=== PATIENT | female | born 1970 | race Caucasian/White ===

== ENCOUNTER → 2016-12-29 | Outpatient (CLI) | payer OTHER ==
[~2016-12-29] MED LIST: ALBU8.5H2 IH; AMOX-358 PO; BENZAPRIL PO; BNZ20T PO; CETI5TAB6 PO; CYCL10TA9 PO; FLUT9.9S NS; HYDR-700 PO; HYDR473S16 PO; MULT-608 PO; OMEP20TA2 PO; ONDA4TAB8 PO; ONDN4T PO
--- NOTE | 2017-01-01 13:57 | Diagnostic Imaging Report ---
Bilateral screening mammogram. The current study was also evaluated with a Computer Aided Detection (CAD) system. INDICATION: Screening. No current complaints stated on the questionnaire. COMPARISON: 10/06/2013. FINDINGS: The breasts are composed of heterogeneously dense parenchyma which may decrease mammographic sensitivity. There is no mass, architectural distortion, or suspicious cluster of calcification. Allowing for technique and positional differences, no suspicious change is seen. IMPRESSION: Dense breasts with no definite change. ACR BI-RADS Category 2: Benign findings. Result letter will be mailed to the patient. Note: At least 10% of breast cancer is not imaged by mammography. Dictated by: Dictated on workstation # [id number]
== END ==
LOC: RAD 09:46
PROVIDERS: ATTEND Nurse Practitioner Family
DX: Z12.31 Encounter for screening mammogram for malignant neoplasm of breast (principal)
CPT/HCPCS: 77067

== ENCOUNTER → 2017-04-10 | Outpatient (CLI) | payer OTHER ==
[~2017-04-10] VITALS: Ht 170.2 cm; Wt 65.8 kg
[2017-04-10] VITALS (38 sets, daily range): BP systolic 72–138; BP diastolic 50–109
[~2017-04-10] MED LIST changes: +NS IV 1000 ML 1,000 ML IV SCH; +NS IV 1000 ML 1,000 ML ONE
== END ==
LOC: RAD 07:04
PROVIDERS: ATTEND Nurse Practitioner Family
DX: R55 Syncope and collapse (principal); R06.02 Shortness of breath; R53.83 Other fatigue; Z95.810 Presence of automatic (implantable) cardiac defibrillator
CPT/HCPCS: 93660

== ENCOUNTER → 2017-04-17 | Outpatient (CLI) | payer OTHER ==
[~2017-04-17] MED LIST changes: -NS IV 1000 ML 1,000 ML IV SCH; -NS IV 1000 ML 1,000 ML ONE
== END ==
LOC: RAD 11:42
PROVIDERS: ATTEND Nurse Practitioner Family
DX: R55 Syncope and collapse (principal); Z82.49 Family history of ischemic heart disease and other diseases of the circulatory system
CPT/HCPCS: 93306

== ENCOUNTER → 2017-05-22 | Outpatient (CLI) | payer OTHER | LOC: CARD 09:11 | PROVIDERS: ATTEND Internal Medicine Cardiovascular Disease | DX: I10 Essential (primary) hypertension (principal); R55 Syncope and collapse; M79.89 Other specified soft tissue disorders ==

== ENCOUNTER 2018-11-08 02:34 | Emergency (ER) | payer OTHER ==
[~2018-11-08] VITALS: Ht 172.7 cm; Wt 81.6 kg
[2018-11-08] MEDS ORDERED: ONDANSETRON 4 MG/2 ML (SDV) Z0FRAN IVP ONE (02:45)
--- NOTE | 2018-11-08 03:20 | NUR ---
BACKBOARD REMOVED BY DR. RODARTE WITH LOG ROLL ASSIST PER 2 RN'S AND RT HOLDING C SPINE. ABRASION AND SWELLING NOTED TO MID BACK. PAIN TO BACK OF NECK UPON PALPATION, TENDERNESS DOWN BACK PER PALPATION.
[2018-11-08] MEDS ORDERED: fentaNYL INJECTION 100 MCG/2 ML AMP ONE ×2 (03:24→05:53)
[2018-11-08] MEDS ORDERED: fentaNYL INJECTION 100 MCG/2 ML AMP IVP ONE ×2 (03:30→05:45)
--- NOTE | 2018-11-08 04:34 | ED Fall/Injury ---
General Chief Complaint: Trauma-Non Activation Stated Complaint: FELL BACK IN CHAIR Nursing Triage Note: TO ED VIA [facility]. PT STATES SHE WAS HANGING PICTURE IN BATHROOM AND STANDING ON COUNTER, WENT TO MOVE TO STAND ON CHAIR AND SLIPPED AND FELL AND HIT BACK ON TOILET. DENIES HITTING HEAD, DENIES LOC. C COLLAR AND BACKBOARD IN PLACE UPON ARRIVAL. Source: patient, EMS History of Present Illness Date Seen by Provider: November 08, 2018 Time Seen by Provider: 02:33 Initial Comments PT ARRIVES VIA [facility] FROM HOME, FULLY IMMOBILIZED PT STATES SHE WAS HANGING A PICTURE IN THE BATHROOM TONIGHT AROUND 0130, AND HAD STOOD ON A CHAIR AND THEN STOOD ON THE COUNTER, THEN SHE WAS TRYING TO STAND ON THE CHAIR AGAIN, IT SLIPPED AND SHE FELL BACKWARDS, HITTING HER BACK ON THE TOILET DID NOT HIT HEAD AND NO LOSS OF CONSCIOUSNESS NO PARESTHESIAS OR MOTOR DEFICITS NO EXTREMITY INJURIES NO VISION CHANGES DID HAVE SOME NAUSEA ON SITTING UP NO HISTORY OF BACK PROBLEMS [facility] Allergies and Home Medications Allergies Coded Allergies: latex (Verified Allergy, Unknown, 04/28/15) Home Medications Albuterol 8.5 Gm Hfa.aer.ad, 2 PUFF IH Q4H PRN, (Reported) 2 PUFFS Amoxicillin/Potassium Clav 1 Each Tablet, 1 EACH PO BID, (Reported) Cyclobenzaprine HCl 10 Mg Tablet, 10 MG PO Q8H PRN for SPASMS Prescribed by: ANIYAH HILARIO on 04/28/151408 Cyclobenzaprine HCl 10 Mg Tablet, 10 MG PO Q8H Prescribed by: SUMMER RODARTE on 11/08/18550 Fluticasone Propionate 9.9 Ml [place].susp, 9.9 ML NS BID, (Reported) Hydroxyzine Hcl 25 Mg Tablet, 1 EACH PO HS, (Reported) Ondansetron 4 Mg Tab.rapdis, 4 MG PO Q6H PRN for NAUSEA Prescribed by: ANIYAH HILARIO on 04/28/151408 Tramadol HCl 50 Mg Tablet, 50 MG PO Q4H PRN for PAIN-MODERATE Prescribed by: SUMMER RODARTE on 11/08/18550 Patient Home Medication List Home Medication List Reviewed: Yes Review of Systems Review of Systems Constitutional: no symptoms reported Eyes: No Symptoms Reported Ears, Nose, Mouth, Throat: no symptoms reported Respiratory: no symptoms reported Cardiovascular: no symptoms reported Gastrointestinal: see HPI; No constipation, No diarrhea; nausea; No vomiting Genitourinary: no symptoms reported Musculoskeletal: see HPI, back pain Skin: no symptoms reported Psychiatric/Neurological: No Symptoms Reported Past Waeayri-Tnjdka-Yndeos Hx Patient Social History Alcohol Use: Denies Use Recreational Drug Use: No Smoking Status: Current Everyday Smoker (1/2 PPD) Type Used: Cigarettes (1/2 PPD) Recent Foreign Travel: No Contact w/Someone Who Travel: No Recent Infectious Disease Expo: No Recent Hopitalizations: No Immunizations Up To Date Tetanus Booster (TDap): Less than 5yrs Seasonal Allergies Seasonal Allergies: No Past Medical History Surgeries: Yes (LAP BAND, PARTIAL HYSTERECTOMY/OVARIES INTACT) Abdominal, Gallbladder, Hysterectomy Respiratory: Yes (ALLERGENIC ASTHMA) Asthma Cardiac: No Neurological: Yes Headaches /Migraines Reproductive Disorders: Yes (PARTIAL HYSTERECTOMY 1995.) Female Reproductive Disorders: Denies [employer]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 0oz. 81.637260uw; 22.7 BMI Method:Stated General Appearance: WD/WN, no apparent distress HEENT: PERRL/EOMI, normal ENT inspection Neck: tender lateral, tender midline Cardiovascular: normal peripheral pulses, regular rate, rhythm, no edema, no JVD, no murmur Respiratory: chest non-tender, normal breath sounds, no respiratory distress, no accessory muscle use Peripheral Pulses: 2+ Dorsalis Pedis (R), 2+ Left Dors-Pedis (L) Gastrointestinal: normal bowel sounds, non tender, soft Back: other (HAS ABRASION AND SWELLING TO MID AND LOWER THORACIC AREA,SLIGHTLY TO RIGHT OF SPINE. MODERATE TENDERNESS TO THORACIC SPINE, AND MILDER TENDERNESS TO CERVICAL AND LUMBAR AREAS) Extremities: normal range of motion, non-tender, normal inspection, no pedal edema, no calf tenderness Neurologic/Psychiatric: oiler bander II-XII nml as tested, no motor/sensory deficits, alert, normal mood/affect, oriented x 3 Skin: normal color, warm/dry, other (ABRASION NOTED ABOVE) Progress/Results/Core Measures Results/Orders My Orders Orders - SUMMER RODARTE DO Ct Head/Cervical Spine Wo (11/08/18 02:45) Ct Thoracic/Lumbar Spine Wo (11/08/18 02:45) Chest 1 View, Ap/Pa Only (11/08/18 02:45) Pelvis (11/08/18 02:45) Ed Iv/Invasive Line Start (11/08/18 02:45) Ondansetron Injection (Zofran Injectio (11/08/18 02:45) Fentanyl Injection (Sublimaze Injection (11/08/18 03:30) Fentanyl Injection (Sublimaze Injection (11/08/18 03:24) Fentanyl Injection (Sublimaze Injection (11/08/18 05:45) Rx-Cyclobenzaprine Tablet (Rx-Flexeril T (11/08/18 05:45) Rx-Tramadol Hcl (Rx-Ultram) (11/08/18 05:45) Medications Given in ED Current Medications Medications Dose Ordered Sig/[place] Route Start Time Stop Time Status Last Admin Dose Admin Fentanyl Citrate 50 mcg ONCE ONCE IVP 11/08/18 03:30 11/08/18 03:31 DC 11/08/18 03:30 50 MCG Vital Signs/I&O 11/08/18 11/08/18 02:34 02:34 Temp 98.0 98.0 Pulse 78 78 Resp 16 16 B/P (MAP) 124/87 (99) 124/87 (99) Pulse Ox 98 98 O2 Delivery Room Air Blood Pressure Mean: 99 Progress Progress Note : Progress Note FEELS MUCH BETTER AT DISMISSAL ON REVIEW OF CT RESULTS AND DILATED ESOPHAGUS, PT ADMITS TO HAVING TO SLEEP IN NEARLY UPRIGHT POSITION AND WAKING UP COUGHING AND CHOKING AT TIMES, AND HAVING SYMPTOMS OF ACID REFLUX Diagnostic Imaging Comments CXR--NO ACUTE PROCESS PELVIS XRAYS--NO ACUTE PROCESS PENDING RADIOLOGIST REVIEW CT HEAD/CERVICAL SPINE--NO ACUTE PROCESS, PER [facility] VIA FAX @ 7[address] CT THORACIC AND LUMBAR SPINE--NO ACUTE PROCESS, MARKED FLUID DISTENTION OF ENTIRE ESOPHAGUS WITH WALL THICKENING JUST PROXIMAL TO LAP BAND--PER [facility] VIA FAX @ 0475 AND DISCUSSED WITH RADIOLOGIST AT 7414 Reviewed: Reviewed by Me, Discussed w/Radiologist Departure Impression Primary Impression: Contusion of mid back Additional Impressions: S/P FALL FROM CHAIR CERVICAL, THORACIC AND LUMBAR STRAIN ESOPHAGEAL DILATION WITH LAP BAND IN PLACE Disposition: 01 HOME, SELF-CARE Condition: Stable Departure-Patient Inst. Referrals: BENNY STINSON DO (PCP) Primary Care Physician JANUARY LOPES (Family) Primary Care Physician Patient Instructions: Acid Reflux (Gastroesophageal Reflux Disease), Adult (DC) , Cervical Muscle Strain (DC), Contusion (DC), Esophageal Stricture (DC), Lumbar Muscle Strain (DC), Preventing Falls, Upper Back Pain (DC) Add. Discharge Instructions: ICE TO SORE AREAS AT 20 MINUTE INTERVALS FOR FIRST 24 HOURS, THEN ALTERNATE ICE AND HEAT TO SORE AREAS AT 20 MINUTE INTERVALS FOLLOW UP WITH YOUR DR IN 4-5 DAYS IF NO BETTER FOLLOW UP WITH DR. WILSON REGARDING LAP BAND AND ESOPHAGUS PROBLEMS All discharge instructions reviewed with patient and/or family. Voiced understanding. Scripts Tramadol HCl (Ultram) 50 Mg Tablet 50 MG PO Q4H PRN for PAIN-MODERATE for 3 Days, TAB Prov: SUMMER RODARTE DO 11/08/18 Cyclobenzaprine HCl (Cyclobenzaprine HCl) 10 Mg Tablet 10 MG PO Q8H, #15 TAB Prov: SUMMER RODARTE DO 11/08/18 Images Full Body/Extremities Full Progress SEE ADDITIONAL PAPER DIAGRAMS FOR IMAGES SUMMER RODARTE DO November 08, 2018 04:34
[2018-11-08] MEDS ORDERED: RX-TRAMADOL 50 MG (ULTRAM) TAB PPK#4 PO STA (05:45)
[2018-11-08] MEDS ORDERED: RX-CYCLOBENZAPRINE 10 MG (FLEXERIL) TAB PPK#3 PO STA (05:45)
[2018-11-08] MEDS ORDERED: TRAM-42 PO (05:51)
[2018-11-08] MEDS ORDERED: CYCL10TA9 PO (05:51)
[2018-11-08] MEDS ORDERED: RX-TRAMADOL 50 MG (ULTRAM) TAB PPK#4 PO ONE (05:53)
[2018-11-08] MEDS ORDERED: RX-CYCLOBENZAPRINE 10 MG (FLEXERIL) TAB PPK#3 PO ONE (05:54)
[2018-11-08 06:08] VITALS: BP 121/89
--- NOTE | 2018-11-08 06:25 | Diagnostic Imaging Report ---
PROCEDURE: CT thoracic and lumbar spine without contrast. TECHNIQUE: Multiple contiguous axial images were obtained through the thoracic and lumbar spine without the use of intravenous contrast. Sagittal and coronal reformations were then performed. INDICATION: Fall with back pain. FINDINGS: Thoracolumbar vertebral body heights are maintained and their alignment is anatomic. No acute endplate irregularity. No paravertebral hematoma. The visualized posterior rib segments appeared intact. The thoracolumbar neural arches and transverse processes intact. There is no fracture identified. SI joints and visualized sacral segments intact. Note is made of a gastric lap band procedure performed. The device appears inflated. There is proximal esophageal dilatation throughout its length to the level of the lower neck this accounts for abnormal mediastinal fullness radiographically. Consider esophagram to exclude pathological degrees of obstruction at the level of the band from swelling or overinflation. No evidence for esophageal leak or perforation. The partially visualized lungs revealed no evidence for contusion, pneumatocele, hemothorax or pneumothorax. IMPRESSION: No thoracolumbar spinal fracture. Abnormal distention of the esophagus above the level of the inflated lap band as discussed above. Dictated by: Dictated on workstation # [id number]
--- NOTE | 2018-11-08 06:44 | Diagnostic Imaging Report ---
INDICATION: Fall FINDINGS: There is abnormal mediastinal contour presumed owing to esophageal dilatation, better demonstrated at separately performed thoracic CT. No chest wall fracture with no lung contusion, pneumothorax or hemothorax. A gastric lap band device projects over the visualized left upper quadrant. IMPRESSION: No posttraumatic sequelae. Right paratracheal superior mediastinal fullness secondary to esophageal distention as demonstrated at separately performed thoracic CT. Dictated by: Dictated on workstation # [id number]
--- NOTE | 2018-11-08 06:45 | Diagnostic Imaging Report ---
INDICATION: Injury FINDINGS: No fracture or dislocation identified. IMPRESSION: No acute bony abnormality. Dictated by: Dictated on workstation # [id number]
--- NOTE | 2018-11-08 07:37 | Diagnostic Imaging Report ---
PROCEDURE: CT head and CT cervical spine without contrast. TECHNIQUE: Multiple contiguous axial images were obtained through the brain and cervical spine without the use of intravenous contrast. Sagittal and coronal reformations through the cervical spine were then performed. Auto Exposure Controls were utilized during the CT exam to meet ALARA standards for radiation dose reduction. INDICATION: Fall hitting head and CT compared 04/28/2015. No previous dedicated cervical imaging. HEAD: There is no hemorrhage, hydrocephalus, edema, mass, mass effect or evidence for elevated intracranial pressures and there has been no interval change. The basilar cisterns are patent. There is no sulcal effacement. There is no calvarial fracture deformity. No pneumocephalus. No paranasal sinus air-fluid level. No acute appearing abnormality. CT CERVICAL SPINE: Cervical body heights are maintained. There are degenerative changes to the discs endplates and facets at the C5-C6 level on a chronic basis where osteophyte disc material results in a [id number] degree of spinal canal stenosis and mild biforaminal narrowing. There was, however, no cervical fracture or traumatic malalignment. Note is made of dilatation of the lower cervical and visualized upper thoracic esophagus discussed on separate imaging. IMPRESSION: CT HEAD: Stable CT head with no acute finding. CT CERVICAL SPINE: Degenerative changes and resultant stenosis C5-C6 on a chronic basis. No cervical fracture or traumatic malalignment. Esophageal dilatation. Dictated by: Dictated on workstation # [id number]
== END 2018-11-08 06:13 | disposition home or self-care (01) ==
LOC: EDUNIT# 02:34 → ER 02:36
DX: S39.012A Strain of muscle, fascia and tendon of lower back, initial encounter (principal); S23.3XXA Sprain of ligaments of thoracic spine, initial encounter; S16.1XXA Strain of muscle, fascia and tendon at neck level, initial encounter; J45.909 Unspecified asthma, uncomplicated; G43.909 Migraine, unspecified, not intractable, without status migrainosus; E66.9 Obesity, unspecified; F17.210 Nicotine dependence, cigarettes, uncomplicated; Z98.84 Bariatric surgery status; Z68.27 Body mass index [BMI] 27.0-27.9, adult; Z90.711 Acquired absence of uterus with remaining cervical stump; Z91.040 Latex allergy status; Z79.51 Long term (current) use of inhaled steroids; W07.XXXA Fall from chair, initial encounter; Y92.002 Bathroom of unspecified non-institutional (private) residence as the place of occurrence of the external cause
CPT/HCPCS: 70450; 71045; 72125; 72128; 72131; 72170

== ENCOUNTER 2018-11-14 09:16 | Outpatient (CLI) | payer OTHER ==
[~2018-11-14] VITALS: Ht 172.7 cm; Wt 83.0 kg
[~2018-11-14 09:16] MED LIST changes: +TRAM-42 PO
[2018-11-15] MEDS ORDERED: PANT40TA2 PO (14:30)
== END 2018-11-14 11:49 | disposition home or self-care (01) ==
LOC: PREOP 09:16
PROVIDERS: ATTEND Surgery
DX: Z01.818 Encounter for other preprocedural examination (principal)

== ENCOUNTER 2018-11-15 11:21 | Day surgery (SDC) | payer OTHER ==
[~2018-11-15] VITALS: Ht 172.7 cm; Wt 83.0 kg
--- OUTSIDE RECORDS SUMMARY | 2018-11-15 11:24 | XMS REPORT ---
Author Author Migration, Doctor Organization [facility] Address Unknown Phone Unavailable Care Team Providers Care Boat Laborer Name Role Phone Migration, Doctor Unavailable Unavailable PROBLEMS Type Condition ICD9-CM Code [id number] Code Onset Dates Condition Status SNOMED Code Problem Obesity (BMI 30.0-34.9) E66.9 Active 366341505749998 Problem Dysthymia F34.1 Active 84621026 Problem Allergic rhinitis, unspecified allergic rhinitis type J30.9 Active 54405880 Problem Hot flashes, menopausal N95.1 Active 571370478 Problem History of syncope Z87.898 Active 034740400774819 Problem Menopause Z78.0 Active 293930263 ALLERGIES No Information ENCOUNTERS Encounter Location Date Diagnosis [address] [id number] Apr, Nummular eczema L30.0 and Dysthymia F34.1 [address] [id number] Dec, Allergic rhinitis, unspecified allergic rhinitis type J30.9 [address] [id number] November, Dysthymia F34.1 and Hot flashes, menopausal N95.1 [address] [id number] Oct, Dysthymia F34.[address] [id number] [id number] Sep, Dysthymia F34.1 [facility] [address] [id number] [id number] Mar, Syncope, unspecified syncope type R55 ; Tobacco use Z72.0 and Family history of early CAD Z82.[address] [id number] [id number] Feb, Elevated fasting blood sugar R73.01 and History of syncope Z87.898 [facility] [address] [place], [place] [address] [id number][place] [id number] Jan, Elevated fasting blood sugar R73.01 [facility] [address] [facility] [place] [id number] [place] [address] Jan, [id number] [id number] Jan, History of syncope Z87.898 ; Obesity (BMI 30.0-34.9) E66.9 and Menopause Z78.0 [address] [address] Jan, History of syncope Z87.898 ; Menopause Z78.0 ; Obesity (BMI 30.0-34.9) E66.9 ; Family history of CHF (congestive heart failure) Z82.49 and Family history of heart disease Z82.[address] [place] [id number] Jan, [address] [id number] Dec, Well woman exam Z01.419 and Hot flashes, menopausal N95.1 [facility] [id number][place] [address] Sep, Allergic rhinitis, unspecified allergic rhinitis type J30.[address] [id number] [place] [id number] Sep, [address] [place] [id number] Jun, Non-seasonal allergic rhinitis due to other allergic trigger J30.89 [address] [id number] Sep, Allergic rhinitis, unspecified allergic rhinitis type J30.9 ; Screening cholesterol level Z13.220 ; Screening, heart disease, ischemic Z13.6 and Screening for thyroid disorder Z13.29 [address] [id number] 08 Mar, 2016 Seasonal allergies J30.2 [facility] [place] [facility] [address] [id number] [place] [address] May, [facility] [place] [facility] [address] [id number] [place] [address] Mar, [facility] [place] [facility] [address] [id number] [place] [address] Mar, [facility] [place] [facility] [address] [id number] [place] [address] Feb, [facility] [place] [facility] [address] [id number] [place] [address] Feb, [facility] [place] [facility] [address] [id number] [place] [address] Dec, [facility] [place] [facility] [address] [facility] [place] [id number] [place] [address] Oct, [facility] [place] [facility] [address] [id number], [place] [address] Oct, [facility] [place] [facility] [address] [facility] [place] [id number] [place] [address] Sep, [facility] [place] [facility] [address] [facility] [place] [id number], [place] [address] Sep, [facility] [place] [facility] [address] [facility] [place] [id number] [place] [address] Aug, [facility] [place] [facility] [address] [facility] [place] [id number], [place] [address] Aug, [facility] [place] [facility] [address] [id number] [place] [address] Jun, [facility] [place] [facility] [address] [id number] [place] [address] Jun, [facility] [place] [facility] [address] [facility] [place] [id number] [place] [address] May, [facility] [place] [facility] [address] [id number] [place] [address] May, [facility] [place] [facility] [address] [id number] [place] [address]46 Apr, [facility] [place] [facility] [address] [id number] [place] [address] Apr, [facility] [place] [facility] [address] [id number] [place] [address] Dec, [facility] [place] [facility] [address] [id number] [place] [address] Dec, [facility] [place] [facility] [address] [id number] [place] [address] Dec, [facility] [place] [facility] [address] [id number] [place] [address] Dec, [facility] [address] [id number] [address] November, [facility] [place] [facility] [address] [id number] [place] [address] November, [facility] [place] [facility] [address] [id number] [place] November, [facility] [place] [facility] [address] [id number] [place] [address] November, [facility] [place] [facility] [address] [id number] [place] [address] November, [facility] [place] [facility] [address] [id number] [place] [address] November, [facility] [place] [facility] [address] [id number] [place] [address] November, [facility] [place] [facility] [address] [id number] [place] [address] Oct, [facility] [place] [facility] [address] [id number] [place] [address] Oct, [facility] [address] [facility] [id number] [place] [id number] Sep, [facility] [place] [facility] [address] [id number] [place] [address] Sep, [facility] [address] [id number] [place] [address] Sep, [facility] [place] [facility] [address] [facility] [place] [id number] [place] [address] Sep, [facility] [place] [facility] [address] [facility] [place] [id number] [place] [address] Sep, [facility] [place] [facility] [address] [facility] [place] [id number] [place] [address] Sep, [facility] [place] [facility] [address] [facility] [place] [id number] [place] [address] Jul, [facility] [place] [facility] [address] [facility] [place] [id number][place] [address] Jul, [facility] [address] [facility] [id number] [place] [address] Jul, [facility] [place] [facility] [address] [facility] [place] [id number], [place] [address] Jul, [facility] [place] [facility] [address] [facility] [place] [id number], [place] [address] Apr, [facility] [place] [facility] [address] [facility] [place] [id number][place] [address] Apr, [facility] [address] [id number] [place] [address] Jan, [facility] [place] [facility] [address] [id number] [place] [address] Jan, [facility] [address] [id number] [place] [id number] Sep, [facility] [address] [id number] [place] [address] Sep, [facility] [address] [id number] [place] [address] Sep, [facility] [address] [id number] [place] [address] Sep, [facility] [address] [facility] [id number] [place] [address] Sep, [facility] [place] [facility] [address] [id number], [place] [address] Sep, [facility] [place] [facility] [address] [facility] [place] [id number][place] [address] Sep, [facility] [address] [facility] [id number] [place] [address] Sep, [facility] [place] [facility] [address] [facility] [place] [id number], [place] [address]7775- 39[address] Sep, [facility] [place] [facility] [address] [facility] [place] [id number], [place] [address]9610- [address]246 Jun, [facility] [address] [facility] [id number] [place] [address] Jun, [facility] [place] [facility] [address] [facility] [place] [id number][place] [address]- [address]248 Jun, [facility] [place] [facility] [address] [facility] [place] [id number], [place] [address]- 4727 Jun, [facility] [address] [facility] [id number] [place] [id number] Jun, [facility] [place] [facility] [address] [facility] [place] [id number][place] 682035[place] 5821 Jun, [facility] [address] [facility] [id number] [place] [address] May, [facility] [place] [facility] [address] [facility] [place] [id number][place] [address]- 4195 May, [facility] [place] [facility] [address] [facility] [place] [id number], [place]19006- [address]12 May, [facility] [place] [facility] [address] [facility] [id number], [place] [address]84[place] 2515 May, [facility] [address] [facility] [id number] [place]LEY[place] [address] May, [facility] [place] [facility] [address] [facility] [place] [place] [id number], [place] [address]- 5451 May, [facility] [place] [facility] [address] [facility] [place] [id number], [place] [address]- 3634 Apr, [facility] [place] [facility] [address] [facility] [place] [id number][place] [address]- 7141 Apr, [facility] [place] [facility] [address] [id number][place] [address]- [address]85 Jan, [facility] [place] [facility] [address] [facility] [place] [id number], [place] [address]- 3986 Dec, [facility] [place] [facility] [address] [facility] [place] [id number][place] [address]- 7310 Dec, [facility] [place] [facility] [address] [facility] [place] [id number][place] [address]- 1665 Dec, [facility] [place] [facility] [address] [facility] [place] [id number][place] [address]- 6742 Dec, [facility] [place] [facility] [address] [facility] [id number][place] [address]- 2024 Dec, [facility] [place] [facility] [address] [facility] [place] [id number], [place] [address]- [address]250 Dec, [facility] [place] [facility] [address] [facility] [place] [id number][place] [address]- 3883 Dec, [facility] [place] [facility] [address] [facility] [id number], [place] [address]- 1380 November, [facility] [place] [facility] [address] [facility] [id number], [place] [address]- 4035 Oct, [facility] [place] [facility] [address] [facility] [place] [id number][place] [address]- 0272 Oct, [facility] [place] [facility] [address] [facility] [place] [id number][place] [address]- 0746 Sep, [facility] [place] [facility] [address] [facility] [id number], [place] [address] 2546 Sep, [facility] [address] [id number][place] [address]- 4890 Sep, [facility] [place] [facility] [address] [facility] [place] [id number][place] [address]- 2546 Sep, [facility] [address] [id number] [place] [id number] Aug, [facility] [address] [id number] [place] [address] Jul, [facility] [address] [id number] [place] [address] Jul, [facility] [place] [facility] [address] [facility] [place] [id number], [place] [address]- 5686 May, [facility] [place] [facility] [address] [id number], [place] [address]- 4022 Mar, [facility] [place] [facility] [address] [facility] [id number], [place] [address]- 3487 Sep, [facility] [place] [facility] [address] [facility] [id number], [place] [address]- 5149 May, [facility] [place] [facility] [address] [facility] [id number], [place] [address]- 9816 May, [facility] [place] [facility] [address] [id number], [place] [address]- 7515 May, [facility] [place] [facility] [address] [facility] [id number], [place] [address]- 6454 May, [facility] [place] [facility] [address] [facility] [id number], [place] [address]- 5150 Jun, [facility] [place] [facility] [address] [facility] [place] [id number][place] [address]- 7342 Jun, [facility] [place] [facility] [address] [facility] [id number], [place] [address] 2548 May, [facility] [place] [facility] [address] [facility] [place] [id number] [place] [address] Apr, IMMUNIZATIONS No Known Immunizations SOCIAL HISTORY Never Assessed REASON FOR VISIT [place] [place] VITAL SIGNS MEDICATIONS No Known Medications RESULTS No Results PROCEDURES No Known procedures INSTRUCTIONS MEDICATIONS ADMINISTERED No Known Medications MEDICAL (GENERAL) HISTORY Type Description Date Medical History seasonal allergies Surgical History lap band 2011 Surgical History partial hysterectomy 1995?
--- OUTSIDE RECORDS SUMMARY | 2018-11-15 11:25 | XMS REPORT ---
Author Author Migration, Doctor Organization [facility] Address Unknown Phone Unavailable Care Team Providers Care Weight Guesser Name Role Phone Migration, Doctor Unavailable Unavailable PROBLEMS Type Condition ICD9-CM Code LTO01-PX Code Onset Dates Condition Status SNOMED Code Problem Obesity (BMI 30.0-34.9) E66.9 Active 974876342086220 Problem Dysthymia F34.1 Active 60238930 Problem Allergic rhinitis, unspecified allergic rhinitis type J30.9 Active 52272139 Problem Hot flashes, menopausal N95.1 Active 074239453 Problem History of syncope Z87.898 Active 478388608804333 Problem Menopause Z78.0 Active 719995560 ALLERGIES No Information ENCOUNTERS Encounter Location Date Diagnosis [id number] [id number] Apr, Nummular eczema L30.0 and Dysthymia F34.1 [id number] [id number] Dec, Allergic rhinitis, unspecified allergic rhinitis type J30.9 [address] [id number] November, Dysthymia F34.1 and Hot flashes, menopausal N95.1 [address] [id number] Oct, Dysthymia F34.[address] [id number][place] [address] Sep, Dysthymia F34.1 [facility] [address] [id number] [id number] Mar, Syncope, unspecified syncope type R55 ; Tobacco use Z72.0 and Family history of early CAD Z82.[address] [id number][place] [id number] Feb, Elevated fasting blood sugar R73.01 and History of syncope Z87.898 [facility] [address] [place], [place] [address] [id number] [id number] Jan, Elevated fasting blood sugar R73.01 [facility] [address] [facility] [id number] [place] [address] Jan, [id number] [address] Jan, History of syncope Z87.898 ; Obesity (BMI 30.0-34.9) E66.9 and Menopause Z78.0 [address] [id number] Jan, History of syncope Z87.898 ; Menopause Z78.0 ; Obesity (BMI 30.0-34.9) E66.9 ; Family history of CHF (congestive heart failure) Z82.49 and Family history of heart disease Z82.[address] [place] [id number] Jan, [address] [address] Dec, Well woman exam Z01.419 and Hot flashes, menopausal N95.1 [facility] [address] [id number] [id number] Sep, Allergic rhinitis, unspecified allergic rhinitis type J30.[address] [id number][place] [id number] Sep, [address] [place] [id number] Jun, Non-seasonal allergic rhinitis due to other allergic trigger J30.89 [address] [id number] Sep, Allergic rhinitis, unspecified allergic rhinitis type J30.9 ; Screening cholesterol level Z13.220 ; Screening, heart disease, ischemic Z13.6 and Screening for thyroid disorder Z13.29 [address] [id number] 08 Mar, 2016 Seasonal allergies J30.2 [facility] [place] [facility] [address] [id number] [place] [address] May, [facility] [place] [facility] [address] [id number] [place] [address] Mar, [facility] [place] [facility] [address] [id number] [place] [address] Mar, [facility] [place] [facility] [address] [id number] [place] [address] Feb, [facility] [place] [facility] [address] [id number] [place] [address] Feb, [facility] [place] [facility] [address] [id number] [place] [address] Dec, [facility] [place] [facility] [address] [facility] [id number] [place] [address] Oct, [facility] [place] [facility] [address] [id number], [place] [address] Oct, [facility] [place] [facility] [address] [facility] [id number] [place] [address] Sep, [facility] [place] [facility] [address] [facility] [id number][place] [address] Sep, [facility] [place] [facility] [address] [facility] [id number] [place] [address] Aug, [facility] [place] [facility] [address] [facility] [id number][place] [address] Aug, [facility] [place] [facility] [address] [id number] [place] [address] Jun, [facility] [place] [facility] [address] [id number] [place] [address] Jun, [facility] [place] [facility] [address] [facility] [id number] [place] [address] May, [facility] [place] [facility] [address] [id number] [place] [address] May, [facility] [place] [facility] [address] [id number] [place] [address] Apr, [facility] [place] [facility] [address] [id number] [place] [address] Apr, [facility] [place] [facility] [address] [id number] [place] [address] Dec, [facility] [place] [facility] [address] [id number] [place] [address] Dec, [facility] [place] [facility] [address] [id number] [place] [address] Dec, [facility] [place] [facility] [address] [id number] [place] [address] Dec, [facility] [address] [id number] [id number] November, [facility] [place] [facility] [address] [id number] [place] [address] November, [facility] [place] [facility] [address] [id number] [place] [address] November, [facility] [place] [facility] [address] [id number] [place] [address] November, [facility] [place] [facility] [address] [id number] [place] [address] November, [facility] [place] [facility] [address] [id number] [place] [address] November, [facility] [place] [facility] [address] [id number] [place] [address] November, [facility] [place] [facility] [address] [id number] [place] [address] Oct, [facility] [place] [facility] [address] [id number] [place] [address] Oct, [facility] [address] [facility] [id number] [place] [id number] Sep, [facility] [place] [facility] [address] [id number] [place] [address] Sep, [facility] [address] [id number] [place] [id number] Sep, [facility] [place] [facility] [address] [facility] [id number] [place] [address] Sep, [facility] [place] [facility] [address] [facility] [id number] [place] [address] Sep, [facility] [place] [facility] [address] [facility] [id number] [place] [address] Sep, [facility] [place] [facility] [address] [facility] [id number] [place] [address] 269[address] Jul, [facility] [place] [facility] [address] [facility] [id number], [place] [address] Jul, [facility] [address] [facility] [id number][place] [address] Jul, [facility] [place] [facility] [address] [facility] [id number], [place] [address] Jul, [facility] [place] [facility] [address] [facility] [id number][place] [address] Apr, [facility] [place] [facility] [address] [facility] [id number][place] [address] Apr, [facility] [address] [id number], [place] [address] Jan, [facility] [place] [facility] [address] [id number] [place] [address] Jan, [facility] [address] [id number] [place] [address] Sep, [facility] [address] [id number] [place] [address] Sep, [facility] [address] [id number] [place] [address] Sep, [facility] [address] [id number], [place] [address] Sep, [facility] [address] [facility] [id number] [place] [address] Sep, [facility] [place] [facility] [address] [id number], [place] [address] Sep, [facility] [place] [facility] [address] [facility] [id number][place] [address] Sep, [facility] [address] [facility] [id number], [place] [address] Sep, [facility] [place] [facility] [address] [facility] [id number][place] [address] Sep, [facility] [place] [facility] [address] [facility] [id number][place] [address] Jun, [facility] [address] [facility] [id number], [place] [address] Jun, [facility] [place] [facility] [address] [facility] [id number], [place] [address] Jun, [facility] [place] [facility] [address] [facility] [id number], [place] [address] Jun, [facility] [address] [facility] [id number], [place] [address] Jun, [facility] [place] [facility] [address] [facility] [id number][place] 9683 Jun, [facility] [address] [facility] [id number][place] [address] May, [facility] [place] [facility] [address] [facility] [id number], [place] [address] May, [facility] [place] [facility] [address] [facility] [id number], [place] 402039- 8630 May, [facility] [place] [facility] [address] [facility] [id number], [place] [address] May, [facility] [address] [facility] [id number], [place] [id number] May, [facility] [place] [facility] [address] [facility] [id number][place] [address]- 7739 May, [facility] [place] [facility] [address] [facility] [id number][place] [address]- 2985 Apr, [facility] [place] [facility] [address] [facility] [id number][place] [address]459 Apr, [facility] [place] [facility] [address] [id number], [place] [address]- 0643 Jan, [facility] [place] [facility] [address] [facility] [id number], [place] [address]- 7874 Dec, [facility] [place] [facility] [address] [facility] [id number][place] [address]- [address]129 Dec, [facility] [place] [facility] [address] [facility] [id number][place] [address]- 7618 Dec, [facility] [place] [facility] [address] [facility] [id number][place] [address]- 5876 Dec, [facility] [place] [facility] [address] [facility] [id number][place] [address]- 0817 Dec, [facility] [place] [facility] [address] [facility] [id number][place] [address]- 9113 Dec, [facility] [place] [facility] [address] [facility] [id number], [place] [address]- 8778 Dec, [facility] [place] [facility] [address] [facility] [id number][place] [address] November, [facility] [place] [facility] [address] [facility] [id number], [place] [address]- 0179 Oct, [facility] [place] [facility] [address] [facility] [id number], [place] [address]- 8776 Oct, [facility] [place] [facility] [address] [facility] [id number][place] [address]- 4140 Sep, [facility] [place] [facility] [address] [facility] [id number], [place] [address] 2546 Sep, [facility] [address] [id number][place] [address]- 3529 Sep, [facility] [place] [facility] [address] [facility] [id number][place] [address]- 2546 Sep, [facility] [address] [id number], [place] [address] Aug, [facility] [address] [id number], [place] [id number] Jul, [facility] [address] [id number], [place] [address] Jul, [facility] [place] [facility] [address] [facility] [id number], [place] [address]- 7996 May, [facility] [place] [facility] [address] [id number], [place] [address]- 0962 Mar, [facility] [place] [facility] [address] [facility] [id number][place] [address]- 9476 Sep, [facility] [place] [facility] [address] [facility] [id number][place] [address]- 8751 May, [facility] [place] [facility] [address] [facility] [id number][place] [address]- 4719 May, [facility] [place] [facility] [address] [id number], [place] [address]- 0934 May, [facility] [place] [facility] [address] [facility] [id number][place] [address]- 5188 May, [facility] [place] [facility] [address] [facility] [id number][place] [address]- 4307 Jun, [facility] [place] [facility] [address] [facility] [id number], [place] [address]- [address]109 Jun, [facility] [place] [facility] [address] [facility] [id number], [place] [address] 2544 May, [facility] [place] [facility] [address] [facility] [id number] [place] [address]- [address]21 Apr, IMMUNIZATIONS No Known Immunizations SOCIAL HISTORY Never Assessed [place] [place] VITAL SIGNS MEDICATIONS Medication Instructions Dosage Frequency Start Date End Date Duration Status Phenergan with Codeine 10 mg-6.25 mg/5 mL SI mL orally every 4 hours for 5 day(s) Jul, Active Vitamin D2 50,000 unit take 1 capsule (50,000 unit) by oral route once weekly for 12 weeks Sep, Active Ambien 10 mg 1 tablet by Oral route 1 time per day PRN Sep, Active Tamiflu 75 mg 1 capsule by Oral route 2 times per day for 5 day(s) Treatment Dosing Jul, Active RESULTS No Results PROCEDURES No Known procedures INSTRUCTIONS MEDICATIONS ADMINISTERED No Known Medications MEDICAL (GENERAL) HISTORY Type Description Date Medical History seasonal allergies Surgical History lap band 2011 Surgical History partial hysterectomy 1995?
--- OUTSIDE RECORDS SUMMARY | 2018-11-15 11:25 | XMS REPORT ---
Author Author Migration, Doctor Organization [facility] Address Unknown Phone Unavailable Care Team Providers Care Vehicle Damage Appraiser Name Role Phone Migration, Doctor Unavailable Unavailable PROBLEMS Type Condition ICD9-CM Code CUE49-HZ Code Onset Dates Condition Status SNOMED Code Problem Obesity (BMI 30.0-34.9) E66.9 Active 707326431128291 Problem Dysthymia F34.1 Active 21243460 Problem Allergic rhinitis, unspecified allergic rhinitis type J30.9 Active 07689826 Problem Hot flashes, menopausal N95.1 Active 279722057 Problem History of syncope Z87.898 Active 031949663660901 Problem Menopause Z78.0 Active 975508901 ALLERGIES No Information ENCOUNTERS Encounter Location Date Diagnosis [id number] [id number] Apr, Nummular eczema L30.0 and Dysthymia F34.1 [address] [id number] Dec, Allergic rhinitis, unspecified allergic rhinitis type J30.9 [address] [id number] November, Dysthymia F34.1 and Hot flashes, menopausal N95.1 [address] [id number] Oct, Dysthymia F34.[address] [id number] [id number] Sep, Dysthymia F34.1 [facility] [address] [id number] [id number] Mar, Syncope, unspecified syncope type R55 ; Tobacco use Z72.0 and Family history of early CAD Z82.[address] [id number] [id number] Feb, Elevated fasting blood sugar R73.01 and History of syncope Z87.898 [facility] [address] [place], [place] [address] [id number] [id number] Jan, Elevated fasting blood sugar R73.01 [facility] [address] [facility] [id number] [place] [address] Jan, [id number] [id number] Jan, History of syncope Z87.898 ; Obesity (BMI 30.0-34.9) E66.9 and Menopause Z78.0 [address] [id number] Jan, History of syncope Z87.898 ; Menopause Z78.0 ; Obesity (BMI 30.0-34.9) E66.9 ; Family history of CHF (congestive heart failure) Z82.49 and Family history of heart disease Z82.[id number] [place] [id number] Jan, [address] [id number] Dec, Well woman exam Z01.419 and Hot flashes, menopausal N95.1 [facility] [address] [id number] [id number] Sep, Allergic rhinitis, unspecified allergic rhinitis type J30.[address] [id number], [place] [id number] Sep, [id number] [place] [id number] Jun, Non-seasonal allergic rhinitis due to other allergic trigger J30.89 [address] [id number] Sep, Allergic rhinitis, unspecified allergic rhinitis type J30.9 ; Screening cholesterol level Z13.220 ; Screening, heart disease, ischemic Z13.6 and Screening for thyroid disorder Z13.29 [address] [id number] 08 Mar, 2016 Seasonal allergies J30.2 [facility] [place] [facility] [address] [id number] [place] [address] May, [facility] [place] [facility] [address] [id number] [place] [address] Mar, [facility] [place] [facility] [address] [id number] [place] [address] Mar, [facility] [place] [facility] [address] [id number] [place] [address] Feb, [facility] [place] [facility] [address] [id number] [place] [address] Feb, [facility] [place] [facility] [address] [id number] [place] [address] Dec, [facility] [place] [facility] [address] [facility] [id number] [place] [address] Oct, [facility] [place] [facility] [address] [id number], [place] [address] Oct, [facility] [place] [facility] [address] [facility] [id number] [place] [address] Sep, [facility] [place] [facility] [address] [facility] [id number], [place] [address]85 Sep, [facility] [place] [facility] [address] [facility] [id number] [place] [address] Aug, [facility] [place] [facility] [address] [facility] [id number], [place] [address] Aug, [facility] [place] [facility] [address] [id number] [place] [address] Jun, [facility] [place] [facility] [address] [id number] [place] [address] Jun, [facility] [place] [facility] [address] [facility] [id number] [place] [address] May, [facility] [place] [facility] [address] [id number] [place] [address]- 2546 May, [facility] [place] [facility] [address] [id number] [place] [address] Apr, [facility] [place] [facility] [address] [id number] [place] [address] Apr, [facility] [place] [facility] [address] [id number] [place] [address] Dec, [facility] [place] [facility] [address] [id number] [place] [address] Dec, [facility] [place] [facility] [address] [id number] [place] [address] Dec, [facility] [place] [facility] [address] [id number] [place] [address] Dec, [facility] [address] [id number] [id number] November, [facility] [place] [facility] [address] [id number] [place] [address] November, [facility] [place] [facility] [address] [id number] [place] [address]- [address] November, [facility] [place] [facility] [address] [id number] [place] [address]- [address]66 November, [facility] [place] [facility] [address] [id number] [place] [address]- 5866 November, [facility] [place] [facility] [address] [id number] [place] [address]- [address]46 November, [facility] [place] [facility] [address] [id number] [place] [address]- [address]46 November, [facility] [place] [facility] [address] [id number] [place] [address]- [address] Oct, [facility] [place] [facility] [address] [id number] [place] [address]- [address] Oct, [facility] [address] [facility] [id number] [place] [id number] Sep, [facility] [place] [facility] [address] [id number] [place] [address] Sep, [facility] [address] [id number] [place] [address] Sep, [facility] [place] [facility] [address] [facility] [id number] [place] [address]- [address] Sep, [facility] [place] [facility] [address] [facility] [id number] [place] [address]- [address] Sep, [facility] [place] [facility] [address] [facility] [id number] [place] [address]- [address]37 Sep, [facility] [place] [facility] [address] [facility] [id number] [place] [address]- [address] Jul, [facility] [place] [facility] [address] [facility] [id number], [place] [address] Jul, [facility] [address] [facility] [id number][place] [address] Jul, [facility] [place] [facility] [address] [facility] [id number], [place] [address]- [address] Jul, [facility] [place] [facility] [address] [facility] [id number], [place] [address]- [address] Apr, [facility] [place] [facility] [address] [facility] [id number], [place] [address] Apr, [facility] [address] [id number][place] [address] Jan, [facility] [place] [facility] [address] [id number] [place] [address]- [address] Jan, [facility] [address] [id number] [place] [address] Sep, [facility] [address] [id number] [place] [address] Sep, [facility] [address] [id number] [place] [address] Sep, [facility] [address] [id number], [place] [address] Sep, [facility] [address] [facility] [id number] [place] [address] Sep, [facility] [place] [facility] [address] [id number], [place] [address] Sep, [facility] [place] [facility] [address] [facility] [id number], [place] [address]- [address] Sep, [facility] [address] [facility] [id number], [place] [address] Sep, [facility] [place] [facility] [address] [facility] [id number], [place] [address]- [address] Sep, [facility] [place] [facility] [address] [facility] [id number], [place] [address]- [address] Jun, [facility] [address] [facility] [id number], [place] [address]84[address] Jun, [facility] [place] [facility] [address] [facility] [id number], [place] [address]- [address] Jun, [facility] [place] [facility] [address] [facility] [id number], [place] [address]- 6[address] Jun, [facility] [address] [facility] [id number], [place] [address] Jun, [facility] [place] [facility] [address] [facility] [id number], [place] [address]- [address] Jun, [facility] [address] [facility] [id number], [place] [address] May, [facility] [place] [facility] [address] [facility] [id number], [place] [address]- 9952 May, [facility] [place] [facility] [address] [facility] [id number], [place]806[place]- 7538 May, [facility] [place] [facility] [address] [facility] [id number], [place] 047456- 8170 May, [facility] [address] [facility] [id number], [place] [address]701[address] May, [facility] [place] [facility] [address] [facility] [id number], [place] [address]- 5328 May, [facility] [place] [facility] [address] [facility] [id number], [place] [address]- 5035 Apr, [facility] [place] [facility] [address] [facility] [id number], [place] [address]- 6685 Apr, [facility] [place] [facility] [address] [id number], [place] [address]- [address]01 Jan, [facility] [place] [facility] [address] [facility] [id number], [place] [address]- 1163 Dec, [facility] [place] [facility] [address] [facility] [id number], [place] [address]- 5887 Dec, [facility] [place] [facility] [address] [facility] [id number], [place] [address]- 2228 Dec, [facility] [place] [facility] [address] [facility] [id number], [place] [address]- 4924 Dec, [facility] [place] [facility] [address] [facility] [id number], [place] [address]- 2512 Dec, [facility] [place] [facility] [address] [facility] [id number], [place] [address]- 8092 Dec, [facility] [place] [facility] [address] [facility] [id number], [place] [address]- 9190 Dec, [facility] [place] [facility] [address] [facility] [id number], [place] [address]- 6979 November, [facility] [place] [facility] [address] [facility] [id number], [place] [address]- 6108 Oct, [facility] [place] [facility] [address] [facility] [id number], [place] [address]- 4726 Oct, [facility] [place] [facility] [address] [facility] [id number], [place] [address]- 9397 Sep, [facility] [place] [facility] [address] [facility] [id number], [place] [address] 2546 Sep, [facility] [address] [id number], [place] [address]- 5[address] Sep, [facility] [place] [facility] [address] [facility] [id number], [place] [address]- 2546 Sep, [facility] [address] [id number], [place] [id number] Aug, [facility] [address] [id number], [place] [address] Jul, [facility] [address] [id number], [place] [id number] Jul, [facility] [place] [facility] [address] [facility] [id number], [place] [address]- 1876 May, [facility] [place] [facility] [address] [id number], [place] [address]- 6570 Mar, [facility] [place] [facility] [address] [facility] [id number], [place] [address]- 4745 Sep, [facility] [place] [facility] [address] [facility] [id number], [place] [address]- 8960 May, [facility] [place] [facility] [address] [facility] [id number], [place] [address]- 6468 May, [facility] [place] [facility] [address] [id number], [place] [address]- 1207 May, [facility] [place] [facility] [address] [facility] [id number], [place] [address]- 4190 May, [facility] [place] [facility] [address] [facility] [id number], [place] [address]- 1010 Jun, [facility] [place] [facility] [address] [facility] [id number], [place] [address]- 5905 Jun, [facility] [place] [facility] [address] [facility] [id number], [place] [address] 2548 May, [facility] [place] [facility] [address] [facility] [id number] [place] [address]- 9623 Apr, IMMUNIZATIONS No Known Immunizations SOCIAL HISTORY Never Assessed REASON FOR VISIT EMR[place] [place] OF CARE VITAL SIGNS MEDICATIONS No Known Medications RESULTS No Results PROCEDURES No Known procedures INSTRUCTIONS MEDICATIONS ADMINISTERED No Known Medications MEDICAL (GENERAL) HISTORY Type Description Date Medical History seasonal allergies Surgical History lap band 2011 Surgical History partial hysterectomy 1995?
--- OUTSIDE RECORDS SUMMARY | 2018-11-15 11:25 | XMS REPORT ---
Author Author Migration, Doctor Organization [facility] Address Unknown Phone Unavailable Care Team Providers Care Stock Sorter Name Role Phone Migration, Doctor Unavailable Unavailable PROBLEMS Type Condition ICD9-CM Code QEC68-TS Code Onset Dates Condition Status SNOMED Code Problem Obesity (BMI 30.0-34.9) E66.9 Active 212792906108527 Problem Dysthymia F34.1 Active 24079451 Problem Allergic rhinitis, unspecified allergic rhinitis type J30.9 Active 41379271 Problem Hot flashes, menopausal N95.1 Active 711548993 Problem History of syncope Z87.898 Active 768288592685633 Problem Menopause Z78.0 Active 609456642 ALLERGIES No Information ENCOUNTERS Encounter Location Date Diagnosis [id number] [id number] Apr, Nummular eczema L30.0 and Dysthymia F34.1 [id number] [id number] Dec, Allergic rhinitis, unspecified allergic rhinitis type J30.9 [address] [id number] November, Dysthymia F34.1 and Hot flashes, menopausal N95.1 [address] [id number] Oct, Dysthymia F34.[address] [id number] [id number] Sep, Dysthymia F34.1 [facility] [address] [id number] [id number] Mar, Syncope, unspecified syncope type R55 ; Tobacco use Z72.0 and Family history of early CAD Z82.[address] [id number] [id number] Feb, Elevated fasting blood sugar R73.01 and History of syncope Z87.898 [facility] [address] [place], [place] [address] [id number] [id number] Jan, Elevated fasting blood sugar R73.01 [facility] [address] [facility] [id number] [place] [address] Jan, [id number] [address] Jan, History of syncope Z87.898 ; Obesity (BMI 30.0-34.9) E66.9 and Menopause Z78.0 [address] [address] Jan, History of syncope Z87.898 ; Menopause Z78.0 ; Obesity (BMI 30.0-34.9) E66.9 ; Family history of CHF (congestive heart failure) Z82.49 and Family history of heart disease Z82.[address] [place] [id number] Jan, [address] [id number] Dec, Well woman exam Z01.419 and Hot flashes, menopausal N95.1 [facility] [address] [id number][place] [id number] Sep, Allergic rhinitis, unspecified allergic rhinitis type J30.[address] [id number][place] [address] Sep, [address] [place] [id number] Jun, Non-seasonal allergic rhinitis due to other allergic trigger J30.89 [address] [id number] Sep, Allergic rhinitis, unspecified allergic rhinitis type J30.9 ; Screening cholesterol level Z13.220 ; Screening, heart disease, ischemic Z13.6 and Screening for thyroid disorder Z13.29 [address] [id number] 08 Mar, 2016 Seasonal allergies J30.2 [facility] [place] [facility] [address] [id number] [place] [address] May, [facility] [place] [facility] [address] [id number] [place] [address] Mar, [facility] [place] [facility] [address] [id number] [place] [address] Mar, [facility] [place] [facility] [address] [id number] [place] [address] Feb, [facility] [place] [facility] [address] [id number] [place] [address] Feb, [facility] [place] [facility] [address] [id number] [place] [address] Dec, [facility] [place] [facility] [address] [facility] [id number] [place] [address] Oct, [facility] [place] [facility] [address] [id number], [place] [address] Oct, [facility] [place] [facility] [address] [facility] [id number] [place] [address] Sep, [facility] [place] [facility] [address] [facility] [id number], [place] [address] Sep, [facility] [place] [facility] [address] [facility] [id number] [place] [address] Aug, [facility] [place] [facility] [address] [facility] [id number], [place] [address] Aug, [facility] [place] [facility] [address] [id number] [place] [address] Jun, [facility] [place] [facility] [address] [id number] [place] [address] Jun, [facility] [place] [facility] [address] [facility] [id number] [place] [address] May, [facility] [place] [facility] [address] [id number] [place] [address] May, [facility] [place] [facility] [address] [id number] [place] [address] Apr, [facility] [place] [facility] [address] [id number] [place] [address] Apr, [facility] [place] [facility] [address] [id number] [place] [address] Dec, [facility] [place] [facility] [address] [id number] [place] [address] Dec, [facility] [place] [facility] [address] [id number] [place] [address] Dec, [facility] [place] [facility] [address] [id number] [place] [address] Dec, [facility] [address] [id number] [address] November, [facility] [place] [facility] [address] [id number] [place] [address] November, [facility] [place] [facility] [address] [id number] [place] [address] November, [facility] [place] [facility] [address] [id number] [place] [address] November, [facility] [place] [facility] [address] [id number] [place] [address] November, [facility] [place] [facility] [address] [id number] [place] [address]- [address]46 November, [facility] [place] [facility] [address] [id number] [place] [address]- [address] November, [facility] [place] [facility] [address] [id number] [place] [address]- [address] Oct, [facility] [place] [facility] [address] [id number] [place] [address] Oct, [facility] [address] [facility] [id number] [place] [id number] Sep, [facility] [place] [facility] [address] [id number] [place] [address] Sep, [facility] [address] [id number] [place] [id number] Sep, [facility] [place] [facility] [address] [facility] [id number] [place] [address] Sep, [facility] [place] [facility] [address] [facility] [id number] [place] [address]- [address] Sep, [facility] [place] [facility] [address] [facility] [id number] [place] [address] Sep, [facility] [place] [facility] [address] [facility] [id number] [place] [address] Jul, [facility] [place] [facility] [address] [facility] [id number][place] [address] Jul, [facility] [address] [facility] [id number] [address] Jul, [facility] [place] [facility] [address] [facility] [id number][place] [address] Jul, [facility] [place] [facility] [address] [facility] [id number], [place] [address] Apr, [facility] [place] [facility] [address] [facility] [id number], [place] [address] Apr, [facility] [address] [id number][place] [address] Jan, [facility] [place] [facility] [address] [id number] [place] [address] Jan, [facility] [address] [id number] [place] [id number] Sep, [facility] [address] [id number] [place] [id number] Sep, [facility] [address] [id number] [place] [id number] Sep, [facility] [address] [id number][place] [address] Sep, [facility] [address] [facility] [id number] [place] [id number] Sep, [facility] [place] [facility] [address] [id number], [place] [address] Sep, [facility] [place] [facility] [address] [facility] [id number][place] [address] Sep, [facility] [address] [facility] [id number][place] [id number] Sep, [facility] [place] [facility] [address] [facility] [id number], [place] [address] Sep, [facility] [place] [facility] [address] [facility] [id number], [place] [address]65- [address] Jun, [facility] [address] [facility] [id number][place] [address]28[address] Jun, [facility] [place] [facility] [address] [facility] [id number][place] [address]- 6[address] Jun, [facility] [place] [facility] [address] [facility] [id number], [place] [address]- 5678 Jun, [facility] [address] [facility] [id number], [place] [id number] Jun, [facility] [place] [facility] [address] [facility] [id number][place] [address] Jun, [facility] [address] [facility] [id number][place] [address] May, [facility] [place] [facility] [address] [facility] [id number][place] [address]- 1869 May, [facility] [place] [facility] [address] [facility] [id number], [place] [address]- [address] May, [facility] [place] [facility] [address] [facility] [id number], [place] [address]- [address] May, [facility] [address] [facility] [id number], [place] [id number] May, [facility] [place] [facility] [address] [facility] [id number], [place] [address] May, [facility] [place] [facility] [address] [facility] [id number][place] [address]- 1577 Apr, [facility] [place] [facility] [address] [facility] [id number], [place] [address]- [address]4 Apr, [facility] [place] [facility] [address] [id number], [place] [address]- 5848 Jan, [facility] [place] [facility] [address] [facility] [id number][place] [address]- 5239 Dec, [facility] [place] [facility] [address] [facility] [id number][place] [address]- 7335 Dec, [facility] [place] [facility] [address] [facility] [id number][place] [address]- [address]139 Dec, [facility] [place] [facility] [address] [facility] [id number], [place] [address]- 6339 Dec, [facility] [place] [facility] [address] [facility] [id number], [place] [address]- 7476 Dec, [facility] [place] [facility] [address] [facility] [id number][place] [address]- 9431 Dec, [facility] [place] [facility] [address] [facility] [id number][place] [address]- 6535 Dec, [facility] [place] [facility] [address] [facility] [id number][place] [address]- 2112 November, [facility] [place] [facility] [address] [facility] [id number] [address]- 5733 Oct, [facility] [place] [facility] [address] [facility] [id number], [place] [address]- 6038 Oct, [facility] [place] [facility] [address] [facility] [id number], [place] [address]- 1010 Sep, [facility] [place] [facility] [address] [facility] [id number], [place] [address] 2546 Sep, [facility] [address] [id number][place] [address]- 0133 Sep, [facility] [place] [facility] [address] [facility] [id number], [place] [address]- 2546 Sep, [facility] [address] [id number] [id number] Aug, [facility] [address] [id number][place] [id number] Jul, [facility] [address] [id number] [id number] Jul, [facility] [place] [facility] [address] [facility] [id number][place] [address]- 8026 May, [facility] [place] [facility] [address] [id number], [place] [address]- 9162 Mar, [facility] [place] [facility] [address] [facility] [id number], [place] [address]- 0296 Sep, [facility] [place] [facility] [address] [facility] [id number], [place] [address]- 8766 May, [facility] [place] [facility] [address] [facility] [id number][place] [address]- 7618 May, [facility] [place] [facility] [address] [id number], [place] [address]- 0507 May, [facility] [place] [facility] [address] [facility] [id number], [place] [address]- 1235 May, [facility] [place] [facility] [address] [facility] [id number][place] [address]- 6469 Jun, [facility] [place] [facility] [address] [facility] [id number][place] [address]- 7898 Jun, [facility] [place] [facility] [address] [facility] [id number], [place] [address] 2548 May, [facility] [place] [facility] [address] [facility] [id number] [place] [address]- [address]293 Apr, IMMUNIZATIONS No Known Immunizations SOCIAL HISTORY Never Assessed REASON FOR VISIT EMR-[facility] PLAN OF CARE VITAL SIGNS MEDICATIONS No Known Medications RESULTS No Results PROCEDURES No Known procedures INSTRUCTIONS MEDICATIONS ADMINISTERED No Known Medications MEDICAL (GENERAL) HISTORY Type Description Date Medical History seasonal allergies Surgical History lap band 2011 Surgical History partial hysterectomy 1995?
--- OUTSIDE RECORDS SUMMARY | 2018-11-15 11:25 | XMS REPORT ---
Author Author Migration, Doctor Organization [facility] Address Unknown Phone Unavailable Care Team Providers Care Commercial Tire Service Technician Name Role Phone Migration, Doctor Unavailable Unavailable PROBLEMS Type Condition ICD9-CM Code OOX47-FX Code Onset Dates Condition Status SNOMED Code Problem Obesity (BMI 30.0-34.9) E66.9 Active 150459832134399 Problem Dysthymia F34.1 Active 06804263 Problem Allergic rhinitis, unspecified allergic rhinitis type J30.9 Active 45374934 Problem Hot flashes, menopausal N95.1 Active 263862314 Problem History of syncope Z87.898 Active 514035373886619 Problem Menopause Z78.0 Active 330051998 ALLERGIES No Information ENCOUNTERS Encounter Location Date Diagnosis [address] [id number] Apr, Nummular eczema L30.0 and Dysthymia F34.1 [address] [id number] Dec, Allergic rhinitis, unspecified allergic rhinitis type J30.9 [address] [id number] November, Dysthymia F34.1 and Hot flashes, menopausal N95.1 [address] [id number] Oct, Dysthymia F34.[address] [id number] [id number] Sep, Dysthymia F34.1 [facility] [address] [id number] [id number] Mar, Syncope, unspecified syncope type R55 ; Tobacco use Z72.0 and Family history of early CAD Z82.[address] [id number] [id number] Feb, Elevated fasting blood sugar R73.01 and History of syncope Z87.898 [facility] [address] [place], [place] [address] [id number] [id number] Jan, Elevated fasting blood sugar R73.01 [facility] [address] [facility] [id number] [place] [address] Jan, [id number] [address] Jan, History of syncope Z87.898 ; Obesity (BMI 30.0-34.9) E66.9 and Menopause Z78.0 [address] [id number] Jan, History of syncope Z87.898 ; Menopause Z78.0 ; Obesity (BMI 30.0-34.9) E66.9 ; Family history of CHF (congestive heart failure) Z82.49 and Family history of heart disease Z82.[address] [place] [id number] Jan, [address] [address] Dec, Well woman exam Z01.419 and Hot flashes, menopausal N95.1 [facility] [address] [id number] [id number] Sep, Allergic rhinitis, unspecified allergic rhinitis type J30.[address] [id number][place] [id number] Sep, [address] [place] [id number] Jun, Non-seasonal allergic rhinitis due to other allergic trigger J30.89 [address] [id number] Sep, Allergic rhinitis, unspecified allergic rhinitis type J30.9 ; Screening cholesterol level Z13.220 ; Screening, heart disease, ischemic Z13.6 and Screening for thyroid disorder Z13.29 [address] [id number] 08 Mar, 2016 Seasonal allergies J30.2 [facility] [place] [facility] [address] [id number] [place] [address] May, [facility] [place] [facility] [address] [id number] [place] [address] Mar, [facility] [place] [facility] [address] [id number] [place] [address] Mar, [facility] [place] [facility] [address] [id number] [place] [address] Feb, [facility] [place] [facility] [address] [id number] [place] [address]662 Feb, [facility] [place] [facility] [address] [id number] [place] [address] Dec, [facility] [place] [facility] [address] [facility] [id number] [place] [address] Oct, [facility] [place] [facility] [address] [id number], [place] [address] Oct, [facility] [place] [facility] [address] [facility] [id number] [place] [address] Sep, [facility] [place] [facility] [address] [facility] [id number], [place] [address] Sep, [facility] [place] [facility] [address] [facility] [id number] [place] [address] Aug, [facility] [place] [facility] [address] [facility] [id number], [place] [address] Aug, [facility] [place] [facility] [address] [id number] [place] [address] Jun, [facility] [place] [facility] [address] [id number] [place] [address] Jun, [facility] [place] [facility] [address] [facility] [id number] [place] [address] May, [facility] [place] [facility] [address] [id number] [place] [address]46 May, [facility] [place] [facility] [address] [id number] [place] [address]46 Apr, [facility] [place] [facility] [address] [id number] [place] [address] Apr, [facility] [place] [facility] [address] [id number] [place] [address] Dec, [facility] [place] [facility] [address] [id number] [place] [address] Dec, [facility] [place] [facility] [address] [id number] [place] [address] Dec, [facility] [place] [facility] [address] [id number] [place] [address] Dec, [facility] [address] [id number] [address] November, [facility] [place] [facility] [address] [id number] [place] [address] November, [facility] [place] [facility] [address] [id number] [place] [address] November, [facility] [place] [facility] [address] [id number] [place] [address] November, [facility] [place] [facility] [address] [id number] [place] [address]666 November, [facility] [place] [facility] [address] [id number] [place] [address] November, [facility] [place] [facility] [address] [id number] [place] [address]46 November, [facility] [place] [facility] [address] [id number] [place] [address]46 Oct, [facility] [place] [facility] [address] [id number] [place] [address] Oct, [facility] [address] [facility] [id number] [place] [id number] Sep, [facility] [place] [facility] [address] [id number] [place] [address] Sep, [facility] [address] [id number] [place] [address] Sep, [facility] [place] [facility] [address] [facility] [id number] [place] [address]- [address] Sep, [facility] [place] [facility] [address] [facility] [id number] [place] [address] Sep, [facility] [place] [facility] [address] [facility] [id number] [place] [address]- [address] Sep, [facility] [place] [facility] [address] [facility] [id number] [place] [address] Jul, [facility] [place] [facility] [address] [facility] [id number], [place] [address] Jul, [facility] [address] [facility] [id number][place] [address] Jul, [facility] [place] [facility] [address] [facility] [id number], [place] [address] Jul, [facility] [place] [facility] [address] [facility] [id number], [place] [address] Apr, [facility] [place] [facility] [address] [facility] [id number], [place] [address] Apr, [facility] [address] [id number], [place] [address] Jan, [facility] [place] [facility] [address] [id number] [place] [address] Jan, [facility] [address] [id number] [place] [address] Sep, [facility] [address] [id number] [place] [address] Sep, [facility] [address] [id number] [place] [address] Sep, [facility] [address] [id number][place] [address] Sep, [facility] [address] [facility] [id number] [place] [address] Sep, [facility] [place] [facility] [address] [id number], [place] [address] Sep, [facility] [place] [facility] [address] [facility] [id number], [place] [address] Sep, [facility] [address] [facility] [id number], [place] [address] Sep, [facility] [place] [facility] [address] [facility] [id number], [place] [address] Sep, [facility] [place] [facility] [address] [facility] [id number], [place] [address] Jun, [facility] [address] [facility] [id number], [place] [address] Jun, [facility] [place] [facility] [address] [facility] [id number], [place] [address]- 7533 Jun, [facility] [place] [facility] [address] [facility] [id number], [place] [address] Jun, [facility] [address] [facility] [id number], [place] [address] Jun, [facility] [place] [facility] [address] [facility] [id number], [place] [address] Jun, [facility] [address] [facility] [id number], [place] [id number] May, [facility] [place] [facility] [address] [facility] [id number], [place] [address]107 May, [facility] [place] [facility] [address] [facility] [id number], [place] 607[place]- [address] May, [facility] [place] [facility] [address] [facility] [id number][place]- 8414 May, [facility] [address] [facility] [id number], [place] [address] May, [facility] [place] [facility] [address] [facility] [id number], [place] [address] May, [facility] [place] [facility] [address] [facility] [id number], [place] [address]- 0713 Apr, [facility] [place] [facility] [address] [facility] [id number], [place] [address]- [address]559 Apr, [facility] [place] [facility] [address] [id number], [place] [address]- 1126 Jan, [facility] [place] [facility] [address] [facility] [id number], [place] [address]- 67[address] Dec, [facility] [place] [facility] [address] [facility] [id number], [place] [address]- 4521 Dec, [facility] [place] [facility] [address] [facility] [id number], [place] [address]- 4508 Dec, [facility] [place] [facility] [address] [facility] [id number], [place] [address]- [address]370 Dec, [facility] [place] [facility] [address] [facility] [id number], [place] [address]- 6536 Dec, [facility] [place] [facility] [address] [facility] [id number], [place] [address]- [address]179 Dec, [facility] [place] [facility] [address] [facility] [id number], [place] [address]- 3551 Dec, [facility] [place] [facility] [address] [facility] [id number], [place] [address]- 4843 November, [facility] [place] [facility] [address] [facility] [id number], [place] [address]- [address]90 Oct, [facility] [place] [facility] [address] [facility] [id number], [place] [address]- 0841 Oct, [facility] [place] [facility] [address] [facility] [id number], [place] [address]- [address]453 Sep, [facility] [place] [facility] [address] [facility] [id number], [place] [address] 2546 Sep, [facility] [address] [id number], [place] [address]- [address]40 Sep, [facility] [place] [facility] [address] [facility] [id number], [place] [address]- 2546 Sep, [facility] [address] [id number], [place] [address] Aug, [facility] [address] [id number], [place] [address] Jul, [facility] [address] [id number], [place] [address] Jul, [facility] [place] [facility] [address] [facility] [id number], [place] [address]- 3916 May, [facility] [place] [facility] [address] [id number], [place] [address]- 4495 Mar, [facility] [place] [facility] [address] [facility] [id number], [place] [address]- 3603 Sep, [facility] [place] [facility] [address] [facility] [id number], [place] [address]- 7384 May, [facility] [place] [facility] [address] [facility] [id number], [place] [address]- 1006 May, [facility] [place] [facility] [address] [id number], [place] [address]- 9877 May, [facility] [place] [facility] [address] [facility] [id number], [place] [address]- 0408 May, [facility] [place] [facility] [address] [facility] [id number], [place] [address]- 5959 Jun, [facility] [place] [facility] [address] [facility] [id number], [place] [address]- 7709 Jun, [facility] [place] [facility] [address] [facility] [id number], [place] [address] 2543 May, [facility] [place] [facility] [address] [facility] [id number] [place] [address]- [address]691 Apr, IMMUNIZATIONS No Known Immunizations SOCIAL HISTORY Never Assessed [place]ASON FOR V[place]IT [place] [place] VITAL SIGNS MEDICATIONS No Known Medications RESULTS No Results PROCEDURES No Known procedures INSTRUCTIONS MEDICATIONS ADMINISTERED No Known Medications MEDICAL (GENERAL) HISTORY Type Description Date Medical History seasonal allergies Surgical History lap band 2011 Surgical History partial hysterectomy 1995?
[2018-11-15] MEDS ORDERED: NS IV 500 ML 500 ML ONE (11:26)
--- OUTSIDE RECORDS SUMMARY | 2018-11-15 11:26 | XMS REPORT ---
Author Author JANUARY LPOES [facility] Address [address] [place] [address] Care Team Providers Care Analyst Business Analysis Name Role Phone LOPESJANUARY Ledbetter Unavailable PROBLEMS Type Condition ICD9-CM Code GPL98-SL Code Onset Dates Condition Status SNOMED Code Problem Dysthymia F34.1 Active 03904887 Problem Obesity (BMI 30.0-34.9) E66.9 Active 078324729014102 Problem Hot flashes, menopausal N95.1 Active 262479769 Problem Allergic rhinitis, unspecified allergic rhinitis type J30.9 Active 53016472 Problem Menopause Z78.0 Active 280990123 Problem History of syncope Z87.898 Active [id number] ALLERGIES Substance Reaction Event Type Date Status Latex hives Drug Allergy Dec, Active ENCOUNTERS Encounter Location Date Diagnosis [id number] [place] [address] [id number] Mar, [place] [id number] [place] [address] [id number] Dec, Allergic rhinitis, unspecified allergic rhinitis type J30.[id number] [place] [address] [id number] November, Dysthymia F34.1 and Hot flashes, menopausal N95.[address] [id number] [id number] Oct, Dysthymia F34.[address] [id number][place] [id number] Sep, Dysthymia F34.[address] [facility] [address] [id number] [id number] Mar, Syncope, unspecified syncope type R55 ; Tobacco use Z72.0 and Family history of early CAD Z82.49 [place] [id number] [place] [address] [id number] Feb, Elevated fasting blood sugar R73.01 and History of syncope Z87.898 [facility] [address] [place] [id number] [place] [address] [id number] Jan, Elevated fasting blood sugar R73.01 [facility] [address] [address] Jan, [place] [id number] [place] [address] [id number] Jan, History of syncope Z87.898 ; Obesity (BMI 30.0-34.9) E66.9 and Menopause Z78.0 [place] [id number] [place] [address] [id number] Jan, History of syncope Z87.898 ; Menopause Z78.0 ; Obesity (BMI 30.0-34.9) E66.9 ; Family history of CHF (congestive heart failure) Z82.49 and Family history of heart disease Z82.[address] [facility] [id number] [place] [address] [id number] Jan, [place] [id number] [place] [address] [id number] Dec, Well woman exam Z01.419 and Hot flashes, menopausal N95.1 [facility] [address] [place] [address] [id number][place] [id number] Sep, Allergic rhinitis, unspecified allergic rhinitis type J30.9 [address] [id number] Sep, [address] [place] [address] [id number] Jun, Non-seasonal allergic rhinitis due to other allergic trigger J30.89 [address] [place] [address] [id number] Sep, Allergic rhinitis, unspecified allergic rhinitis type J30.9 ; Screening cholesterol level Z13.220 ; Screening, heart disease, ischemic Z13.6 and Screening for thyroid disorder Z13.29 [id number] [id number] 08 Sep, 2015 Seasonal allergies J30.2 [facility] [address] [place] [address] May, [facility] [address] [place] [address] Mar, [facility] [address] [place] [address] Mar, [facility] [id number] [place] [address] [address] Feb, [facility] [id number] [place] [address] [address] Feb, [facility] [id number] [place] [address] [address] Dec, [facility] [id number] [place] [address] [address] Oct, [facility] [id number] [place] [address] Oct, [facility] [address] [place] [address] [address] Sep, [facility] [address] [address] Sep, [facility] [address], [place] [address] [address] Aug, [facility] [id number] [address] [address] Aug, [facility] [id number] [place] [address] [address] Jun, [facility] [id number] [address] [address] Jun, [facility] [address] [id number] [address] May, [facility] [place] [facility] [address] [id number] [place] [address] May, [facility] [place] [facility] [address] [id number] [place] [address] Apr, [facility] [place] [facility] [address] [id number] [place] [address] Apr, [facility] [place] [facility] [address] [id number] [place] [address]- [address] Dec, [facility] [place] [facility] [address] [id number] [place] [address] Dec, [facility] [place] [facility] [address] [id number] [place] [address] Dec, [facility] [place] [facility] [address] [id number] [place] [address] Dec, [facility] [address] [id number][place] [id number] November, [facility] [place] [facility] [address] [id number] [place] [address] November, [facility] [place] [facility] [address] [id number] [place] [address] November, [facility] [place] [facility] [address] [id number] [place] [address]- 97[address] November, [facility] [place] [facility] [address] [id number] [place] [address]- [address]116 November, [facility] [place] [facility] [address] [id number] [place] [address]- [address] November, [facility] [place] [facility] [address] [id number] [place] [address]- [address] November, [facility] [place] [facility] [address] [id number] [place] [address]206 Oct, [facility] [place] [facility] [address] [id number], [place] [address] Oct, [facility] [address] [id number] [place] [id number] Sep, [facility] [address] [id number], [place] [address] Sep, [facility] [address] [id number] [place] [id number] Sep, [facility] [place] [facility] [address] [id number] [place] [address]- [address] Sep, [facility] [place] [facility] [address] [id number] [place] [address]- 40[address] Sep, [facility] [place] [facility] [address] [facility] [id number], [place] [address] Sep, [facility] [place] [facility] [address] [facility] [id number], [place] [address]- 1148 Jul, [facility] [place] [facility] [address] [facility] [id number], [place] [address] Jul, [facility] [address] [id number], [place] [id number] Jul, [facility] [place] [facility] [address] [facility] [id number], [place] [address] Jul, [facility] [place] [facility] [address] [facility] [id number], [place] [address] 3185 Apr, [facility] [place] [facility] [address] [facility] [id number], [place] [address]- 74[address] Apr, [facility] [address] [id number] [place] [id number] Jan, [facility] [place] [facility] [address] [id number] [place] [address]- [address]46 Jan, [facility] [address] [id number] [place] [id number] Sep, [facility] [address] [id number] [place] [address] Sep, [facility] [address] [id number] [place] [id number] Sep, [facility] [address] [id number] [place] [id number] Sep, [facility] [address] [id number] [place] [id number] Sep, [facility] [place] [facility] [address] [facility] [id number] [place] [address]- 8766 Sep, [facility] [place] [facility] [address] [facility] [id number], [place] [address]- [address]37 Sep, [facility] [address] [id number] [place] [id number] Sep, [facility] [place] [facility] [address] [facility] [id number], [place] [address]- 74[address] Sep, [facility] [place] [facility] [address] [id number], [place] [address] Jun, [facility] [address] [facility] [id number][place] [address]88[address] Jun, [facility] [place] [facility] [address] [facility] [id number], [place] [address] 8907 Jun, [facility] [place] [facility] [address] [facility] [id number], [place] [address]- 0192 Jun, [facility] [address] [facility] [id number] [place] [id number] Jun, [facility] [place] [facility] [address] [facility] [id number], [place] [address]- [address] Jun, [facility] [address] [facility] [id number][place] [address] May, [facility] [place] [facility] [address] [facility] [id number] [place] [address] May, [facility] [place] [facility] [address] [facility] [id number] [address]- 3073 May, [facility] [place] [facility] [address], [place] [address]- 17[address] May, [facility] [address] [id number][place] [id number] May, [facility] [address] [id number] [place] [address]- 8[address] May, [facility] [place] [facility] [address] [id number] [place] [address]- 2840 Apr, [facility] [place] [facility] [address] [id number] [place] [address]- 3926 Apr, [facility] [place] [facility] [address] [id number] [place] [address]- 1693 Jan, [facility] [place] [facility] [address] [id number] [place] [address]- 4427 Dec, [facility] [place] [facility] [address] [id number] [place] [address]- 8810 Dec, [facility] [place] [facility] [address] [id number] [place] [address]- 5408 Dec, [facility] [place] [facility] [address] [id number] [place] [address]- 5905 Dec, [facility] [place] [facility] [address] [id number], [place] [address]- 265[address] Dec, [facility] [place] [facility] [address] [id number], [place] [address]- 6305 Dec, [facility] [place] [facility] [address] [id number], [place] [address]- 1299 Dec, [facility] [place] [facility] [address] [id number] [place] [address]- 4812 November, [facility] [place] [facility] [address] [id number], [place] [address]- 53[address] Oct, [facility] [place] [facility] [address] [id number], [place] [address]- 9090 Oct, [facility] [place] [facility] [address] [id number], [place] [address]- [address] 08 Sep, 2011 [facility] [place] [facility] [address] [id number] [place] [address] 2546 Sep, [facility] [place] [facility] [address] [id number], [place] [address]- 2546 Sep, [facility] [address] [facility] [id number], [place] [address]- 2546 Sep, [facility] [address] [id number] [place] [id number] Aug, [facility] [address] [id number] [place] [id number] Jul, [facility] [address] [id number] [id number] Jul, [facility] [address] [facility] [id number], [place] [address]- 2546 May, [facility] [place] [facility] [address] [facility] [id number], [place] [address]- [address] Mar, [facility] [place] [facility] [address] [facility] [id number], [place] [address]- 0[address] Sep, [facility] [place] [facility] [address] [facility] [id number], [place] [address]- 6096 May, [facility] [place] [facility] [address] [facility] [id number], [place] [address]- 1748 May, [facility] [place] [facility] [address] [facility] [id number], [place] [address]- 2546 May, [facility] [place] [facility] [address] [facility] [id number], [place] [address]- 2545 May, [facility] [place] [facility] [address] [facility] [id number], [place] [address]- 2606 Jun, [facility] [place] [facility] [address] [facility] [id number], [place] [address]- 2546 Jun, [facility] [place] [facility] [address] [facility] [id number], [place] [address]- 7476 May, [facility] [address] [facility] [id number] [place] [address] Apr, IMMUNIZATIONS No Known Immunizations SOCIAL HISTORY Never Assessed REASON FOR VISIT Pt c/o allergies, ears fill full [place] [facility] PLAN OF CARE Activity Details Follow Up prn Reason: VITAL SIGNS Height 68 in 2018-01-01 Weight 178 lbs 2018-01-01 Temperature 98 degrees Fahrenheit 2018-01-01 Heart Rate 110 bpm 2018-01-01 Respiratory Rate 18 2018-01-01 BMI 27.06 kg/m2 2018-01-01 Blood pressure systolic 120 mmHg 2018-01-01 Blood pressure diastolic 80 mmHg 2018-01-01 MEDICATIONS Medication Instructions Dosage Frequency Start Date End Date Duration Status Citalopram Hydrobromide 10 mg Orally Once a day 1 tablet 24h Oct, 30 day(s) Active ZyrTEC 10 mg Orally Once a day 1 tablet 24h Dec, Active HydrOXYzine HCl 25 MG TAKE ONE (1) TABLET BY MOUTH TWICE DAILY NEEDED. Active Flonase Allergy Relief 50 MCG/ACT Nasally Once a day 1 spray in each nostril 24h Dec, Active RESULTS No Results PROCEDURES No Known procedures INSTRUCTIONS MEDICATIONS ADMINISTERED No Known Medications MEDICAL (GENERAL) HISTORY Type Description Date Medical History seasonal allergies Surgical History lap band 2011 Surgical History partial hysterectomy 1995?
--- OUTSIDE RECORDS SUMMARY | 2018-11-15 11:26 | XMS REPORT ---
Author Author JANUARY LOPES [facility] Address [address] [place] [address] Care Team Providers Care Platform Power Technician Name Role Phone LOPES, JANUARY Unavailable PROBLEMS Type Condition ICD9-CM Code [id number] Code Onset Dates Condition Status SNOMED Code Problem Dysthymia F34.1 Active 69369815 Problem Obesity (BMI 30.0-34.9) E66.9 Active 388041608914246 Problem Hot flashes, menopausal N95.1 Active 448431945 Problem Allergic rhinitis, unspecified allergic rhinitis type J30.9 Active 90075399 Problem Menopause Z78.0 Active 617665457 Problem History of syncope Z87.898 Active [id number] ALLERGIES Substance Reaction Event Type Date Status Latex hives Drug Allergy Sep, Active ENCOUNTERS Encounter Location Date Diagnosis [address] [id number] [id number] Dec, Allergic rhinitis, unspecified allergic rhinitis type J30.[id number] [place] [id number] November, Dysthymia F34.1 and Hot flashes, menopausal N95.[address] [id number][place] [id number] Oct, Dysthymia F34.[address] [id number][place] [id number] Sep, Dysthymia F34.1 [facility] [address] [id number] [id number] Mar, Syncope, unspecified syncope type R55 ; Tobacco use Z72.0 and Family history of early CAD Z82.[address] [id number][place] [id number] Feb, Elevated fasting blood sugar R73.01 and History of syncope Z87.[address] [id number][place] [id number] Jan, Elevated fasting blood sugar R73.01 [facility] [address] [address] Jan, [address] [id number] Jan, History of syncope Z87.898 ; Obesity (BMI 30.0-34.9) E66.9 and Menopause Z78.[address] [place] [id number] Jan, History of syncope Z87.898 ; Menopause Z78.0 ; Obesity (BMI 30.0-34.9) E66.9 ; Family history of CHF (congestive heart failure) Z82.49 and Family history of heart disease Z82.[address] [place] [id number] Jan, [place] [id number] [place] [id number] Dec, Well woman exam Z01.419 and Hot flashes, menopausal N95.[address] [id number][place] [id number] Sep, Allergic rhinitis, unspecified allergic rhinitis type J30.[address] [place] [id number] Sep, [place] [id number] [place] [id number] Jun, Non-seasonal allergic rhinitis due to other allergic trigger J30.[address] [place] [address] [id number] Sep, Allergic rhinitis, unspecified allergic rhinitis type J30.9 ; Screening cholesterol level Z13.220 ; Screening, heart disease, ischemic Z13.6 and Screening for thyroid disorder Z13.[address] [place] [address] [id number] Sep, 2015 Seasonal allergies J30.2 [facility] [place] [facility] [address] [id number] [place] [address] May, [facility] [place] [facility] [address] [id number] [place] [address] 30 Mar, 2015 [facility] [place] [facility] [address] [id number] [place] [address] Mar, [facility] [place] [facility] [address] [id number] [place] [address] Feb, [facility] [place] [facility] [address] [id number] [place] [address] Feb, [facility] [place] [facility] [address] [id number] [place] [address] Dec, [facility] [place] [facility] [address] [id number] [place] [address]47 Oct, [facility] [place] [facility] [address] [id number] [place] [address] Oct, [facility] [place] [facility] [address] [id number] [place] [address] Sep, [facility] [place] [facility] [address] [id number] [place] [address] Sep, [facility] [place] [facility] [address] [facility] [id number] [place] [address] Aug, [facility] [place] [facility] [address] [id number] [place] [address] Aug, [facility] [place] [facility] [address] [id number] [place] [address] Jun, [facility] [place] [facility] [address] [id number] [place] [address] 9866 Jun, [facility] [place] [facility] [address] [id number] [place] [address] 8678 May, [facility] [place] [facility] [address] [id number], [place] [address] May, [facility] [place] [facility] [address] [id number] [place] [address] Apr, [facility] [place] [facility] [address] [id number] [place] [address] Apr, [facility] [place] [facility] [address] [id number] [place] [address] Dec, [facility] [place] [facility] [address] [id number] [place] [address] Dec, [facility] [place] [facility] [address] [id number] [place] [address] Dec, [facility] [place] [facility] [address] [id number] [place] [address] Dec, [facility] [address] [facility] [id number][place] [id number] November, [facility] [place] [facility] [address] [id number], [place] [address] November, [facility] [place] [facility] [address] [id number] [place] [address] November, [facility] [place] [facility] [address] [id number], [place] [address] November, [facility] [place] [facility] [address] [id number], [place] [address] November, [facility] [place] [facility] [address] [id number], [place] [address] November, [facility] [place] [facility] [address] [id number] [place] [address] November, [facility] [place] [facility] [address] [id number], [place] [address] Oct, [facility] [place] [facility] [address] [id number], [place] [address] Oct, [facility] [address] [facility] [id number][place] [id number] Sep, [facility] [place] [facility] [address] [id number] [place] [address] Sep, [facility] [address] [id number] [place] [id number] Sep, [facility] [place] [facility] [address] [id number] [place] [address]- [address] Sep, [facility] [place] [facility] [address] [id number] [place] [address] 4860 Sep, [facility] [place] [facility] [address] [id number] [place] [address] Sep, [facility] [place] [facility] [address] [facility] [id number] [place] [address] Jul, [facility] [place] [facility] [address] [facility] [id number] [place] [address] Jul, [facility] [address] [id number][place] [address] Jul, [facility] [place] [facility] [address] [facility] [id number] [place] [address] Jul, [facility] [place] [facility] [address] [facility] [id number], [place] [address] Apr, [facility] [place] [facility] [address] [facility] [id number], [place] [address] Apr, [facility] [address] [id number][place] [id number] Jan, [facility] [place] [facility] [address] [id number], [place] [address] Jan, [facility] [address] [id number], [place] [id number] Sep, [facility] [address] [id number], [place] [address] Sep, [facility] [address] [id number], [place] [address] Sep, [facility] [address] [id number], [place] [address] Sep, [facility] [address] [facility] [id number] [place] [address] Sep, [facility] [place] [facility] [address] [facility] [id number], [place] [address] Sep, [facility] [place] [facility] [address] [facility] [id number], [place] [address]34 Sep, [facility] [address] [facility] [id number], [place] [address] Sep, [facility] [place] [facility] [address] [facility] [id number] [place] [address]- 7573 Sep, [facility] [place] [facility] [address] [facility] [id number], [place] [address] 37[address] Jun, [facility] [address] [facility] [id number], [place] [address] Jun, [facility] [place] [facility] [address] [facility] [id number], [place] 6[address]- [address] Jun, [facility] [place] [facility] [address] [facility] [id number], [place] [address]- 5[address] Jun, [facility] [address] [facility] [id number], [place] [id number] Jun, [facility] [place] [facility] [address] [facility] [id number], [place]328[place]- 6047 Jun, [facility] [address] [facility] [id number], [place] [id number] May, [facility] [place] [facility] [address] [facility] [id number][place]- [address]387 May, [facility] [place] [facility] [address] [facility] [id number][place]- 1599 May, [facility] [place] [facility] [address] [facility] [id number], [place] [address] May, [facility] [address] [facility] [id number], [place] [id number] May, [facility] [place] [facility] [address] [id number] [place] [address]- 0746 May, [facility] [place] [facility] [address] [id number] [place] [address]- 4961 Apr, [facility] [place] [facility] [address] [id number] [place] [address]- 5723 Apr, [facility] [place] [facility] [address] [id number] [place] [address]- 2434 Jan, [facility] [place] [facility] [address] [id number] [place] [address]- 4202 Dec, [facility] [place] [facility] [address] [id number] [place] [address]- 0503 Dec, [facility] [place] [facility] [address] [id number] [place] [address]- 5782 Dec, [facility] [place] [facility] [address] [id number] [place] [address]- 4474 Dec, [facility] [place] [facility] [address] [id number] [place] [address]- 9615 Dec, [facility] [place] [facility] [address] [facility] [id number], [place] [address]- [address]353 Dec, [facility] [place] [facility] [address] [id number], [place] [address]- 0424 Dec, [facility] [place] [facility] [address] [id number], [place] [address]- 8097 November, [facility] [place] [facility] [address] [id number] [place] [address]- 2910 Oct, [facility] [place] [facility] [address] [id number], [place] [address]- 9253 Oct, [facility] [place] [facility] [address] [facility] [id number], [place] [address]- 2472 Sep, [facility] [place] [facility] [address] [id number], [place] [address]- 3916 Sep, [facility] [place] [facility] [address] [facility] [id number], [place] [address]- 9114 Sep, [facility] [place] [facility] [address] [facility] [id number], [place] [address]- 0846 Sep, [facility] [address] [facility] [id number] [place] [id number] Aug, [facility] [address] [id number], [place] [address] Jul, [facility] [address] [facility] [id number], [place] [address] Jul, [facility] [place] [facility] [address] [facility] [id number], [place] [address]- 1116 May, [facility] [place] [facility] [address] [place] [id number], [place] [address]- [address] Mar, [facility] [place] [facility] [address] [facility] [id number], [place] [address]- 0931 Sep, [facility] [place] [facility] [address] [id number], [place] [address]- 8402 May, [facility] [place] [facility] [address] [id number], [place] [address]- 3425 May, [facility] [place] [facility] [address]65[address], [place] [address] May, [facility] [place] [facility] [address] [facility] [id number], [place] [address]- 2344 May, [facility] [place] [facility] [address] [facility] [id number], [place] [address]- 0732 Jun, [facility] [place] [facility] [address] [facility] [id number], [place] [address]- 8372 Jun, [facility] [place] [facility] [address] [facility] [id number], [place] [address]- 8936 May, [facility] [place] [facility] [address] [facility] [id number], [place] [address]- 2546 Apr, IMMUNIZATIONS No Known Immunizations SOCIAL HISTORY Never Assessed REASON FOR VISIT Pt c/o concerns of depression and anxiety [place] [facility] PLAN OF CARE Activity Details Follow Up 4 Weeks Reason:depression VITAL SIGNS Height 68 in 2017-09-25 Weight 186.6 lbs 2017-09-25 Temperature 96.9 degrees Fahrenheit 2017-09-25 Heart Rate 82 bpm 2017-09-25 Respiratory Rate 16 2017-09-25 BMI 28.37 kg/m2 2017-09-25 Blood pressure systolic 120 mmHg 2017-09-25 Blood pressure diastolic 68 mmHg 2017-09-25 MEDICATIONS Medication Instructions Dosage Frequency Start Date End Date Duration Status HydrOXYzine HCl 25MG Orally 2 times a day as needed 1 tablet 0 Active Venlafaxine HCl 37.5 MG Orally Once a day 1 tablet with food 24h Sep, Active RESULTS No Results PROCEDURES No Known procedures INSTRUCTIONS MEDICATIONS ADMINISTERED No Known Medications MEDICAL (GENERAL) HISTORY Type Description Date Medical History seasonal allergies Surgical History lap band 2011 Surgical History partial hysterectomy 1995?
--- OUTSIDE RECORDS SUMMARY | 2018-11-15 11:26 | XMS REPORT ---
Author Author JANUARY LOPES [facility] Address [address] [place] [address] Care Team Providers Care Rn Case Mgr Name Role Phone LOPES, JANUARY Unavailable PROBLEMS Type Condition ICD9-CM Code [id number] Code Onset Dates Condition Status SNOMED Code Problem Dysthymia F34.1 Active 11660226 Problem Obesity (BMI 30.0-34.9) E66.9 Active 644596123351742 Problem Hot flashes, menopausal N95.1 Active 291063781 Problem Allergic rhinitis, unspecified allergic rhinitis type J30.9 Active 60501558 Problem Menopause Z78.0 Active 440801733 Problem History of syncope Z87.898 Active 618688721213142 ALLERGIES Substance Reaction Event Type Date Status Latex hives Drug Allergy Oct, Active ENCOUNTERS Encounter Location Date Diagnosis [address] [id number] [id number] Dec, Allergic rhinitis, unspecified allergic rhinitis type J30.[id number] [place] [id number] November, Dysthymia F34.1 and Hot flashes, menopausal N95.[address] [id number][place] [id number] Oct, Dysthymia F34.[address] [id number][place] [id number] Sep, Dysthymia F34.1 [facility] [address] [id number] [id number] Mar, Syncope, unspecified syncope type R55 ; Tobacco use Z72.0 and Family history of early CAD Z82.[address] [id number][place] [id number] Feb, Elevated fasting blood sugar R73.01 and History of syncope Z87.[address] [id number][place] [id number] Jan, Elevated fasting blood sugar R73.01 [facility] [address] [address] Jan, [address] [id number] Jan, History of syncope Z87.898 ; Obesity (BMI 30.0-34.9) E66.9 and Menopause Z78.0 [address] [place] [id number] Jan, History of syncope Z87.898 ; Menopause Z78.0 ; Obesity (BMI 30.0-34.9) E66.9 ; Family history of CHF (congestive heart failure) Z82.49 and Family history of heart disease Z82.49 [address] [place] [id number] Jan, [place] [id number] [place] [id number] Dec, Well woman exam Z01.419 and Hot flashes, menopausal N95.[address] [id number][place] [id number] Sep, Allergic rhinitis, unspecified allergic rhinitis type J30.[address] [place] [id number] Sep, [place] [id number] [place] [id number] Jun, Non-seasonal allergic rhinitis due to other allergic trigger J30.89 [address] [place] [id number] Sep, Allergic rhinitis, unspecified allergic rhinitis type J30.9 ; Screening cholesterol level Z13.220 ; Screening, heart disease, ischemic Z13.6 and Screening for thyroid disorder Z13.29 [address] [place] [id number] Sep, 2015 Seasonal allergies J30.2 [facility] [place] [facility] [address] [id number] [place] [address] May, [facility] [place] [facility] [address] [id number] [place] [address] 30 Mar, 2015 [facility] [place] [facility] [address] [id number] [place] [address] Mar, [facility] [place] [facility] [address] [id number] [place] [address] Feb, [facility] [place] [facility] [address] [id number] [place] [address] Feb, [facility] [place] [facility] [address] [id number] [place] [address] Dec, [facility] [place] [facility] [address] [id number] [place] [address] Oct, [facility] [place] [facility] [address] [id number] [place] [address] Oct, [facility] [place] [facility] [address] [id number] [place] [address] Sep, [facility] [place] [facility] [address] [id number] [place] [address] Sep, [facility] [place] [facility] [address] [facility] [id number] [place] [address] Aug, [facility] [place] [facility] [address] [id number] [place] [address] Aug, [facility] [place] [facility] [address] [id number] [place] [address] Jun, [facility] [place] [facility] [address] [id number] [place] [address] Jun, [facility] [place] [facility] [address] [id number] [place] [address] 117[address] May, [facility] [place] [facility] [address] [id number][place] [address] May, [facility] [place] [facility] [address] [id number] [place] [address] Apr, [facility] [place] [facility] [address] [id number] [place] [address] Apr, [facility] [place] [facility] [address] [id number] [place] [address] Dec, [facility] [place] [facility] [address] [id number] [place] [address] Dec, [facility] [place] [facility] [address] [id number] [place] [address] Dec, [facility] [place] [facility] [address] [id number] [place] [address] Dec, [facility] [address] [facility] [id number][place] [id number] November, [facility] [place] [facility] [address] [id number][place] [address] November, [facility] [place] [facility] [address] [id number] [place] [address] November, [facility] [place] [facility] [address] [id number][place] [address] November, [facility] [place] [facility] [address] [id number][place] [address] November, [facility] [place] [facility] [address] [id number][place] [address] November, [facility] [place] [facility] [address] [id number] [place] [address] November, [facility] [place] [facility] [address] [id number], [place] [address] Oct, [facility] [place] [facility] [address] [id number][place] [address] Oct, [facility] [address] [facility] [id number][place] [id number] Sep, [facility] [place] [facility] [address] [id number] [place] [address] Sep, [facility] [address] [id number] [place] [id number] Sep, [facility] [place] [facility] [address] [id number] [place] [address] Sep, [facility] [place] [facility] [address] [id number] [place] [address] Sep, [facility] [place] [facility] [address] [id number] [place] [address] Sep, [facility] [place] [facility] [address] [facility] [id number] [place] [address] Jul, [facility] [place] [facility] [address] [facility] [id number] [place] [address] Jul, [facility] [address] [id number][place] [address] Jul, [facility] [place] [facility] [address] [facility] [id number] [place] [address] Jul, [facility] [place] [facility] [address] [facility] [id number][place] [address] Apr, [facility] [place] [facility] [address] [facility] [id number][place] [address] Apr, [facility] [address] [id number][place] [address] Jan, [facility] [place] [facility] [address] [id number], [place] [address] Jan, [facility] [address] [id number][place] [id number] Sep, [facility] [address] [id number][place] [id number] Sep, [facility] [address] [id number], [place] [address] Sep, [facility] [address] [id number][place] [address] Sep, [facility] [address] [facility] [id number] [place] [id number] Sep, [facility] [place] [facility] [address] [facility] [id number][place] [address] Sep, [facility] [place] [facility] [address] [facility] [id number][place] [address] Sep, [facility] [address] [facility] [id number][place] [id number] Sep, [facility] [place] [facility] [address] [facility] [id number] [place] [address]- 6[address] Sep, [facility] [place] [facility] [address] [facility] [id number][place] [address] 86[address] Jun, [facility] [address] [facility] [id number], [place] [id number] Jun, [facility] [place] [facility] [address] [facility] [id number][place]500[place] Jun, [facility] [place] [facility] [address] [facility] [id number], [place] [address]- 60[address] Jun, [facility] [address] [facility] [id number], [place] [id number] Jun, [facility] [place] [facility] [address] [facility] [id number][place] [address]- [address] Jun, [facility] [address] [facility] [id number][place] [id number] May, [facility] [place] [facility] [address] [facility] [id number][place] [address] May, [facility] [place] [facility] [address] [facility] [id number][place]- 6720 May, [facility] [place] [facility] [address] [facility] [id number][place]64[place]- 269[address] May, [facility] [address] [facility] [id number][place] [id number] May, [facility] [place] [facility] [address] [id number] [place] [address]- 6690 May, [facility] [place] [facility] [address] [id number] [place] [address]- 9877 Apr, [facility] [place] [facility] [address] [id number] [place] [address]- 8301 Apr, [facility] [place] [facility] [address] [id number] [place] [address]- 2773 Jan, [facility] [place] [facility] [address] [id number] [place] [address]- 7459 Dec, [facility] [place] [facility] [address] [id number] [place] [address]- 3849 Dec, [facility] [place] [facility] [address] [id number] [place] [address]- 8183 Dec, [facility] [place] [facility] [address] [id number] [place] [address]- 4788 Dec, [facility] [place] [facility] [address] [id number] [place] [address]- 8686 Dec, [facility] [place] [facility] [address] [facility] [id number][place] [address]- 3340 Dec, [facility] [place] [facility] [address] [id number], [place] [address]- 7942 Dec, [facility] [place] [facility] [address] [id number][place] [address]- 3673 November, [facility] [place] [facility] [address] [id number] [place] [address]- 8558 Oct, [facility] [place] [facility] [address] [id number], [place] [address]- 7851 Oct, [facility] [place] [facility] [address] [facility] [id number][place] [address]- 0266 Sep, [facility] [place] [facility] [address] [id number][place] [address]- 8256 Sep, [facility] [place] [facility] [address] [facility] [id number][place] [address]- 5630 Sep, [facility] [place] [facility] [address] [facility] [id number][place] [address]- 9896 Sep, [facility] [address] [facility] [id number] [place] [id number] Aug, [facility] [address] [id number][place] [id number] Jul, [facility] [address] [facility] [id number], [place] [id number] Jul, [facility] [place] [facility] [address] [facility] [id number], [place] [address]- 7356 May, [facility] [place] [facility] [address] [place] [place] [id number] [address] 9[address] Mar, [facility] [place] [facility] [address] [facility] [id number][place] [address]- [address]80 Sep, [facility] [place] [facility] [address] [id number], [place] [address]65 May, [facility] [place] [facility] [address] [id number], [place] [address] 9990 May, [facility] [place] [facility] [address]65[address] [address] May, [facility] [place] [facility] [address] [facility] [id number][place] [address]- 8670 May, [facility] [place] [facility] [address] [facility] [id number][place] [address]- 8079 Jun, [facility] [place] [facility] [address] [facility] [id number][place] [address]- 6858 Jun, [facility] [place] [facility] [address] [facility] [id number][place] [address]- 4665 May, [facility] [place] [facility] [address] [facility] [id number][place] [address]- 2546 Apr, IMMUNIZATIONS No Known Immunizations SOCIAL HISTORY Never Assessed REASON FOR VISIT depression follow up Ashlyn RN PLAN OF CARE Activity Details Follow Up 4 Weeks Reason:depression VITAL SIGNS Height 68 in 2017-10-24 Weight 186.8 lbs 2017-10-24 Temperature 98.5 degrees Fahrenheit 2017-10-24 Heart Rate 99 bpm 2017-10-24 Respiratory Rate 16 2017-10-24 BMI 28.40 kg/m2 2017-10-24 Blood pressure systolic 128 mmHg 2017-10-24 Blood pressure diastolic 74 mmHg 2017-10-24 MEDICATIONS Medication Instructions Dosage Frequency Start Date End Date Duration Status Citalopram Hydrobromide 10 mg Orally Once a day 1 tablet 24h Oct, 30 day(s) Active HydrOXYzine HCl 25MG Orally 2 times a day as needed 1 tablet 0 Active RESULTS No Results PROCEDURES No Known procedures INSTRUCTIONS MEDICATIONS ADMINISTERED No Known Medications MEDICAL (GENERAL) HISTORY Type Description Date Medical History seasonal allergies Surgical History lap band 2011 Surgical History partial hysterectomy 1995?
--- OUTSIDE RECORDS SUMMARY | 2018-11-15 11:26 | XMS REPORT ---
Author Author JANUARY LOPES [facility] Address [address] [place] [address] Care Team Providers Care Pharmacy Resource Tech Name Role Phone LOPES, JANUARY Unavailable PROBLEMS Type Condition ICD9-CM Code BYF18-KP Code Onset Dates Condition Status SNOMED Code Problem Dysthymia F34.1 Active 44834229 Problem Obesity (BMI 30.0-34.9) E66.9 Active 478387255364916 Problem Hot flashes, menopausal N95.1 Active 500623546 Problem Allergic rhinitis, unspecified allergic rhinitis type J30.9 Active 49558479 Problem Menopause Z78.0 Active 312580067 Problem History of syncope Z87.898 Active [id number] ALLERGIES Substance Reaction Event Type Date Status Latex hives Drug Allergy November, Active ENCOUNTERS Encounter Location Date Diagnosis [id number] [place] [address] [id number] Dec, Allergic rhinitis, unspecified allergic rhinitis type J30.[id number] [place] [address] [id number] November, Dysthymia F34.1 and Hot flashes, menopausal N95.[address] [id number] [id number] Oct, Dysthymia F34.[address] [id number] [place] [id number] Sep, Dysthymia F34.1 [facility] [address] [address] [id number] [id number] Mar, Syncope, unspecified syncope type R55 ; Tobacco use Z72.0 and Family history of early CAD Z82.[address] [id number] [place] [id number] Feb, Elevated fasting blood sugar R73.01 and History of syncope Z87.[address] [id number][place] [id number] Jan, Elevated fasting blood sugar R73.01 [facility] [address] [address] Jan, [address] [id number] Jan, History of syncope Z87.898 ; Obesity (BMI 30.0-34.9) E66.9 and Menopause Z78.0 [address] [place] [id number] Jan, History of syncope Z87.898 ; Menopause Z78.0 ; Obesity (BMI 30.0-34.9) E66.9 ; Family history of CHF (congestive heart failure) Z82.49 and Family history of heart disease Z82.49 [address] [place] [address] [id number] Jan, [place] [id number] [place] [id number] Dec, Well woman exam Z01.419 and Hot flashes, menopausal N95.[address] [id number][place] [id number] Sep, Allergic rhinitis, unspecified allergic rhinitis type J30.9 [address] [place] [address] [id number] Sep, [place] [id number] [place] [address] [id number] Jun, Non-seasonal allergic rhinitis due to other allergic trigger J30.89 [address] [place] [address] [id number] Sep, Allergic rhinitis, unspecified allergic rhinitis type J30.9 ; Screening cholesterol level Z13.220 ; Screening, heart disease, ischemic Z13.6 and Screening for thyroid disorder Z13.29 [address] [place] [address] [id number] Sep, 2015 Seasonal allergies J30.2 [facility] [place] [facility] [address] [id number] [place] [address] May, [facility] [place] [facility] [address] [id number] [place] [address] 30 Mar, 2015 [facility] [place] [facility] [address] [id number] [place] [address] 9547 Mar, [facility] [place] [facility] [address] [id number] [place] [address] Feb, [facility] [place] [facility] [address] [id number] [place] [address] Feb, [facility] [place] [facility] [address] [id number] [place] [address] Dec, [facility] [place] [facility] [address] [id number] [place] [address] Oct, [facility] [place] [facility] [address] [id number] [place] [address] Oct, [facility] [place] [facility] [address] [id number] [place] [address] Sep, [facility] [place] [facility] [address] [id number] [place] [address] Sep, [facility] [place] [facility] [address] [facility] [id number] [place] [address] 78[address] Aug, [facility] [place] [facility] [address] [id number] [place] [address] 69[address] Aug, [facility] [place] [facility] [address] [id number] [place] [address] Jun, [facility] [place] [facility] [address] [id number] [place] [address] Jun, [facility] [place] [facility] [address] [id number] [place] [address] May, [facility] [place] [facility] [address] [id number] [address] May, [facility] [place] [facility] [address] [id number] [place] [address] Apr, [facility] [place] [facility] [address] [id number] [place] [address] 2546 Apr, [facility] [place] [facility] [address] [id number] [place] [address] Dec, [facility] [place] [facility] [address] [id number] [place] [address] 49[address] Dec, [facility] [place] [facility] [address] [id number] [place] [address] 7816 Dec, [facility] [place] [facility] [address] [id number] [place] [address] Dec, [facility] [address] [facility] [id number] [place] [id number] November, [facility] [place] [facility] [address] [id number] [place] [address] November, [facility] [place] [facility] [address] [id number] [place] [address]- 96[address] November, [facility] [place] [facility] [address] [id number] [place] [address] November, [facility] [place] [facility] [address] [id number] [place] [address] November, [facility] [place] [facility] [address] [id number] [place] [address] November, [facility] [place] [facility] [address] [id number] [place] [address] November, [facility] [place] [facility] [address] [id number] [place] [address] Oct, [facility] [place] [facility] [address] [id number] [place] [address] Oct, [facility] [address] [facility] [id number] [place] [id number] Sep, [facility] [place] [facility] [address] [id number] [place] [address] Sep, [facility] [address] [id number] [place] [id number] Sep, [facility] [place] [facility] [address] [id number] [place] [address]- [address]378 Sep, [facility] [place] [facility] [address] [id number] [place] [address] Sep, [facility] [place] [facility] [address] [id number] [place] [address] Sep, [facility] [place] [facility] [address] [facility] [id number] [place] [address] Jul, [facility] [place] [facility] [address] [facility] [id number] [place] [address] Jul, [facility] [address] [id number] [place] [id number] Jul, [facility] [place] [facility] [address] [facility] [id number] [place] [address] Jul, [facility] [place] [facility] [address] [facility] [id number] [place] [address] Apr, [facility] [place] [facility] [address] [facility] [id number] [place] [address] Apr, [facility] [address] [id number] [place] [id number] Jan, [facility] [place] [facility] [address] [id number] [place] [address] Jan, [facility] [address] [id number] [place] [address] Sep, [facility] [address] [id number] [place] [address] Sep, [facility] [address] [id number] [place] [address] Sep, [facility] [address] [id number] [place] [id number] Sep, [facility] [address] [facility] [id number] [place] [address] Sep, [facility] [place] [facility] [address] [facility] [id number] [place] [address] Sep, [facility] [place] [facility] [address] [facility] [id number] [place] [address] Sep, [facility] [address] [facility] [id number] [place] [id number] Sep, [facility] [place] [facility] [address] [facility] [id number] [place] [address]- 47[address] Sep, [facility] [place] [facility] [address] [facility] [id number] [place] [address] Jun, [facility] [address] [facility] [id number] [place] [id number] Jun, [facility] [place] [facility] [address] [facility] [id number] [place] Jun, [facility] [place] [facility] [address] [facility] [id number] [place] [address] 6971 Jun, [facility] [address] [facility] [id number] [place] [address] Jun, [facility] [place] [facility] [address] [facility] [id number] [place] [address] Jun, [facility] [address] [facility] [id number] [place] [id number] May, [facility] [place] [facility] [address] [facility] [id number] [place] [address] May, [facility] [place] [facility] [address] [facility] [id number] [place] 1547 May, [facility] [place] [facility] [address] [facility] [id number] [place] [address] May, [facility] [address] [facility] [id number] [place] [id number] May, [facility] [place] [facility] [address] [id number] [place] [address]- 1011 May, [facility] [place] [facility] [address] [id number] [place] [address]- 7061 Apr, [facility] [place] [facility] [address] [id number] [place] [address]- 9551 Apr, [facility] [place] [facility] [address] [id number] [place] [address]- 6131 Jan, [facility] [place] [facility] [address] [id number] [place] [address]- 0833 Dec, [facility] [place] [facility] [address] [id number] [place] [address]- 1043 Dec, [facility] [place] [facility] [address] [id number] [place] [address]- 5593 Dec, [facility] [place] [facility] [address] [id number] [place] [address]- 2775 Dec, [facility] [place] [facility] [address] [id number] [place] [address]- 4468 Dec, [facility] [place] [facility] [address] [facility] [id number] [place] [address]- 3929 Dec, [facility] [place] [facility] [address] [id number] [place] [address]- 7351 Dec, [facility] [place] [facility] [address] [id number] [place] [address]- [address]287 November, [facility] [place] [facility] [address] [id number] [place] [address]- 5053 Oct, [facility] [place] [facility] [address] [id number] [place] [address]- 2944 Oct, [facility] [place] [facility] [address] [facility] [id number] [place] [address]- 59[address] Sep, [facility] [place] [facility] [address] [id number] [place] [address]- 0326 Sep, [facility] [place] [facility] [address] [facility] [id number] [place] [address]- 8681 Sep, [facility] [place] [facility] [address] [facility] [id number] [place] [address]- 5336 Sep, [facility] [address] [facility] [id number] [place] [id number] Aug, [facility] [address] [id number] [place] [id number] Jul, [facility] [address] [facility] [id number] [place] [address] Jul, [facility] [place] [facility] [address] [facility] [id number] [place] [address]- 3686 May, [facility] [place] [facility] [address] [id number] [address]- [address]46 Mar, [facility] [place] [facility] [address] [facility] [id number] [place] [address]- 4214 Sep, [facility] [place] [facility] [address] [id number] [address]- 9325 May, [facility] [place] [facility] [address] [id number] [address]- 9919 May, [facility] [place] [facility] [address]65100[place] [address]- [address] May, [facility] [place] [facility] [address] [facility] [id number] [place] [address]- 0844 May, [facility] [place] [facility] [address] [facility] [id number] [place] [address]- 3265 Jun, [facility] [place] [facility] [address] [facility] [id number] [place] [address]- 5416 Jun, [facility] [place] [facility] [address] [facility] [id number] [place] [address]- 0034 May, [facility] [place] [facility] [address] [facility] [id number] [place] [address]- 2546 Apr, IMMUNIZATIONS No Known Immunizations SOCIAL HISTORY Never Assessed REASON FOR VISIT CHM- Depression f/u [facility] PLAN OF CARE Activity Details Follow Up 3 Months Reason:depression VITAL SIGNS Height 68 in 2017-11-21 Weight 186.8 lbs 2017-11-21 Temperature 97.9 degrees Fahrenheit 2017-11-21 Heart Rate 86 bpm 2017-11-21 Respiratory Rate 16 2017-11-21 BMI 28.40 kg/m2 2017-11-21 Blood pressure systolic 122 mmHg 2017-11-21 Blood pressure diastolic 62 mmHg 2017-11-21 MEDICATIONS Medication Instructions Dosage Frequency Start Date [...]
[2018-11-15] MEDS ORDERED: NS IV 500 ML 500 ML IV PRN (11:27)
--- OUTSIDE RECORDS SUMMARY | 2018-11-15 11:27 | XMS REPORT ---
Author Author JUAN RAMEY Organization [employer] Address Unknown Phone Unavailable Care Team Providers Care It Infrastructure Engineer Name Role Phone JUAN RAMEY CP Unavailable Allergies No Known Allergies Problems Problem Type Condition Code Onset Dates Condition Status Problem Screening for malignant neoplasm of the cervix V76.2 Active Problem Abdominal pain, left lower quadrant 789.04 Active Problem Unspecified pre-operative examination V72.84 Active Problem Acute upper respiratory infections of unspecified site 465.9 Active Problem Insomnia, unspecified 780.52 Active Problem Other abnormal glucose 790.29 Active Problem Unspecified follow-up examination V67.9 Active Problem Influenza with other respiratory manifestations 487.1 Active Problem Other atopic dermatitis and related conditions 691.8 Active Problem Lumbago 724.2 Active Problem Pain in joint, ankle and foot 719.47 Active Problem Other specified counseling V65.49 Active Problem Routine general medical examination at health care facility V70.0 Active Problem Unspecified breast screening V76.10 Active Problem Unspecified thrombocytopenia 287.5 Active Problem Special screening examination, human papillomavirus [HPV] V73.81 Active Medications Medication Code System Code Instructions Start Date End Date Status [facility] [address]-00 10 MG September 11, 2014 1 tablet by Oral route 1 time per day PRN Results No Known Results Summary Purpose [employer] Submission
--- OUTSIDE RECORDS SUMMARY | 2018-11-15 11:27 | XMS REPORT ---
Author Author JUAN RAMEY Organization [employer] Address Unknown Phone Unavailable Care Team Providers Care Stationary Engineer Supervisor Name Role Phone JUAN RAMEY CP Unavailable Allergies No Known Allergies Problems Problem Type Condition ICD-9 Code Onset Dates Condition Status Problem Screening [...] Instructions Start Date End Date Status Dosage Dexilant [facility] [address]-79 60 MG Orally Once a day Mar 17, 2015 1 capsule Results No Known Results Summary Purpose [employer] Submission
--- OUTSIDE RECORDS SUMMARY | 2018-11-15 11:27 | XMS REPORT ---
Author Author MATTHEW RICARDO Organization [facility] Address [address] [place] [address] Care Team Providers [employer] Product Manager Name Role Phone MATTHEW RICARDO Unavailable PROBLEMS Type Condition ICD9-CM Code RBX35-WL Code Onset Dates Condition Status SNOMED Code Problem Dysthymia F34.1 Active 77280696 Problem Obesity (BMI 30.0-34.9) E66.9 Active 505187562116987 Problem Hot flashes, menopausal N95.1 Active 359627513 Problem Allergic rhinitis, unspecified allergic rhinitis type J30.9 Active 19667829 Problem Menopause Z78.0 Active 373065618 Problem History of syncope Z87.898 Active [id number] ALLERGIES No Information ENCOUNTERS Encounter Location Date Diagnosis [facility] [id number] [place] [address] [id number] Oct, [facility] [address] [id number] Sep, Dysthymia F34.[address] [id number] [id number] Mar, Syncope, unspecified syncope type R55 ; Tobacco use Z72.0 and Family history of early CAD Z82.49 [facility] [id number] [place] [address] [id number] Feb, Elevated fasting blood sugar R73.01 and History of syncope Z87.898 [facility] [id number] [place] [address] [id number] Jan, Elevated fasting blood sugar R73.01 [facility] [address] [address] Jan, [facility] [id number] [place] [address] [id number] Jan, History of syncope Z87.898 ; Obesity (BMI 30.0-34.9) E66.9 and Menopause Z78.0 [id number] [place] [address] [id number] Jan, History of syncope Z87.898 ; Menopause Z78.0 ; Obesity (BMI 30.0-34.9) E66.9 ; Family history of CHF (congestive heart failure) Z82.49 and Family history of heart disease Z82.49 [facility] [id number] [place] [address] [id number] Jan, [place] [id number] [place] [address] [id number] Dec, Well woman exam Z01.419 and Hot flashes, menopausal N95.1 [address] [id number] Sep, Allergic rhinitis, unspecified allergic rhinitis type J30.9 [id number] [place] [address] [id number] Sep, [address] [id number] [place] [address] [id number] Jun, Non-seasonal allergic rhinitis due to other allergic trigger J30.89 [address] [id number] [place] [address] [id number] Sep, Allergic rhinitis, unspecified allergic rhinitis type J30.9 ; Screening cholesterol level Z13.220 ; Screening, heart disease, ischemic Z13.6 and Screening for thyroid disorder Z13.29 [facility] [address] [place] [address] [id number] Sep, 2015 Seasonal allergies J30.2 [facility] [address] [id number] May, [facility] [address] [id number]- [address]555 Mar, [facility] [address] [id number]- 6752 Mar, [facility] [place] [facility] [address] [id number] [place] [address] Feb, [facility] [place] [facility] [address] [id number] [place] [address] 4[address] Feb, [facility] [place] [facility] [address] [id number] [place] [address] Dec, [facility] [place] [facility] [address] [id number] [place] [address] Oct, [facility] [place] [facility] [address] [id number] [place] [address] 4[address] Oct, [facility] [place] [facility] [address] [id number] [place] [address] Sep, [facility] [place] [facility] [address] [facility] [id number] [place] [address] 5876 Sep, [facility] [place] [facility] [address] [id number] [place] [address] 0337 Aug, [facility] [place] [facility] [address] [id number] [place] [address] 6486 Aug, [facility] [place] [facility] [address] [facility] [id number], [place] [address] Jun, [facility] [place] [facility] [address] [id number][place] [address] Jun, [facility] [place] [facility] [address] [id number], [place] [address] 8[address] May, [facility] [place] [facility] [address] [id number] [place] [address] 5490 May, [facility] [place] [facility] [address] [id number] [place] [address] 9116 Apr, [facility] [place] [facility] [address] [facility] [id number], [place] [address] 6[address] Apr, [facility] [place] [facility] [address] [id number], [place] [address] 9[address] Dec, [facility] [place] [facility] [address] [id number] [place] [address] 6861 Dec, [facility] [place] [facility] [address] [id number] [place] [address] 8837 Dec, [facility] [place] [facility] [address] [id number] [place] [address] 1366 Dec, [facility] [address] [facility] [id number][place] [id number] November, [facility] [place] [facility] [address] [id number] [place] [address] 6797 November, [facility] [place] [facility] [address] [id number] [place] [address] 1874 November, [facility] [place] [facility] [address] [id number] [place] [address] 6[address] November, [facility] [place] [facility] [address] [id number] [place] [address] 288[address] November, [facility] [place] [facility] [address] [facility] [id number], [place] [address] 3934 November, [facility] [place] [facility] [address] [facility] [id number] [place] [address]- 0746 November, [facility] [place] [facility] [address] [id number], [place] [address] Oct, [facility] [place] [facility] [address] [id number], [place] [address] Oct, [facility] [address] [id number] [place] [id number] Sep, [facility] [place] [facility] [address] [id number] [place] [address] 1586 Sep, [facility] [address] [facility] [id number] [place] [id number] Sep, [facility] [place] [facility] [address] [id number], [place] [address] 7[address] Sep, [facility] [address] [facility] [id number], [place] [address]- 1115 Sep, [facility] [place] [facility] [address] [facility] [id number], [place] [address]- 6200 Sep, [facility] [address] [facility] [id number], [place] [address] 44[address] Jul, [facility] [place] [facility] [address] [facility] [id number], [place] [address] 45[address] Jul, [facility] [address] [facility] [id number][place] [id number] Jul, [facility] [address] [facility] [id number], [place] [address] 1756 Jul, [facility] [address] [facility] [id number], [place] [address]- 3056 Apr, [facility] [address] [facility] [id number], [place] [address]- 4768 Apr, [facility] [address] [id number][place] [id number] Jan, [facility] [address] [facility] [id number], [place] [address] 69[address] Jan, [facility] [address] [id number][place] [id number] Sep, [facility] [address] [id number][place] [address] Sep, [facility] [address] [id number][place] [address] Sep, [facility] [address] [id number] [place] [address] Sep, [facility] [address] [id number][place] [address] Sep, [facility] [place] [facility] [address] [facility] [id number], [place] [address]- 2546 Sep, [facility] [place] [facility] [address] [facility] [id number], [place] [address]- 7463 Sep, [facility] [address] [facility] [id number] [place] [id number] Sep, [facility] [place] [facility] [address] [facility] [id number], [place] [address]- 8592 Sep, [facility] [place] [facility] [address] [facility] [id number], [place] [address]- 3076 Jun, [facility] [address] [facility] [id number][place] [address] Jun, [facility] [place] [facility] [address] [facility] [id number] [place] [address]- 5686 Jun, [facility] [place] [facility] [address] [facility] [id number], [place] [address]- 3929 Jun, [facility] [address] [id number] [id number] Jun, [facility] [place] [facility] [address] [facility] [id number], [place] [address]- 0828 Jun, [facility] [address] [facility] [id number][place] [address] May, [facility] [place] [facility] [address] [facility] [id number], [place]- 8820 May, [facility] [place] [facility] [address] [facility] [id number], [place]- 9224 May, [facility] [place] [facility] [address] [facility] [id number], [place]11[place]- 7904 May, [facility] [address] [facility] [id number][place] [id number] May, [facility] [place] [facility] [address] [facility] [id number], [place] [address]- 7836 May, [facility] [place] [facility] [address] [facility] [id number], [place] 9991 Apr, [facility] [place] [facility] [address] [facility] [id number], [place] [address]- 6826 Apr, [facility] [address] [id number] [place] [address]- 7243 Jan, [facility] [address] [id number] [place] [address]- 2415 Dec, [facility] [address] [facility] [id number] [place] [address]- 1215 Dec, [facility] [address] [id number] [place] [address]- 5813 Dec, [facility] [address] [id number] [place] [address]- 8607 Dec, [facility] [address] [id number] [place] [address]- 2291 Dec, [facility] [address] [facility] [id number] [place] [address]- 3652 Dec, [facility] [address] [id number] [place] [address]- 5966 Dec, [facility] [address] [id number] [place] [address]- 6704 November, [facility] [address] [facility] [id number] [place] [address]- 8350 Oct, [facility] [address] [id number], [place] [address]- 0136 Oct, [facility] [place] [facility] [address] [id number], [place] [address]- 1225 Sep, [facility] [address] [facility] [id number] [place] [address]- 0778 Sep, [facility] [place] [facility] [address] [facility] [id number] [place] [address]- 9896 Sep, [facility] [address] [facility] [id number] [place] [address]- 4496 Sep, [facility] [address] [id number][place] [address] Aug, [facility] [address] [id number][place] [id number] Jul, [facility] [id number], [place] [id number] Jul, [facility] [address], [place] [address]- 4[address] May, [facility] [id number] [place] [address]- 8406 Mar, [facility] [id number] [place] [address]- 2820 Sep, [facility] [id number] [place] [address] 12273- 8794 May, [facility] [id number] [place] [address]- 8302 May, [facility] [id number] [place] [address] 489339- 4362 May, [facility] [id number] [place] [address] 872060- 7970 May, [facility] [address] [place] [address] 629847- 6214 Jun, [facility] [address] 1776 Jun, [facility] [address]65[address], [place] [address]- 4875 May, [facility] [address] Apr, IMMUNIZATIONS No Known Immunizations SOCIAL HISTORY Never Assessed REASON FOR VISIT medication PLAN OF CARE VITAL SIGNS MEDICATIONS Medication Instructions Dosage Frequency Start Date End Date Duration Status Paroxetine HCl 20 mg Orally Once a day 1 tablet in the morning 24h Jan, 0 days Active RESULTS No Results PROCEDURES No Known procedures INSTRUCTIONS MEDICATIONS ADMINISTERED No Known Medications MEDICAL (GENERAL) HISTORY Type Description Date Medical History seasonal allergies Surgical History lap band 2012 Surgical History partial hysterectomy 1995?
--- OUTSIDE RECORDS SUMMARY | 2018-11-15 11:27 | XMS REPORT ---
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[employer] Name Role Phone HART MARIA E LAUGHLIN Unavailable PROBLEMS Type Condition ICD9-CM Code [id number] Code Onset Dates Condition Status SNOMED Code Problem Dysthymia F34.1 Active 68473190 Problem Obesity (BMI 30.0-34.9) E66.9 Active 726330821423655 Problem Hot flashes, menopausal N95.1 Active 327399137 Problem Allergic rhinitis, unspecified allergic rhinitis type J30.9 Active 92751833 Problem Menopause Z78.0 Active 207488360 Problem History of syncope Z87.898 Active [id number] ALLERGIES No Information ENCOUNTERS Encounter Location Date Diagnosis [place] [id number] [place] [id number] Oct, [address] [id number] Sep, Dysthymia F34.1 [facility] [id number] [place] [address] [id number] Mar, Syncope, unspecified syncope type R55 ; Tobacco use Z72.0 and Family history of early CAD Z82.49 [place] [id number] [place] [address] [id number] Feb, Elevated fasting blood sugar R73.01 and History of syncope Z87.898 [facility] [id number] [place] [address] [id number] Jan, Elevated fasting blood sugar R73.01 [facility] [id number] [address] Jan, [address] [id number] Jan, History of syncope Z87.898 ; Obesity (BMI 30.0-34.9) E66.9 and Menopause Z78.0 [place] [id number] [place] [address] [id number] Jan, History of syncope Z87.898 ; Menopause Z78.0 ; Obesity (BMI 30.0-34.9) E66.9 ; Family history of CHF (congestive heart failure) Z82.49 and Family history of heart disease Z82.49 [place] [id number] [place] [id number] Jan, [address] [id number] Dec, Well woman exam Z01.419 and Hot flashes, menopausal N95.1 [address] [id number] Sep, Allergic rhinitis, unspecified allergic rhinitis type J30.9 [address] [place] [address] [id number] Sep, [place] [id number] [place] [address] [id number] Jun, Non-seasonal allergic rhinitis due to other allergic trigger J30.89 [place] [id number] [place] [address] [id number] Sep, Allergic rhinitis, unspecified allergic rhinitis type J30.9 ; Screening cholesterol level Z13.220 ; Screening, heart disease, ischemic Z13.6 and Screening for thyroid disorder Z13.29 [address] [place] [address] [id number] Sep, 2015 Seasonal allergies J30.2 [facility] [id number] [place] [address] May, [facility] [address] [id number]- [address] Mar, [facility] [address] [address] Mar, [facility] [place] [facility] [address] [id number] [place] [address] Feb, [facility] [place] [facility] [address] [id number] [place] [address] 9967 Feb, [facility] [place] [facility] [address] [id number] [place] [address] Dec, [facility] [place] [facility] [address] [id number] [place] [address] 7478 Oct, [facility] [place] [facility] [address] [id number] [place] [address] 244[address] Oct, [facility] [place] [facility] [address] [id number] [place] [address] 6[address] Sep, [facility] [place] [facility] [address] [id number] [place] [address] 8[address] Sep, 2014 [facility] [place] [facility] [address] [id number] [place] [address] Aug, [facility] [place] [facility] [address] [id number] [place] [address] Aug, [facility] [place] [facility] [address] [id number] [place] [address] 9[address] Jun, [facility] [place] [facility] [address] [id number] [place] [address] 9[address] Jun, [facility] [place] [facility] [address] [id number] [place] [address] 15[address] May, [facility] [place] [facility] [address] [id number] [place] [address] 0[address] May, [facility] [place] [facility] [address] [id number] [place] [address] 9813 Apr, [facility] [place] [facility] [address] [id number] [place] [address] 0[address] Apr, [facility] [place] [facility] [address] [id number] [place] [address] 6254 Dec, [facility] [place] [facility] [address] [id number] [place] [address]- 6237 Dec, [facility] [place] [facility] [address] [id number] [place] [address] 5006 Dec, [facility] [place] [facility] [address] [id number] [place] [address] 4[address] Dec, [facility] [address] [facility] [id number] [place] [id number] November, [facility] [place] [facility] [address] [id number] [place] [address] November, [facility] [place] [facility] [address] [id number] [place] [address] 60[address] November, [facility] [place] [facility] [address] [id number] [place] [address] 9476 November, [facility] [place] [facility] [address] [id number] [place] [address] 0449 November, [facility] [place] [facility] [address] [id number] [place] [address] 9306 November, [facility] [place] [facility] [address] [id number] [place] [address] 9566 November, [facility] [place] [facility] [address] [id number] [place] [address]- 2266 Oct, [facility] [place] [facility] [address] [id number] [place] [address]- 30[address] Oct, [facility] [address] [id number] [place] [id number] Sep, [facility] [place] [facility] [address] [id number] [place] [address] 2546 Sep, [facility] [address] [id number] [place] [id number] Sep, [facility] [place] [facility] [address] [id number] [place] [address]- 3258 Sep, [facility] [place] [facility] [address] [id number] [place] [address]- 2017 Sep, [facility] [place] [facility] [address] [id number] [place] [address]- 3729 Sep, [facility] [place] [facility] [address] [facility] [id number] [place] [address] 8[address] Jul, [facility] [place] [facility] [address] [facility] [id number] [place] [address]- 6796 Jul, [facility] [address] [facility] [id number] [place] [id number] Jul, [facility] [place] [facility] [address] [facility] [id number] [place] [address]- 7035 Jul, [facility] [place] [facility] [address] [facility] [id number] [place] [address]- 4592 Apr, [facility] [place] [facility] [address] [facility] [id number] [address] Apr, [facility] [address] [facility] [id number][place] [id number] Jan, [facility] [place] [facility] [address] [facility] [id number] [address] Jan, [facility] [address] [facility] [id number][place] [address] Sep, [facility] [address] [id number][place] [address] Sep, [facility] [address] [id number][place] [address] Sep, [facility] [address] [id number][place] [address] Sep, [facility] [address] [id number][place] [address] Sep, [facility] [place] [facility] [address] [facility] [id number] [address]- [address] Sep, [facility] [place] [facility] [address] [facility] [id number] [place] [address] 33[address] Sep, [facility] [address] [facility] [id number] [place] [id number] Sep, [facility] [place] [facility] [address] [facility] [id number] [address] Sep, [facility] [place] [facility] [address] [facility] [id number] [place] [address]- 9426 Jun, [facility] [address] [facility] [id number] [place] [id number] Jun, [facility] [place] [facility] [address] [id number] [place] [address]- 5698 Jun, [facility] [place] [facility] [address] [facility] [id number] [place] [address] 41[address] Jun, [facility] [address] [id number] [place] [id number] Jun, [facility] [place] [facility] [address] [facility] [id number] [address]- [address] Jun, [facility] [address] [facility] [id number] [place] [id number] May, [facility] [place] [facility] [address] [facility] [id number] [place] [address] May, [facility] [place] [facility] [address] [facility] [id number] [place] [address]- 7342 May, [facility] [place] [facility] [address] [facility] [id number] [place] [address]- 2792 May, [facility] [address] [facility] [id number][place] [address] May, [facility] [place] [facility] [address] [facility] [id number] [place] [address]- 1241 May, [facility] [place] [facility] [address] [facility] [id number] [address] Apr, [facility] [place] [facility] [address] [facility] [id number] [address] Apr, [facility] [address] [id number] [place] [address]- 9744 Jan, [facility] [place] [facility] [address] [id number] [place] [address]- 8286 Dec, [facility] [address] [id number] [place] [address]- 4550 Dec, [facility] [place] [facility] [address] [id number] [place] [address]- 2375 Dec, [facility] [address] [id number] [place] [address]- 5355 Dec, [facility] [place] [facility] [address] [id number] [place] [address]- 8816 Dec, [facility] [address] [facility] [id number] [place] [address]- 1301 Dec, [facility] [address] [id number] [place] [address]- 5956 Dec, [facility] [address] [id number] [place] [address]- 4322 November, [facility] [place] [facility] [address] [facility] [id number] [place] [address]- 4666 Oct, [facility] [address] [facility] [id number] [place] [address]- [address]26 Oct, [facility] [place] [facility] [address] [id number] [place] [address]- 1666 Sep, [facility] [place] [facility] [address] [facility] [id number] [place] [address]- 1466 Sep, [facility] [place] [facility] [address] [facility] [id number] [place] [address]- 4426 Sep, [facility] [place] [facility] [address] [facility] [id number] [address]- [address] Sep, [facility] [place] [address] [facility] [id number][place] [id number] Aug, [facility] [address] [id number][place] [id number] Jul, [facility] [address] [id number][place] [id number] Jul, [facility] [address] [address] May, [facility] [address] [address] 2416 Mar, [facility] [address] [address] Sep, [facility] [id number] [place] [address]- 9845 May, [facility] [address] May, [facility] [id number] [place] [address]- 4880 May, [facility] [address] [address] May, [facility] [address] [address] Jun, [facility] [address] [address] Jun, [facility] [address] [address]- 6847 May, [facility] [address] [id number] Apr, IMMUNIZATIONS No Known Immunizations SOCIAL HISTORY Never Assessed REASON FOR VISIT Requests return call PLAN OF CARE VITAL SIGNS MEDICATIONS Unknown Medications RESULTS No Results PROCEDURES No Known procedures INSTRUCTIONS MEDICATIONS ADMINISTERED No Known Medications MEDICAL (GENERAL) HISTORY Type Description Date Medical History seasonal allergies Surgical History lap band 2012 Surgical History partial hysterectomy 1995?
--- OUTSIDE RECORDS SUMMARY | 2018-11-15 11:27 | XMS REPORT ---
Author Author MATTHEW RICARDO Organization [facility] Address [address] [place] [address] Care Team Providers Care Manager Budget Name Role Phone MATTHEW RICARDO Unavailable PROBLEMS Type Condition ICD9-CM Code FDI13-WY Code Onset Dates Condition Status SNOMED Code Problem Dysthymia F34.1 Active 66950006 Problem Obesity (BMI 30.0-34.9) E66.9 Active 535033968326978 Problem Hot flashes, menopausal N95.1 Active 134579189 Problem Allergic rhinitis, unspecified allergic rhinitis type J30.9 Active 83840354 Problem Menopause Z78.0 Active 400944129 Problem History of syncope Z87.898 Active 748882823593827 ALLERGIES No Information ENCOUNTERS Encounter Location Date Diagnosis [facility] [id number] [place] [id number] Oct, [facility] [address] [id number] Sep, Dysthymia F34.[address] [id number] [id number] Mar, Syncope, unspecified syncope type R55 ; Tobacco use Z72.0 and Family history of early CAD Z82.49 [facility] [id number] [place] [address] [id number] Feb, Elevated fasting blood sugar R73.01 and History of syncope Z87.898 [facility] [id number] [place] [address] [id number] Jan, Elevated fasting blood sugar R73.01 [facility] [place] [address] [address] Jan, [facility] [id number] [place] [address] [id number] Jan, History of syncope Z87.898 ; Obesity (BMI 30.0-34.9) E66.9 and Menopause Z78.0 [place] [id number] [place] [address] [id number] Jan, History of syncope Z87.898 ; Menopause Z78.0 ; Obesity (BMI 30.0-34.9) E66.9 ; Family history of CHF (congestive heart failure) Z82.49 and Family history of heart disease Z82.49 [facility] [address] [place] [address] [id number] Jan, [place] [id number] [place] [address] [id number] Dec, Well woman exam Z01.419 and Hot flashes, menopausal N95.1 [address] [id number] Sep, Allergic rhinitis, unspecified allergic rhinitis type J30.9 [address] [place] [address] [id number] Sep, [place] [id number] [place] [address] [id number] Jun, Non-seasonal allergic rhinitis due to other allergic trigger J30.89 [place] [id number] [place] [address] [id number] Sep, Allergic rhinitis, unspecified allergic rhinitis type J30.9 ; Screening cholesterol level Z13.220 ; Screening, heart disease, ischemic Z13.6 and Screening for thyroid disorder Z13.29 [facility] [address] [place] [address] [id number] Sep, 2015 Seasonal allergies J30.2 [facility] [place] [address] [id number]- [address] May, [facility] [place] [address] [id number]- [address] Mar, [facility] [place] [address] [id number]- [address] Mar, [facility] [place] [facility] [address] [id number] [place] [address] Feb, [facility] [place] [facility] [address] [id number] [place] [address]99 Feb, [facility] [place] [facility] [address] [id number] [place] [address] Dec, [facility] [place] [facility] [address] [id number] [place] [address] Oct, [facility] [place] [facility] [address] [id number] [place] [address] Oct, [facility] [place] [facility] [address] [id number] [place] [address] 9439 Sep, [facility] [place] [facility] [address] [facility] [id number] [place] [address] 9[address] Sep, [facility] [place] [facility] [address] [id number] [place] [address] Aug, [facility] [place] [facility] [address] [id number] [place] [address] Aug, [facility] [place] [facility] [address] [facility] [id number], [place] [address] Jun, [facility] [place] [facility] [address] [id number], [place] [address] Jun, [facility] [place] [facility] [address] [id number], [place] [address] May, [facility] [place] [facility] [address] [id number] [place] [address]- 4[address] May, [facility] [place] [facility] [address] [id number] [place] [address]- 3[address] Apr, [facility] [place] [facility] [address] [facility] [id number], [place] [address] Apr, [facility] [place] [facility] [address] [id number], [place] [address] Dec, [facility] [place] [facility] [address] [id number] [place] [address] Dec, [facility] [place] [facility] [address] [id number] [place] [address] Dec, [facility] [place] [facility] [address] [id number] [place] [address] Dec, [facility] [address] [facility] [id number] [place] [id number] November, [facility] [place] [facility] [address] [id number] [place] [address] November, [facility] [place] [facility] [address] [id number] [place] [address] 24[address] November, [facility] [place] [facility] [address] [id number] [place] [address] 5163 November, [facility] [place] [facility] [address] [id number] [place] [address] November, [facility] [place] [facility] [address] [facility] [id number], [place] [address] November, [facility] [place] [facility] [address] [facility] [id number] [place] [address]- [address] November, [facility] [place] [facility] [address] [id number], [place] [address] Oct, [facility] [place] [facility] [address] [id number], [place] [address] Oct, [facility] [address] [id number] [place] [id number] Sep, [facility] [place] [facility] [address] [id number] [place] [address]206 Sep, [facility] [address] [facility] [id number] [place] [id number] Sep, [facility] [place] [facility] [address] [id number], [place] [address] Sep, [facility] [address] [facility] [id number], [place] [address] Sep, [facility] [place] [facility] [address] [facility] [id number], [place] [address] Sep, [facility] [address] [facility] [id number], [place] [address] Jul, [facility] [place] [facility] [address] [facility] [id number], [place] [address] Jul, [facility] [address] [facility] [id number] [place] [id number] Jul, [facility] [address] [facility] [id number], [place] [address] Jul, [facility] [address] [facility] [id number], [place] [address] Apr, [facility] [address] [facility] [id number], [place] [address] Apr, [facility] [address] [id number] [place] [id number] Jan, [facility] [address] [facility] [id number], [place] [address] Jan, [facility] [address] [id number] [place] [id number] Sep, [facility] [address] [id number] [place] [id number] Sep, [facility] [address] [id number] [place] [id number] Sep, [facility] [address] [id number] [place] [id number] Sep, [facility] [address] [id number] [place] [id number] Sep, [facility] [place] [facility] [address] [facility] [id number], [place] [address] Sep, [facility] [place] [facility] [address] [facility] [id number], [place] [address] Sep, [facility] [address] [facility] [id number] [place] [id number] Sep, [facility] [place] [facility] [address] [facility] [id number], [place] [address] Sep, [facility] [place] [facility] [address] [facility] [id number], [place] [address]- 0196 Jun, [facility] [address] [facility] [id number] [place] [address] Jun, [facility] [place] [facility] [address] [facility] [id number] [place] [address]- 5[address] Jun, [facility] [place] [facility] [address] [facility] [id number], [place] [address]- 88[address] Jun, [facility] [address] [id number] [place] [address] Jun, [facility] [place] [facility] [address] [facility] [id number], [place] [address] 6[address] Jun, [facility] [address] [facility] [id number] [place] [id number] May, [facility] [place] [facility] [address] [facility] [id number], [place] [address] May, [facility] [place] [facility] [address] [facility] [id number][place] [address] May, [facility] [place] [facility] [address] [facility] [id number], [place]3338- 7734 May, [facility] [address] [facility] [id number] [place] [id number] May, [facility] [place] [facility] [address] [facility] [id number], [place] [address]- 8936 May, [facility] [place] [facility] [address] [facility] [id number], [place]- 1304 Apr, [facility] [place] [facility] [address] [facility] [id number], [place] [address]- 48[address] Apr, [facility] [address] [id number] [place] [address]- 3882 Jan, [facility] [address] [id number] [place] [address]- 1545 Dec, [facility] [address] [facility] [id number] [place] [address]- 7880 Dec, [facility] [address] [id number] [place] [address]- 6576 Dec, [facility] [address] [id number] [place] [address]- 5839 Dec, [facility] [address] [id number] [place] [address]- 9437 Dec, [facility] [address] [facility] [id number] [place] [address]- 5989 Dec, [facility] [address] [id number] [place] [address]- 5437 Dec, [facility] [address] [id number] [place] [address]- 4734 November, [facility] [address] [facility] [id number] [place] [address]- 4714 Oct, [facility] [address] [id number], [place] [address]- 3461 Oct, [facility] [place] [facility] [address] [id number], [place] [address]- 2604 Sep, [facility] [address] [facility] [id number] [place] [address]- 3872 Sep, [facility] [place] [facility] [address] [facility] [id number] [place] [address]- 8970 Sep, [facility] [address] [facility] [id number] [place] [address]- [address]206 Sep, [facility] [address] [id number] [place] [id number] Aug, [facility] [address] [id number] [place] [id number] Jul, [facility] [id number] [place] [id number] Jul, [facility] [place] [address], [place] [address] May, [facility] [place] [id number] [place] [address] Mar, [facility] [place] [id number] [place] [address]- 0883 Sep, [facility] [place] [id number] [place] [address]- 0740 May, [facility] [place] [id number] [place] [address]- 0910 May, [facility] [place] [id number] [place] [address]- 6213 May, [facility] [place] [id number] [place] [address] 598534- 0968 May, [facility] [place] [id number] [place] [address]30- 2464 Jun, [facility] [place] [address], [place] [address]- 9366 Jun, [facility] [place] [address] May, [facility] [place] [address] [address] Apr, IMMUNIZATIONS No Known Immunizations SOCIAL HISTORY Never Assessed REASON FOR VISIT Lab (walk-in) Ashlyn CORLEY PLAN OF CARE VITAL SIGNS MEDICATIONS Unknown Medications RESULTS No Results PROCEDURES Procedure Date Ordered Result Body Site VENIPUNCT, ROUTINE* January 25, 2017 LIPID PANEL January 25, 2017 COMPREHEN METABOLIC PANEL January 25, 2017 ASSAY OF PROLACTIN January 25, 2017 GONADOTROPIN (FSH) January 25, 2017 ASSAY OF TOTAL TESTOSTERONE January 25, 2017 ASSAY THYROID STIM HORMONE January 25, 2017 COMPLETE CBC W/AUTO DIFF WBC January 25, 2017 ASSAY OF ESTRADIOL January 25, 2017 ASSAY OF MAGNESIUM January 25, 2017 INSTRUCTIONS MEDICATIONS ADMINISTERED No Known Medications MEDICAL (GENERAL) HISTORY Type Description Date Medical History seasonal allergies Surgical History lap band 2011 Surgical History partial hysterectomy 1995?
--- OUTSIDE RECORDS SUMMARY | 2018-11-15 11:27 | XMS REPORT ---
Author Author JUAN RAMEY Organization [employer] Address Unknown Phone Unavailable Care Team Providers Care First Dyer Name Role Phone JUAN RAMEY CP Unavailable [...] Instructions Start Date End Date Status Dosage Albuterol NDC 0 0.083% Jul 11, 2011 SIG: by nebulizer 4 times a day Results No Known Results Summary Purpose [employer] Submission
--- OUTSIDE RECORDS SUMMARY | 2018-11-15 11:28 | XMS REPORT ---
Author Author JANUARY LOPES [facility] Address [address] [place] [address] Care Team Providers Care Gauge And Instrument Inspector Name Role Phone JANUARY LOPES Unavailable PROBLEMS Type Condition ICD9-CM Code [id number] Code Onset Dates Condition Status SNOMED Code Problem Obesity (BMI 30.0-34.9) E66.9 Active 527521580885795 Problem History of syncope Z87.898 Active 785905771907755 Problem Allergic rhinitis, unspecified allergic rhinitis type J30.9 Active 28136455 Problem Menopause Z78.0 Active 064357683 Problem Hot flashes, menopausal N95.1 Active 542390642 ALLERGIES Substance Reaction Event Type Date Status Latex hives Drug Allergy Jun, Active SOCIAL HISTORY No smoking Hx information available PLAN OF CARE Activity Details Follow Up prn Reason: VITAL SIGNS Height 68 in 2016-06-20 Weight 160.4 lbs 2016-06-20 Temperature 97.8 degrees Fahrenheit 2016-06-20 Heart Rate 100 bpm 2016-06-20 Respiratory Rate 18 2016-06-20 BMI 24.39 kg/m2 2016-06-20 Blood pressure systolic 100 mmHg 2016-06-20 Blood pressure diastolic 68 mmHg 2016-06-20 MEDICATIONS Medication Instructions Dosage Frequency Start Date End Date Duration Status Benadryl Allergy 25 MG Orally Once a day 24h Active HydrOXYzine HCl 25MG TAKE ONE TABLET BY MOUTH ONCE DAILY 12h Active RESULTS No Results PROCEDURES Procedure Date Ordered Related Diagnosis Body Site Office Visit, Est Pt., Level 3 Jun 20, 2016 DEPO MEDROL 80 MG/ML Jun 20, 2016 THER/PROPH/DIAG INJ, SC/IM Jun 20, 2016 IMMUNIZATIONS Vaccine Route Administration Date Status DEPO MEDROL 80 MG/ML IM Intramuscular Jun 20, 2016 Administered
--- OUTSIDE RECORDS SUMMARY | 2018-11-15 11:28 | XMS REPORT ---
Author Author JANUARY LOPES [facility] Address [address] [place] [address] Care Team Providers Care Functional Skills Tutor Name Role Phone JANUARY LOPES Unavailable PROBLEMS Type Condition ICD9-CM Code VOP20-KY Code Onset Dates Condition Status SNOMED Code Problem Obesity (BMI 30.0-34.9) E66.9 Active 587501525824043 Problem Menopause Z78.0 Active 712201176 Problem Allergic rhinitis, unspecified allergic rhinitis type J30.9 Active 67752576 Problem History of syncope Z87.898 Active 731591416839353 Problem Hot flashes, menopausal N95.1 Active 249953169 ALLERGIES No Information SOCIAL HISTORY Never Assessed PLAN OF CARE VITAL SIGNS MEDICATIONS Unknown Medications RESULTS No Results PROCEDURES No Known procedures IMMUNIZATIONS No Known Immunizations MEDICAL (GENERAL) HISTORY Type Description Date Medical History seasonal allergies Surgical History lap band 2011 Surgical History partial hysterectomy 1995?
--- OUTSIDE RECORDS SUMMARY | 2018-11-15 11:28 | XMS REPORT ---
Author Author MATTHEW RICARDO Organization [facility] Address [address] [place] [address] Care Team Providers Care Independent Producer Name Role Phone MATTHEW RICARDO Unavailable PROBLEMS Type Condition ICD9-CM Code EDR07-NE Code Onset Dates Condition Status SNOMED Code Problem Dysthymia F34.1 Active 16719875 Problem Obesity (BMI 30.0-34.9) E66.9 Active 576686085200529 Problem Hot flashes, menopausal N95.1 Active 772504582 Problem Allergic rhinitis, unspecified allergic rhinitis type J30.9 Active 81769432 Problem Menopause Z78.0 Active 089780233 Problem History of syncope Z87.898 Active 152057534501004 ALLERGIES Substance Reaction Event Type Date Status Latex hives Drug Allergy Feb, Active ENCOUNTERS Encounter Location Date Diagnosis [place] [id number] [place] [id number] November, [address] [id number] Oct, Dysthymia F34.1 [place] [id number] [place] [address] [id number] Sep, Dysthymia F34.[address] [id number] [id number] Mar, Syncope, unspecified syncope type R55 ; Tobacco use Z72.0 and Family history of early CAD Z82.[address] [id number] Feb, Elevated fasting blood sugar R73.01 and History of syncope Z87.[address] [facility] [address] [id number] [id number] Jan, Elevated fasting blood sugar R73.01 [facility] [id number] [place] [address] 89[address] Jan, [place] [id number] [place] [address] [id number] Jan, History of syncope Z87.898 ; Obesity (BMI 30.0-34.9) E66.9 and Menopause Z78.[address] [id number] Jan, History of syncope Z87.898 ; Menopause Z78.0 ; Obesity (BMI 30.0-34.9) E66.9 ; Family history of CHF (congestive heart failure) Z82.49 and Family history of heart disease Z82.49 [place] [id number] [place] [id number] Jan, [address] [id number] Dec, Well woman exam Z01.419 and Hot flashes, menopausal N95.1 [address] [id number] Sep, Allergic rhinitis, unspecified allergic rhinitis type J30.9 [place] [id number] [place] [address] [id number] Sep, [place] [id number] [place] [address] [id number] Jun, Non-seasonal allergic rhinitis due to other allergic trigger J30.89 [place] [id number] [place] [address] [id number] Sep, Allergic rhinitis, unspecified allergic rhinitis type J30.9 ; Screening cholesterol level Z13.220 ; Screening, heart disease, ischemic Z13.6 and Screening for thyroid disorder Z13.29 [place] [id number] [place] [address] [id number] 08 Sep, 2015 Seasonal allergies J30.2 [facility] [address] [address] May, [facility] [address] [place] [address] 30 Mar, 2015 [facility] [place] [facility] [address] [id number] [place] [address] Mar, [facility] [place] [facility] [address] [id number] [place] [address] 3325 Feb, [facility] [place] [facility] [address] [id number] [place] [address] 7[address] Feb, [facility] [place] [facility] [address] [id number] [place] [address] 9089 Dec, [facility] [place] [facility] [address] [id number] [place] [address]40 Oct, [facility] [place] [facility] [address] [facility] [place] [id number] [place] [address] Oct, [facility] [place] [facility] [address] [facility] [place] [id number] [place] [address] 4726 Sep, [facility] [place] [facility] [address] [facility] [place] [id number] [place] [address]66 Sep, [facility] [place] [facility] [address] [facility] [id number] [place] [address]- [address] 07 Aug, 2014 [facility] [place] [facility] [address] [facility] [id number] [place] [address] 8[address] 07 Aug, 2014 [facility] [place] [facility] [address] [facility] [place] [place] [id number] [place] [address] 1814 Jun, [facility] [place] [facility] [address] [facility] [place] [id number] [place] [address] 0587 Jun, [facility] [place] [facility] [address] [id number] [place] [address] 5055 May, [facility] [place] [facility] [address] [facility] [place] [place] [id number] [place] [address] 2679 May, [facility] [place] [facility] [address] [facility] [place] [id number] [place] [address] 1426 Apr, [facility] [place] [facility] [address] [id number] [place] [address] 5496 Apr, [facility] [place] [facility] [address] [id number] [place] [address] 6220 Dec, [facility] [place] [facility] [address] [id number] [place] [address] 0136 Dec, [facility] [place] [facility] [address] [id number] [place] [address] 2546 Dec, [facility] [place] [facility] [address] [id number] [place] [address] 6286 Dec, [facility] [address] [facility] [id number] [place] [id number] November, [facility] [address] [id number] [place] [address] 7216 November, [facility] [place] [facility] [address] [id number] [place] [address] 0626 November, [facility] [place] [facility] [address] [id number] [place] [address] 7055 November, [facility] [place] [facility] [address] [id number] [place] [address] 4276 November, [facility] [address] [id number] [place] [address] 2546 November, [facility] [place] [facility] [address] [id number] [place] [address]- 2546 November, [facility] [place] [facility] [address] [id number] [place] [address] 2546 Oct, [facility] [place] [facility] [address] [id number] [place] [address]- 2546 Oct, [facility] [address] [facility] [id number] [place] [id number] Sep, [facility] [place] [facility] [address] [id number] [place] [address]- 2546 Sep, [facility] [address] [id number] [place] [id number] Sep, [facility] [address] [facility] [id number] [place] [address] 2916 Sep, [facility] [place] [facility] [address] [facility] [id number] [place] [address]- 2546 Sep, [facility] [address] [facility] [id number] [place] [address] 7856 Sep, [facility] [place] [facility] [address] [facility] [id number] [place] [address]- 7195 Jul, [facility] [place] [facility] [address] [facility] [id number] [place] [address] Jul, [facility] [address] [id number] [id number] Jul, [facility] [address] [facility] [id number] [place] [address] Jul, [facility] [address] [facility] [id number] [place] [address]- 2168 Apr, [facility] [address] [facility] [id number] [place] [address]- 0516 Apr, [facility] [address] [id number] [id number] Jan, [facility] [address] [facility] [id number], [place] [address]- 2546 Jan, [facility] [address] [id number] [place] [id number] Sep, [facility] [address] [id number] [place] [id number] Sep, [facility] [address] [id number] [place] [id number] Sep, [facility] [address] [id number] [place] [id number] Sep, [facility] [address] [id number] [place] [id number] Sep, [facility] [address] [id number] [place] [address]- 7376 Sep, [facility] [place] [facility] [address] [id number] [place] [address]- 5796 Sep, [facility] [address] [facility] [id number][place] [id number] Sep, [facility] [place] [facility] [address] [facility] [id number] [place] [address]- 1326 15 Sep, 2012 [facility] [place] [facility] [address] [id number] [place] [address]- 1785 Jun, [facility] [address] [facility] [id number][place] [id number] Jun, [facility] [address] [facility] [id number], [place] [address]- 9551 Jun, [facility] [place] [facility] [address] [id number], [place] [address] Jun, [facility] [address] [facility] [id number][place] [id number] Jun, [facility] [place] [facility] [address] [facility] [id number], [place] [address]- 5782 Jun, [facility] [address] [facility] [id number][place] [id number] May, [facility] [place] [facility] [address] [facility] [id number], [place] [address] 9396 May, [facility] [place] [facility] [address] [facility] [id number], [place] [address]- 2546 May, [facility] [place] [facility] [address] [id number], [place] [address]- 6323 May, [facility] [address] [facility] [id number][place] [id number] May, [facility] [place] [facility] [address] [facility] [id number], [place] [address]- [address]166 May, [facility] [place] [facility] [address] [id number] [place] [address]- 6679 Apr, [facility] [place] [facility] [address] [id number] [place] [address]- 0686 Apr, [facility] [place] [facility] [address] [id number] [place] [address]- 2761 Jan, [facility] [place] [facility] [address] [id number] [place] [address]- 9960 Dec, [facility] [place] [facility] [address] [id number] [place] [address]- 3854 Dec, [facility] [place] [facility] [address] [id number] [place] [address]- 1354 Dec, [facility] [place] [facility] [address] [id number] [place] [address]- 1298 Dec, [facility] [place] [facility] [address] [id number] [place] [address]- 6405 Dec, [facility] [address] [id number] [place] [address]- 4841 Dec, [facility] [place] [facility] [address] [id number] [place] [address]- 7576 Dec, [facility] [place] [facility] [address] [id number] [place] [address]- 1633 November, [facility] [place] [facility] [address] [id number] [place] [address]- 4724 Oct, [facility] [place] [facility] [address] [id number] [place] [address]- 0688 Oct, [facility] [place] [facility] [address] [id number] [place] [address]- 1511 Sep, [facility] [place] [facility] [address] [id number] [place] [address] 2546 Sep, [facility] [place] [facility] [address] [id number] [place] [address]- 9769 Sep, [facility] [id number], [place] [address] Sep, [facility] [address] [facility] [id number] [place] [id number] Aug, [facility] [address] [facility] [id number][place] [id number] Jul, [facility] [address] [id number] [id number] Jul, [facility] [address] [facility] [id number], [place] [address]- [address]46 May, [facility] [id number] [place] [address]- 6306 Mar, [facility] [address] [id number], [place] [address] Sep, [facility] [id number] [place] [address]- 7166 May, [facility] [id number], [place] [address] 8742 May, [facility] [id number] [place] [address]- 3126 May, [facility] [address]65[address], [place] [address]- 6036 May, [facility] [id number], [place] [address]- 3966 Jun, [facility] [address]65[address], [place] [address]- 3036 Jun, [facility] [address]65[address], [place] [address]- 4726 May, [facility] [address]65[address], [place] [address] 7436 Apr, IMMUNIZATIONS No Known Immunizations SOCIAL HISTORY Never Assessed REASON FOR VISIT CHM- 4 week f/u hot flashes [place] MTZ PLAN OF CARE Activity Details Follow Up after sees Dr. Sanchez Reason: VITAL SIGNS Height 68 in 2017-02-21 Weight 163.2 lbs 2017-02-21 Temperature 97.8 degrees Fahrenheit 2017-02-21 Heart Rate 78 bpm 2017-02-21 Respiratory Rate 18 2017-02-21 BMI 24.81 kg/m2 2017-02-21 Blood pressure systolic 100 mmHg 2017-02-21 Blood pressure diastolic 70 mmHg 2017-02-21 MEDICATIONS Unknown Medications RESULTS Name Result Date Reference Range A1C (IN HOUSE) 2017-02-21 A1C IN HOUSE 5.6 4.3 - 5.6 % Previous A1c Lot [id number] Exp date 10/2018 PROCEDURES Procedure Date Ordered Result Body Site GLYCATED HEMOGLOBIN TEST Feb 21, 2017 INSTRUCTIONS MEDICATIONS ADMINISTERED No Known Medications MEDICAL (GENERAL) HISTORY Type Description Date Medical History seasonal allergies Surgical History lap band 2011 Surgical History partial hysterectomy 1995?
--- OUTSIDE RECORDS SUMMARY | 2018-11-15 11:28 | XMS REPORT ---
Author Author MATTHEW RICARDO Organization [facility] Address [address] [place] [address] Care Team Providers Care Harp Regulator Name Role Phone MATTHEW RICARDO Unavailable PROBLEMS Type Condition ICD9-CM Code UKL22-ZR Code Onset Dates Condition Status SNOMED Code Problem Dysthymia F34.1 Active 50714949 Problem Obesity (BMI 30.0-34.9) E66.9 Active 037623785512614 Problem Hot flashes, menopausal N95.1 Active 682538253 Problem Allergic rhinitis, unspecified allergic rhinitis type J30.9 Active 68276153 Problem Menopause Z78.0 Active 835210394 Problem History of syncope Z87.898 Active 540979652698126 ALLERGIES Substance Reaction Event Type Date Status Latex hives Drug Allergy Jan, Active ENCOUNTERS Encounter Location Date Diagnosis [facility] [id number] [place] [id number] Oct, [id number] [place] [address] [id number] Sep, Dysthymia F34.1 [facility] [address] [id number] [id number] Mar, Syncope, unspecified syncope type R55 ; Tobacco use Z72.0 and Family history of early CAD Z82.49 [facility] [address] [facility] [id number] [id number] Feb, Elevated fasting blood sugar R73.01 and History of syncope Z87.898 [facility] [address] [id number] [place] [id number] Jan, Elevated fasting blood sugar R73.01 [facility] [address] [facility] [id number][place] [address] Jan, [place] [id number] [id number] Jan, History of syncope Z87.898 ; Obesity (BMI 30.0-34.9) E66.9 and Menopause Z78.0 [facility] [address] [place] [id number] [place] [id number] Jan, History of syncope Z87.898 ; Menopause Z78.0 ; Obesity (BMI 30.0-34.9) E66.9 ; Family history of CHF (congestive heart failure) Z82.49 and Family history of heart disease Z82.[address] [place] [address] [id number] Jan, [place] [id number] [place] [address] [phone] Dec, Well woman exam Z01.419 and Hot flashes, menopausal N95.[address] [id number] [place] [id number] Sep, Allergic rhinitis, unspecified allergic rhinitis type J30.9 [facility] [address] [place] [address] [id number] Sep, [place] [id number] [place] [address] [phone] Jun, Non-seasonal allergic rhinitis due to other allergic trigger J30.[address] [place] [address] [id number] Sep, Allergic rhinitis, unspecified allergic rhinitis type J30.9 ; Screening cholesterol level Z13.220 ; Screening, heart disease, ischemic Z13.6 and Screening for thyroid disorder Z13.29 [address] [id number] Sep, Seasonal allergies J30.2 [facility] [address] [id number] [place] [address] [id number] May, [facility] [id number] [place] [address] [id number] 7850 Mar, [facility] [id number] [place] [address]- 9914 Mar, [facility] [place] [facility] [address] [id number] [place] [address] Feb, [facility] [place] [facility] [address] [facility] [id number] [place] [address] 59[address] Feb, [facility] [place] [facility] [address] [facility] [id number] [place] [address] Dec, [facility] [place] [facility] [address] [facility] [id number] [place] [address] 5678 Oct, [facility] [place] [facility] [address] [facility] [id number] [place] [address] 9177 Oct, [facility] [place] [facility] [address] [facility] [id number] [place] [address] 750[address] Sep, [facility] [place] [facility] [address] [place] [address] 9[address] Sep, [facility] [place] [facility] [address] [facility] [id number] [place] [address]- 4679 Aug, [facility] [place] [facility] [address] [place] [id number] [place] [address] Aug, [facility] [place] [facility] [address] [id number] [place] [address] 9844 Jun, [facility] [place] [facility] [address] [address] [id number] [place] [address]- 1527 Jun, [facility] [place] [facility] [address] [facility] [id number] [place] [address]- 4[address] May, [facility] [place] [facility] [address] [facility] [id number] [place] [address] May, [facility] [place] [facility] [address] [facility] [id number] [place] [address] 5959 Apr, [facility] [place] [facility] [address] [facility] [id number], [place] [address] Apr, [facility] [place] [facility] [address] [id number] [place] [address]- 0986 Dec, [facility] [place] [facility] [address] [id number] [place] [address]- 8995 Dec, [facility] [place] [facility] [address] [id number] [place] [address]- 7546 Dec, [facility] [place] [facility] [address] [id number] [place] [address] 4076 Dec, [facility] [address] [id number] [place] [id number] November, [facility] [place] [facility] [address] [id number] [place] [address]- [address] November, [facility] [place] [facility] [address] [id number] [place] [address]- 3036 November, [facility] [place] [facility] [address] [id number] [place] [address]- 7576 November, [facility] [place] [facility] [address] [id number] [place] [address] 8910 November, [facility] [place] [facility] [address] [id number] [place] [address]- 5056 November, [facility] [place] [facility] [address] [id number] [place] [address]- 7686 November, [facility] [place] [facility] [address] [id number] [place] [address]- 2546 Oct, [facility] [place] [facility] [address] [id number] [place] [address]- 2546 Oct, [facility] [address] [id number] [place] [id number] Sep, [facility] [place] [facility] [address] [id number] [place] [address]- 2546 Sep, [facility] [address] [id number] [place] [id number] Sep, [facility] [place] [facility] [address] [id number] [place] [address]- 8796 Sep, [facility] [address] [facility] [id number] [place] [address]- 5561 Sep, [facility] [place] [facility] [address] [facility] [id number] [place] [address]- 8131 Sep, [facility] [address] [facility] [id number] [place] [address]- 8960 Jul, [facility] [place] [facility] [address] [facility] [id number] [place] [address]- 5892 Jul, [facility] [address] [facility] [id number] [place] [id number] Jul, [facility] [address] [facility] [id number] [place] [address]- 0368 Jul, [facility] [address] [place] [id number] [place] [address]- 2856 Apr, [facility] [address] [facility] [id number] [place] [address]- 0177 Apr, [facility] [address] [id number] [place] [id number] Jan, [facility] [address] [facility] [id number], [place] [address]- [address]46 Jan, [facility] [address] [id number] [place] [id number] Sep, [facility] [address] [id number] [place] [address] Sep, [facility] [address] [id number] [place] [id number] Sep, [facility] [address] [id number] [place] [address] Sep, [facility] [address] [id number] [place] [address] Sep, [facility] [place] [facility] [address] [facility] [id number] [place] [address]- 3356 Sep, [facility] [place] [facility] [address] [id number], [place] [address]- 6995 Sep, [facility] [address] [facility] [id number] [place] [id number] Sep, [facility] [place] [facility] [address] [id number], [place] [address]- 5686 Sep, [facility] [place] [facility] [address] [id number], [place] [address]- 0271 Jun, [facility] [address] [facility] [id number][place] [id number] Jun, [facility] [place] [facility] [address] [facility] [id number] [place] [address]- 6868 Jun, [facility] [place] [facility] [address] [facility] [id number], [place] [address]- 2376 Jun, [facility] [address] [place] [id number] [id number] Jun, [facility] [place] [facility] [address] [id number], [place] [address]- 8675 Jun, [facility] [address] [facility] [id number][place] [id number] May, [facility] [place] [facility] [address] [id number][place]- [address] May, [facility] [place] [facility] [address] [facility] [id number], [place] [address]- 1191 May, [facility] [place] [facility] [address] [id number], [place] [address]- 9536 May, [facility] [address] [facility] [id number], [place] [id number] May, [facility] [place] [facility] [address] [facility] [id number], [place] [address]- 0654 May, [facility] [place] [facility] [address] [facility] [id number], [place] [address]- 4530 Apr, [facility] [place] [facility] [address] [id number] [place] [address]- 9796 Apr, [facility] [address] [id number] [place] [address]- 8225 Jan, [facility] [place] [facility] [address] [id number] [place] [address]- 8415 29 Dec, 2011 [facility] [address] [id number] [place] [address]- 7777 Dec, [facility] [place] [facility] [address] [id number] [place] [address]- 6772 14 Dec, 2011 [facility] [address] [id number] [place] [address]- 9275 Dec, [facility] [address] [id number] [place] [address]- 1704 Dec, [facility] [address] [id number] [place] [address]- 1593 Dec, [facility] [address] [id number] [place] [address]- 2604 Dec, [facility] [place] [facility] [address] [id number] [place] [address]- 4852 November, [facility] [address] [id number] [place] [address]- 6385 Oct, [facility] [place] [facility] [address] [id number] [place] [address]- 7699 Oct, [facility] [place] [facility] [address] [id number] [place] [address]- 3939 Sep, [facility] [place] [facility] [address] [id number] [place] [address]- 9848 Sep, [facility] [place] [facility] [address] [id number] [place] [address]- 3735 Sep, [facility] [place] [facility] [address] [id number] [place] [address]- 7126 Sep, [facility] [address] [facility] [id number][place] [id number] Aug, [facility] [address] [place] [id number][place] [id number] Jul, [facility] [address] [place] [id number], [place] [id number] Jul, [facility] [address]00565100[place], [place] [address]- [address]46 May, [facility] [address]00565100[place], [place] [address]- 2546 Mar, [facility] [id number] [place] [address]- 4181 Sep, [facility] [address] [place] [id number] [place] [address] 77[address]- 3976 May, [facility] [address] [id number] [place] [address] 84448- 4187 May, [facility] [address]00565100[place], [place] [address]- 9207 May, [facility] [id number] [place] [address] 19123- 2478 May, [facility] [address]00565100[place], [place] [address]- 3780 Jun, [facility] [address]00565100[place], [place] [address]- 4496 Jun, [facility] [address]00565100[place], [place] [address]- 1436 May, [facility] [address]00565100[place], [place] [address]- [address]65 Apr, IMMUNIZATIONS No Known Immunizations SOCIAL HISTORY Never Assessed REASON FOR VISIT hot flashes/depression screen Ashlyn CORLEY PLAN OF CARE Activity Details Follow Up 4 weeks or as indicated by lab Reason:syncope and hot flashes VITAL SIGNS Height 68 in 2017-01-24 Weight 165.2 lbs 2017-01-24 Temperature 98.2 degrees Fahrenheit 2017-01-24 Heart Rate 100 bpm 2017-01-24 Respiratory Rate 18 2017-01-24 BMI 25.12 kg/m2 2017-01-24 Blood pressure systolic 112 mmHg 2017-01-24 Blood pressure diastolic 64 mmHg 2017-01-24 MEDICATIONS Medication Instructions Dosage Frequency Start Date End Date Duration Status Venlafaxine HCl ER 37.5 MG Orally Once a day 1 capsule with food 24h Jan 0 days Active HydrOXYzine HCl 25MG Orally 2 times a day as needed 1 tablet 0 days Active RESULTS No Results PROCEDURES Procedure Date Ordered Result Body Site EKG, TRACING (IN-HOUSE) 2017-01-24 no acute ischemic changes ELECTROCARDIOGRAM, TRACING January 24, 2017 INSTRUCTIONS MEDICATIONS ADMINISTERED No Known Medications MEDICAL (GENERAL) HISTORY Type Description Date Medical History seasonal allergies Surgical History lap band 2011 Surgical History partial hysterectomy 1995?
--- OUTSIDE RECORDS SUMMARY | 2018-11-15 11:28 | XMS REPORT ---
Author Author MATTHEW RICARDO Organization [facility] Address [address] [place] [address] Care Team Providers Care Cell Tester Name Role Phone MATTHEW RICARDO Unavailable PROBLEMS Type Condition ICD9-CM Code [id number] Code Onset Dates Condition Status SNOMED Code Problem Dysthymia F34.1 Active 02854604 Problem Obesity (BMI 30.0-34.9) E66.9 Active 058629408994712 Problem Hot flashes, menopausal N95.1 Active 306270531 Problem Allergic rhinitis, unspecified allergic rhinitis type J30.9 Active 84166549 Problem Menopause Z78.0 Active 124129590 Problem History of syncope Z87.898 Active [id number] ALLERGIES No Information ENCOUNTERS Encounter Location Date Diagnosis [facility] [id number] [place] [address] [id number] Oct, [facility] [address] [id number] Sep, Dysthymia F34.[address] [id number] [id number] Mar, Syncope, unspecified syncope type R55 ; Tobacco use Z72.0 and Family history of early CAD Z82.49 [facility] [id number] [place] [address] [id number] Feb, Elevated fasting blood sugar R73.01 and History of syncope Z87.[address] [facility] [id number] [place] [address] [id number] Jan, Elevated fasting blood sugar R73.01 [facility] [address]005[address], [place] [address] Jan, [facility] [id number] [place] [address] [id number] Jan, History of syncope Z87.898 ; Obesity (BMI 30.0-34.9) E66.9 and Menopause Z78.0 [place] [id number] [place] [address] [id number] Jan, History of syncope Z87.898 ; Menopause Z78.0 ; Obesity (BMI 30.0-34.9) E66.9 ; Family history of CHF (congestive heart failure) Z82.49 and Family history of heart disease Z82.49 [facility] [address] [place] [address] [id number] Jan, [place] [id number] [place] [address] [id number] Dec, Well woman exam Z01.419 and Hot flashes, menopausal N95.1 [address] [id number] Sep, Allergic rhinitis, unspecified allergic rhinitis type J30.[address] [place] [address] [id number] Sep, [address] [id number] [place] [address] [id number] Jun, Non-seasonal allergic rhinitis due to other allergic trigger J30.89 [address] [id number] [place] [address] [id number] Sep, Allergic rhinitis, unspecified allergic rhinitis type J30.9 ; Screening cholesterol level Z13.220 ; Screening, heart disease, ischemic Z13.6 and Screening for thyroid disorder Z13.29 [facility] [address] [place] [address] [id number] 08 Sep, 2015 Seasonal allergies J30.2 [facility] [address] [id number] May, [facility] [address] [id number]- 3301 Mar, [facility] [address] [id number]- [address]44 Mar, [facility] [place] [facility] [address] [id number] [place] [address] Feb, [facility] [place] [facility] [address] [id number] [place] [address] 4[address] Feb, [facility] [place] [facility] [address] [id number] [place] [address] 69[address] Dec, [facility] [place] [facility] [address] [id number] [place] [address]289 Oct, [facility] [place] [facility] [address] [id number] [place] [address] 1474 Oct, [facility] [place] [facility] [address] [id number] [place] [address] 9133 Sep, [facility] [place] [facility] [address] [facility] [id number] [place] [address] Sep, [facility] [place] [facility] [address] [id number] [place] [address] 8233 Aug, [facility] [place] [facility] [address] [id number] [place] [address] 8046 Aug, [facility] [place] [facility] [address] [facility] [id number], [place] [address] Jun, [facility] [place] [facility] [address] [id number], [place] [address] Jun, [facility] [place] [facility] [address] [id number], [place] [address] 1992 May, [facility] [place] [facility] [address] [id number] [place] [address] 6329 May, [facility] [place] [facility] [address] [id number] [place] [address] 4756 Apr, [facility] [place] [facility] [address] [facility] [id number], [place] [address] Apr, [facility] [place] [facility] [address] [id number], [place] [address] Dec, [facility] [place] [facility] [address] [id number] [place] [address] 30[address] Dec, [facility] [place] [facility] [address] [id number] [place] [address] 0196 Dec, [facility] [place] [facility] [address] [id number] [place] [address] Dec, [facility] [address] [facility] [id number] [id number] November, [facility] [place] [facility] [address] [id number] [place] [address] 8557 November, [facility] [place] [facility] [address] [id number] [place] [address] 7160 November, [facility] [place] [facility] [address] [id number] [place] [address] 0119 November, [facility] [place] [facility] [address] [id number] [place] [address] 9220 November, [facility] [place] [facility] [address] [facility] [id number], [place] [address] 12[address] November, [facility] [place] [facility] [address] [facility] [id number] [place] [address] 2736 November, [facility] [place] [facility] [address] [id number], [place] [address] 288[address] Oct, [facility] [place] [facility] [address] [id number], [place] [address] Oct, [facility] [address] [id number] [place] [id number] Sep, [facility] [place] [facility] [address] [id number] [place] [address] 3526 Sep, [facility] [address] [facility] [id number] [place] [id number] Sep, [facility] [place] [facility] [address] [id number], [place] [address] Sep, [facility] [address] [facility] [id number], [place] [address] 9892 Sep, [facility] [place] [facility] [address] [facility] [id number], [place] [address]- 9665 Sep, [facility] [address] [facility] [id number], [place] [address] 2595 Jul, [facility] [place] [facility] [address] [facility] [id number], [place] [address] 0742 Jul, [facility] [address] [facility] [id number][place] [id number] Jul, [facility] [address] [facility] [id number], [place] [address] Jul, [facility] [address] [facility] [id number], [place] [address] 7164 Apr, [facility] [address] [facility] [id number], [place] [address] Apr, [facility] [address] [id number][place] [id number] Jan, [facility] [address] [facility] [id number], [place] [address]326 Jan, [facility] [address] [id number][place] [id number] Sep, [facility] [address] [id number][place] [id number] Sep, [facility] [address] [id number][place] [id number] Sep, [facility] [address] [id number] [place] [id number] Sep, [facility] [address] [id number][place] [address] Sep, [facility] [place] [facility] [address] [facility] [id number], [place] [address] 2546 Sep, [facility] [place] [facility] [address] [facility] [id number], [place] [address]37 Sep, [facility] [address] [facility] [id number] [place] [id number] Sep, [facility] [place] [facility] [address] [facility] [id number], [place] [address]- 3747 Sep, [facility] [place] [facility] [address] [facility] [id number], [place] [address]- 1996 Jun, [facility] [address] [facility] [id number][place] [id number] Jun, [facility] [place] [facility] [address] [facility] [id number] [place] [address]- 7106 Jun, [facility] [place] [facility] [address] [facility] [id number], [place] [address]- 6301 Jun, [facility] [address] [id number] [id number] Jun, [facility] [place] [facility] [address] [facility] [id number], [place] [address]- 7300 Jun, [facility] [address] [facility] [id number][place] [id number] May, [facility] [place] [facility] [address] [facility] [id number], [place]- 2583 May, [facility] [place] [facility] [address] [facility] [id number][place] 2563 May, [facility] [place] [facility] [address] [facility] [id number][place] 46[address] May, [facility] [address] [facility] [id number][place] [address] May, [facility] [place] [facility] [address] [facility] [id number], [place] [address]- 6866 May, [facility] [place] [facility] [address] [facility] [id number][place] 9228 Apr, [facility] [place] [facility] [address] [facility] [id number], [place] [address]- 3653 Apr, [facility] [address] [id number] [place] [address]- 3744 Jan, [facility] [address] [id number] [place] [address]- 7414 Dec, [facility] [address] [facility] [id number] [place] [address]- 6511 Dec, [facility] [address] [id number] [place] [address]- 5686 Dec, [facility] [address] [id number] [place] [address]- 7668 Dec, [facility] [address] [id number] [place] [address]- 0263 Dec, [facility] [address] [facility] [id number] [place] [address]- 2890 Dec, [facility] [address] [id number] [place] [address]- 3614 Dec, [facility] [address] [id number] [place] [address]- 2482 November, [facility] [address] [facility] [id number] [place] [address]- 5707 Oct, [facility] [address] [id number], [place] [address]- 9239 Oct, [facility] [place] [facility] [address] [id number], [place] [address]- 6991 Sep, [facility] [address] [facility] [id number] [place] [address]- 6465 Sep, [facility] [place] [facility] [address] [facility] [id number] [place] [address]- 2113 Sep, [facility] [address] [facility] [id number] [place] [address]- 2786 Sep, [facility] [address] [id number] [id number] Aug, [facility] [address] [id number] [address] Jul, [facility] [address] [id number] [id number] Jul, [facility] [address], [place] [address] May, [facility] [address]65[address], [place] [address] 9446 Mar, [facility] [address], [place] [address]- 1077 Sep, [facility] [id number] [place] [address]- 4850 May, [facility] [address] [id number], [place] [address]- 0106 May, [facility] [address], [place] [address]- 4639 May, [facility] [address] 2921 May, [facility] [address], [place] [address]- 5452 Jun, [facility] [address], [place] [address]- 6513 Jun, [facility] [address]- 8137 May, [facility] [id number] [address]15 Apr, IMMUNIZATIONS No Known Immunizations SOCIAL HISTORY Never Assessed REASON FOR VISIT deferred lab PLAN OF CARE VITAL SIGNS MEDICATIONS Unknown Medications RESULTS No Results PROCEDURES No Known procedures INSTRUCTIONS MEDICATIONS ADMINISTERED No Known Medications MEDICAL (GENERAL) HISTORY Type Description Date Medical History seasonal allergies Surgical History lap band 2011 Surgical History partial hysterectomy 1995?
--- OUTSIDE RECORDS SUMMARY | 2018-11-15 11:28 | XMS REPORT ---
Author Author JUAN RAMEY Organization [employer] Address Unknown Phone Unavailable Care Team Providers Care Raw Material Planner Name Role Phone JUAN RAMEY CP Unavailable [...] examination, human papillomavirus [HPV] V73.81 Active Medications No Known Medications Results No Known Results Summary Purpose [employer] Submission
--- OUTSIDE RECORDS SUMMARY | 2018-11-15 11:29 | XMS REPORT ---
Author Author CAROLYN LUNSFORD [facility] Address [address] [place] [address] Care Team Providers Care Oven Heater Helper Name Role Phone CAROLYN LUNSFORD Unavailable PROBLEMS Type Condition ICD9-CM Code KRS41-LS Code Onset Dates Condition Status SNOMED Code Problem Dysthymia F34.1 Active 54798475 Problem Obesity (BMI 30.0-34.9) E66.9 Active 244076819498677 Problem Hot flashes, menopausal N95.1 Active 194431359 Problem Allergic rhinitis, unspecified allergic rhinitis type J30.9 Active 96029386 Problem Menopause Z78.0 Active 286712104 Problem History of syncope Z87.898 Active 815678666554080 ALLERGIES Substance Reaction Event Type Date Status Latex hives Drug Allergy Mar, Active ENCOUNTERS Encounter Location Date Diagnosis [place] [id number] [place] [address] [id number] November, [place] [id number] [place] [address] [id number] Oct, Dysthymia F34.1 [place] [id number] [place] [address] [id number] Sep, Dysthymia F34.[address] [facility] [address] [id number] [id number] Mar, Syncope, unspecified syncope type R55 ; Tobacco use Z72.0 and Family history of early CAD Z82.[address] [id number] Feb, Elevated fasting blood sugar R73.01 and History of syncope Z87.[address] [facility] [address] [id number] [place] [id number] Jan, Elevated fasting blood sugar R73.01 [facility] [address] [place] [address] Jan, [address] [place] [address] [id number] Jan, History of syncope Z87.898 ; Obesity (BMI 30.0-34.9) E66.9 and Menopause Z78.0 [place] [id number] [place] [address] [id number] Jan, History of syncope Z87.898 ; Menopause Z78.0 ; Obesity (BMI 30.0-34.9) E66.9 ; Family history of CHF (congestive heart failure) Z82.49 and Family history of heart disease Z82.49 [place] [id number] [place] [address] [id number] Jan, [place] [id number] [place] [address] [id number] Dec, Well woman exam Z01.419 and Hot flashes, menopausal N95.1 [address] [id number] Sep, Allergic rhinitis, unspecified allergic rhinitis type J30.[address] [place] [address] [id number] Sep, [place] [id number] [place] [address] [id number] Jun, Non-seasonal allergic rhinitis due to other allergic trigger J30.89 [place] [id number] [place] [address] [id number] Sep, Allergic rhinitis, unspecified allergic rhinitis type J30.9 ; Screening cholesterol level Z13.220 ; Screening, heart disease, ischemic Z13.6 and Screening for thyroid disorder Z13.29 [place] [id number] [place] [address] [id number] Sep, Seasonal allergies J30.2 [facility] [address] [place] [address] 02 May, 2015 [facility] [address] [address] Mar, [facility] [place] [facility] [address] [id number] [place] [address] Mar, [facility] [place] [facility] [address] [id number] [place] [address] Feb, [facility] [place] [facility] [address] [id number] [place] [address] 6[address] Feb, [facility] [place] [facility] [address] [id number] [place] [address] 1718 Dec, [facility] [place] [facility] [address] [id number] [place] [address] 8[address] Oct, [facility] [place] [facility] [address] [id number] [place] [address] Oct, [facility] [place] [facility] [address] [facility] [id number] [place] [address] Sep, [facility] [place] [facility] [address] [id number] [place] [address] Sep, [facility] [place] [facility] [address] [id number] [place] [address] 368[address] Aug, [facility] [place] [facility] [address] [id number] [place] [address] 8[address] Aug, [facility] [place] [facility] [address] [id number] [place] [address] 2[address] Jun, [facility] [place] [facility] [address] [id number] [place] [address] Jun, [facility] [place] [facility] [address] [id number] [place] [address] May, [facility] [place] [facility] [address] [id number] [place] [address] 90[address] May, [facility] [place] [facility] [address] [facility] [id number] [place] [address] 3085 Apr, [facility] [place] [facility] [address] [id number] [place] [address] 1426 Apr, [facility] [place] [facility] [address] [id number] [place] [address] 0974 Dec, [facility] [place] [facility] [address] [id number] [place] [address] 4606 Dec, [facility] [place] [facility] [address] [id number] [place] [address] Dec, [facility] [place] [facility] [address] [id number] [place] [address] Dec, [facility] [address] [facility] [id number][place] [id number] November, [facility] [place] [facility] [address] [id number] [place] [address] 6686 November, [facility] [place] [facility] [address] [id number] [place] [address] November, [facility] [place] [facility] [address] [id number] [place] [address] 1813 November, [facility] [place] [facility] [address] [id number] [place] [address] November, [facility] [place] [facility] [address] [id number] [place] [address] 80[address] November, [facility] [place] [facility] [address] [id number] [place] [address] 0656 November, [facility] [place] [facility] [address] [id number] [place] [address] 7926 Oct, [facility] [place] [facility] [address] [id number] [place] [address] 2796 Oct, [facility] [address] [facility] [id number][place] [id number] Sep, [facility] [place] [facility] [address] [id number] [place] [address] 25[address] Sep, [facility] [address] [facility] [id number][place] [id number] Sep, [facility] [address] [facility] [id number] [place] [address] Sep, [facility] [place] [facility] [address] [facility] [id number] [place] [address] 97[address] Sep, [facility] [address] [facility] [id number] [place] [address] 1068 Sep, [facility] [place] [facility] [address] [facility] [id number] [place] [address] Jul, [facility] [address] [facility] [id number] [address] Jul, [facility] [address] [facility] [id number][place] [id number] Jul, [facility] [address] [address] Jul, [facility] [address] [facility] [id number] [place] [address] Apr, [facility] [address] [facility] [id number] [place] [address] Apr, [facility] [address] [id number][place] [id number] Jan, [facility] [address] [facility] [id number] [place] [address] 67[address] Jan, [facility] [address] [id number][place] [id number] Sep, [facility] [address] [id number] [place] [id number] Sep, [facility] [address] [id number] [place] [id number] Sep, [facility] [address] [id number] [place] [address] Sep, [facility] [address] [id number] [place] [address] Sep, [facility] [place] [facility] [address] [id number] [place] [address] Sep, [facility] [place] [facility] [address] [facility] [id number] [place] [address] 0[address] Sep, [facility] [address] [facility] [id number], [place] [id number] Sep, [facility] [place] [facility] [address] [facility] [id number] [place] [address] 2826 Sep, [facility] [place] [facility] [address] [id number] [place] [address] 9716 Jun, [facility] [address] [facility] [id number][place] [id number] Jun, [facility] [place] [facility] [address] [facility] [id number] [place] [address]- [address] Jun, [facility] [address] [facility] [id number] [place] [address]- 6163 Jun, [facility] [address] [facility] [id number][place] [id number] Jun, [facility] [place] [facility] [address] [facility] [id number] [place] [address]- 0883 Jun, [facility] [address] [facility] [id number][place] [address] May, [facility] [place] [facility] [address] [facility] [id number] [place] [address]- 5666 May, [facility] [place] [facility] [address] [facility] [id number] [place] [address]- 8876 May, [facility] [place] [facility] [address] [facility] [id number] [place] [address]- 1337 May, [facility] [address] [facility] [id number][place] [id number] May, [facility] [place] [facility] [address] [facility] [id number] [place] [address]- 4277 May, [facility] [place] [facility] [address] [facility] [id number] [place] [address]- 8238 Apr, [facility] [place] [facility] [address] [id number] [place] [address]- 6311 Apr, [facility] [place] [facility] [address] [id number] [place] [address]- 7429 Jan, [facility] [place] [facility] [address] [id number] [place] [address]- 0673 Dec, [facility] [place] [facility] [address] [id number] [place] [address]- 3968 Dec, [facility] [place] [facility] [address] [id number] [place] [address]- 2464 Dec, [facility] [place] [facility] [address] [id number] [place] [address]- 5725 Dec, [facility] [place] [facility] [id number] [place] [address]- 1165 Dec, [facility] [place] [facility] [address] [facility] [id number] [place] [address]- 4895 Dec, [facility] [place] [facility] [address] [facility] [id number] [place] [address]- 7928 Dec, [facility] [place] [facility] [address] [facility] [id number] [place] [address]- 3251 November, [facility] [place] [facility] [address] [id number] [place] [address]- 4322 Oct, [facility] [place] [facility] [address] [id number] [place] [address]- 6554 Oct, [facility] [place] [facility] [address] [id number] [place] [address]- 1622 Sep, [facility] [place] [facility] [address] [facility] [id number] [place] [address]- 7992 Sep, [facility] [place] [facility] [address] [facility] [id number] [place] [address]- 0176 Sep, [facility] [place] [facility] [address] [address] Sep, [facility] [address] [id number][place] [id number] Aug, [facility] [address] [id number][place] [id number] Jul, [facility] [address] [id number], [place] [id number] Jul, [facility] [address] [address] May, [facility] [address] [address]- 77[address] Mar, [facility] [address] [address]- 59[address] Sep, [facility] [address] [address]- 7186 May, [facility] [address] [address]- 3020 May, [facility] [address] [address] [address] May, [facility] [address] [address]- 1580 May, [facility] [address] [address]- 7424 Jun, [facility] [address] [address]- 5534 Jun, [facility] [address] [address]- 1477 May, [facility] [address] [address] Apr, IMMUNIZATIONS No Known Immunizations SOCIAL HISTORY Never Assessed REASON FOR VISIT Cardiology consult PLAN OF CARE Activity Details Follow Up 4 Weeks Reason: VITAL SIGNS Height 68 in 2017-03-30 Weight 173 lbs 2017-03-30 Heart Rate 80 bpm 2017-03-30 Respiratory Rate 18 2017-03-30 Oximetry 95 % 2017-03-30 BMI 26.30 kg/m2 2017-03-30 Blood pressure systolic 118 mmHg 2017-03-30 Blood pressure diastolic 68 mmHg 2017-03-30 MEDICATIONS Medication Instructions Dosage Frequency Start Date End Date Duration Status HydrOXYzine HCl 25MG Orally 2 times a day as needed 1 tablet 0 days Active RESULTS Name Result Date Reference Range Echo 2D PROCEDURES Procedure Date Ordered Result Body Site TILT TABLE EVALUATION 2017-03-30 N/A HOLTER MONITOR (OUTPATIENT) 2017-03-30 NOT PERFORMED/SEE INTERNAL NOTES MEASURE BLOOD OXYGEN LEVEL Mar 30, 2017 INSTRUCTIONS MEDICATIONS ADMINISTERED No Known Medications MEDICAL (GENERAL) HISTORY Type Description Date Medical History seasonal allergies Surgical History lap band 2011 Surgical History partial hysterectomy 1995?
--- OUTSIDE RECORDS SUMMARY | 2018-11-15 11:29 | XMS REPORT ---
Author Author JANUARY LOPES [facility] Address [address] [place] [address] Care Team Providers Care Mold Sprayer Name Role Phone JANUARY LOPES Unavailable PROBLEMS Type Condition ICD9-CM Code VUU27-UB Code Onset Dates Condition Status SNOMED Code Problem Obesity (BMI 30.0-34.9) E66.9 Active 743950330626002 Problem Menopause Z78.0 Active 514146708 Problem Allergic rhinitis, unspecified allergic rhinitis type J30.9 Active 08336865 Problem History of syncope Z87.898 Active 815204068634186 Problem Hot flashes, menopausal N95.1 Active 132522104 ALLERGIES No Information SOCIAL HISTORY Never Assessed PLAN OF CARE VITAL SIGNS MEDICATIONS Medication [...]
[2018-11-15] MEDS ORDERED: MIDAZOLAM 2 MG/2 ML (VERSED) VIAL IVP ONE (11:30)
[2018-11-15] MEDS ORDERED: HURRICAINE EXT TUBE (BENZOCAINE) XX PRN (11:30)
[2018-11-15] MEDS ORDERED: fentaNYL INJECTION 100 MCG/2 ML AMP IVP ONE (11:30)
[2018-11-15] MEDS ORDERED: LIDOCAINE JELLY 2% 6 ML SYRINGE MM PRN (11:30)
--- OUTSIDE RECORDS SUMMARY | 2018-11-15 11:30 | XMS REPORT | Continuity of Care Document ---
Author Organization Unknown Address Unknown Allergies Active Description Code Type Severity Reaction Onset Reported/Identified Relationship to Patient Clinical Status Yes latex gloves OA N/A N/A 05/04/2009 Yes talcum powder OA N/A N/A 05/04/2009 Yes latex gloves OA 05/04/2009 Yes talcum powder OA 05/04/2009 Yes povidone-iodine [id number] Drug Allergy Mild N/A 09/05/2012 Yes Soap [id number] Drug Allergy Mild N/A 09/05/2012 Yes latex [id number] Drug Allergy Unknown N/A 04/25/2015 Yes latex [id number] Drug Allergy Unknown N/A 04/28/2015 Medications There is no data. Problems Date Dx Coded Attending Type Code Diagnosis Diagnosed By 05/04/2009 JANUARY LOPES APRN 278.02 Overweight 05/04/2009 JANUARY LOPES APRN 401.9 ESSENTIAL HYPERTENSION 05/04/2009 JANUARY LOPES APRN 610.2 BREAST FIBROADENOSIS DIFFUSE 05/04/2009 JANUARY LOPES APRN V72.31 ROUTINE PELVIC EXAM WITH CERVICAL PAP SMEAR 05/04/2009 BENNY STINSON DO 278.02 Overweight 05/04/2009 BENNY STINSON DO 401.9 ESSENTIAL HYPERTENSION 05/04/2009 BENNY STINSON DO 610.2 BREAST FIBROADENOSIS DIFFUSE 05/04/2009 BENNY STINSON DO V72.31 ROUTINE PELVIC EXAM WITH CERVICAL PAP SMEAR 05/04/2009 ANDREAS CISNEROS MD 278.02 Overweight 05/04/2009 ANDREAS CISNEROS MD 401.9 ESSENTIAL HYPERTENSION 05/04/2009 ANDREAS CISNEROS MD 610.2 BREAST FIBROADENOSIS DIFFUSE 05/04/2009 ANDREAS CISNEROS MD V72.31 ROUTINE PELVIC EXAM WITH CERVICAL PAP SMEAR 05/04/2009 278.02 Overweight 05/04/2009 401.9 ESSENTIAL HYPERTENSION 05/04/2009 610.2 BREAST FIBROADENOSIS DIFFUSE 05/04/2009 V72.31 ROUTINE PELVIC EXAM WITH CERVICAL PAP SMEAR 05/04/2009 JAIRO ZHANGN, JOSSY A 278.02 Overweight 05/04/2009 JAIRO ZHANGN, JOSSY A 401.9 ESSENTIAL HYPERTENSION 05/04/2009 JAIRO ZHANGN, JOSSY A 610.2 BREAST FIBROADENOSIS DIFFUSE 05/04/2009 JAIRO GARCIA, JOSSY A V72.31 ROUTINE PELVIC EXAM WITH CERVICAL PAP SMEAR 05/04/2009 STINSON DO, BENNY K 278.02 Overweight 05/04/2009 STINSON DO, BENNY K 401.9 ESSENTIAL HYPERTENSION 05/04/2009 STINSON DO, BENNY K 610.2 BREAST FIBROADENOSIS DIFFUSE 05/04/2009 STINSON DO, BENNY K V72.31 ROUTINE PELVIC EXAM WITH CERVICAL PAP SMEAR 05/04/2009 STINSON DO, BENNY K 278.02 Overweight 05/04/2009 STINSON DO, BENNY K 401.9 ESSENTIAL HYPERTENSION 05/04/2009 STINSON DO, BENNY K 610.2 BREAST FIBROADENOSIS DIFFUSE 05/04/2009 STINSON DO, BENNY K V72.31 ROUTINE PELVIC EXAM WITH CERVICAL PAP SMEAR 05/04/2009 HAILEY LAUGHLIN APRN, MARIA E N 278.02 Overweight 05/04/2009 HAILEY LAUGHLIN APRN, MARIA E N 401.9 ESSENTIAL HYPERTENSION 05/04/2009 HAILEY LAUGHLIN APRN MARIA E N 610.2 BREAST FIBROADENOSIS DIFFUSE 05/04/2009 HAILEY LAUGHLIN APRN, MARIA E N V72.31 ROUTINE PELVIC EXAM WITH CERVICAL PAP SMEAR 05/04/2009 STINSON DO, BENNY K 278.02 Overweight 05/04/2009 STINSON DO, BENNY K 401.9 ESSENTIAL HYPERTENSION 05/04/2009 STINSON DO, BENNY K 610.2 BREAST FIBROADENOSIS DIFFUSE 05/04/2009 STINSON DO, BENNY K V72.31 ROUTINE PELVIC EXAM WITH CERVICAL PAP SMEAR 05/04/2009 STINSON DO, BENNY K 278.02 Overweight 05/04/2009 STINSON DO, BENNY K 401.9 ESSENTIAL HYPERTENSION 05/04/2009 STINSON DO, BENNY K 610.2 BREAST FIBROADENOSIS DIFFUSE 05/04/2009 STINSON DO, BENNY K V72.31 ROUTINE PELVIC EXAM WITH CERVICAL PAP SMEAR 05/04/2009 JUAN RAMEY APRN 278.02 Overweight 05/04/2009 JUAN RAMEY APRN 401.9 ESSENTIAL HYPERTENSION 05/04/2009 JUAN RAMEY APRN 610.2 BREAST FIBROADENOSIS DIFFUSE 05/04/2009 JUAN RAMEY APRN V72.31 ROUTINE PELVIC EXAM WITH CERVICAL PAP SMEAR 06/22/2009 JANUARY LOPES APRN 296.90 EPISODIC MOOD DISORDERS 06/22/2009 LOPESJANUARY PAIZ APRN 300.00 anxiety 06/22/2009 JANUARY LOPES APRN R 401.1 ESSENTIAL HYPERTENSION BENIGN 06/22/2009 JANUARY LOPES APRN R 530.81 ESOPHAGEAL REFLUX 06/22/2009 STINSON DO, BENNY K 296.90 EPISODIC MOOD DISORDERS 06/22/2009 STINSON DO, BENNY K 300.00 anxiety 06/22/2009 STINSON DO, BENNY K 401.1 ESSENTIAL HYPERTENSION BENIGN 06/22/2009 STINSON DO, BENNY K 530.81 ESOPHAGEAL REFLUX 06/22/2009 ANDREAS CISNEROS MD 296.90 EPISODIC MOOD DISORDERS 06/22/2009 ANDREAS CISNEROS MD 300.00 anxiety 06/22/2009 ANDREAS CISNEROS MD 401.1 ESSENTIAL HYPERTENSION BENIGN 06/22/2009 ANDREAS CISNEROS MD 530.81 ESOPHAGEAL REFLUX 06/22/2009 296.90 EPISODIC MOOD DISORDERS 06/22/2009 300.00 anxiety 06/22/2009 401.1 ESSENTIAL HYPERTENSION BENIGN 06/22/2009 530.81 ESOPHAGEAL REFLUX 06/22/2009 JAIRO GARCIA JOSSY A 296.90 EPISODIC MOOD DISORDERS 06/22/2009 JAIRO GARCIA, JOSSY A 300.00 anxiety 06/22/2009 JAIRO GARCIA JOSSY A 401.1 ESSENTIAL HYPERTENSION BENIGN 06/22/2009 JAIRO GARCIA JOSSY A 530.81 ESOPHAGEAL REFLUX 06/22/2009 STINSON DO, BENNY K 296.90 EPISODIC MOOD DISORDERS 06/22/2009 STINSON DO, BENNY K 300.00 anxiety 06/22/2009 STINSON DO, BENNY K 401.1 ESSENTIAL HYPERTENSION BENIGN 06/22/2009 STINSON DO, BENNY K 530.81 ESOPHAGEAL REFLUX 06/22/2009 STINSON DO, BENNY K 296.90 EPISODIC MOOD DISORDERS 06/22/2009 STINSON DO, BENNY K 300.00 anxiety 06/22/2009 STINSON DO, BENNY K 401.1 ESSENTIAL HYPERTENSION BENIGN 06/22/2009 STINSON DO, BENNY K 530.81 ESOPHAGEAL REFLUX 06/22/2009 HART CASHERO MANUFACTURING STOREPERSON, MARIA E N 296.90 EPISODIC MOOD DISORDERS 06/22/2009 HAILEY LAUGHLIN APRN, MARIA E N 300.00 anxiety 06/22/2009 HAILEY LAUGHLIN APRN, MARIA E N 401.1 ESSENTIAL HYPERTENSION BENIGN 06/22/2009 HAILEY LAUGHLIN APRN, MARIA E N 530.81 ESOPHAGEAL REFLUX 06/22/2009 STINSON DO, BENNY K 296.90 EPISODIC MOOD DISORDERS 06/22/2009 STINSON DO, BENNY K 300.00 anxiety 06/22/2009 STINSON DO, BENNY K 401.1 ESSENTIAL HYPERTENSION BENIGN 06/22/2009 STINSON DO, BENNY K 530.81 ESOPHAGEAL REFLUX 06/22/2009 STINSON DO, BENNY K 296.90 EPISODIC MOOD DISORDERS 06/22/2009 STINSON DO, BENNY K 300.00 anxiety 06/22/2009 STINSON DO, BENNY K 401.1 ESSENTIAL HYPERTENSION BENIGN 06/22/2009 STINSON DO, BENNY K 530.81 ESOPHAGEAL REFLUX 06/22/2009 TANVIR GARCIA JUAN T 296.90 EPISODIC MOOD DISORDERS 06/22/2009 TANVIR GARCIA JUAN T 300.00 anxiety 06/22/2009 TANVIR ZHANGN, JUAN T 401.1 ESSENTIAL HYPERTENSION BENIGN 06/22/2009 TANVIR GARCIA, JUAN T 530.81 ESOPHAGEAL REFLUX 01/07/2010 JANUARY LOPES APRN V06.5 DT, TETANUS-DIPHTHERIA [Td] ,TDAP 01/07/2010 BENNY STINSON DO V06.5 DT, TETANUS-DIPHTHERIA [Td] ,TDAP 01/07/2010 ANDREAS CISNEROS MD V06.5 DT, TETANUS-DIPHTHERIA [Td] ,TDAP 01/07/2010 V06.5 DT, TETANUS- DIPHTHERIA [Td] ,TDAP 01/07/2010 JOSSY GILL APRN V06.5 DT, TETANUS-DIPHTHERIA [Td] ,TDAP 01/07/2010 BENNY STINSON DO V06.5 DT, TETANUS-DIPHTHERIA [Td] ,TDAP 01/07/2010 BENNY STINSON DO K V06.5 DT, TETANUS-DIPHTHERIA [Td] ,TDAP 01/07/2010 MARIA E OROZCO APRN V06.5 DT, TETANUS-DIPHTHERIA [Td] ,TDAP 01/07/2010 BENNY STINSON DO K V06.5 DT, TETANUS-DIPHTHERIA [Td] ,TDAP 01/07/2010 BENNY STINSON DO V06.5 DT, TETANUS-DIPHTHERIA [Td] ,TDAP 01/07/2010 JUAN RAMEY APRN V06.5 DT, TETANUS-DIPHTHERIA [Td] ,TDAP 05/16/2010 JANUARY LOPES APRN 493.90 ASTHMA UNSPECIFIED 05/16/2010 JANUARY LOPES APRN 786.07 WHEEZING 05/16/2010 LOPESJANUARY PAIZ APRN 786.2 COUGH 05/16/2010 JANUARY LOPES APRN V15.05 PERSONAL HISTORY OF ALLERGY TO OTHER FOODS 05/16/2010 STINSON DO, EBNNY K 493.90 ASTHMA UNSPECIFIED 05/16/2010 STINSON DO, BENNY K 786.07 WHEEZING 05/16/2010 STINSON DO, BENNY K 786.2 COUGH 05/16/2010 STINSON , BENNY K V15.05 PERSONAL HISTORY OF ALLERGY TO OTHER FOODS 05/16/2010 ANDREAS CISNEROS MD 493.90 ASTHMA UNSPECIFIED 05/16/2010 ANDREAS CISNEROS MD 786.07 WHEEZING 05/16/2010 ANDREAS CISNEROS MD 786.2 COUGH 05/16/2010 ANDREAS CISNEROS MD V15.05 PERSONAL HISTORY OF ALLERGY TO OTHER FOODS 05/16/2010 493.90 ASTHMA UNSPECIFIED 05/16/2010 786.07 WHEEZING 05/16/2010 786.2 COUGH 05/16/2010 V15.05 PERSONAL HISTORY OF ALLERGY TO OTHER FOODS 05/16/2010 JOSSY GILL APRN A 493.90 ASTHMA UNSPECIFIED 05/16/2010 JAIRO GARCIA, JOSSY A 786.07 WHEEZING 05/16/2010 JAIRO MANUFACTURING STOREPERSON, JOSSY A 786.2 COUGH 05/16/2010 JAIRO GARCIA, JOSSY A V15.05 PERSONAL HISTORY OF ALLERGY TO OTHER FOODS 05/16/2010 STINSON DO, BENNY K 493.90 ASTHMA UNSPECIFIED 05/16/2010 STINSON DO, BENNY K 786.07 WHEEZING 05/16/2010 STINSON DO, BENNY K 786.2 COUGH 05/16/2010 STINSON DO, BENNY K V15.05 PERSONAL HISTORY OF ALLERGY TO OTHER FOODS 05/16/2010 STINSON DO, BENNY K 493.90 ASTHMA UNSPECIFIED 05/16/2010 STINSON DO, BENNY K 786.07 WHEEZING 05/16/2010 STINSON DO, BENNY K 786.2 COUGH 05/16/2010 STINSON DO, BENNY K V15.05 PERSONAL HISTORY OF ALLERGY TO OTHER FOODS 05/16/2010 HAIELY LAUGHLIN MANUFACTURING STOREPERSON, MARIA E N 493.90 ASTHMA UNSPECIFIED 05/16/2010 HART CASHERO MANUFACTURING STOREPERSON, MARIA E N 786.07 WHEEZING 05/16/2010 HART CASHERO MANUFACTURING STOREPERSON, MARIA E N 786.2 COUGH 05/16/2010 HART CASHERO MANUFACTURING STOREPERSON, MARIA E N V15.05 PERSONAL HISTORY OF ALLERGY TO OTHER FOODS 05/16/2010 STINSON DO, BENNY K 493.90 ASTHMA UNSPECIFIED 05/16/2010 STINSON DO, BENNY K 786.07 WHEEZING 05/16/2010 STINSON DO, BENNY K 786.2 COUGH 05/16/2010 STINSON DO, BENNY K V15.05 PERSONAL HISTORY OF ALLERGY TO OTHER FOODS 05/16/2010 STINSON DO, BENNY K 493.90 ASTHMA UNSPECIFIED 05/16/2010 STINSON DO, BENNY K 786.07 WHEEZING 05/16/2010 STINSON DO, BENNY K 786.2 COUGH 05/16/2010 STINSON DO, BENNY K V15.05 PERSONAL HISTORY OF ALLERGY TO OTHER FOODS 05/16/2010 JUAN RAMEY APRN 493.90 ASTHMA UNSPECIFIED 05/16/2010 JUAN RAMEY APRN 786.07 WHEEZING 05/16/2010 JUAN RAMEY APRN 786.2 COUGH 05/16/2010 JUAN RAMEY APRN V15.05 PERSONAL HISTORY OF ALLERGY TO OTHER FOODS 09/06/2010 JANUARY LOPES APRN 724.2 BACK PAIN, LOWER 09/06/2010 STINSON DO, BENNY K 724.2 BACK PAIN, LOWER 09/06/2010 ANDREAS CISNEROS MD 724.2 BACK PAIN, LOWER 09/06/2010 724.2 BACK PAIN, LOWER 09/06/2010 JOSSY GILL APRN 724.2 BACK PAIN, LOWER 09/06/2010 STINSON DO, BENNY K 724.2 BACK PAIN, LOWER 09/06/2010 STINSON DO, BENNY K 724.2 BACK PAIN, LOWER 09/06/2010 HART REERO MANUFACTURING STOREPERSON, MARIA E N 724.2 BACK PAIN, LOWER 09/06/2010 STINSON DO, BENNY K 724.2 BACK PAIN, LOWER 09/06/2010 STINSON DO, EBNNY K 724.2 BACK PAIN, LOWER 09/06/2010 JUAN RAMEY APRN 724.2 BACK PAIN, LOWER 10/06/2010 JANUARY LOPES APRN R 461.9 SINUSITIS ACUTE 10/06/2010 STINSON DO, BENYN K 461.9 SINUSITIS ACUTE 10/06/2010 ANDREAS CISNEROS MD 461.9 SINUSITIS ACUTE 10/06/2010 461.9 SINUSITIS ACUTE 10/06/2010 JAIRO GARCIA JOSSY A 461.9 SINUSITIS ACUTE 10/06/2010 STINSON DO, BENNY K 461.9 SINUSITIS ACUTE 10/06/2010 STINSON DO, BENNY K 461.9 SINUSITIS ACUTE 10/06/2010 TORSTEN OROZCO APRNCY N 461.9 SINUSITIS ACUTE 10/06/2010 STINSON DO, BENNY K 461.9 SINUSITIS ACUTE 10/06/2010 STINSON DO, BENNY K 461.9 SINUSITIS ACUTE 10/06/2010 JUAN RAMEY APRN 461.9 SINUSITIS ACUTE 03/20/2011 JANUARY LOPES APRN 278.00 OBESITY 03/20/2011 JANUARY LOPES APRN 782.3 EDEMA 03/20/2011 STINSON DO, BENNY K 278.00 OBESITY 03/20/2011 STINSON DO, BENNY K 782.3 EDEMA 03/20/2011 ANDREAS CISNEROS MD 278.00 OBESITY 03/20/2011 ANDREAS CISNEROS MD 782.3 EDEMA 03/20/2011 278.00 OBESITY 03/20/2011 782.3 EDEMA 03/20/2011 JAIRO GARCIA, JOSSY A 278.00 OBESITY 03/20/2011 JAIROFIDENCIO GARCIA, JOSSY A 782.3 EDEMA 03/20/2011 STINSON DO, BENNY K 278.00 OBESITY 03/20/2011 STINSON DO, BENNY K 782.3 EDEMA 03/20/2011 STINSON DO, BENNY K 278.00 OBESITY 03/20/2011 STINSON DO, BENNY K 782.3 EDEMA 03/20/2011 HAILEY LAUGHLIN APRN, MARIA E N 278.00 OBESITY 03/20/2011 HAILEY LAUGHLIN APRN, MARIA E N 782.3 EDEMA 03/20/2011 STINSON DO, BENNY K 278.00 OBESITY 03/20/2011 BENNY STINSON DO K 782.3 EDEMA 03/20/2011 MILAD LYONS, BENNY K 278.00 OBESITY 03/20/2011 BENNY STINSON DO K 782.3 EDEMA 03/20/2011 JUAN RAMEY APRN T 278.00 OBESITY 03/20/2011 JUAN RAMEY APRN T 782.3 EDEMA 04/10/2011 JANUARY LOPES APRN 477.9 RHINITIS 04/10/2011 LOPESJANUARY PAIZ APRN 478.19 OTHER DISEASES OF NASAL CAVITY AND SINUSES 04/10/2011 LOPESJANAURY PAIZ APRN V15.09 PERSONAL HISTORY OF OTHER ALLERGY OTHER THAN TO MEDICINAL AGENTS 04/10/2011 BENNY STINSON DO 477.9 RHINITIS 04/10/2011 BENNY STINSON DO 478.19 OTHER DISEASES OF NASAL CAVITY AND SINUSES 04/10/2011 BENNY STINSON DO V15.09 PERSONAL HISTORY OF OTHER ALLERGY OTHER THAN TO MEDICINAL AGENTS 04/10/2011 ANDREAS CISNEROS MD 477.9 RHINITIS 04/10/2011 ANDREAS CISNEROS MD 478.19 OTHER DISEASES OF NASAL CAVITY AND SINUSES 04/10/2011 ANDREAS CISNEROS MD V15.09 PERSONAL HISTORY OF OTHER ALLERGY OTHER THAN TO MEDICINAL AGENTS 04/10/2011 477.9 RHINITIS 04/10/2011 478.19 OTHER DISEASES OF NASAL CAVITY AND SINUSES 04/10/2011 V15.09 PERSONAL HISTORY OF OTHER ALLERGY OTHER THAN TO MEDICINAL AGENTS 04/10/2011 JOSSY GILL APRN A 477.9 RHINITIS 04/10/2011 JOSSY GILL APRN A 478.19 OTHER DISEASES OF NASAL CAVITY AND SINUSES 04/10/2011 JAIRO GARCIA JOSSY A V15.09 PERSONAL HISTORY OF OTHER ALLERGY OTHER THAN TO MEDICINAL AGENTS 04/10/2011 BENNY STINSON DO 477.9 RHINITIS 04/10/2011 BENNY STINSON DO 478.19 OTHER DISEASES OF NASAL CAVITY AND SINUSES 04/10/2011 BENNY STINSON DO K V15.09 PERSONAL HISTORY OF OTHER ALLERGY OTHER THAN TO MEDICINAL AGENTS 04/10/2011 BENNY STINSON DO 477.9 RHINITIS 04/10/2011 BENNY STINSON DO 478.19 OTHER DISEASES OF NASAL CAVITY AND SINUSES 04/10/2011 STINSON DO, BENNY K V15.09 PERSONAL HISTORY OF OTHER ALLERGY OTHER THAN TO MEDICINAL AGENTS 04/10/2011 HART REMARIA E LAGUNAS APRN N 477.9 RHINITIS 04/10/2011 HART CASHMARIA E LAGUNAS APRN N 478.19 OTHER DISEASES OF NASAL CAVITY AND SINUSES 04/10/2011 HAILEY LAUGHLIN MARIA E GARCIA N V15.09 PERSONAL HISTORY OF OTHER ALLERGY OTHER THAN TO MEDICINAL AGENTS 04/10/2011 BENNY STINSON DO K 477.9 RHINITIS 04/10/2011 STINSON DO BENNY K 478.19 OTHER DISEASES OF NASAL CAVITY AND SINUSES 04/10/2011 STINSON DO BENNY K V15.09 PERSONAL HISTORY OF OTHER ALLERGY OTHER THAN TO MEDICINAL AGENTS 04/10/2011 BENNY STINSON DO K 477.9 RHINITIS 04/10/2011 MATEO STINSON DOA K 478.19 OTHER DISEASES OF NASAL CAVITY AND SINUSES 04/10/2011 MATEO STINSON DOA K V15.09 PERSONAL HISTORY OF OTHER ALLERGY OTHER THAN TO MEDICINAL AGENTS 04/10/2011 JUAN RAMEY APRN 477.9 RHINITIS 04/10/2011 JUAN RAMEY APRN 478.19 OTHER DISEASES OF NASAL CAVITY AND SINUSES 04/10/2011 JUAN RAMEY APRN V15.09 PERSONAL HISTORY OF OTHER ALLERGY OTHER THAN TO MEDICINAL AGENTS 07/11/2011 JANUARY LOPES APRN 465.9 UPPER RESPIRATORY INFECTION 07/11/2011 BENNY STINSON DO K 465.9 UPPER RESPIRATORY INFECTION 07/11/2011 ANDREAS CISNEROS MD 465.9 UPPER RESPIRATORY INFECTION 07/11/2011 465.9 UPPER RESPIRATORY INFECTION 07/11/2011 JOSSY GILL APRN 465.9 UPPER RESPIRATORY INFECTION 07/11/2011 MATEO STINSON DOA K 465.9 UPPER RESPIRATORY INFECTION 07/11/2011 MATEO STINSON DOA K 465.9 UPPER RESPIRATORY INFECTION 07/11/2011 MARIA E OROZCO APRN N 465.9 UPPER RESPIRATORY INFECTION 07/11/2011 MATEO STINSON DOA K 465.9 UPPER RESPIRATORY INFECTION 07/11/2011 MATEO STINSON DOA K 465.9 UPPER RESPIRATORY INFECTION 07/11/2011 JUAN RAMEY APRN 465.9 UPPER RESPIRATORY INFECTION 07/17/2011 JANUARY LOPES APRN V67.9 UNSPECIFIED FOLLOW-UP EXAMINATION 07/17/2011 STINSON DO, BENNY K V67.9 UNSPECIFIED FOLLOW-UP EXAMINATION 07/17/2011 ANDREAS CISNEROS MD V67.9 UNSPECIFIED FOLLOW-UP EXAMINATION 07/17/2011 V67.9 UNSPECIFIED FOLLOW-UP EXAMINATION 07/17/2011 JOSSY GILL APRN V67.9 UNSPECIFIED FOLLOW-UP EXAMINATION 07/17/2011 STINSON DO, BENNY K V67.9 UNSPECIFIED FOLLOW-UP EXAMINATION 07/17/2011 STINSON DO, BENNY K V67.9 UNSPECIFIED FOLLOW-UP EXAMINATION 07/17/2011 HAILEY LAUGHLIN APRN, MARIA E N V67.9 UNSPECIFIED FOLLOW-UP EXAMINATION 07/17/2011 STINSON DO, BENNY K V67.9 UNSPECIFIED FOLLOW-UP EXAMINATION 07/17/2011 STINSON DO, BENNY K V67.9 UNSPECIFIED FOLLOW-UP EXAMINATION 07/17/2011 JUAN RAMEY APRN V67.9 UNSPECIFIED FOLLOW-UP EXAMINATION 10/09/2011 JANUARY LOPES APRN 790.29 HYPERGLYCEMIA 10/09/2011 STINSON DO, BENNY K 790.29 HYPERGLYCEMIA 10/09/2011 ANDREAS CISNEROS MD 790.29 HYPERGLYCEMIA 10/09/2011 790.29 HYPERGLYCEMIA 10/09/2011 JOSSY GILL APRN 790.29 HYPERGLYCEMIA 10/09/2011 STINSON DO, BENNY K 790.29 HYPERGLYCEMIA 10/09/2011 STINSON DO, BENNY K 790.29 HYPERGLYCEMIA 10/09/2011 MARIA E OROZCO APRN N 790.29 HYPERGLYCEMIA 10/09/2011 STINSON DO, BENNY K 790.29 HYPERGLYCEMIA 10/09/2011 STINSON DO, BENNY K 790.29 HYPERGLYCEMIA 10/09/2011 JUAN RAMEY APRN 790.29 HYPERGLYCEMIA 10/13/2011 JANUARY LOPES APRN 780.52 INSOMNIA UNSPECIFIED 10/13/2011 STINSON DO, BNENY K 780.52 INSOMNIA UNSPECIFIED 10/13/2011 ANDREAS CISNEROS MD 780.52 INSOMNIA UNSPECIFIED 10/13/2011 780.52 INSOMNIA UNSPECIFIED 10/13/2011 JOSSY GILL APRN 780.52 INSOMNIA UNSPECIFIED 10/13/2011 STINSON DO, BENNY K 780.52 INSOMNIA UNSPECIFIED 10/13/2011 STINSON DO, BENNY K 780.52 INSOMNIA UNSPECIFIED 10/13/2011 MARIA E OROZCO APRN 780.52 INSOMNIA UNSPECIFIED 10/13/2011 STINSON DO, BENNY K 780.52 INSOMNIA UNSPECIFIED 10/13/2011 STINSON DO, BENNY K 780.52 INSOMNIA UNSPECIFIED 10/13/2011 JUAN RAMEY APRN 780.52 INSOMNIA UNSPECIFIED 12/19/2011 JANUARY LOPES APRN V72.84 PRE-OPERATIVE EXAM 12/19/2011 STINSON DO, BENNY K V72.84 PRE-OPERATIVE EXAM 12/19/2011 ANDREAS CISNEROS MD V72.84 PRE-OPERATIVE EXAM 12/19/2011 V72.84 PRE- OPERATIVE EXAM 12/19/2011 JOSSY GILL APRN V72.84 PRE-OPERATIVE EXAM 12/19/2011 STINSON DO, BENNY K V72.84 PRE-OPERATIVE EXAM 12/19/2011 STINSON DO, BENNY K V72.84 PRE-OPERATIVE EXAM 12/19/2011 MARIA E OROZCO APRN V72.84 PRE-OPERATIVE EXAM 12/19/2011 STINSON DO, BENNY K V72.84 PRE-OPERATIVE EXAM 12/19/2011 STINSON DO, BENNY K V72.84 PRE-OPERATIVE EXAM 12/19/2011 JUAN RAMEY APRN V72.84 PRE-OPERATIVE EXAM 01/05/2012 JANUARY LOPES APRN V70.0 ROUTINE GENERAL MEDICAL EXAMINATION AT A HEALTH CARE FACILITY 01/05/2012 STINSON DO BENNY K V70.0 ROUTINE GENERAL MEDICAL EXAMINATION AT A HEALTH CARE FACILITY 01/05/2012 ANDREAS CISNEROS MD V70.0 ROUTINE GENERAL MEDICAL EXAMINATION AT A HEALTH CARE FACILITY 01/05/2012 V70.0 ROUTINE GENERAL MEDICAL EXAMINATION AT A HEALTH CARE FACILITY 01/05/2012 JOSSY GILL APRN V70.0 ROUTINE GENERAL MEDICAL EXAMINATION AT A HEALTH CARE FACILITY 01/05/2012 STINSON DO BENNY K V70.0 ROUTINE GENERAL MEDICAL EXAMINATION AT A HEALTH CARE FACILITY 01/05/2012 STINSON DO, BENNY K V70.0 ROUTINE GENERAL MEDICAL EXAMINATION AT A HEALTH CARE FACILITY 01/05/2012 MARIA E OROZCO APRN V70.0 ROUTINE GENERAL MEDICAL EXAMINATION AT A HEALTH CARE FACILITY 01/05/2012 STINSON DO, BENNY K V70.0 ROUTINE GENERAL MEDICAL EXAMINATION AT A HEALTH CARE FACILITY 01/05/2012 BENNY STINSON DO V70.0 ROUTINE GENERAL MEDICAL EXAMINATION AT A HEALTH CARE FACILITY 01/05/2012 JUAN RAMEY APRN V70.0 ROUTINE GENERAL MEDICAL EXAMINATION AT A HEALTH CARE FACILITY 05/27/2012 JANUARY LOPES APRN 719.47 COMPRESSION ARTHRALGIA - ANKLE / FOOT 05/27/2012 BENNY STINSON DO 719.47 COMPRESSION ARTHRALGIA - ANKLE / FOOT 05/27/2012 ANDREAS CISNEROS MD 719.47 COMPRESSION ARTHRALGIA - ANKLE / FOOT 05/27/2012 719.47 COMPRESSION ARTHRALGIA - ANKLE / FOOT 05/27/2012 JOSSY GILL APRN 719.47 COMPRESSION ARTHRALGIA - ANKLE / FOOT 05/27/2012 BENNY STINSON DO 719.47 COMPRESSION ARTHRALGIA - ANKLE / FOOT 05/27/2012 BENNY STINSON DO 719.47 COMPRESSION ARTHRALGIA - ANKLE / FOOT 05/27/2012 MARIA E OROZCO APRN 719.47 COMPRESSION ARTHRALGIA - ANKLE / FOOT 05/27/2012 BENNY STINSON DO 719.47 COMPRESSION ARTHRALGIA - ANKLE / FOOT 05/27/2012 BENNY STINSON DO 719.47 COMPRESSION ARTHRALGIA - ANKLE / FOOT 05/27/2012 JUAN RAMEY APRN 719.47 COMPRESSION ARTHRALGIA - ANKLE / FOOT 06/04/2012 Ot 845.10 SPRAIN OF FOOT NOS 06/04/2012 Ot 959.7 LOWER LEG INJURY NOS 06/04/2012 Ot E000.8 OTHER EXTERNAL CAUSE STATUS 06/04/2012 Ot E849.0 ACCIDENT IN HOME 06/04/2012 Ot E928.9 ACCIDENT NOS 07/21/2012 Ot 401.9 HYPERTENSION NOS 07/21/2012 Ot 493.90 ASTHMA, UNSPECIFIED 07/21/2012 Ot 530.81 ESOPHAGEAL REFLUX 07/21/2012 Ot 535.50 UNSP GASTRITIS GASTRODUODENITIS W/O ME 07/21/2012 Ot V45.86 BARIATRIC SURGERY STATUS 09/05/2012 Ot 574.10 CHOLELITH W CHOLECYS NEC 09/05/2012 Ot V45.86 BARIATRIC SURGERY STATUS 09/24/2012 BENNY STINSON DO V65.49 OTHER SPECIFIED COUNSELING 09/24/2012 STINSON DO, BENNY K V73.81 HPV SCREENING 09/24/2012 STINSON DO BENNY K V76.10 BREAST CANCER SCREENING 09/24/2012 STINSON DO BENNY K V76.2 CERVICAL CANCER SCREENING (PAP SMEAR) 09/24/2012 V65.49 OTHER SPECIFIED COUNSELING 09/24/2012 V73.81 HPV SCREENING 09/24/2012 V76.10 BREAST CANCER SCREENING 09/24/2012 V76.2 CERVICAL CANCER SCREENING (PAP SMEAR) 09/24/2012 JAIRO MANUFACTURING STOREPERSON, JOSSY A V65.49 OTHER SPECIFIED COUNSELING 09/24/2012 JAIRO MANUFACTURING STOREPERSON, JOSSY A V73.81 HPV SCREENING 09/24/2012 JAIRO MANUFACTURING STOREPERSON, JOSSY A V76.10 BREAST CANCER SCREENING 09/24/2012 JAIRO MANUFACTURING STOREPERSON, JOSSY A V76.2 CERVICAL CANCER SCREENING (PAP SMEAR) 09/24/2012 MATEO STINSON DOA K V65.49 OTHER SPECIFIED COUNSELING 09/24/2012 MATEO STINSON DOA K V73.81 HPV SCREENING 09/24/2012 MATOE STINSON DOA K V76.10 BREAST CANCER SCREENING 09/24/2012 MATEO STINSON DOA K V76.2 CERVICAL CANCER SCREENING (PAP SMEAR) 09/24/2012 STINSON MATEO LYONSA K V65.49 OTHER SPECIFIED COUNSELING 09/24/2012 MATEO STINSON DOA K V73.81 HPV SCREENING 09/24/2012 MATEO STINSON DOA K V76.10 BREAST CANCER SCREENING 09/24/2012 STINSON DO BENNY K V76.2 CERVICAL CANCER SCREENING (PAP SMEAR) 09/24/2012 MARIA E OROZCO APRN N V65.49 OTHER SPECIFIED COUNSELING 09/24/2012 HAILEY GRIMALDOERO TORSTEN GARCIACY N V73.81 HPV SCREENING 09/24/2012 HART CASHERO MANUFACTURING STOREPERSONTORSTEN VelazquezCY N V76.10 BREAST CANCER SCREENING 09/24/2012 HATR CASHERO JOSE MARIA E N V76.2 CERVICAL CANCER SCREENING (PAP SMEAR) 09/24/2012 MATEO STINSON DOA K V65.49 OTHER SPECIFIED COUNSELING 09/24/2012 STINSON DO BENNY K V73.81 HPV SCREENING 09/24/2012 STINSON DO BENNY K V76.10 BREAST CANCER SCREENING 09/24/2012 STINSON DO BENNY K V76.2 CERVICAL CANCER SCREENING (PAP SMEAR) 09/24/2012 MATEO STINSON DOA K V65.49 OTHER SPECIFIED COUNSELING 09/24/2012 MATEO STINSON DOA K V73.81 HPV SCREENING 09/24/2012 MILAD LYONS BENNY K V76.10 BREAST CANCER SCREENING 09/24/2012 MILAD LYONS BENNY K V76.2 CERVICAL CANCER SCREENING (PAP SMEAR) 09/24/2012 JUAN RAMEY APRN V65.49 OTHER SPECIFIED COUNSELING 09/24/2012 JUAN RAMEY APRN V73.81 HPV SCREENING 09/24/2012 JUAN RAMEY APRN V76.10 BREAST CANCER SCREENING 09/24/2012 JUAN RAMEY APRN V76.2 CERVICAL CANCER SCREENING (PAP SMEAR) 01/16/2013 JOSSY GILL APRN 789.04 ABDOMINAL PAIN LEFT LOWER QUADRANT 01/16/2013 MILAD LYONS BENNY K 789.04 ABDOMINAL PAIN LEFT LOWER QUADRANT 01/16/2013 MATEO STINSON DOA K 789.04 ABDOMINAL PAIN LEFT LOWER QUADRANT 01/16/2013 MARIA E OROZCO APRN 789.04 ABDOMINAL PAIN LEFT LOWER QUADRANT 01/16/2013 MATEO STINSON DOA K 789.04 ABDOMINAL PAIN LEFT LOWER QUADRANT 01/16/2013 STINSON MATEO LYONSA K 789.04 ABDOMINAL PAIN LEFT LOWER QUADRANT 01/16/2013 JUAN RAMEY APRN 789.04 ABDOMINAL PAIN LEFT LOWER QUADRANT 07/18/2013 MATEO STINSON DOA K 487.1 INFLUENZA WITH OTHER RESPIRATORY MANIFESTATIONS 07/18/2013 MATEO STINSON DOA K 487.1 INFLUENZA WITH OTHER RESPIRATORY MANIFESTATIONS 07/18/2013 MARIA E OROZCO APRN N 487.1 INFLUENZA WITH OTHER RESPIRATORY MANIFESTATIONS 07/18/2013 MATEO STINSON DOA K 487.1 INFLUENZA WITH OTHER RESPIRATORY MANIFESTATIONS 07/18/2013 MATEO STINSON DOA K 487.1 INFLUENZA WITH OTHER RESPIRATORY MANIFESTATIONS 07/18/2013 JUAN RAMEY APRN 487.1 INFLUENZA WITH OTHER RESPIRATORY MANIFESTATIONS 10/03/2013 MATEO STINSON DOA K 287.5 THROMBOCYTOPENIA 10/03/2013 MARIA E OROZCO APRN N 287.5 THROMBOCYTOPENIA 10/03/2013 AMTEO STINSON DOA K 287.5 THROMBOCYTOPENIA 10/03/2013 MATEO STINSON DOA K 287.5 THROMBOCYTOPENIA 10/03/2013 JUAN RAMEY APRN 287.5 THROMBOCYTOPENIA 11/11/2013 HAILEY LAUGHLIN JOSE, MARIA E N 691.8 OTHER ATOPIC DERMATITIS AND RELATED CONDITIONS 11/11/2013 BENNY STINSON DO K 691.8 OTHER ATOPIC DERMATITIS AND RELATED CONDITIONS 11/11/2013 BENNY STINSON DO K 691.8 OTHER ATOPIC DERMATITIS AND RELATED CONDITIONS 11/11/2013 JUAN RAMEY APRN 691.8 OTHER ATOPIC DERMATITIS AND RELATED CONDITIONS 11/25/2013 BENNY STINSON DO K V67.9 UNSPECIFIED FOLLOW-UP EXAMINATION 11/25/2013 BENNY STINSON DO V67.9 UNSPECIFIED FOLLOW-UP EXAMINATION 11/25/2013 JUAN RAMEY APRN V67.9 UNSPECIFIED FOLLOW-UP EXAMINATION 01/20/2014 MARC CAMPO, CLARENCE Ot 287.5 THROMBOCYTOPENIA NOS 01/20/2014 MARC CAMPO, CLARENCE Ot V45.86 BARIATRIC SURGERY STATUS 08/15/2014 JUAN RAMEY APRN 724.2 BACK PAIN, LOWER 09/29/2014 Ot V76.12 09/29/2014 Ot 574.20 09/29/2014 Ot V72.83 09/29/2014 Ot V74.8 09/29/2014 Ot V76.12 09/29/2014 Ot 287.5 09/29/2014 Ot V45.86 09/30/2014 KIMBERLY ROMANO MD Ot 721.3 10/02/2014 KIMBERLY ROMANO MD Ot 721.3 10/16/2014 KIMBERLY ROMANO MD Ot 721.3 11/13/2014 Ot 574.20 11/13/2014 Ot V72.83 11/13/2014 Ot V74.8 11/13/2014 Ot V76.12 11/13/2014 Ot 287.5 11/13/2014 Ot V45.86 11/13/2014 KIMBERLY ROMANO MD Ot 721.3 04/28/2015 Ot 287.5 04/28/2015 Ot V45.86 04/28/2015 Ot 574.20 04/28/2015 Ot V72.83 04/28/2015 Ot V74.8 04/28/2015 Ot V76.12 04/28/2015 Ot 287.5 04/28/2015 Ot V45.86 04/28/2015 KIMBERLY ROMANO MD Ot 721.3 04/28/2015 ANIYAH CARTER Ot F17.210 NICOTINE DEPENDENCE, CIGARETTES, UNCOMPL 04/28/2015 ANIYAH CARTER Ot G44.209 TENSION-TYPE HEADACHE, UNSPECIFIED, NOT 04/28/2015 ANIYAH CARTER Ot J32.9 CHRONIC SINUSITIS, UNSPECIFIED 04/28/2015 ANIYAH CARTER Ot R05 COUGH 04/29/2015 Ot 574.20 04/29/2015 Ot V72.83 04/29/2015 Ot V74.8 04/29/2015 Ot V76.12 04/29/2015 Ot 287.5 04/29/2015 Ot V45.86 04/29/2015 KIMBERLY ROMANO MD Ot 721.3 08/27/2015 Ot 574.20 08/27/2015 Ot V72.83 08/27/2015 Ot V74.8 08/27/2015 Ot V76.12 08/27/2015 Ot 287.5 08/27/2015 Ot V45.86 08/27/2015 ROSALINA CAMPO, KIMBERLY Koenig Ot 721.3 12/28/2016 Ot 574.20 CHOLELITHIASIS NOS 12/28/2016 Ot V72.83 EXAM PRE- OPERATIVE NEC 12/28/2016 Ot V74.8 SCREEN- BACTERIAL DIS NEC 12/28/2016 Ot V76.12 OTH SCREEN MAMMO-MALIGN NEOPLASM OF ARMANDO 12/28/2016 Ot 287.5 THROMBOCYTOPENIA NOS 12/28/2016 Ot V45.86 BARIATRIC SURGERY STATUS 12/28/2016 KIMBERLY ROMANO MD Ot 721.3 LUMBOSACRAL SPONDYLOSIS 12/28/2016 TORY FRANK MANUFACTURING STOREPERSON Ot R55 SYNCOPE AND COLLAPSE 12/28/2016 TORY FRANK APRN Ot Z53.21 PROC/TRTMT NOT CRD OUT D/T PT LV BEF SEE 01/01/2017 MARIA E COLEMANP Ot Z12.31 ENCNTR SCREEN MAMMOGRAM FOR MALIGNANT NE 01/15/2017 MARIA E COLEMAN Ot Z12.31 ENCNTR SCREEN MAMMOGRAM FOR MALIGNANT NE 04/06/2017 MARIA E COLEMANP Ot Z12.31 ENCNTR SCREEN MAMMOGRAM FOR MALIGNANT NE 04/11/2017 BAIMA, CAROLYN L CUSTOMER SUPPORT CONSULTANT Ot R06.02 SHORTNESS OF BREATH 04/11/2017 BAIMA, CAROLYN L CUSTOMER SUPPORT CONSULTANT Ot R53.83 OTHER FATIGUE 04/11/2017 BAIMA, CAROLYN L CUSTOMER SUPPORT CONSULTANT Ot R55 SYNCOPE AND COLLAPSE 04/11/2017 BAIMA, CAROLYN L CUSTOMER SUPPORT CONSULTANT Ot Z95.810 PRESENCE OF AUTOMATIC (IMPLANTABLE) CARD 04/23/2017 BAIMA, CAROLYN L CUSTOMER SUPPORT CONSULTANT Ot R55 SYNCOPE AND COLLAPSE 04/23/2017 BAIMA, CAROLYN L CUSTOMER SUPPORT CONSULTANT Ot Z82.49 FAMILY HX OF ISCHEM HEART DIS AND OTH DI 05/07/2017 BAIMA, CAROLYN L CUSTOMER SUPPORT CONSULTANT Ot R55 SYNCOPE AND COLLAPSE 05/07/2017 BAIMA, CAROLYN L CUSTOMER SUPPORT CONSULTANT Ot Z82.49 FAMILY HX OF ISCHEM HEART DIS AND OTH DI 05/07/2017 BAIMA, CAROLYN L CUSTOMER SUPPORT CONSULTANT Ot R06.02 SHORTNESS OF BREATH 05/07/2017 BAIMA, CAROLYN L CUSTOMER SUPPORT CONSULTANT Ot R53.83 OTHER FATIGUE 05/07/2017 BAIMA, CAROLYN L CUSTOMER SUPPORT CONSULTANT Ot R55 SYNCOPE AND COLLAPSE 05/07/2017 BAIMA, CAROLYN L CUSTOMER SUPPORT CONSULTANT Ot Z95.810 PRESENCE OF AUTOMATIC (IMPLANTABLE) CARD 05/23/2017 PAUL CAMPO FACC, ALI FACP CCDS Ot I10 ESSENTIAL (PRIMARY) HYPERTENSION 05/23/2017 PAUL CAMPO FACC, ALI FACP CCDS Ot M79.89 OTHER SPECIFIED SOFT TISSUE DISORDERS 05/23/2017 PAUL CAMPO FACC, ALI FACP CCDS Ot R55 SYNCOPE AND COLLAPSE 10/31/2017 MARIA E COLEMAN CUSTOMER SUPPORT CONSULTANT Ot 477.9 ALLERGIC RHINITIS NOS 10/31/2017 MARIA E COLEMAN CUSTOMER SUPPORT CONSULTANT Ot 478.19 OTHER DISEASE OF NASAL CAVITY AND SINUSE 10/31/2017 MARIA E COLEMAN CUSTOMER SUPPORT CONSULTANT Ot 786.2 COUGH 10/31/2017 MARIA E COLEMAN CUSTOMER SUPPORT CONSULTANT Ot V76.12 OT SCREEN MAMMO-MALIGN NEOPLASM OF ARMANDO Procedures Code Description [place] [address] A1C (IN-HOUSE) 05/27/2012 55393 MAMMOGRAM, SCREENING 09/25/2012 04439 PAP SMEAR 09/25/2012 Q0091 PAP SMEAR OBTAIN SMEAR 09/25/2012 94834 INFLUENZA A & B (IN-HOUSE) 07/18/2013 81571 ROUTINE VENIPUNCTURE 10/01/2013 36312 MAMMOGRAM, SCREENING 10/01/2013 Medical O Yan Tran 10/01/2013 96331 CBC 10/01/2013 3387656 GFR CALC (RESULT ONLY) 10/01/2013 32839 CMP 10/01/2013 50453 LIPID PANEL 10/01/2013 05062 MAGNESIUM 10/01/2013 14170 VIT B 12 10/01/2013 62737 TSH 10/01/2013 18393 VITAMIN D 25-HYDROXY (D2,D3 , TOTAL) 10/01/2013 DermatDevon Joseph 11/25/2013 Results There is no data. Encounters ACCT No. Visit Date/Time Discharge Status Pt. Type Provider Facility Loc./Unit Complaint [id number] 10/12/2014 09:13:00 10/12/2014 23:59:59 CLS Outpatient JUAN RAMEY APRN [id number] 04/24/2014 10:37:00 04/24/2014 23:59:59 CLS Outpatient BENNY STINSON DO [id number] 11/25/2013 09:22:00 11/25/2013 23:59:59 CLS Outpatient BENNY STINSON DO [id number] 11/11/2013 07:53:00 11/11/2013 23:59:59 CLS Outpatient HAILEY LAUGHLIN APRN MARIA E N [id number] 10/01/2013 10:44:00 10/01/2013 23:59:59 CLS Outpatient BENNY STINSON DO [id number] 07/18/2013 11:24:00 07/18/2013 23:59:59 CLS Outpatient BENNY STINSON DO [id number] 01/16/2013 13:59:00 01/16/2013 23:59:59 CLS Outpatient JOSSY GILL APRN [id number] 09/24/2012 10:00:00 09/24/2012 23:59:59 CLS Outpatient BENNY STINSON DO [id number] 06/20/2012 16:08:00 06/20/2012 23:59:59 CLS Outpatient JANUARY LOPES APRN [id number] 05/27/2012 10:53:00 05/27/2012 23:59:59 CLS Outpatient ANDREAS CISNEROS MD [id number] 01/07/2013 15:14:00 Document Registration [id number] 05/22/2017 10:00:00 05/22/2017 10:00:00 CAN Jean Claude MILLER MD FACCLEANDRA FACP CCDS [facility] CARD HTN I10 [id number] 04/17/2017 11:42:00 04/17/2017 23:59:59 CLS Outpatient CAROLYN LUNSFORD CUSTOMER SUPPORT CONSULTANT [facility] RAD R55 [id number] 04/10/2017 07:04:00 04/10/2017 23:59:59 CLS Outpatient CAROLYN LUNSFODR L CUSTOMER SUPPORT CONSULTANT [facility] RAD SYNCOPE [id number] 12/29/2016 09:46:00 12/29/2016 23:59:59 CLS Outpatient MARIA E COLEMAN CUSTOMER SUPPORT CONSULTANT [facility] RAD WELL WOMAN EXAM Z01.419 [id number] 08/27/2015 10:18:00 08/27/2015 23:59:59 CLS Emergency TORY FRANK APRN [facility] ER SYNCOPAL EPISODE/VOMITING [id number] 04/28/2015 11:50:00 04/28/2015 14:48:00 DIS Emergency ANIYAH CARTER [facility] ER HEADACHE/BLURRY VISION SINUS DRAINAGE [id number] 09/29/2014 13:05:00 09/29/2014 23:59:59 CLS Outpatient KIMBERLY ROMANO MD [facility] RAD LUMBAGO [id number] 10/22/2013 13:16:00 01/20/2014 00:01:00 DIS Outpatient CLARENCE TRAN MD [facility] ONC [id number] 10/06/2013 11:05:00 10/06/2013 23:59:59 CLS Outpatient MARIA E COLEMAN CUSTOMER SUPPORT CONSULTANT [facility] RAD SCREENING [id number] 01/21/2014 00:00:00 Document Registration [id number] 09/30/2012 10:33:00 Document Registration [id number] 09/05/2012 08:20:00 Document Registration [id number] 08/29/2012 10:05:00 Document Registration [id number] 07/21/2012 02:36:00 Document Registration [id number] 06/04/2012 12:24:00 Document Registration [id number] 05/10/2009 14:03:00 Document Registration [id number] 01/01/2018 15:20:00 01/01/2018 23:59:59 [facility] Outpatient JANUARY LOPES APRN [facility] [id number] 04/25/2015 03:19:00 04/25/2015 04:40:00 DIS Trinh Crews PA-C [facility].ED [id number] 09/29/2014 13:05:18 ACT Document Registration
[2018-11-15 11:35] VITALS: BP 128/88
--- NOTE | 2018-11-15 12:54 | Conscious Sedation/ASA ---
Conscious Sedation Pre-Proced Time 12:00 ASA Score 2 For ASA 3 and 4: Consider anesthesia and medical clearance. Also, for patients with a history of failed moderate sedation consider anesthesia. Airway Lungs Heart ASA score ASA 1: a normal healthy patient ASA 2: a patient with a mild systemic disease (mid diabetes, controlled hypertension, obesity ASA 3: a patient with a severe systemic disease that limits activity (angina , COPD, prior Myocardial infarction) ASA 4: a patient with an incapacitating disease that is a constant threat to life (CHF, renal failure) ASA 5: a moribund patient not expected to survive 24 hrs. (ruptured aneurysm) ASA 6: a declared brain- patient whose organs are being harvested. For emergent operations, add the letter E after the classification Mallampati Classification Grade 2 Sedation Plan Analgesia, Amnesia, Plan communicated to team members, Discussed options with patient/fam, Discussed risks with patient/fam The patient is an appropriate candidate to undergo the planned procedure, sedation, and anesthesia. The patient immediately re-assessed prior to indication. MARCIAL WILSON MD November 15, 2018 12:54
--- NOTE | 2018-11-15 12:54 | Progress Note-Pre Operative ---
Pre-Operative Progress Note H&P Reviewed The H&P was reviewed, patient examined and no changes noted. Date Seen by Provider: November 15, 2018 Time Seen by Provider: 12:00 Date H&P Reviewed: November 15, 2018 Time H&P Reviewed: 12:00 Pre-Operative Diagnosis: GERD MARCIAL WILSON MD November 15, 2018 12:54
--- NOTE | 2018-11-15 12:55 | Discharge Inst-Surgical ---
D/C Lap Instructions-STEVE Follow Up Activity as tolerated High Fiber Diet 25g or more per day Avoid Alcohol, Caffeine, Spicy [place] and Acid foods. Drink 64 fluid oz or more of fluids per day. Symptoms to Report: Fever over 101 degree F, Nausea/Vomiting If any problems/questions: Contact your physician or go to Emergency Room MARCIAL WILSON MD November 15, 2018 12:55
[2018-11-15] MEDS ORDERED: morphine INJ 10 MG/ML 1ML (SYR OR VIAL) IV PRN (13:00)
[2018-11-15] MEDS ORDERED: ACETAMINOPHEN 325 MG TABLET PO PRN (13:00)
[2018-11-15] MEDS ORDERED: HYDROcodone/APAP 5 MG/325 MG (LORTAB) TAB PO PRN (13:00)
[2018-11-15] MEDS ORDERED: ONDANSETRON 4 MG/2 ML (SDV) Z0FRAN IV PRN (13:00)
[2018-11-15] MEDS ORDERED: LIDOCAINE JELLY 2% 6 ML SYRINGE ONE (13:16)
[2018-11-15] MEDS ORDERED: ONDANSETRON 4 MG/2 ML (SDV) Z0FRAN ONE (13:17)
[2018-11-15] MEDS ORDERED: HURRICAINE EXT TUBE (BENZOCAINE) ONE (13:17)
[2018-11-15] MEDS ORDERED: MIDAZOLAM 2 MG/2 ML (VERSED) VIAL ONE ×5 (13:17→13:29)
[2018-11-15] MEDS ORDERED: fentaNYL INJECTION 100 MCG/2 ML AMP ONE (13:17)
[2018-11-15 14:20] VITALS: BP 116/85
[2018-11-15] MEDS ORDERED: PANT40TA2 PO (14:30)
[2018-11-15 14:50] VITALS: BP 119/84
[2018-11-15 14:55] VITALS: BP 119/84
--- NOTE | 2018-11-16 03:36 | OPERATIVE REPORT ---
DATE OF SERVICE: 11/15/2018 PREOPERATIVE DIAGNOSES: Gastroesophageal reflux disease, regurgitation. POSTOPERATIVE DIAGNOSES: Dilated esophagus, reflux esophagitis between stage II and III, intact band in proper location, no band slippage or erosion, moderate gastritis at the antrum, no distal obstructions. PROCEDURE: EGD with biopsy. SURGEON: Marcial Wilson MD ANESTHESIA: Conscious sedation. ESTIMATED BLOOD LOSS: Minimal. FINDINGS: As above in the postop. DISPOSITION: The patient tolerated the procedure well. DESCRIPTION OF PROCEDURE: The patient was brought to the endoscopy suite, laid in left lateral decubitus position. After adequate IV pain and sedating medications and conscious sedation anesthesia, the mouthpiece was applied. Endoscope was placed in the mouth, visualizing the pharynx and hypopharyngeal region. Vocal cords, epiglottis and vallecula identified and appeared to be normal. The endoscope was then gently intubated the esophageal opening and esophagus insufflated. The esophagus was dilated with saliva within the esophagus and was suctioned out. No polyps were identified throughout the esophagus. At the level of the GE junction, had reflux esophagitis between stage II and III identified. There was an intact gastric pouch and normal positioning. The endoscope was able to pass through the area of the band without any resistance and the endoscope retroflexed visualizing an intact band in proper location as well as no erosions. There was moderate severity gastritis towards the stomach antrum. No formal ulcerations, polyps or any neoplasms. A biopsy was taken of the antrum to rule out H. pylori with visualization of good hemostasis. The endoscope was then advanced to the pylorus and first and second portion of the duodenum, which appeared normal and no distal obstructions. The endoscope was then slowly withdrawn while taking a second look and suctioning residual air with no additional findings. The patient tolerated the procedure well. We will recommend the necessary lifestyle and diet accommodation. We do feel that she is over restricted and has created dilated esophagus and decreased peristalsis over time and we will recommend removal of fluid from the band and relying less on the band and more on diet and exercise including high protein diet with lean meat protein sources and to stop eating with any sensation of fullness as well as regularly scheduled exercise. She does have gastritis as well as reflux esophagitis, which is acid-induced and we will start her back on Protonix 40 mg daily. Job ID: [id number] DocumentID: [id number] Dictated Date: 11/15/2018 13:51:19 Unix Architect Date: 11/16/2018 03:35:53 Dictated By: MARCIAL WILSON MD MTDD
== END 2018-11-15 14:55 | disposition home or self-care (01) ==
LOC: ENDO 11:21
PROVIDERS: ATTEND Surgery
DX: K21.0 Gastro-esophageal reflux disease with esophagitis (principal); K22.8 Other specified diseases of esophagus; K29.50 Unspecified chronic gastritis without bleeding; B96.81 Helicobacter pylori [H. pylori] as the cause of diseases classified elsewhere; Z98.84 Bariatric surgery status; J45.909 Unspecified asthma, uncomplicated; I10 Essential (primary) hypertension; R73.03 Prediabetes
CPT/HCPCS: 88305

== ENCOUNTER 2019-09-13 17:18 | Emergency (ER) | payer OTHER ==
[~2019-09-13] VITALS: Ht 165 cm; Wt 110.0 kg
[~2019-09-13 17:18] MED LIST changes: +PANT40TA2 PO
[2019-09-13 18:42] LABS: BASOPHILS % (AUTO) 0 % (0-10); EOSINOPHILS # (AUTO) 0.3 10^3/uL (0.0-0.3); EOSINOPHILS % (AUTO) 4 % (0-10); HEMATOCRIT 44 % (35-52); HEMOGLOBIN 14.5 G/DL (11.5-16.0); LYMPHOCYTES # (AUTO) 2.3 X 10^3 (1.0-4.0); LYMPHOCYTES % (AUTO) 30 % (12-44); MEAN CORPUSCULAR HEMOGLOBIN 29 PG (25-34); MEAN CORPUSCULAR HGB CONC 33 G/DL (32-36); MEAN CORPUSCULAR VOLUME 86 FL (80-99); MEAN PLATELET VOLUME 10.3 FL (7.4-10.4); MONOCYTES # (AUTO) 0.6 X 10^3 (0.0-1.0); MONOCYTES % (AUTO) 8 % (0-12); NEUTROPHILS # (AUTO) 4.5 X 10^3 (1.8-7.8); NEUTROPHILS % (AUTO) 58 % (42-75); PLATELET COUNT 220 10^3/uL (130-400); WHITE BLOOD COUNT 7.8 10^3/uL (4.3-11.0)
[2019-09-13 18:56] LABS: ALANINE AMINOTRANSFERASE 33 U/L (0-55); ALBUMIN 4.2 GM/DL (3.2-4.5); ALKALINE PHOSPHATASE 68 U/L (40-136); BILIRUBIN,TOTAL 0.2 MG/DL (0.1-1.0); BUN/CREATININE RATIO 24; CALCIUM 9.1 MG/DL (8.5-10.1); CARBON DIOXIDE 24 MMOL/L (21-32); CHLORIDE 105 MMOL/L (98-107); CREATININE SERUM 0.89 MG/DL (0.60-1.30); GFR ESTIMATED > 60; GLUCOSE 108 MG/DL (70-105); POTASSIUM 4.1 MMOL/L (3.6-5.0); SODIUM 140 MMOL/L (135-145)
--- NOTE | 2019-09-13 19:12 | ED Lower Extremity ---
General Chief Complaint: Lower Extremity Stated Complaint: R KNEE PAIN/SWELLING/NUMBNESS Nursing Triage Note: THE PT IS AMBULATORY TO THE ROOM WITHOUT DIFFICULTY. LOC IS NORMAL FOR THE PT. NO DISTRESS IS SEEN ON ARRIVAL. THE RIGHT KNEE IS PAINFULL AND HOT. Nursing Sepsis Screen: No Definite Risk Source: patient, family, other (coworker) Exam Limitations: no limitations History of Present Illness Date Seen by Provider: Sep 13, 2019 Time Seen by Provider: 19:19 Initial Comments Patient presents ER by private conveyance with chief complaint of some swelling and tightness around her right knee as well as pain throughout her knee. Nonradiating. She also has some numbness on her right anterior tibial plateau. She's never had this pain before. She did not injure her knee have a fall or use for heavy lifting lately. She says 2 weeks ago at time the pain started she did 2 trips to [place] and back which are [address] 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 She has no personal history of blood clots but she feels that her right leg is swollen compared to left. Says her mom had multiple blood clots throughout her life forthe more reason. She does not use hormone replacement or smoke. No numbness tingling distal to her knee. She took a Profen the used a heating pad as well as elevation with only minimal relief. Personal primary care physician is Sunday Lopes. Allergies and Home Medications Allergies Coded Allergies: latex (Verified Allergy, Unknown, 04/28/15) Home Medications Enoxaparin Sodium 120 Mg/0.8 Ml Syringe, 110 MG SQ Q12H Prescribed by: PRINCE CORDOVA on 09/13/191950 Pantoprazole Sodium 40 Mg Tablet.dr, 40 MG PO DAILY Prescribed by: MICHAEL KHAN on 11/15/18 1430 Patient Home Medication List Home Medication List Reviewed: Yes Review of Systems Constitutional: No chills, No diaphoresis EENTM: No ear discharge, No ear pain Respiratory: No cough, No short of breath Cardiovascular: No chest pain, No edema, No Hx of Intervention Gastrointestinal: No abdominal pain, No nausea, No vomiting Genitourinary: No discharge, No dysuria Musculoskeletal: see HPI; No back pain; joint pain; No joint swelling, No muscle pain Psychiatric/Neurological: Denies Anxiety, Denies Depressed All Other Systems Reviewed Negative Unless Noted: Yes Past Gjgzgcc-Bvzhcf-Dmvwlz Hx Patient Social History Alcohol Use: Denies Use Recreational Drug Use: No Smoking Status: Current Someday Smoker Type Used: Cigarettes 2nd Hand Smoke Exposure: Yes Recent Foreign Travel: No Contact w/Someone Who Travel: No Recent Infectious Disease Expo: No Recent Hopitalizations: No Immunizations Up To Date Tetanus Booster (TDap): Less than 5yrs Seasonal Allergies Seasonal Allergies: No Past Medical History Surgeries: Yes (LAP BAND, PARTIAL HYSTERECTOMY/OVARIES INTACT) Abdominal, Gallbladder, Hysterectomy Respiratory: Yes (ALLERGENIC ASTHMA, cough) Asthma Cardiac: No Neurological: Yes Headaches /Migraines Reproductive Disorders: Yes (PARTIAL HYSTERECTOMY 1995.) Female Reproductive Disorders: Denies SHUTTLE HAND History: Hysterectomy Sexually Transmitted Disease: No HIV/AIDS: No Genitourinary: No Gastrointestinal: Yes (LAP BAND SURGERY, FEBRUARY 05, 2012.) Gastroesophageal Reflux Musculoskeletal: No Endocrine: Yes (OBESITY--S/P LAP BAND) HEENT: No Loss of Vision: Denies Hearing Impairment: Denies Cancer: No Psychosocial: No Integumentary: No Blood Disorders: No Family Medical History No Pertinent Family Hx Physical Exam Vital Signs Vital Signs - First Documented 09/13/19 17:37 Temp 36.7 Pulse 119 Resp 18 B/P (MAP) 140/100 (113) Capillary Refill : Less Than 3 Seconds Height, Weight, BMI Height: 5'8.00" Weight: 183lbs. 0.0oz. 83.809694kg; 40.00 BMI Method:Stated General Appearance: WD/WN, no apparent distress HEENT: PERRL/EOMI, normal ENT inspection, pharynx normal Neck: non-tender, full range of motion, normal inspection Cardiovascular: normal peripheral pulses, regular rate, rhythm Respiratory: no respiratory distress, no accessory muscle use Hips: bilateral hip non-tender, bilateral hip normal inspection, bilateral hip normal range of motion Legs: bilateral leg non-tender, bilateral leg normal inspection, bilateral leg normal range of motion, bilateral leg no evidence of injury Knees: left knee non-tender; bilateral knee normal inspection, bilateral knee normal range of motion; left knee no evidence of injury; right knee bone tenderness (mild anterior tibial plateau tenderness) Ankles: bilateral ankle non-tender, bilateral ankle normal inspection, bila teral ankle normal range of motion, bilateral ankle no evidence of injury Neurologic/Tendon: normal sensation, normal motor functions, normal tendon functions, responds to pain Neurologic/Psychiatric: alert, normal mood/affect, oriented x 3 Skin: normal color, warm/dry Progress/Results/Core Measures Results/Orders Lab Results Laboratory Tests Test 09/13/19 18:28 Range/Units White Blood Count 7.8 4.3-11.0 10^3/uL Red Blood Count 5.08 4.35-5.85 10^6/uL Hemoglobin 14.5 11.5-16.0 G/DL Hematocrit 44 35-52 % Mean Corpuscular Volume 86 80-99 FL Mean Corpuscular Hemoglobin 29 25-34 PG Mean Corpuscular Hemoglobin Concent 33 32-36 G/DL Red Cell Distribution Width 14.0 10.0-14.5 % Platelet Count 220 130-400 10^3/uL Mean Platelet Volume 10.3 7.4-10.4 FL Neutrophils (%) (Auto) 58 42-75 % Lymphocytes (%) (Auto) 30 12-44 % Monocytes (%) (Auto) 8 0-12 % Eosinophils (%) (Auto) 4 0-10 % Basophils (%) (Auto) 0 0-10 % Neutrophils # (Auto) 4.5 1.8-7.8 X 10^3 Lymphocytes # (Auto) 2.3 1.0-4.0 X 10^3 Monocytes # (Auto) 0.6 0.0-1.0 X 10^3 Eosinophils # (Auto) 0.3 0.0-0.3 10^3/uL Basophils # (Auto) 0.0 0.0-0.1 10^3/uL D-Dimer 0.51 H 0.00-0.49 UG/ML Sodium Level 140 135-145 MMOL/L Potassium Level 4.1 3.6-5.0 MMOL/L Chloride Level 105 98-107 MMOL/L Carbon Dioxide Level 24 21-32 MMOL/L Anion Gap 11 5-14 MMOL/L Blood Urea Nitrogen 21 H 7-18 MG/DL Creatinine 0.89 0.60-1.30 MG/DL Estimat Glomerular Filtration Rate > 60 BUN/Creatinine Ratio 24 Glucose Level 108 H 70-105 MG/DL Calcium Level 9.1 8.5-10.1 MG/DL Corrected Calcium 8.9 8.5-10.1 MG/DL Total Bilirubin 0.2 0.1-1.0 MG/DL Aspartate Amino Transf (AST/SGOT) 21 5-34 U/L Alanine Aminotransferase (ALT/SGPT) 33 0-55 U/L Alkaline Phosphatase 68 40-136 U/L Total Protein 7.0 6.4-8.2 GM/DL Albumin 4.2 3.2-4.5 GM/DL My Orders Orders - PRINCE CORDOVA Fibrin Degradation Products (09/13/19 18:22) Cbc With Automated Diff (09/13/19 18:22) Comprehensive Metabolic Panel (09/13/19 18:22) Knee, Right, 3 Views (09/13/19 19:07) Enoxaparin Injection (Lovenox Injection) (09/13/19 20:00) Vital Signs/I&O 09/13/19 17:37 Temp 36.7 Pulse 119 Resp 18 B/P (MAP) 140/100 (113) Blood Pressure Mean: 113 Progress Progress Note : Time: 19:11 Progress Note Osteoarthritis? Patient has concerns for a blood clot. We'll see if her d-dimer to rule it out. If not we can set her up with blood thinners and an outpatient ultrasound. She's not having any chest pain or shortness of breath suggest a pulmonary embolism. She has not given any reason to suggest why she might have a blood clot in a deep vein. Plain films of the knee. Diagnostic Imaging Diagonstic Imaging: Xray Plain Films/CT/US/NM/MRI: knee (right) Comments No acute osseous abnormalities. .NAME: PETERSON JESUS MED REC#: [id number] PT STATUS: REG ER : 1970 PHYSICIAN: PRINCE CORDOVA MD ADMIT DATE: 09/13/19/ER Signed Date of Exam:09/13/19 KNEE, RIGHT, 3 VIEWS INDICATION: Right knee is painful and hot. FINDINGS: Three views of the right knee demonstrate normal ossification. No fracture, dislocation or joint effusion is present. IMPRESSION: Normal right knee. Dictated by: Dictated on workstation # [id number] Dict: 09/13/191938 Trans: 09/13/191940 PJE [id number] Interpreted by: ASHELY JARAMILLO MD Electronically signed by: ASHELY JARAMILLO MD 09/13/191940 Reviewed: Reviewed by Me Departure Impression Primary Impression: Right knee pain Qualified Codes: M25.561 - Pain in right knee Additional Impression: Paresthesia of right lower extremity Disposition: HOME, SELF-CARE Condition: Stable Departure-Patient Inst. Decision time for Depature: 19:41 Referrals: SUNDAY LOPES (PCP/Family) Primary Care Physician Patient Instructions: Knee Pain (DC) Add. Discharge Instructions: Lovenox 110 milligrams injected subcutaneously every 12 hours. Obtain an ultrasound first thing in the morning by calling outpatient services and setting up. If you have chest pain or shortness of breath then you need to return to the nearest ER. If the Ultrasound is positive then we will call you out a prescription for blood thinner pills. All discharge instructions reviewed with patient and/or family. Voiced understanding. Scripts Enoxaparin Sodium (Lovenox) 120 Mg/0.8 Ml Syringe 110 MG SQ Q12H, #4 SYRINGE 1 Refill Prov: PRINCE CORDOVA 09/13/19 Work/School Note: Work Release Form Date Seen in the Emergency Department: Sep 13, 2019 Return to Work: Sep 15, 2019 Restrictions: Need Release from Doctor Other Restrictions Listed Below: Do not lift greater than 40 pounds until 09/22/19 PRINCE CORDOVA Sep 13, 2019 19:11
--- NOTE | 2019-09-13 19:41 | Diagnostic Imaging Report ---
INDICATION: Right knee is painful and hot. FINDINGS: Three views of the right knee demonstrate normal ossification. No fracture, dislocation or joint effusion is present. IMPRESSION: Normal right knee. Dictated by: Dictated on workstation # [id number]
[2019-09-13] MEDS ORDERED: ENOX120D SQ (19:51)
[2019-09-13] MEDS ORDERED: ENOXAPARIN 60 MG/0.6 ML (LOVENOX) SYR SC ONE (20:00)
[2019-09-13 20:10] VITALS: BP 131/96
[2019-09-14] MEDS ORDERED: ENOX120D5 SQ (11:02)
--- OUTSIDE RECORDS SUMMARY | 2019-09-17 02:55 | XMS REPORT ---
Author Author Hilary DRAKE Y Organization [facility] Address [address] [place] [address] Care Team Providers Care Medical Practice Manager Name Role Phone MARIA E DRAKE Unavailable PROBLEMS Type Condition ICD9-CM Code MSL72-EJ Code Onset Dates Condition S tatus SNOMED Code Problem Obesity (BMI 30.0-34.9) E66.9 Active 684556525281047 Problem Dysthymia F34.1 Active 83674364 Problem Allergic rhinitis, unspecified allergic rhinitis type J30.9 Active 09029936 Problem Hot flashes, menopausal N95.1 Active 290527162 Problem History of syncope Z87.898 Active 6 03766885582027 Problem Menopause Z78.0 Active 322192387 ALLERGIES No Information ENCOUNTERS Encounter Location Date Diagnosis [address] [id number] Jan, Arthralgia of left temporomandibular joint M26.[address] [id number] Apr, Nummular eczema L30.0 and Dysthymia F34.[address] [id number] Dec, Allergic rhinitis, unspecified allergic rhinitis type J30.[address] [id number] November, Dysthymia F34.1 and Hot flashes, menopausal N95.[address] [id number] Oct, Dysthymia F34.[address] [id number] Sep, Dysthymia F34.1 [facility] [address] [place] [address] Mar, Syncope, unspecified syncope type R55 ; Tobacco use Z72.0 and Family history of early CAD Z82.49 [id number] [address] Feb, Elevated fasting blood sugar R73.01 and History of syncope Z87.898 [address] [place] [address] Jan, Elevated fasting blood sugar R73.01 [facility] [address] [facility] [place] [address] Jan, [address] [id number] Jan, History of syncope Z87.898 ; Obesity (BMI 30.0-34.9) E66.9 and Menopause Z78.[address] [id number] Jan, History of syncope Z87.898 ; Menopause Z78.0 ; Obesity (BMI 30.0-34.9) E66.9 ; Family history of CHF (congestive heart failure) Z82.49 and Family history of heart disease Z82.[address] [id number] Jan, [address] [id number] Dec, Well woman exam Z01.419 and Hot flashes, menopausal N95.[address] [address] Sep, Allergic rhinitis, unspecified allergic rhinitis type J30.[address] [id number] Sep, [address] [id number] Jun, Non- seasonal allergic rhinitis due to other allergic trigger J30.[address] [id number] 29 Mar, 2016 Allergic rhinitis, unspecified allergic rhinitis type J30.9 ; Screening cholesterol level Z13.220 ; Screening, heart disease, ischemic Z13.6 and Screening for thyroid disorder Z13.29 [facility] [address] [facility] [place] [id number] 08 Sep, 2015 Seasonal allergies J30.2 [facility] [address] [facility] [place] [address] May, [facility] [id number] [place] [address] Mar, [facility] [id number] [place] [address] Mar, [facility] [id number] [place] [address] Feb, [facility] [id number] [place] [address] Feb, [facility] [id number] [place] [address] Dec, [facility] [id number] [place] [address] Oct, [facility] [id number] [place] [address] Oct, [facility] [id number] [place] [address] Sep, [facility] [id number] [place] [address] Sep, [facility] [id number] [place] [address] Aug, [facility] [id number] [place] [address] Aug, [facility] [id number] [place] [address] Jun, [facility] [id number] [place] [address] Jun, [facility] [id number] [place] [address] May, [facility] [address] [id number] [place] [address] May, [facility] [address] [id number] [place] [address] Apr, [facility] [address] [id number] [place] [address] Apr, [facility] [address] [id number] [place] [address] Dec, [facility] [address] [id number] [place] [address] Dec, [facility] [address] [id number] [place] [address] Dec, [facility] [address] [id number] [place] [address] Dec, [facility] [place] [address] [facility] [address] November, [facility] [address] [id number] [place] [address] November, [facility] [address] [id number] [place] [address] November, [facility] [address] [id number] [place] [address] November, [facility] [address] [id number] [place] [address] November, [facility] [address] [id number] [place] [address] November, [facility] [address] [id number] [place] [address] November, [facility] [address] [id number] [place] [address] Oct, [facility] [address] [id number] [place] [address] Oct, [facility] [address] [id number] [place] [id number] Sep, [facility] [address] [id number] [place] [address] Sep, [facility] [place] [id number] [id number] Sep, [facility] [id number] [place] [address] Sep, [facility] [id number] [place] [address] Sep, [facility] [address] [id number] [place] [address] Sep, [facility] [id number] [place] [address] Jul, [facility] [id number] [place] [address] Jul, [facility] [place] [address] [id number] [address] Jul, [facility] [id number] [place] [address] Jul, [facility] [id number] [place] [address] Apr, [facility] [id number] [place] [address] Apr, [facility] [place] [address] [id number] [address] Jan, [facility] [id number] [place] [address] Jan, [facility] [place] [address] [id number] [address] Sep, [facility] [address] [id number] [address] Sep, [facility] [place] [address] [id number] [address] Sep, [facility] [place] [id number] [place] [id number] Sep, [facility] [place] [address] [facility] [place] [address] Sep, [facility] [address] [id number] [place] [address] Sep, [facility] [address] [id number] [place] [address] Sep, [facility] [place] [address] [facility]07757[facility] [address] Sep, [facility] [address] [id number] [place] [address] Sep, [facility] [address] [id number] [place] [address] Jun, [facility] [place] [address] [facility] [address] Jun, [facility] [address] [id number] [place] [address] Jun, [facility] [address] [id number] [place] [address] Jun, [facility] [place] [address] [facility] [address] Jun, [facility] [address] [id number] [place] [address] Jun, [facility] [place] [address] [facility] [place] [address] May, [facility] [address] [id number] [place] [address] May, [facility] [address] [id number] [place] [address] May, [facility] [address] [id number] [place] [address] May, [facility] [place] [address] [facility] [address] May, [facility] [address] [id number] [place] [address] May, [facility] [address] [id number] [place] [address] Apr, [facility] [address] [id number] [place] [address] Apr, [facility] [address] [id number] [place] [address] Jan, [facility] [address] [id number] [place] [address] Dec, [facility] [address] [id number] [place] [address] Dec, [facility] [address] [id number] [place] [address] Dec, [facility] [address] [id number] [place] [address] Dec, [facility] [address] [id number] [place] [address] Dec, [facility] [address] [id number] [place] [address] Dec, [facility] [address] [id number] [place] [address] Dec, [facility] [address] [id number] [place] [address] November, [facility] [address] [id number] [place] [address] Oct, [facility] [address] [id number] [place] [address] Oct, [facility] [address] [id number] [place] [address] Sep, [facility] [id number] [place] [address] Sep, [facility] [address] [id number] [place] [address] Sep, [facility] [address] [id number] [place] [address] Sep, [facility] [address] [id number] [place] [id number] Aug, [facility] [address] [id number] [place] [address] Jul, [facility] [address] [id number] [place] [address] Jul, [facility] [id number] [place] [address] May, [facility] [address] [address] Mar, [facility] [id number] [place] [address] Sep, [facility] [address] [address] May, [facility] [id number] [place] [address] May, [facility] [address] [address] May, [facility] [id number] [place] [address] May, [facility] [address] [address] Jun, [facility] [id number] [place] [address] Jun, [facility] [id number] [place] [address] May, [facility] [id number] [place] [address] Apr, IMMUNIZATIONS No Known Immunizations SOCIAL HISTORY Never Assessed REASON FOR VISIT PLAN OF CARE VITAL SIGNS MEDICATIONS No Known Medications RESULTS No Results PROCEDURES No Known procedures INSTRUCTIONS MEDICATIONS ADMINISTERED No Known Medications MEDICAL (GENERAL) HISTORY Type Description Date Medical History seasonal allergies Surgical History lap band 2011 Surgical History partial hysterectomy 1995?
--- OUTSIDE RECORDS SUMMARY | 2019-09-17 02:55 | XMS REPORT ---
Author Author Hilary LOPES [address] Address [address] [place] [address] Care Team Providers Care Barber Tool Sharpener Name Role Phone JANUARY LOPES Unavailable PROBLEMS Type Condition ICD9-CM Code RQZ81-MT Code Onset Dates Condition S tatus SNOMED Code Problem Obesity (BMI 30.0-34.9) E66.9 Active 185103729471959 Problem Dysthymia F34.1 Active 41048624 Problem Allergic rhinitis, unspecified allergic rhinitis type J30.9 Active 57858593 Problem Hot flashes, menopausal N95.1 Active 328961222 Problem History of syncope Z87.898 Active 6 91715971032720 Problem Menopause Z78.0 Active 157881239 ALLERGIES No Information ENCOUNTERS Encounter Location Date Diagnosis [address] [id number] Jan, Arthralgia of left temporomandibular joint M26.[address] [id number] Apr, Nummular eczema L30.0 and Dysthymia F34.[address] [id number] Dec, Allergic rhinitis, unspecified allergic rhinitis type J30.[address] [id number] November, Dysthymia F34.1 and Hot flashes, menopausal N95.[address] [id number] Oct, Dysthymia F34.[address] [id number] Sep, Dysthymia F34.[address] [place] [address] Mar, Syncope, unspecified syncope type R55 ; Tobacco use Z72.0 and Family history of early CAD Z82.[address] [id number] Feb, Elevated fasting blood sugar R73.01 and History of syncope Z87.898 [address] [id number] [address] Jan, Elevated fasting blood sugar R73.01 [facility] [address] [facility] [place] [address] Jan, [address] [id number] Jan, History of syncope Z87.898 ; Obesity (BMI 30.0-34.9) E66.9 and Menopause Z78.[address] [id number] Jan, History of syncope Z87.898 ; Menopause Z78.0 ; Obesity (BMI 30.0-34.9) E66.9 ; Family history of CHF (congestive heart failure) Z82.49 and Family history of heart disease Z82.[address] [id number] Jan, [address] [id number] Dec, Well woman exam Z01.419 and Hot flashes, menopausal N95.[address] [address] Sep, Allergic rhinitis, unspecified allergic rhinitis type J30.[address] [id number] Sep, [address] [id number] Jun, Non- seasonal allergic rhinitis due to other allergic trigger J30.[address] [id number] Sep, Allergic rhinitis, unspecified allergic rhinitis type J30.9 ; Screening cholesterol level Z13.220 ; Screening, heart disease, ischemic Z13.6 and Screening for thyroid disorder Z13.29 [facility] [address] [facility] [place] [address] Sep, Seasonal allergies J30.2 [facility] [id number] [place] [address] May, [facility] [address] [address] Mar, [facility] [id number] [place] [address] Mar, [facility] [address] [address] Feb, [facility] [address] [address] Feb, [facility] [address] [address] Dec, [facility] [id number] [place] [address] Oct, [facility] [address] [address] Oct, [facility] [id number] [place] [address] Sep, [facility] [id number] [place] [address] Sep, [facility] [id number] [place] [address] Aug, [facility] [address] [id number] [place] [address] Aug, [facility] [address] [address] Jun, [facility] [id number] [place] [address] Jun, [facility] [address] [address] May, [facility] [address] [facility] [place] [address] May, [facility] [address] [id number] [place] [address] Apr, [facility] [address] [id number] [place] [address] Apr, [facility] [address] [id number] [place] [address] Dec, [facility] [address] [id number] [place] [address] Dec, [facility] [address] [id number] [place] [address] Dec, [facility] [address] [id number] [place] [address] Dec, [facility] [address] [facility] [address] November, [facility] [address] [id number] [place] [address] November, [facility] [address] [id number] [place] [address] November, [facility] [address] [id number] [place] [address] November, [facility] [address] [id number] [place] [address] November, [facility] [address] [id number] [place] [address] November, [facility] [address] [id number] [place] [address] November, [facility] [address] [id number] [place] [address] Oct, [facility] [address] [id number] [place] [address] Oct, [facility] [address] [facility] [place] [id number] Sep, [facility] [address] [id number] [place] [address] Sep, [facility] [address] [id number] [address] Sep, [facility] [address] [id number] [place] [address] Sep, [facility] [id number] [place] [address] Sep, [facility] [address] [id number] [place] [address] Sep, [facility] [id number] [place] [address] Jul, [facility] [address] [id number] [place] [address] Jul, [facility] [address] [id number] [address] Jul, [facility] [address] [id number] [place] [address] Jul, [facility] [id number] [place] [address] Apr, [facility] [address] [id number] [place] [address] Apr, [facility] [id number] [address] Jan, [facility] [id number] [place] [address] Jan, [facility] [address] [facility]757[facility] [address] Sep, [facility] [address] [id number] [address] Sep, [facility] [address] [id number] [address] Sep, [facility] [place] [address] [id number] [address] Sep, [facility] [address] [place] [address] Sep, [facility] [address] [id number] [place] [address] Sep, [facility] [address] [id number] [place] [address] Sep, [facility] [address] [facility]757[facility] [address] Sep, [facility] [id number] [place] [address] Sep, [facility] [address] [id number] [place] [address] Jun, [facility] [address] [id number] [id number] Jun, [facility] [id number] [place] [address] Jun, [facility] [id number] [place] [address] Jun, [facility] [address] [id number] [id number] Jun, [facility] [id number] [place] [address] Jun, [facility] [address] [id number] [address] May, [facility] [id number] [place] [address] May, [facility] [address] [id number] [place] [address] May, [facility] [address] [id number] [place] [address] May, [facility] [address] [facility] [id number] May, [facility] [address] [id number] [place] [address] May, [facility] [address] [id number] [place] [address] Apr, [facility] [address] [id number] [place] [address] Apr, [facility] [address] [id number] [place] [address] Jan, [facility] [address] [id number] [place] [address] Dec, [facility] [address] [id number] [place] [address] Dec, [facility] [address] [id number] [place] [address] Dec, [facility] [address] [id number] [place] [address] Dec, [facility] [address] [id number] [place] [address] Dec, [facility] [address] [id number] [place] [address] Dec, [facility] [address] [id number] [place] [address] Dec, [facility] [address] [id number] [place] [address] November, [facility] [address] [id number] [place] [address] Oct, [facility] [address] [id number] [place] [address] Oct, [facility] [address] [id number] [place] [address] Sep, [facility] [address] [id number] [place] [address] Sep, [facility] [address] [id number] [place] [address] Sep, [facility] [address] [id number] [place] [address] Sep, [facility] [address] [id number] Aug, 2011 [facility] [address] [id number] [place] [id number] Jul, [facility] [address] [id number] [place] [id number] Jul, [facility] [address] [id number] [place] [address] May, [facility] [address] [address] Mar, [facility] [id number] [place] [address] Sep, [facility] [address] [address] May, [facility] [id number] [place] [address] May, [facility] [address] [address] May, [facility] [id number] [place] [address] May, [facility] [address] [address] Jun, [facility] [address] [address] Jun, [facility] [address] [address] May, [facility] [id number] [place] [address] Apr, IMMUNIZATIONS No Known Immunizations SOCIAL HISTORY Never Assessed REASON FOR VISIT PLAN OF CARE VITAL SIGNS MEDICATIONS No Known Medications RESULTS No Results PROCEDURES Procedure Date Ordered Result Body Site COMPLETE CBC W/AUTO DIFF WBC October 01, 2013 ASSAY THYROID STIM HORMONE October 01, 2013 ASSAY OF MAGNESIUM October 01, 2013 VITAMIN B-12 October 01, 2013 LIPID PANEL October 01, 2013 COMPREHEN METABOLIC PANEL October 01, 2013 ASSAY OF VITAMIN D October 01, 2013 VENIPUNCT, ROUTINE* October 01, 2013 INSTRUCTIONS MEDICATIONS ADMINISTERED No Known Medications MEDICAL (GENERAL) HISTORY Type Description Date Medical History seasonal allergies Surgical History lap band 2011 Surgical History partial hysterectomy 1995?
--- OUTSIDE RECORDS SUMMARY | 2019-09-17 02:55 | XMS REPORT ---
Author Author Hilary DRAKE Y Organization [facility] [place] Address [address] [place] [address] Care Team Providers Care Stock Saw Operator Name Role Phone MARIA E DRAKE Unavailable PROBLEMS Type Condition ICD9-CM Code OLL80-DQ Code Onset Dates Condition S tatus SNOMED Code Problem Obesity (BMI 30.0-34.9) E66.9 Active 890669144756472 Problem Dysthymia F34.1 Active 50956165 Problem Allergic rhinitis, unspecified allergic rhinitis type J30.9 Active 78703391 Problem Hot flashes, menopausal N95.1 Active 482745375 Problem History of syncope Z87.898 Active 6 [id number] Problem Menopause Z78.0 Active 657125109 ALLERGIES No Information ENCOUNTERS Encounter Location Date Diagnosis [address] [id number] Jan, Arthralgia of left temporomandibular joint M26.[address] [id number] Apr, Nummular eczema L30.0 and Dysthymia F34.[address] [id number] Dec, Allergic rhinitis, unspecified allergic rhinitis type J30.[address] [id number] November, Dysthymia F34.1 and Hot flashes, menopausal N95.[address] [id number] Oct, Dysthymia F34.[address] [id number] Sep, Dysthymia F34.1 [facility] [place] [id number] Mar, Syncope, unspecified syncope type R55 ; Tobacco use Z72.0 and Family history of early CAD Z82.49 [id number] [id number] Feb, Elevated fasting blood sugar R73.01 and History of syncope Z87.898 [address] [place] [id number] Jan, Elevated fasting blood sugar R73.01 [facility] [place] [address] [facility] [place] [address] Jan, [address] [id number] Jan, History of syncope Z87.898 ; Obesity (BMI 30.0-34.9) E66.9 and Menopause Z78.[address] [id number] Jan, History of syncope Z87.898 ; Menopause Z78.0 ; Obesity (BMI 30.0-34.9) E66.9 ; Family history of CHF (congestive heart failure) Z82.49 and Family history of heart disease Z82.[address] [id number] Jan, [address] [id number] Dec, Well woman exam Z01.419 and Hot flashes, menopausal N95.[address] [id number] Sep, Allergic rhinitis, unspecified allergic rhinitis type J30.[address] [id number] Sep, [address] [id number] Jun, Non- seasonal allergic rhinitis due to other allergic trigger J30.[address] [id number] Mar, 2016 Allergic rhinitis, unspecified allergic rhinitis type J30.9 ; Screening cholesterol level Z13.220 ; Screening, heart disease, ischemic Z13.6 and Screening for thyroid disorder Z13.29 [facility] [address] [facility] [place] [id number] 08 Sep, 2015 Seasonal allergies J30.2 [facility] [place] [address] [facility] [place] [address] May, [facility] [place] [id number] [place] [address] Mar, [facility] [place] [id number] [place] [address] Mar, [facility] [place] [id number] [place] [address] Feb, [facility] [place] [id number] [place] [address] Feb, [facility] [place] [id number] [place] [address] Dec, [facility] [place] [id number] [place] [address] Oct, [facility] [place] [id number] [place] [address] Oct, [facility] [place] [id number] [place] [address] Sep, [facility] [place] [id number] [place] [address] Sep, [facility] [place] [id number] [place] [address] Aug, [facility] [place] [id number] [place] [address] Aug, [facility] [place] [id number] [place] [address] Jun, [facility] [place] [id number] [place] [address] Jun, [facility] [place] [id number] [place] [address] May, [facility] [address] [id number] [place] [address] May, [facility] [address] [id number] [place] [address] Apr, [facility] [address] [id number] [place] [address] Apr, [facility] [address] [id number] [place] [address] Dec, [facility] [address] [id number] [place] [address] Dec, [facility] [address] [id number] [place] [address] Dec, [facility] [address] [id number] [place] [address] Dec, [facility] [place] [address] [facility] [id number] November, [facility] [address] [id number] [place] [address] November, [facility] [address] [id number] [place] [address] November, [facility] [address] [id number] [place] [address] November, [facility] [address] [id number] [place] [address] November, [facility] [address] [id number] [place] [address] November, [facility] [address] [id number] [place] [address] November, [facility] [address] [id number] [place] [address] Oct, [facility] [address] [id number] [place] [address] Oct, [facility] [id number] [place] [address] Sep, [facility] [address] [id number] [place] [address] Sep, [facility] [id number] [place] [address] Sep, [facility] [id number] [place] [address] Sep, [facility] [id number] [place] [address] Sep, [facility] [address] [id number] [place] [address] Sep, [facility] [id number] [place] [address] Jul, [facility] [id number] [place] [address] Jul, [facility] [address] [id number] [address] Jul, [facility] [id number] [place] [address] Jul, [facility] [id number] [place] [address] Apr, [facility] [id number] [place] [address] Apr, [facility] [address] [id number] [address] Jan, [facility] [id number] [place] [address] Jan, [facility] [address] [id number] [address] Sep, [facility] [address] [id number] [address] Sep, [facility] [address] [id number] [id number] Sep, [facility] [place] [id number] [place] [id number] Sep, [facility] [address] [facility] [place] [address] Sep, [facility] [address] [id number] [place] [address] Sep, [facility] [address] [id number] [place] [address] Sep, [facility] [place] [address] [facility] [place] [address] Sep, [facility] [address] [id number] [place] [address] Sep, [facility] [address] [id number] [place] [address] Jun, [facility] [address] [facility] [id number] Jun, [facility] [address] [id number] [place] [address] Jun, [facility] [address] [id number] [place] [address] Jun, [facility] [place] [address] [facility] [address] Jun, [facility] [address] [id number] [place] [address] Jun, [facility] [address] [facility] [place] [address] May, [facility] [address] [id number] [place] [address] May, [facility] [address] [id number] [place] [address] May, [facility] [address] [id number] [place] [address] May, [facility] [address] [facility] [address] May, [facility] [address] [id number] [place] [address] May, [facility] [address] [id number] [place] [address] Apr, [facility] [address] [id number] [place] [address] Apr, [facility] [address] [id number] [place] [address] Jan, [facility] [address] [id number] [place] [address] Dec, [facility] [address] [id number] [place] [address] Dec, [facility] [address] [id number] [place] [address] Dec, [facility] [address] [id number] [place] [address] Dec, [facility] [address] [id number] [place] [address] Dec, [facility] [address] [id number] [place] [address] Dec, [facility] [address] [id number] [place] [address] Dec, [facility] [address] [id number] [place] [address] November, [facility] [address] [id number] [place] [address] Oct, [facility] [address] [id number] [place] [address] Oct, [facility] [address] [id number] [place] [address] Sep, [facility] [id number] [place] [address] Sep, [facility] [address] [id number] [place] [address] Sep, [facility] [address] [id number] [place] [address] Sep, [facility] [place] [address] [id number] [place] [address] Aug, [facility] [place] [address] [id number] [place] [id number] Jul[facility] [place] [address] [id number] [place] [id number] Jul, [facility] [place] [id number] [place] [address] May, [facility] [place] [id number] [place] [address] Mar, [facility] [place] [id number] [place] [address] Sep, [facility] [place] [address] [address] May, [facility] [place] [id number] [place] [address] May, [facility] [place] [address] [address] May, [facility] [place] [id number] [place] [address] May, [facility] [place] [address] [address] Jun, [facility] [place] [address] [address] Jun, [facility] [place] [id number] [place] [address] May, [facility] [place] [id number] [place] [address] Apr, IMMUNIZATIONS No Known Immunizations SOCIAL HISTORY Never Assessed REASON FOR VISIT PLAN OF CARE VITAL SIGNS Height 68 in 2013-09-30 Weight 185.3 lbs 2013-09-30 Temperature 99 degrees Fahrenheit 2013-09-30 Heart Rate 76 bpm 2013-09-30 Respiratory Rate 18 2013-09-30 Blood pressure systolic 120 mmHg 2013-09-30 Blood pressure diastolic 78 mmHg 2013-09-30 MEDICATIONS No Known Medications RESULTS No Results PROCEDURES Procedure Date Ordered Result Body Site MAMMOGRAM, SCREENING September 30, 2013 INSTRUCTIONS MEDICATIONS ADMINISTERED No Known Medications MEDICAL (GENERAL) HISTORY Type Description Date Medical History seasonal allergies Surgical History lap band 2011 Surgical History partial hysterectomy 1995?
--- OUTSIDE RECORDS SUMMARY | 2019-09-17 02:55 | XMS REPORT ---
Author Author [facility]. Organization [facility]. Address [address] [address] Care Team Providers Care Traffic Control Specialist Name Role Phone JUAN RAMEY Unavailable Unavailable [facility] Unavailable [phone] JANUARY LOPES Unavailable DEGRAFFENREID SANTIAGO, MATTHEW Unavailable CAROLYN LUNSFORD Unavailable DEGRAFFENREID SANTIAGO, MATTHEW Unavailable LOPESJANUARY PAIZ Unavailable LOPES, JANUARY Unavailable LOPES JANUARY Unavailable LOPESJANUARY Unavailable DANIEL CAMPO FACC, LEANDRA FACP CCDS Unavailable Unavailabl e Migration, Doctor Unavailable Unavailable Migration, Doctor Unavailable Unavailable Migration, Doctor Unavailable Unavailable Migration, Doctor Unavailable Unavailable BENNY STINSON PCP ÁNGELA RODARTE DO Unavailable Unavailable Migration, Doctor Unavailable Unavailable MARCIAL WILSON MD Unavailable Unavailable Migration, Doctor Unavailable Unavailable MARIA E COLEMAN Unavailable Unavailabl MARCIAL Iglesias MD Unavailable Unavailable JOSSY GILL SUPERVISOR COATING Unavailable Unavailable ANIYAH CARTER Unavailable Unavailable BENNY STINSON DO Unavailable Unavailable MARCIAL WILSON MD Unavailable Unavailable MARC CAMPO, CLARENCE Unavailable Unavailable MARIA E COLEMAN Unavailable Unavailabl e TORY FRANK SUPERVISOR COATING Unavailable Unavailable MICAH ROBERSON MD Unavailable Unavailable KIMBERLY ROMANO MD Unavailable Unavailable JUAN RAMEY Unavailable JUAN RAMEY Unavailable OMER CHEN Unavailable JUAN RAMEY Unavailable JANUARY LOPES Unavailable Unavailable JUAN RAMEY Unavailable JUAN RAMEY Unavailable MARIA E DRAKE Unavailable SEYMOUR Peacock Unavailable MARIA E DRAKE Unavailable TORSTEN DRAKECY Unavailable MARIA E DRAKE Unavailable MARIA E DRAKE Unavailable JANUARY LOPES Unavailable Allergies The data below is from unstructured sourcesNo Known Allergies No Known Allergies No Known Allergies No Information No Information No Information No Information No Information No Information No Information No Information No Information No Information No Information No Information No Information No Information No Information No Information No Information No Information No Information No Information No Information No Information No Information No Information No Information No Information No Information No Information No Information No Information No Information No Information No Information No Information Medications Current Medications Medication Ingredient Drug Dose Dates Status Sig Sig Care Class(es) (Normalized) (Original) Provid er citalopram citalopram Serotonin 10 mg 10-25-19 Active no Ci talopram no 10 mg oral Translation Reuptake 18 information Hydrobromi de name tablet (3 s: [ Inhibitor 10 mg Orally (no sources.) Citalopram Once a day 1 phone) Hydrobromid tablet 24h e 10 mg, 18 Oct, 2017 Citalopram 30 day(s) Hydrobromid Active e 10 mg] no Codeine / Opioid 07-11-19 Active take 5 mL by Phenergan no information Promethazin Agonist, 12 mouth every with Code ine name (1 source.) e Phenothiazi four hours 10 mg-6.25 (no ne mg/5 mL SIG: phone) 5 mL orally every 4 hours for 5 day(s) Jul, Active oseltamivir Oseltamivir Neuraminida 75 mg 07-18-19 Active take 1 Tamiflu 75 no 75 mg oral Translation se 14 capsule by mg 1 capsule name capsule (1 s: [ Inhibitor mouth twice by Oral (no source.) Tamiflu 75 daily route 2 phone) mg] times per day for 5 day(s) Treatment Dosing Jul, Active venlafaxine venlafaxine Serotonin 37.5 09-26-19 Active no Venlafaxine no 37.5 mg Translation and mg 18 information HCl 37.5 MG name oral tablet s: [ Norepinephr Orally Once (no (1 source.) Venlafaxine ine a day 1 phone) HCl 37.5 Reuptake tablet with MG] Inhibitor food 24h Sep, [place] [address] 10-04-19 Active take 1 Vitamin D 2 no information 50,000 unit information [IU] 14 capsule by 50,0 00 unit name (1 source.) mouth every take 1 (no week capsule phone) (50,000 unit) by oral route once weekly for 12 weeks Sep, Active Completed/Discontinued Medications Medication Ingredient Drug Dose Dates Status Sig Sig Care Class(es) (Normalized) (Original) Provid er no Albuterol no 1 Complete take 1 Albuterol (no information (Proair information puff(s d puff(s) by (Proair Hfa) phone) (1 source.) Hfa) 8.5 Gm ) inhalation 8.5 Gm Hfa.aer.ad every four Hfa.aer.ad 2 hours as Puff needed RESPIRATORY (INHALATION) Every 4HRS as needed 2 PUFFS no Albuterol no 11-15-19 Complete no Albuterol (no information (Proair information 19 d information (Proai r Hfa) phone) (2 Hfa) 8.5 Gm 8.5 Gm sources.) Hfa.aer.ad, Hfa.aer.ad, 2 Puff 2 Puff Respiratory Respiratory (Inhalation (Inhalation) ) Every 4HRS as needed Discontinued no Hydroxyzine no 11-15-19 Complete no Hydroxyzine ( no information Hcl information 19 d information Hcl phone) (2 (Hydroxyzin (Hydroxyzine sources.) e 25 Mg 25 Mg Tablet) 25 Tablet) 25 Mg Tablet, Mg Tablet, 1 1 Each Oral Each Oral Bedtime Discontinued no Multivitami no 04-28-20 Complete no Multivitamin (no information ns information 15 d information s (Mult iple phone) (3 (Multiple Vitamin) 1 sources.) Vitamin) 1 Tab Tablet, Tab Tablet, 1 Tab Oral 1 Tab Oral Twice A Day Discontinued no Ondansetron no 08-29-19 Complete no Ondansetron ( no information Hcl (Zofran information 13 d information Hc l (Zofran phone) (3 Po) 4 Mg Po) 4 Mg sources.) Tab, 4 Mg Tab, 4 Mg Oral Oral Every 4HRS as needed Discontinued pantoprazol pantoprazol Proton Pump 40 mg 11-16-19 Complete take 1 Pantoprazole [place] e 40 mg e Inhibitor 19 d tablet by Sodium i Kido delayed mouth once (Protonix) (no release daily 40 Mg phone) oral tablet Tablet.dr 40 (1 source.) Mg ORAL Daily 90 Tab 11/15/18 traMADol traMADol Opioid 50 mg 11-09-19 Complete no Tramado l Hcl Ángela K hydrochlori Agonist 19 - d information (Ultram) 50 [place] de 50 mg 11-15-19 Mg Tablet, (no oral tablet 19 50 Mg Oral phone) (3 Every 4HRS sources.) as needed for Pain-Moderat e 11/08/18 Discontinued Problems Active Problems Problem Normalized Date of Normalized Normalized Provider Fac ility Classification Problem(s) Problem Problem Problem Sta tus Onset/Resoluti Duration on Other upper Allergic Chronic Active MARIA E Not Availab le respiratory rhinitis, TAMMY (96678) disease (1 cause O source.) unspecified Other upper Allergic Chronic Active JANUARY Reece ity respiratory rh[facility] [address] [facility] disease (20 unspecified of [facility] sources.) Translations: [place] ([address]284) [ - Allergic rhinitis, unspecified allergic rhinitis type J30.9, - Allergic rhinitis, unspecified allergic rhinitis type J30.9] Disorders of Arthralgia of Episodic Active MARIA E Commu nity teeth and jaw left [facility] (5 sources.) temporomandibu CASHERO [address]557 of [facility] lar joint [place] ([address]) Translations: [ - Arthralgia of left temporomandibu lar joint M26.622] Residual Asymptomatic Episodic Active Doctor Community codes; menopausal [facility] unclassified state of [facility] (20 sources.) Translations: [place] (79148) [ - Menopause Z78.0] Other upper Chronic Chronic Active ANIYAH Not Availab le respiratory sinusitis, TUTU HILARIO (50836) infections (1 unspecified source.) Esophageal Esophageal Chronic Active BENNY STINSON , Not Bailee ilable disorders (1 reflux DO (16607) source.) Essential Essential Chronic Active BENNY STINSON , Not Avail able hypertension (primary) DO (87523) (4 sources.) hypertension Translations: [ HYPERTENSION NOS] Residual Family history Episodic Active Doctor Communi ty codes; of ischemic [facility] [place] unclassified heart disease of [facility] (20 sources.) and other [place] (35974) diseases of the circulatory system Translations: [ - Family history of CHF (congestive heart failure) Z82.49, - Family history of early CAD Z82.49, - Family history of heart disease Z82.49] Esophageal Gastro-esophag no information Active RADU HARRELL Via disorders (4 eal reflux MD [place] sources.) disease with Hospital - esophagitis [place] Translations: (75841) [ OTHER SPECIFIED DISEASES OF ESOPHAGUS] Headache; Headache; no information Active BENNYNimisha STINSON [facility] Via including including [address] [facility] migraine (3 migraine Hospital sources.) (46678) Bacterial Helicobacter Episodic Active MARCIAL WILSON [facility] infection; pylori [HTelly [place] unspecified pylori] as the Hospital - site (2 cause of [place] sources.) diseases (45922) classified elsewhere Influenza (1 Influenza no information Active BENNYNimisha STINSON [facility] Via source.) [address] [facility] (23322) Spondylosis; Lumbosacral Chronic Active KIMBERLY IPSEN , Not Available intervertebral spondylosis (09852) disc without disorders; myelopathy other back problems (1 source.) Residual Menopause Episodic Active MARIA E Community codes; present [facility] unclassified Translations: [facility] [address] of [facility] (5 sources.) [ Menopause] [place] (57303) Headache; Migraine, Chronic Active ANIYAH Not Availabl e including unspecified, TUTU HILARIO (70654) migraine (4 not sources.) intractable, without status migrainosus Translations: [ TENSION-TYPE HEADACHE, UNSPECIFIED, NOT ] Substance-rela Nicotine Chronic Active ANIYAH Not Avai lable katina disorders dependence, TUTU HILARIO (36431) (4 sources.) cigarettes, uncomplicated Allergic Nummular Episodic Active Doctor Community reactions (20 dermatitis [facility] [place] [facility] sources.) Translations: of [facility] [ - Nummular [place] (98948) eczema L30.0, LATEX ALLERGY STATUS] Other Obese class I no information Active Doctor Com munity nutritional; Translations: [facility] [place] [facility] endocrine; and [ Obesity (BMI of [facility] metabolic 30.0-34.9)] [place] (28905) disorders (10 sources.) Other upper Other allergic Chronic Active [facility] respiratory rhinitis [address] [facility] disease (20 Translations: of [place] sources[place] [ - [place] ([address]29) Non-seasonal allergic rhinitis due to other allergic trigger J30.89, - Non-seasonal allergic rhinitis due to other allergic trigger J30.89] Other upper Other seasonal Chronic Active [facility] respiratory allergic [address] [facility] disease (20 rhinitis of [place] sources.) Translations: [place] (27624) [ - Seasonal allergies J30.2, - Seasonal allergies J30.2] Residual Personal Episodic Active Doctor Community codes; history of [facility] unclassified other of [facility] (20 sources.) specified [place] (04217) conditions Translations: [ - History of syncope Z87.898, History of syncope, History of syncope] Conduction Presence of Chronic Active no name no inform ation disorders (2 automatic sources.) (implantable) cardiac defibrillator Residual Tobacco use Episodic Active Doctor [facility] codes; Translations: Migration [facility] unclassified [ - Tobacco of [facility] (19 sources.) use Z72.0] [place] (48957) Asthma (6 Unspecified Chronic Active BENNY STINSON , Not Bailee ilable sources.) asthma, DO (10432) uncomplicated Translations: [ ASTHMA, UNSPECIFIED] Gastritis and Unspecified Chronic Active MARCIAL WILSON [facility] Via duodenitis (2 chronic MD [place] sources.) gastritis Hospital - without [place] bleeding (16888) Past or Other Problems Problem Normalized Date of Normalized Normalized Provider Fac ility Classification Problem(s) Problem Problem Problem Sta tus Onset/Resoluti Duration on Residual Acquired Episodic Completed ÁNGELA RODARTE DO [facility] Via codes; absence of [place] unclassified uterus with Hospital - (3 sources.) remaining [place] cervical stump (55051) Disorders of Arthralgia of no information no information ISAURA Star RAMEY [facility] teeth and jaw left [address] [facility] (8 sources.) temporomandibu of [facility] lar joint [place] (72640) Translations: [ - Arthralgia of left temporomandibu lar joint M26.622] Other Bariatric Episodic Completed ÁNGELA RODARTE DO [facility] gastrointestin surgery status [place] al disorders Hospital - (5 sources.) [place] (13663) Other Bariatric Episodic Completed BENNY STINSON , Not Avail able gastrointestin surgery status DO (39416) al disorders (4 sources.) External cause Bathroom of no information no information STONEY RBOERSON Not Available codes: Place unspecified , () [facility] ([facility] residence single-family (private) house as the place of occurrence of the external cause Translations: [ ACCIDENT IN HOME] External cause Bathroom of Episodic Completed ÁNGELA PRICEO DO [facility] Via codes: Place unspecified [place] of occurrence [facility] (1 source.) [facility] (private) [place] residence (44449) single-family (private) house as the place of occurrence of the external cause Other Body mass Episodic Completed ÁNGELA CAYDEN , DO [facility] Via nutritional; index (BMI) [place] endocrine; and 27.0-27.9, Hospital - metabolic adult [place] disorders (3 (01534) sources.) Biliary tract Calculus of Episodic Completed MARCIAL WILSON N ot Available disease (2 gallbladder (47139) sources.) with other cholecystitis, without mention of obstruction Translations: [ CHOLELITHIASIS NOS] Other lower Cough Episodic Completed MARIA E Not Availab le respiratory HART-CASHER (95256) disease (1 O source.) Other lower Cough Episodic Completed ANIYAH Not Availab le respiratory TUTU HILARIO (49303) disease (1 source.) External cause Fall from no information no information ÁNGELA ALBERT O , DO [facility] Via codes: Fall (2 chair, initial [place] sources.) encounter [facility] () External cause Fall from Episodic Completed ÁNGELA RODARTE , DO [facility] Via codes: Fall (1 chair, initial [place] source.) encounter [facility] () Other injuries Knee, leg, Episodic Completed MICAH ROBERSON N ot Available and conditions ankle, and , (05263) due to foot injury external causes (1 source.) Other care home Episodic Completed ÁNGELA CAYDEN , DO [facility] Via aftercare (3 (current) use [place] sources.) of inhaled Hospital steroids [place] () Other upper Other disease Episodic Completed MARIA E Not Av ailable respiratory of nasal HART-CASHER (92781) disease (1 cavity and O source.) sinuses External cause Other external no information no information Allison ROBERSON Not Available codes: cause status , (71300) Unspecified (1 source.) Malaise and Other fatigue Episodic Completed no name no inf ormation fatigue (2 sources.) Other Other Episodic Completed LEANDRA MILLER , Not Availa ble connective specified soft [facility] (26073) tissue disease tissue (1 source.) disorders Diabetes Prediabetes no information no information TAKAAKI KID O , [facility] Via mellitus MD [place] without Hospital - complication [place] (2 sources.) (29329) Residual Procedure and Episodic Completed TORY FRANK Not Av ailable codes; treatment not (44167) unclassified carried out (1 source.) due to patient leaving prior to being seen by health care provider Other lower Shortness of Episodic Completed no name no info rmation respiratory breath disease (2 sources.) Sprains and Strain of Episodic Completed MICAH ROBERSON Not A vailable strains (10 muscle, fascia , (02417) sources.) and tendon at neck level, initial encounter Translations: [ STRAIN OF MUSCLE, FASCIA AND TENDON OF L, SPRAIN OF LIGAMENTS OF THORACIC SPINE, I, SPRAIN OF FOOT NOS] External cause Unspecified no information no information STONEY ROBERSON Not Available codes: accident , (97798) Natural/enviro nment (1 source.) Gastritis and Unspecified Episodic Completed BENNY STINSON , Not Available duodenitis (1 gastritis and DO (34813) source.) gastroduodenit is, without mention of hemorrhage Procedures Procedure Normalized Procedure Procedure Result Performer Facility Date 10-01-2013 25 hydroxy includes no information no name (no phon e) [facility] fractions if performed [facility] (14958) 10-01-2013 Assay of magnesium no information no name (no phone ) [facility] (07344) 10-01-2013 Assay of thyroid no information no name (no phone) [facility] stimulating hormone [facility] (68142) 10-09-2011 Assay of thyroid no information no name (no phone) [facility] stimulating hormone [facility] (18064) 10-01-2013 Blood count complete no information no name (no elmer ne) [facility] auto&auto difrntl wbc [facility] (87836) 10-09-2011 Blood count complete no information no name (no elmer ne) [facility] auto&auto difrntl wbc [facility] (39364) 10-01-2013 Collection venous no information no name (no phone) [facility] blood venipuncture [facility] (86300) 10-09-2011 Collection venous no information no name (no phone) [facility] blood venipuncture [facility] (40965) 10-01-2013 Comprehensive no information no name (no phone) [facility] metabolic panel [facility] (55574) 10-09-2011 Comprehensive no information no name (no phone) [facility] metabolic panel [facility] (28441) 11-08-2018 Computerized axial no information ÁNGELA ROADRTE Asce nsion Via [facility] (85157) 11-08-2018 - 11-08-2018 11-08-2018 CT of spine no information ÁNGELA RODARTE [place] V ia [facility] (42300) 11-08-2018 - 11-08-2018 10-01-2013 Cyanocobalamin vitamin no information no name (no p abdullahi) [facility] b-12 [facility] (53048) 11-15-2018 Esophagogastroduodenos no information MARCIAL WILSON [place] Via [facility] (81103) 05-27-2012 Hemoglobin no information no name (no phone) [facility] glycosylated a1c [facility] (62809) 10-01-2013 Lipid panel no information no name (no phone) Comm [facility] (39775) 10-09-2011 Lipid panel no information no name (no phone) Comm [facility] (85247) 09-30-2013 Mammogram, screening no information no name (no elmer ne) [facility] (99821) 11-08-2018 Plain chest X-ray no information ÁNGELA Ann keith Via [facility] (60567) 11-08-2018 - 11-08-2018 Immunizations Normalized Immunization Date Notes Care Provider Facili ty Immunization vaccine no information BENNY STINSON [address] [place] Via Translations: [ [facility] vaccine] (16495) Results The data below is from unstructured sourcesNo Known Results No Known Results No Known Results No Results No Results No Results No Results No Results No Results No Results No Results No Results No Results No Results No Results No Results No Results No Results No Results No Results No Results No Results No ResultsNo relevant diagnostic test, laboratory data and/or discharge summary information available.No relevant diagnostic test, laboratory data and/or discharge summary information available. No Results No ResultsNo relevant diagnostic test, laboratory data and/or discharge summary information available.No relevant diagnostic test, laboratory data and/or discharge summary information available.No relevant diagnostic test, laboratory data and/or discharge summary information available.No relevant diagnostic test, laboratory data and/or discharge summary information available. No Results No Results No Results No Results No Results No Results No Results No Results No Results No Results No Results No Results No Results No Results No Results No Results No Results No Results No Results No Results Vital Signs Vital Sign Value Interpretation Reference Date Time Care Prov ider Facility (Normalized) (Normalized) Range BMI (Body Mass 27.06 kg/m2 (no code) 15 - 25 kg/m2 01-01-2018 [facility] Index) 16:20-[id number] [place] [address] (08403) BMI (Body Mass 28.4 kg/m2 (no code) 15 - 25 kg/m2 11-21-2017 [facility] Index) 09:40-[id number] [place] [address] (86022) BMI (Body Mass 28.4 kg/m2 (no code) 15 - 25 kg/m2 10-24-2017 [facility] Index) 09:20-0400 02906 [facility] (59903) BMI (Body Mass 28.37 kg/m2 (no code) 15 - 25 kg/m2 09-25-2017 [facility] Index) 11:40-0400 29772 [facility] (26234) Body height 172.72 cm (no code) cm 09-30-2013 MARIA E [facility] mmunity 12:49-[address] ([address]86) Body 98 [degF] (no code) 97.8 - 99.0 01-01-2018 JANUARY JACQUES Community Temperature [degF] 16:20-[id number] [place], [place] [address]s ([address]20) Body 97.9 [degF] (no code) 97.8 - 99.0 11-21-2017 JANUARY [facility] Temperature [degF] 09:40-[address] [facility] (81995) Body 98.5 [degF] (no code) 97.8 - 99.0 10-24-2017 JANUARY [facility] Temperature [degF] 09:20-[address] [facility] (26480) Body 96.9 [degF] (no code) 97.8 - 99.0 09-25-2017 JANUARY [facility] Temperature [degF] 11:40-[address] [facility] (83497) Body 98.3 [degF] (no code) 97.8 - 99.0 04-24-2014 JUAN [facility] Temperature [degF] 11:37-[id number] [place] [address] Cente r [facility] (54181) Body 99 [degF] (no code) 97.8 - 99.0 09-30-2013 MARIA E Co [facility] temperature [degF] 12:49-[address] ([address]38) Body 98.9 [degF] (no code) 97.8 - 99.0 05-27-2012 [facility] Temperature [degF] 10:53-0500 APRIL 55214 [facility] (50575) Body weight 71.44 kg (no code) kg 08-15-2014 [facility] 13:13-[address] [place] [address] (63798) Body weight 77.16 kg (no code) kg 04-24-2014 [facility] 11:37-[address] [place] [address] (62285) Body weight 84.05 kg (no code) kg 09-30-2013 MARIA E [facility] 12:49-0400 [facility] [id number] [place] [address] (15321) Body weight 112.76 kg (no code) kg 05-27-2012 [facility] Co [facility]munity 10:53-0500 APRIL 89341 [facility] (10097) Height 172.72 cm (no code) cm 01-01-2018 [facility] 16:20-0400 78137 [facility] (26192) Height 172.72 cm (no code) cm 11-21-2017 [facility] 09:40-0400 52360 [facility] (71438) Height 172.72 cm (no code) cm 10-24-2017 [facility] 09:20-[id number] [place] [address] (89703) Height 172.72 cm (no code) cm 09-25-2017 [facility] 11:40-[id number] [place] [address] (17432) Height 172.72 cm (no code) cm 08-15-2014 JUAN [facility] 13:130500 57670 [facility] (04019) Height 172.72 cm (no code) cm 04-24-2014 [facility]AN [facility] 11:37-0400 24563 [facility] (64584) Height 172.72 cm (no code) cm 05-27-2012 [facility] lovell 10:530500 APRIL 85528 [facility] (34933) Weight 80.74 kg (no code) kg 01-01-2018 [facility] 16:200400 45462 [facility] (55565) Weight 84.73 kg (no code) kg 11-21-2017 [facility] 09:400400 45507 [facility] (73560) Weight 84.73 kg (no code) kg 10-24-2017 [facility] 09:20-[id number] [place] [address] (06246) Weight 84.64 kg (no code) kg 09-25-2017 [facility] 11:40-[id number] [place] [address] (35077) Interventions No Information Plan of Treatment The data below is from unstructured sources Discharge Date 04/28/15 2:48pm Disposition 01 HOME, SELF-CARE Condition at Discharge Improved Instructions/Education Provided Sinu sitis (ED) Migraine Headache (ED) Tension Headache (ED) Forms Provided Work Release Form Prescriptions See Medication Section Referrals [facility] - Primary Care Physician Additional Instructions/Education Al l discharge instructions reviewed with patient and/or family. Voiced understanding. Medications as directed. Tylenol Extra Strength sxzw-rjr-cwwyleb as directed for pain or headache. Ibuprofen 800 mg by mouth every 8 hours as needed for pain or headache. Drink plenty of fluids. Rest. Follow-up with your family practitioner if no improvement in symptoms in the next 2-3 days, call for appointment time if needed. Return to the emergency department immediately for worsened pain, headache, dizziness, changes in vision, changes in behavior, numbness, weakness, shortness of air, seizure, chest pain, vomiting, or any other concerns. Activity Details Follow Up 4 Weeks Reason: Activity Details Follow Up after sees Dr. Daniel Massey on: Activity Details Follow Up 4 Weeks Reason:depression Activity Details Follow Up 3 Months Reason:depression Activity Details Follow Up prn Reason: Discharge Date 11/08/18 6:13am Disposition 01 HOME, SELF-CARE Condition at Discharge Stable Instructions/Education Provided Acid Reflux (Gastroesophageal Reflux Disease), Adult (DC) Upper Back Pain (DC) Lumbar Muscle Strain (DC) Contusion (DC) Preventing Falls Cervical Muscle Strain (DC) Esophageal Stricture (DC) Prescriptions See Medication Section Referrals BENNY STINSON DO Order Date: Primary Care Physician Address: [address] [place] [address] [id number] JANUARY LOPES Order Date: Primary Care Physician Address: [address] [address] Additional Instructions/Education IC E TO SORE AREAS AT 20 MINUTE INTERVALS FOR FIRST 24 HOURS, THEN ALTERNATE ICE AND HEAT TO SORE AREAS AT 20 MINUTE INTERVALS FOLLOW UP WITH YOUR DR IN 4-5 DAYS IF NO BETTER FOLLOW UP WITH DR. WILSON REGARDING LAP BAND AND ESOPHAGUS PROBLEMS All discharge instructions reviewed with patient and/or family. Voiced understanding. Discharge Date 11/14/18 11:49am Prescriptions See Medication Section Discharge Date 11/15/18 2:55pm Instructions/Education Provided EGD- ESOPHAGOGASTRODUODENOSCOPY Prescriptions See Medication Section Goals No Information Social History No Information Functional Status The data below is from unstructured sources Query Response Date Juan rded Pasero Opioid-induced Sedation Scale (POSS) Awake and alert November 15, 2018 11:35am Mental Status No Information Encounters Encounter Normalized Encounter Encounter Diagnosis Care Provi chelsi Organization Date Type 01-01-2018 (ACUTE) Acute Visit Allergic rhinitis, JANUARY MATHEW (no [facility] (no - unspecified phone) phone) 01-01-2018 - 01-01-2018 03-19-2018 ([facility]) Chronic Health no information JANUARY LOPES (no [facility] (no Maintenance phone) phone) 01-16-2019 (SD) Same Day Arthralgia of left JANUARY LOPES (no [facility] (no - temporomandibular phone) phone) 01-16-2019 joint - 01-16-2019 04-24-2018 (SD) Same Day Nummular dermatitis JANUARY LOPES (n o [facility] (no - phone) phone) 04-24-2018 - 04-24-2018 11-15-2018 Admission to day no information MARCIAL WILSON Work no organization name - surgery (no phone ) 11-15-2018 11-08-2018 Emergency department no information ÁNGELA Fitzpatrick k no organization name - patient visit (no phone ) 11-08-2018 ÁNGELA RODARTE ÁNGELA RODARTE 11-07-2018 Emergency department no information no name (no elmer ne) no organization name - patient visit (no phone) 11-08-2018 08-27-2015 Emergency department no information no name (no elmer ne) no organization name patient visit (no phone) 06-04-2012 Emergency department no information no name (no elmer ne) no organization name - patient visit (no phone) 06-04-2012 07-21-2012 Evaluation and no information no name (no phone) n o organization name - management of (no phone) 07-21-2012 inpatient 01-01-2018 Patient encounter no information no name (no phone) no organization name (no phone) 11-21-2017 Patient encounter no information no name (no phone) no organization name (no phone) 10-24-2017 Patient encounter no information no name (no phone) no organization name (no phone) 05-22-2017 Patient encounter no information no name (no phone) no organization name (no phone) 04-17-2017 Patient encounter no information no name (no phone) no organization name (no phone) 04-10-2017 Patient encounter no information no name (no phone) no organization name (no phone) 10-06-2013 Patient encounter no information no name (no phone) no organization name (no phone) 01-16-2019 Patient encounter no information no name (no phone) no organization name procedure (no phone) 11-15-2018 Patient encounter no information no name (no phone) no organization name - procedure (no phone) 11-15-2018 11-14-2018 Patient encounter no information [employer] Work no organization name - procedure (no phone ) 11-14-2018 [employer] 11-08-2018 Patient encounter no information no name (no phone) no organization name procedure (no phone) 12-29-2016 Patient encounter no information no name (no phone) no organization name procedure (no phone) 09-29-2014 Patient encounter no information no name (no phone) no organization name procedure (no phone) 01-21-2014 Patient encounter no information no name (no phone) no organization name procedure (no phone) 10-22-2013 Patient encounter no information no name (no phone) no organization name - procedure (no phone) 01-20-2014 09-30-2012 Patient encounter no information no name (no phone) no organization name procedure (no phone) 09-05-2012 Patient encounter no information no name (no phone) no organization name - procedure (no phone) 09-05-2012 08-29-2012 Patient encounter no information no name (no phone) no organization name procedure (no phone) no information Encounter for no name (no phone) no organiza tion name gynecological (no phone) examination (general) (routine) without abnormal findings no information Encounter for other no name (no phone) no org anization name preprocedural (no phone) examination no information Other specified no name (no phone) no organiz ation name pre-operative (no phone) examination Medical Equipment No Information Payers Normalized Payer Value Private Health Insurance [id number]) History general Narrative - Reported Note Type Note Facility History general Narrative - Reported Type Medical seasonal allergies History Surgical lap band 2011 History Surgical partial hysterectomy 1996? History [facility] ([id number]) Summary Purpose eClinicalWorks SubmissioneClinicalWorks Submission Advance Directives Directive Response Recor ded Date/Time Advance Directives No 11:57am Health Care Power of Atm Mechanic No 04/28/15 11:57am Organ Donor Yes 04/28/15 11:57am Resuscitation Status Full Code 04/28/15 11:57am Directive Response Recor ded Date/Time Advance Directives No 2:34am Health Care Power of Atm Mechanic No 11/08/18 2:34am Organ Donor Yes 11/08/18 2:34am Resuscitation Status Full Code 11/08/18 2:34am Directive Response Recor ded Date/Time Advance Directives No 11:45am Health Care Power of Atm Mechanic No 11/14/18 11:45am Organ Donor Yes 11/08/18 2:34am Resuscitation Status Full Code 11/14/18 11:45am Directive Response Recor ded Date/Time Advance Directives No 11:35am Health Care Power of Atm Mechanic No 11/15/18 11:35am Organ Donor Yes 11/15/18 11:35am Resuscitation Status Full Code 11/15/18 11:35am Discharge Instructions No hospital discharge instructions.No hospital discharge instruction information available.No hospital discharge instruction information available.No hospital discharge instruction information available. Chief Complaint and Reason for Visit Chief Complaint Trauma-Non Activatio n Reason for Visit CERVICAL, THORACIC AND LUMBAR STRAIN ESOPHAGEAL DILATION WITH LAP BAND IN PLACE Contusion of mid back S/P FALL FROM CHAIR Additional Source Comments This clinical document has been generated using [employer] software that has been certified by the Office of the National Coordinator for Health Information Technology (ONC 15.99.04.3023.Diam.31.00.0.970879) and the National Committee for Gas Cutting Machine Operator (NCQA, as an eMeasure certified technology). FOR RECORDS PERTAINING TO PATIENTS WHO ARE OR HAVE BEEN ENROLLED IN A CHEMICAL D EPENDENCY/SUBSTANCE ABUSE PROGRAM, SOME INFORMATION MAY BE OMITTED. This clinica l summary was aggregated from multiple sources. Caution should be exercised in using it in the provision of clinical care. This summary normalizes information from multiple sources, and as a consequence, information in this document may ma terially change the coding, format and clinical context of patient data. In joshua tion, data may be omitted in some cases. CLINICAL DECISIONS SHOULD BE BASED ON T HE PRIMARY CLINICAL RECORDS. [employer] [facility]. provides no warranty or guara ntee of the accuracy or completeness of information in this document.The followi information is based on time limited clinical information UNRECOGNIZED CONTENT PROVIDED BELOW FOR UNRECOGNIZED SECTION MEDICAL (GENERAL) HISTORY Type Description Date Medical History seasonal allergies Surgical History lap band 2011 Surgical History partial hysterectomy 1995? UNRECOGNIZED CONTENT PROVIDED BELOW FOR UNRECOGNIZED SECTION REASON FOR VISIT Pt c/o allergies, ears fill full Ludwin RODRIGUEZKILUB-[id number]-SooB MR-Inderjit
--- OUTSIDE RECORDS SUMMARY | 2019-09-17 02:55 | XMS REPORT ---
Author Author Hilary DRAKE Y Organization [facility] Address [address] [place] [address] Care Team Providers Care Change Control Specialist Name Role Phone MARIA E DRAKE Unavailable PROBLEMS Type Condition ICD9-CM Code SFD94-NH Code Onset Dates Condition S tatus SNOMED Code Problem Obesity (BMI 30.0-34.9) E66.9 Active 618367520903062 Problem Dysthymia F34.1 Active 63464622 Problem Allergic rhinitis, unspecified allergic rhinitis type J30.9 Active 44145934 Problem Hot flashes, menopausal N95.1 Active 861888796 Problem History of syncope Z87.898 Active 6 23697577712799 Problem Menopause Z78.0 Active 848533170 ALLERGIES No Information ENCOUNTERS Encounter Location Date Diagnosis [address] [id number] Jan, Arthralgia of left temporomandibular joint M26.[address] [id number] Apr, Nummular eczema L30.0 and Dysthymia F34.[address] [id number] Dec, Allergic rhinitis, unspecified allergic rhinitis type J30.[address] [id number] November, Dysthymia F34.1 and Hot flashes, menopausal N95.[address] [id number] Oct, Dysthymia F34.[address] [id number] Sep, Dysthymia F34.1 [facility] [place] [id number] Mar, Syncope, unspecified syncope type R55 ; Tobacco use Z72.0 and Family history of early CAD Z82.49 [address] [place] [id number] Feb, Elevated fasting blood sugar R73.01 and History of syncope Z87.898 [address] [address] [id number] Jan, Elevated fasting blood sugar R73.01 [facility] [address] [facility] [place] [address] Jan, [address] [id number] Jan, History of syncope Z87.898 ; Obesity (BMI 30.0-34.9) E66.9 and Menopause Z78.[address] [id number] Jan, History of syncope Z87.898 ; Menopause Z78.0 ; Obesity (BMI 30.0-34.9) E66.9 ; Family history of CHF (congestive heart failure) Z82.49 and Family history of heart disease Z82.[address] [id number] Jan, [address] [id number] Dec, Well woman exam Z01.419 and Hot flashes, menopausal N95.[address] [id number] Sep, Allergic rhinitis, unspecified allergic rhinitis type J30.[address] [id number] Sep, [address] [id number] Jun, Non- seasonal allergic rhinitis due to other allergic trigger J30.[address] [id number] 29 Mar, 2016 Allergic rhinitis, unspecified allergic rhinitis type J30.9 ; Screening cholesterol level Z13.220 ; Screening, heart disease, ischemic Z13.6 and Screening for thyroid disorder Z13.29 [facility] [address] [facility] [place] [id number] 08 Sep, 2015 Seasonal allergies J30.2 [facility] [address] [facility] [place] [address] May, [facility] [id number] [place] [address] Mar, [facility] [id number] [place] [address] Mar, [facility] [id number] [place] [address] Feb, [facility] [id number] [place] [address] Feb, [facility] [id number] [place] [address] Dec, [facility] [id number] [place] [address] Oct, [facility] [id number] [place] [address] Oct, [facility] [id number] [place] [address] Sep, [facility] [id number] [place] [address] Sep, [facility] [id number] [place] [address] Aug, [facility] [id number] [place] [address] Aug, [facility] [id number] [place] [address] Jun, [facility] [id number] [place] [address] Jun, [facility] [id number] [place] [address] May, [facility] [address] [id number] [place] [address] May, [facility] [address] [id number] [place] [address] Apr, [facility] [address] [id number] [place] [address] Apr, [facility] [address] [id number] [place] [address] Dec, [facility] [address] [id number] [place] [address] Dec, [facility] [address] [id number] [place] [address] Dec, [facility] [address] [id number] [place] [address] Dec, [facility] [address] [facility] [id number] November, [facility] [address] [id number] [place] [address] November, [facility] [address] [id number] [place] [address] November, [facility] [address] [id number] [place] [address] November, [facility] [address] [id number] [place] [address] November, [facility] [address] [id number] [place] [address] November, [facility] [address] [id number] [place] [address] November, [facility] [address] [id number] [place] [address] Oct, [facility] [address] [id number] [place] [address] Oct, [facility] [id number] [id number] Sep, [facility] [address] [id number] [place] [address] Sep, [facility] [id number] [id number] Sep, [facility] [id number] [place] [address] Sep, [facility] [id number] [place] [address] Sep, [facility] [address] [id number] [place] [address] Sep, [facility] [id number] [place] [address] Jul, [facility] [id number] [place] [address] Jul, [facility] [address] [id number] [id number] Jul, [facility] [id number] [place] [address] Jul, [facility] [id number] [place] [address] Apr, [facility] [id number] [place] [address] Apr, [facility] [address] [id number] [id number] Jan, [facility] [id number] [place] [address] Jan, [facility] [address] [id number] [address] Sep, [facility] [address] [id number] [address] Sep, [facility] [address] [id number] [address] Sep, [facility] [id number] [place] [id number] Sep, [facility] [address] [id number] [place] [id number] Sep, [facility] [address] [id number] [place] [address] Sep, [facility] [address] [id number] [place] [address] Sep, [facility] [address] [facility] [id number] Sep, [facility] [address] [id number] [place] [address] Sep, [facility] [address] [id number] [place] [address] Jun, [facility] [address] [facility] [id number] Jun, [facility] [address] [id number] [place] [address] Jun, [facility] [address] [id number] [place] [address] Jun, [facility] [address] [facility] [id number] Jun, [facility] [address] [id number] [place] [address] Jun, [facility] [address] [facility] [place] [id number] May, [facility] [address] [id number] [place] [address] May, [facility] [address] [id number] [place] [address] May, [facility] [address] [id number] [place] [address] May, [facility] [address] [facility] [id number] May, [facility] [address] [id number] [place] [address] May, [facility] [address] [id number] [place] [address] Apr, [facility] [address] [id number] [place] [address] Apr, [facility] [address] [id number] [place] [address] Jan, [facility] [address] [id number] [place] [address] Dec, [facility] [address] [id number] [place] [address] Dec, [facility] [address] [id number] [place] [address] Dec, [facility] [address] [id number] [place] [address] Dec, [facility] [address] [id number] [place] [address] Dec, [facility] [address] [id number] [place] [address] Dec, [facility] [address] [id number] [place] [address] Dec, [facility] [address] [id number] [place] [address] November, [facility] [address] [id number] [place] [address] Oct, [facility] [address] [id number] [place] [address] Oct, [facility] [address] [id number] [place] [address] Sep, [facility] [id number] [place] [address] Sep, [facility] [address] [id number] [place] [address] Sep, [facility] [address] [id number] [place] [address] Sep, [facility] [address] [id number] [place] [id number] Aug, [facility] [address] [facility] [place] [id number] Jul, [facility] [address] [facility] [place] [id number] Jul, [facility] [id number] [place] [address] May, [facility] [address] [address] Mar, [facility] [id number] [place] [address] Sep, [facility] [address] [address] May, [facility] [id number] [place] [address] May, [facility] [address] [address] May, [facility] [id number] [place] [address] May, [facility] [address] [address] Jun, [facility] [id number] [place] [address] Jun, [facility] [id number] [place] [address] May, [facility] [id number] [place] [address] Apr, IMMUNIZATIONS No Known Immunizations SOCIAL HISTORY Never Assessed REASON FOR VISIT PLAN OF CARE VITAL SIGNS MEDICATIONS No Known Medications RESULTS No Results PROCEDURES No Known procedures INSTRUCTIONS MEDICATIONS ADMINISTERED No Known Medications MEDICAL (GENERAL) HISTORY Type Description Date Medical History seasonal allergies Surgical History lap band 2011 Surgical History partial hysterectomy 1995?
--- OUTSIDE RECORDS SUMMARY | 2019-09-17 02:56 | XMS REPORT ---
Author Author Hilary DRAKE Y Organization [facility] Address [address] [place] [address] Care Team Providers Care Patient Observer Name Role Phone MARIA E DRAKE Unavailable PROBLEMS Type Condition ICD9-CM Code NBW29-RX Code Onset Dates Condition S tatus SNOMED Code Problem Obesity (BMI 30.0-34.9) E66.9 Active 021180605297637 Problem Dysthymia F34.1 Active 69608978 Problem Allergic rhinitis, unspecified allergic rhinitis type J30.9 Active 47480039 Problem Hot flashes, menopausal N95.1 Active 468732790 Problem History of syncope Z87.898 Active 6 07048796340907 Problem Menopause Z78.0 Active 716660421 ALLERGIES No Information ENCOUNTERS Encounter Location Date Diagnosis [address] [id number] Jan, Arthralgia of left temporomandibular joint M26.[address] [id number] Apr, Nummular eczema L30.0 and Dysthymia F34.[address] [id number] Dec, Allergic rhinitis, unspecified allergic rhinitis type J30.[address] [id number] November, Dysthymia F34.1 and Hot flashes, menopausal N95.[address] [id number] Oct, Dysthymia F34.[address] [id number] Sep, Dysthymia F34.1 [facility] [place] [id number] Mar, Syncope, unspecified syncope type R55 ; Tobacco use Z72.0 and Family history of early CAD Z82.[address] [id number] [id number] Feb, Elevated fasting blood sugar R73.01 and History of syncope Z87.898 [address] [address] [id number] Jan, Elevated fasting blood sugar R73.01 [facility] [address] [id number] [place] [address] Jan, [address] [id number] Jan, History of syncope Z87.898 ; Obesity (BMI 30.0-34.9) E66.9 and Menopause Z78.[address] [id number] Jan, History of syncope Z87.898 ; Menopause Z78.0 ; Obesity (BMI 30.0-34.9) E66.9 ; Family history of CHF (congestive heart failure) Z82.49 and Family history of heart disease Z82.[address] [id number] Jan, [address] [id number] Dec, Well woman exam Z01.419 and Hot flashes, menopausal N95.[address] [id number] Sep, Allergic rhinitis, unspecified allergic rhinitis type J30.[address] [id number] Sep, [address] [id number] Jun, Non- seasonal allergic rhinitis due to other allergic trigger J30.[address] [id number] 29 Mar, 2016 Allergic rhinitis, unspecified allergic rhinitis type J30.9 ; Screening cholesterol level Z13.220 ; Screening, heart disease, ischemic Z13.6 and Screening for thyroid disorder Z13.29 [facility] [address] [facility] [place] [id number] 08 Sep, [address] [facility] [address] [id number] [place] [address] May, [facility] [id number] [place] [address] Mar, [facility] [id number] [place] [address] Mar, [facility] [id number] [place] [address] Feb, [facility] [id number] [place] [address] Feb, [facility] [id number] [place] [address] Dec, [facility] [id number] [place] [address] Oct, [facility] [id number] [place] [address] Oct, [facility] [id number] [place] [address] Sep, [facility] [id number] [place] [address] Sep, [facility] [id number] [place] [address] Aug, [facility] [id number] [place] [address] Aug, [facility] [id number] [place] [address] Jun, [facility] [id number] [place] [address] Jun, [facility] [id number] [place] [address] May, [facility] [address] [id number] [place] [address] May, [facility] [address] [id number] [place] [address] Apr, [facility] [address] [id number] [place] [address] Apr, [facility] [address] [id number] [place] [address] Dec, [facility] [address] [id number] [place] [address] Dec, [facility] [address] [id number] [place] [address] Dec, [facility] [address] [id number] [place] [address] Dec, [facility] [place] [address] [facility] [id number] November, [facility] [address] [id number] [place] [address] November, [facility] [address] [id number] [place] [address] November, [facility] [address] [id number] [place] [address] November, [facility] [address] [id number] [place] [address] November, [facility] [address] [id number] [place] [address] November, [facility] [address] [id number] [place] [address] November, [facility] [address] [id number] [place] [address] Oct, [facility] [address] [id number] [place] [address] Oct, [facility] [id number] [place] [id number] Sep, [facility] [address] [id number] [place] [address] Sep, [facility] [id number] [address] Sep, [facility] [id number] [place] [address] Sep, [facility] [id number] [place] [address] Sep, [facility] [address] [id number] [place] [address] Sep, [facility] [id number] [place] [address] Jul, [facility] [id number] [place] [address] Jul, [facility] [address] [id number] [address] Jul, [facility] [id number] [place] [address] Jul, [facility] [id number] [place] [address] Apr, [facility] [id number] [place] [address] Apr, [facility] [address] [id number] [id number] Jan, [facility] [id number] [place] [address] Jan, [facility] [address] [id number] [address] Sep, [facility] [address] [id number] [address] Sep, [facility] [address] [id number] [address] Sep, [facility] [place] [id number] [place] [id number] Sep, [facility] [address] [id number] [place] [address] Sep, [facility] [address] [id number] [place] [address] Sep, [facility] [address] [id number] [place] [address] Sep, [facility] [place] [address] [facility] [address] Sep, [facility] [address] [id number] [place] [address] Sep, [facility] [address] [id number] [place] [address] Jun, [facility] [address] [facility] [id number] Jun, [facility] [address] [id number] [place] [address] Jun, [facility] [address] [id number] [place] [address] Jun, [facility] [place] [address] [facility] [address] Jun, [facility] [address] [id number] [place] [address] Jun, [facility] [address] [id number] [place] [address] May, [facility] [address] [id number] [place] [address] May, [facility] [address] [id number] [place] [address] May, [facility] [address] [id number] [place] [address] May, [facility] [address] [facility] [address] May, [facility] [address] [id number] [place] [address] May, [facility] [address] [id number] [place] [address] Apr, [facility] [address] [id number] [place] [address] Apr, [facility] [address] [id number] [place] [address] Jan, [facility] [address] [id number] [place] [address] Dec, [facility] [address] [id number] [place] [address] Dec, [facility] [address] [id number] [place] [address] Dec, [facility] [address] [id number] [place] [address] Dec, [facility] [address] [id number] [place] [address] Dec, [facility] [address] [id number] [place] [address] Dec, [facility] [address] [id number] [place] [address] Dec, [facility] [address] [id number] [place] [address] November, [facility] [address] [id number] [place] [address] Oct, [facility] [address] [id number] [place] [address] Oct, [facility] [address] [id number] [place] [address] Sep, [facility] [id number] [place] [address] Sep, [facility] [address] [id number] [place] [address] Sep, [facility] [address] [id number] [place] [address] Sep, [facility] [address] [id number] [place] [id number] Aug, [facility] [address] [id number] [place] [address] Jul, [facility] [address] [id number] [place] [address] Jul, [facility] [id number] [place] [address] May, [facility] [address] [address] Mar, [facility] [id number] [place] [address] Sep, [facility] [address] [address] May, [facility] [id number] [place] [address] May, [facility] [address] [address] May, [facility] [id number] [place] [address] May, [facility] [address] [address] Jun, [facility] [id number] [place] [address] Jun, [facility] [id number] [place] [address] May, [facility] [id number] [place] [address] Apr, IMMUNIZATIONS No Known Immunizations SOCIAL HISTORY Never Assessed REASON FOR VISIT PLAN OF CARE VITAL SIGNS MEDICATIONS No Known Medications RESULTS No Results PROCEDURES No Known procedures INSTRUCTIONS MEDICATIONS ADMINISTERED No Known Medications MEDICAL (GENERAL) HISTORY Type Description Date Medical History seasonal allergies Surgical History lap band 2011 Surgical History partial hysterectomy 1995?
--- OUTSIDE RECORDS SUMMARY | 2019-09-17 02:56 | XMS REPORT ---
Author Author Hilary DRAKE Y Organization [facility] Address [address] [place] [address] Care Team Providers Care Feather Duster Winder Name Role Phone MARIA E DRAKE Unavailable PROBLEMS Type Condition ICD9-CM Code GEK37-AN Code Onset Dates Condition S tatus SNOMED Code Problem Obesity (BMI 30.0-34.9) E66.9 Active 126818875784454 Problem Dysthymia F34.1 Active 43783201 Problem Allergic rhinitis, unspecified allergic rhinitis type J30.9 Active 48150788 Problem Hot flashes, menopausal N95.1 Active 650116874 Problem History of syncope Z87.898 Active 6 33461424424987 Problem Menopause Z78.0 Active 225088275 ALLERGIES No Information ENCOUNTERS Encounter Location Date Diagnosis [facility] [address] [id number] [place] [id number] Jan, Arthralgia of left temporomandibular roslyn nt M26.622 [facility] [address] [id number] [place] [id number] Apr, Nummular eczema L30.0 and Dysthymia F34. 1 [facility] [address] [id number] [place] [id number] Dec, Allergic rhinitis, unspecified allergic rhinitis type J30.9 [facility] [address] [id number] [place] [id number] November, Dysthymia F34.1 and Hot flashes, menopau arnie N95.1 [facility] [address] [id number] [place] [id number] Oct, Dysthymia F34.1 [facility] [address] [id number] [place] [id number] Sep, Dysthymia F34.1 [facility] [address] [id number] [place] [id number] Mar, Syncope, unspecified syncope type R55 ; Tobacco use Z72.0 and Family history of early CAD Z82.49 [facility] [address] [id number] [place] [id number] Feb, Elevated fasting blood sugar R73.01 and History of syncope Z87.898 [place] [address] [id number] [id number] Jan, Elevated fasting blood sugar R73.01 [facility] [address] [facility] [id number] [place], [place] [address] Jan, [facility] [address] [facility] [id number] [place] [id number] Jan, History of syncope Z87.898 ; Obesity (BM I 30.0-34.9) E66.9 and Menopause Z78.0 [facility] [address] [id number] [place] [id number] Jan, History of syncope Z87.898 ; Menopause Z 78.0 ; Obesity (BMI 30.0-34.9) E66.9 ; Family history of CHF (congestive heart failure) Z82.49 and Family history of heart disease Z82.49 [facility] [address] [id number] [place] [id number] Jan, [facility] [address] [id number] [place] [id number] Dec, Well woman exam Z01.419 and Hot flashes, menopausal N95.1 [facility] [address] [id number] [place] [id number] Sep, Allergic rhinitis, unspecified allergic rhinitis type J30.9 [facility] [address] [id number] [place] [id number] Sep, [facility] [address] [id number] [place] [id number] Jun, Non-seasonal allergic rhinitis due to ot her allergic trigger J30.89 [facility] [address] [id number] [place], [place] [id number] Sep, Allergic rhinitis, unspecified allergic rhinitis type J30.9 ; Screening cholesterol level Z13.220 ; Screening, heart disease, ischemic Z13.6 and Screening for thyroid disorder Z13.29 [facility] [address] [id number] [place] [id number] Sep, Seasonal allergies J30.2 [facility] [address] [id number] [address] [place] [address] May, [facility] [address] [id number] [address] [place] [address] Mar, [facility] [address] [facility] [id number] [address] [place] [address] Mar, [facility] [address] [facility] [id number] [address] [place] [address] Feb, [facility] [address] [facility] [id number] [address] [place] [address] Feb, [facility] [address] [facility] [id number] [address] [place] [address] Dec, [facility] [address] [facility] [id number] [address] [place] [address] Oct, [facility] [address] [facility] [id number] [address] [place] [address] Oct, [facility] [address] [facility] [id number] [address] [place] [address] Sep, [facility] [address] [facility] [id number] [address] [place] [address] Sep, [facility] [address] [facility] [id number] [address] [place] [address] Aug, [facility] [address] [facility] [id number] [address] [place] [address] Aug, [facility] [address] [id number] [address] [place] [address], [place] [address] Jun, [facility] [address] [id number] [address] [place] [address], [place] [address] Jun, [facility] [address] [id number] [address] [place] [address], [place] [address] May, [facility] [address] [id number] [address] [place] [address], [place] [address] May, [facility] [address] [id number] [address] [place] [address], [place] [address] Apr, [facility] [address] [id number] [address] [place] [address], [place] [address] Apr, [facility] [address] [id number] [address] [place] [address], [place] [address] Dec, [facility] [address] [id number] [address] [place] [address], [place] [address] Dec, [facility] [address] [id number] [address] [place] [address], [place] [address] Dec, [facility] [address] [id number] [address] [place] [address], [place] [address] Dec, [facility] [address] [id number] [place], [facility] [id number] November, [facility] [address] [id number] [address] [place] [address], [place] [address] November, [facility] [address] [id number] [address] [place] [address], [place] [address] November, [facility] [address] [id number] [address] [place] [address], [place] [address] November, [facility] [address] [id number] [address] [place] [address], [place] [address] November, [facility] [address] [id number] [address] [place] [address], [place] [address] November, [facility] [address] [id number] [address] [place] [address], [place] [address] November, [facility] [address] [id number] [address] [place] [address], [place] [address] Oct, [facility] [address] [id number] [facility] [place] [address] Oct, [facility] [address] [id number] [place] [id number] Sep, [facility] [address] [id number] [address] [place] [address], [place] [address] Sep, [facility] [address] [id number] [place] [id number] Sep, [facility] [address] [id number] [address] [place] [address], [place] [address] Sep, [facility] [address] [id number] [address] [place] [address], [place] [address] Sep, [facility] [address] [id number] [address] [place] [address], [place] [address] Sep, [facility] [address] [id number] [address] [place] [address], [place] [address] Jul, [facility] [address] [id number] [address] [place] [address], [place] [address] Jul, [facility] [address] [id number] [place] [id number] Jul, [facility] [address] [id number] [address] [place] [address], [place] [address] Jul, [facility] [address] [id number] [address] [place] [address], [place] [address] Apr, [facility] [address] [id number] [facility] [place] [address] Apr, [facility] [address] [id number] [place] [id number] Jan, [facility] [address] [id number] [address] [place] [address] Jan, [facility] [place] [address] [id number] [place] [id number] Sep, [facility] [place] [address] [id number] [place] [id number] Sep, [facility] [place] [address] [id number] [place] [id number] Sep, [facility] [place] [address] [id number] [place] [id number] Sep, [facility] [place] [address] [id number] [place] [id number] Sep, [facility] [address] [id number] [address] [place] [address], [place] [address] Sep, [facility] [address] [id number] [address] [place] [address] Sep, [facility] [place] [address] [id number] [place] [id number] Sep, [facility] [address] [facility] [id number] [address] [place] [address] Sep, [facility] [address] [facility] [id number] [address] [place] [address] Jun, [facility] [place] [address] [id number] [place] [id number] Jun, [facility] [address] [facility] [id number] [address] [place] [address] Jun, [facility] [address] [id number] [address] [place] [address] Jun, [facility] [place] [address] [id number] [place] [id number] Jun, [facility] [address] [id number] [address] [place] [address] Jun, [facility] [place] [address] [id number] [place] [id number] May, [facility] [address] [id number] [address] [place] [address], [place] [address] May, [facility] [address] [id number] [address] [place] [address], [place] [address] May, [facility] [address] [id number] [address] [place] [address], [place] [address] May, [facility] [address] [id number] [place] [id number] May, [facility] [address] [id number] [address] [place] [address], [place] [address] May, [facility] [address] [id number] [address] [place] [address], [place] [address] Apr, [facility] [address] [id number] [address] [place] [address], [place] [address] Apr, [facility] [address] [id number] [address] [place] [address], [place] [address] Jan, [facility] [address] [id number] [address] [place] [address], [place] [address] Dec, [facility] [address] [id number] [address] [place] [address], [place] [address] Dec, [facility] [address] [id number] [address] [place] [address], [place] [address] Dec, [facility] [address] [id number] [address] [place] [address], [place] [address] Dec, [facility] [address] [id number] [address] [place] [address], [place] [address] Dec, [facility] [address] [id number] [address] [place] [address], [place] [address] 06 Dec, 2011 [facility] [address] [id number] [address] [place] [address], [place] [address] Dec, [facility] [address] [id number] [address] [place] [address] November, [facility] [address] [id number] [address] [place] [address], [place] [address] Oct, [facility] [address] [id number] [address] [place] [address] Oct, [facility] [address] [id number] [address] [place] [address] Sep, [facility] [address] [id number] [address] [place] [address] Sep, [facility] [address] [id number] [address] [place] [address] Sep, [facility] [address] [id number] [address] [place] [address], [place] [address] Sep, [facility] [place] [address] [id number] [place] [id number] Aug, [facility] [place] [address] [id number] [place] [id number] Jul, [facility] [place] [address] [id number] [place] [id number] Jul, [facility] [address] [id number] [address] [place] [address] May, [facility] [address] [id number] [address] [place] [address] Mar, [facility] [address] [id number] [address] [place] [address] Sep, [facility] [address] [id number] [address] [place] [address], [place] [address] May, [facility] [address] [id number] [address] [place] [address] May, [facility] [address] [id number] [address] [place] [address], [place] [address] May, [facility] [address] [id number] [address] [place] [address] May, [facility] [address] [facility] [id number] [address] [place] [address] Jun, [facility] [address] [facility] [id number] [address] [place] [address] Jun, [facility] [address] [facility] [id number] [address] [place] [address] May, [facility] [address] [facility] [id number] [address] [place] [address] Apr, IMMUNIZATIONS No Known Immunizations SOCIAL HISTORY Never Assessed REASON FOR VISIT PLAN OF CARE VITAL SIGNS MEDICATIONS No Known Medications RESULTS No Results PROCEDURES No Known procedures INSTRUCTIONS MEDICATIONS ADMINISTERED No Known Medications MEDICAL (GENERAL) HISTORY Type Description Date Medical History seasonal allergies Surgical History lap band 2011 Surgical History partial hysterectomy 1995?
--- OUTSIDE RECORDS SUMMARY | 2019-09-17 02:56 | XMS REPORT ---
Author Author Hilary Peacock [facility] Address [address] [place] [address] Care Team Providers Care Information Technology Security Manager Name Role Phone SEYMOUR Peacock Unavailable PROBLEMS Type Condition ICD9-CM Code AHZ31-TM Code Onset Dates Condition S tatus SNOMED Code Problem Obesity (BMI 30.0-34.9) E66.9 Active [id number] Problem Dysthymia F34.1 Active 51293335 Problem Allergic rhinitis, unspecified allergic rhinitis type J30.9 Active 17992213 Problem Hot flashes, menopausal N95.1 Active 247428115 Problem History of syncope Z87.898 Active 6 [id number] Problem Menopause Z78.0 Active 074321452 ALLERGIES No Information ENCOUNTERS Encounter Location Date Diagnosis [facility] [id number] [place] [id number] Jan, Arthralgia of left temporomandibular roslyn nt M26.622 [facility] [id number] [place] [id number] Apr, Nummular eczema L30.0 and Dysthymia F34. 1 [facility] [id number] [place] [id number] Dec, Allergic rhinitis, unspecified allergic rhinitis type J30.9 [facility] [address] [facility] [id number] [place] [id number] November, Dysthymia F34.1 and Hot flashes, menopau arnie N95.1 [facility] [address] [facility] [id number] [place] [id number] Oct, Dysthymia F34.1 [facility] [address] [facility] [id number] [place] [id number] Sep, Dysthymia F34.1 [facility] [address] [id number] [id number] Mar, Syncope, unspecified syncope type R55 ; Tobacco use Z72.0 and Family history of early CAD Z82.49 [facility] [address] [facility] [id number] [place] [id number] Feb, Elevated fasting blood sugar R73.01 and History of syncope Z87.898 [facility] [address] [id number][place] [id number] Jan, Elevated fasting blood sugar R73.01 [facility] [address] [facility] [id number] [place] [address] Jan, [facility] [address] [facility] [id number] [place] [id number] Jan, History of syncope Z87.898 ; Obesity (BM I 30.0-34.9) E66.9 and Menopause Z78.0 [facility] [address] [facility] [id number] [place] [id number] Jan, History of syncope Z87.898 ; Menopause Z 78.0 ; Obesity (BMI 30.0-34.9) E66.9 ; Family history of CHF (congestive heart failure) Z82.49 and Family history of heart disease Z82.49 [facility] [address] [facility] [id number] [place] [id number] Jan, [facility] [address] [facility] [id number] [place] [id number] Dec, Well woman exam Z01.419 and Hot flashes, menopausal N95.1 [facility] [address] [id number][place] [id number] Sep, Allergic rhinitis, unspecified allergic rhinitis type J30.9 [facility] [address] [id number] [place] [id number] Sep, [facility] [address] [facility] [id number] [place] [id number] Jun, Non-seasonal allergic rhinitis due to ot her allergic trigger J30.89 [facility] [address] [id number] [place]anda ESCAM[place] S [id number] Sep, Allergic rhinitis, unspecified allergic rhinitis type J30.9 ; Screening cholesterol level Z13.220 ; Screening, heart disease, ischemic Z13.6 and Screening for thyroid disorder Z13.29 [facility] [address] [id number] [place], Chanda S [id number] Sep, Seasonal allergies J30.2 [facility] [address] [id number] [address] [place] [address] May, [facility] [address] [id number] [address] [place] [address] Mar, [facility] [address] [facility] [id number] [address] [place] [address] Mar, [facility] [address] [facility] [id number] [address] [place] [address] Feb, [facility] [address] [facility] [id number] [address] [place] [address] Feb, [facility] [address] [facility] [id number] [address] [place] [address] Dec, [facility] [address] [facility] [id number] [address] [place] [address] Oct, [facility] [address] [facility] [id number] [address] [place] [address] Oct, [facility] [address] [facility] [id number] [address] [place] [address] Sep, [facility] [address] [facility] [id number] [address] [place] [phone] Sep, [facility] [address] [facility] [id number] [address] [place] [address] Aug, [facility] [address] [facility] [id number] [address] [place] [address] Aug, [facility] [address] [id number] [address] [place] [address], [place] [address] Jun, [facility] [address] [id number] [address] [place] [address], [place] [address] Jun, [facility] [address] [id number] [address] [place] [address], [place] [address] May, [facility] [address] [id number] [address] [place] [address], [place] [address] May, [facility] [address] [id number] [address] [place] [address], [place] [address] Apr, [facility] [address] [id number] [address] [place] [address], [place] [address] Apr, [facility] [address] [id number] [address] [place] [address], [place] [address] Dec, [facility] [address] [id number] [address] [place] [address], [place] [address] Dec, [facility] [address] [id number] [address] [place] [address], [place] [address] Dec, [facility] [address] [id number] [address] [place] [address], [place] [address] Dec, [facility] [address] [id number] [place], [facility] [id number] November, [facility] [address] [id number] [address] [place] [address], [place] [address] November, [facility] [address] [id number] [address] [place] [address], [place] [address] November, [facility] [address] [id number] [address] [place] [address], [place] [address] November, [facility] [address] [id number] [address] [place] [address], [place] [address] November, [facility] [address] [id number] [address] [place] [address], [place] [address] November, [facility] [address] [id number] [address] [place] [address], [place] [address] November, [facility] [address] [id number] [address] [place] [address], [place] [address] Oct, [facility] [address] [id number] [address] [place] [address], [place] [address] Oct, [facility] [address] [id number] [place] [id number] Sep, [facility] [address] [id number] [address] [place] [address], [place] [address] Sep, [facility] [address] [id number] [place] [id number] Sep, [facility] [address] [id number] [address] [place] [address], [place] [address] Sep, [facility] [address] [id number] [address] [place] [address], [place] [address] Sep, [facility] [address] [id number] [address] [place] [address], [place] [address] Sep, [facility] [address] [id number] [address] [place] [address], [place] [address] Jul, [facility] [address] [id number] [address] [place] [address], [place] [address] Jul, [facility] [address] [id number] [place] [id number] Jul, [facility] [address] [id number] [address] [place] [address], [place] [address] Jul, [facility] [address] [id number] [address] [place] [address], [place] [address] Apr, [facility] [address] [id number] [address] [place] [address], [place] [address] Apr, [facility] [address] [id number] [place] [id number] Jan, [facility] [address] [id number] [address] [place] [address], [place] [address] Jan, [facility] [place] [address] [id number] [place] [id number] Sep, [facility] [place] [address] [id number] [place] [id number] Sep, [facility] [place] [address] [id number] [place] [id number] Sep, [facility] [place] [address] [id number] [place] [id number] Sep, [facility] [place] [address] [id number] [place] [id number] Sep, [facility] [address] [id number] [address] [place] [address], [place] [address] Sep, [facility] [address] [facility] [id number] [address] [place] [address], [place] [address] Sep, [facility] [place] [address] [id number] [place] [id number] Sep, [facility] [address] [facility] [id number] [address] [place] [address], [place] [address] Sep, [facility] [address] [facility] [id number] [address] [place] [address] Jun, [facility] [place] [address] [id number] [place] [id number] Jun, [facility] [address] [facility] [id number] [address] [place] [address] Jun, [facility] [address] [facility] [id number] [address] [place] [address], [place] [address] Jun, [facility] [place] [address] [id number] [place] [id number] Jun, [facility] [address] [facility] [id number] [address] [place] [address], [place] [address] Jun, [facility] [place] [address] [id number] [place] [id number] May, [facility] [address] [id number] [address] [place] [address], [place] [address] May, [facility] [address] [id number] [address] [place] [address], [place] [address] May, [facility] [address] [id number] [address] [place] [address], [place] [address] May, [facility] [address] [id number] [place] [id number] May, [facility] [address] [id number] [address] [place] [address], [place] [address] May, [facility] [address] [id number] [address] [place] [address], [place] [address] Apr, [facility] [address] [id number] [address] [place] [address], [place] [address] Apr, [facility] [address] [id number] [address] [place] [address], [place] [address] Jan, [facility] [address] [id number] [address] [place] [address], [place] [address] Dec, [facility] [address] [id number] [address] [place] [address], [place] [address] Dec, [facility] [address] [id number] [address] [place] [address], [place] [address] Dec, [facility] [address] [id number] [address] [place] [id number] Dec, [facility] [address] [id number] [address] [place] [address], [place] [address] Dec, [facility] [address] [id number] [address] [place] [address], [place] [id number] 06 Dec, 2011 [facility] [address] [id number] [address] [place] [address], [place] [address] Dec, [facility] [address] [id number] [address] [place] [address] November, [facility] [address] [id number] [address] [place] [address], [place] [address] Oct, [facility] [address] [id number] [address] [place] [address], [place] [address] Oct, [facility] [address] [id number] [address] [place] [address] Sep, [facility] [address] [id number] [address] [place] [address] Sep, [facility] [address] [id number] [address] [place] [address], [place] [address] Sep, [facility] [address] [id number] [address] [place] [address] Sep, [facility] [place] [address] [id number] [place] [id number] Aug, [facility] [place] [address] [id number] [place] [id number] Jul, [facility] [place] [address] [id number] [place] [id number] Jul, [facility] [address] [id number] [address] [place] [address] May, [facility] [address] [id number] [address] [place] [id number] Mar, [facility] [address] [id number] [address] [place] [address] Sep, [facility] [address] [id number] [address] [place] [address] May, [facility] [address] [id number] [address] [place] [address] May, [facility] [address] [id number] [address] [place] [address] May, [facility] [address] [id number] [address] [place] [address] May, [facility] [address] [facility] [id number] [address] [place] [address] Jun, [facility] [address] [facility] [id number] [address] [place] [address] Jun, [facility] [address] [facility] [id number] [address] [place] [address] May, [facility] [address] [facility] [id number] [address] [place] [address] Apr, IMMUNIZATIONS No Known Immunizations SOCIAL HISTORY Never Assessed REASON FOR VISIT PLAN OF CARE VITAL SIGNS MEDICATIONS No Known Medications RESULTS No Results PROCEDURES No Known procedures INSTRUCTIONS MEDICATIONS ADMINISTERED No Known Medications MEDICAL (GENERAL) HISTORY Type Description Date Medical History seasonal allergies Surgical History lap band 2011 Surgical History partial hysterectomy 1995?
--- OUTSIDE RECORDS SUMMARY | 2019-09-17 02:56 | XMS REPORT ---
Author Author Hilary RAMEY Organization [facility] Address [address] [place] [address] Care Team Providers Care Flue Blower Name Role Phone JUAN RAMEY Unavailable PROBLEMS Type Condition ICD9-CM Code XFQ70-NC Code Onset Dates Condition S tatus SNOMED Code Problem Obesity (BMI 30.0-34.9) E66.9 Active 577700379407328 Problem Dysthymia F34.1 Active 57391168 Problem Allergic rhinitis, unspecified allergic rhinitis type J30.9 Active 55432206 Problem Hot flashes, menopausal N95.1 Active 451161837 Problem History of syncope Z87.898 Active 6 [id number] Problem Menopause Z78.0 Active 807832239 ALLERGIES No Information ENCOUNTERS Encounter Location Date Diagnosis [facility] [address] [id number] [place] [id number] Jan, Arthralgia of left temporomandibular roslyn nt M26.622 [facility] [address] [id number] [place] [id number] Apr, Nummular eczema L30.0 and Dysthymia F34. 1 [facility] [address] [id number] [place] [id number] Dec, Allergic rhinitis, unspecified allergic rhinitis type J30.9 [facility] [address] [id number] [place] [id number] November, Dysthymia F34.1 and Hot flashes, menopau arnie N95.1 [facility] [address] [id number] [place] [id number] Oct, Dysthymia F34.1 [facility] [address] [id number] [place] [id number] Sep, Dysthymia F34.1 [facility] [address] [id number] [id number] Mar, Syncope, unspecified syncope type R55 ; Tobacco use Z72.0 and Family history of early CAD Z82.49 [facility] [address] [facility] [id number] [place] [id number] Feb, Elevated fasting blood sugar R73.01 and History of syncope Z87.898 [facility] [address] [facility] [address] [id number] [id number] Jan, Elevated fasting blood sugar R73.01 [facility] [address] [facility] [id number] [place] [address] Jan, [facility] [address] [id number] [place] [id number] Jan, History of syncope Z87.898 ; Obesity (BM I 30.0-34.9) E66.9 and Menopause Z78.0 [facility] [address] [id number] [place] [id number] Jan, History of syncope Z87.898 ; Menopause Z 78.0 ; Obesity (BMI 30.0-34.9) E66.9 ; Family history of CHF (congestive heart failure) Z82.49 and Family history of heart disease Z82.49 [facility] [address] [facility] [id number] [place] [id number] Jan, [id number] [id number] Dec, Well woman exam Z01.419 and Hot flashes, menopausal N95.1 [facility] [address] [facility] [address] [id number][place] [id number] Sep, Allergic rhinitis, unspecified allergic rhinitis type J30.9 [facility] [address] [facility] [id number] [place] [id number] Sep, [facility] [address] [facility] [id number] [place] [id number] Jun, Non-seasonal allergic rhinitis due to ot her allergic trigger J30.89 [facility] [address] [facility] [id number] [place] [id number] Sep, 2016 Allergic rhinitis, unspecified allergic rhinitis type J30.9 ; Screening cholesterol level Z13.220 ; Screening, heart disease, ischemic Z13.6 and Screening for thyroid disorder Z13.29 [facility] [address] [id number] [place] [id number] Sep, Seasonal allergies J30.2 [facility] [address] [facility] [id number] [address] [place] [address] May, [facility] [address] [id number] [address] [place] [address] Mar, [facility] [address] [facility] [id number] [address] [place] [address] Mar, [facility] [address] [facility] [id number] [address] [place] [address] Feb, [facility] [address] [facility] [id number] [address] [place] [address] Feb, [facility] [address] [facility] [id number] [address] [place] [address] Dec, [facility] [address] [facility] [id number] [address] [place] [address] Oct, [facility] [address] [facility] [id number] [address] [place] [address] Oct, [facility] [address] [facility] [id number] [address] [place] [id number] Sep, [facility] [address] [facility] [id number] [address] [place] [address] Sep, [facility] [address] [facility] [id number] [address] [place] [address] Aug, [facility] [address] [facility] [id number] [address] [place] [address] Aug, [facility] [address] [facility] [id number] [address] [place] [address] Jun, [facility] [address] [id number] [address] [place] [address], [place] [address] Jun, [facility] [address] [id number] [address] [place] [address], [place] [address] May, [facility] [address] [id number] [address] [place] [address], [place] [address] May, [facility] [address] [id number] [address] [place] [address], [place] [address] Apr, [facility] [address] [id number] [address] [place] [address], [place] [address] Apr, [facility] [address] [id number] [address] [place] [address], [place] [address] Dec, [facility] [address] [id number] [address] [place] [address], [place] [address] Dec, [facility] [address] [id number] [address] [place] [address], [place] [address] Dec, [facility] [address] [id number] [address] [place] [address], [place] [address] Dec, [facility] [place] [address] [id number] [place] [id number] November, [facility] [address] [id number] [address] [place] [address], [place] [address] November, [facility] [address] [id number] [address] [place] [address], [place] [address] November, [facility] [address] [id number] [address] [place] [address], [place] [address] November, [facility] [address] [id number] [address] [place] [address], [place] [address] November, [facility] [address] [id number] [address] [place] [address], [place] [address] November, [facility] [address] [id number] [address] [place] [address], [place] [address] November, [facility] [address] [id number] [address] [place] [address], [place] [address] Oct, [facility] [address] [id number] [address] [place] [address], [place] [address] Oct, [facility] [address] [id number] [place] [id number] Sep, [facility] [address] [id number] [address] [place] [address], [place] [address] Sep, [facility] [address] [id number] [place] [id number] Sep, [facility] [address] [id number] [address] [place] [address] Sep, [facility] [address] [id number] [address] [place] [address], [place] [address] Sep, [facility] [address] [id number] [address] [place] [address], [place] [address] Sep, [facility] [address] [id number] [address] [place] [address] Jul, [facility] [address] [id number] [address] [place] [address] Jul, [facility] [address] [id number] [place] [id number] Jul, [facility] [address] [id number] [address] [place] [address] Jul, [facility] [address] [id number] [address] [place] [address], [place] [address] Apr, [facility] [address] [id number] [address] [place] [address], [place] [address] Apr, [facility] [address] [id number] [place] [id number] Jan, [facility] [address] [id number] [address] [place] [address], [place] [address] Jan, [facility] [place] [address] [id number] [place] [id number] Sep, [facility] [place] [address] [id number] [place] [id number] Sep, [facility] [place] [address] [id number] [place] [id number] Sep, [facility] [place] [address] [id number] [place] [id number] Sep, [facility] [place] [address] [id number] [place] [id number] Sep, [facility] [address] [id number] [address] [place] [address], [place] [address] Sep, [facility] [address] [facility] [id number] [address] [place] [address], [place] [address] Sep, [facility] [place] [address] [id number] [place] [id number] Sep, [facility] [address] [facility] [id number] [address] [place] [address] Sep, [facility] [address] [facility] [id number] [address] [place] [address] Jun, [facility] [place] [address] [id number] [place] [id number] Jun, [facility] [address] [facility] [id number] [address] [place] [address] Jun, [facility] [address] [facility] [id number] [address] [place] [address] Jun, [facility] [place] [address] [id number] [place] [id number] Jun, [facility] [address] [facility] [id number] [address] [place] [address] Jun, [facility] [place] [address] [id number] [place] [id number] May, [facility] [address] [id number] [address] [place] [address], [place] [address] May, [facility] [address] [id number] [address] [place] [address], [place] [address] May, [facility] [address] [id number] [address] [place] [address], [place] [address] May, [facility] [place] [address] [id number] [place] [id number] May, [facility] [address] [id number] [address] [place] [address], [place] [address] May, [facility] [address] [id number] [address] [place] [address], [place] [address] Apr, [facility] [address] [id number] [address] [place] [address], [place] [address] Apr, [facility] [address] [id number] [address] [place] [address], [place] [address] Jan, [facility] [address] [id number] [address] [place] [address], [place] [address] Dec, [facility] [address] [id number] [address] [place] [address], [place] [address] Dec, [facility] [address] [id number] [address] [place] [address], [place] [address] Dec, [facility] [address] [id number] [address] [place] [address], [place] [address] Dec, [facility] [address] [id number] [address] [place] [address], [place] [address] Dec, [facility] [address] [id number] [address] [place] [address], [place] [address] Dec, [facility] [address] [id number] [address] [place] [address], [place] [address] Dec, [facility] [address] [id number] [address] [place] [address], [place] [address] November, [facility] [address] [id number] [address] [place] [address], [place] [address] Oct, [facility] [address] [id number] [address] [place] [address], [place] [address] Oct, [facility] [address] [id number] [address] [place] [address], [place] [address] Sep, [facility] [address] [id number] [address] [place] [address], [place] [address] Sep, [facility] [address] [id number] [address] [place] [address], [place] [address] Sep, [facility] [address] [id number] [address] [place] [address], [place] [address] Sep, [facility] [place] [address] [id number] [place] [id number] Aug, [facility] [place] [address] [id number] [place] [id number] Jul, [facility] [place] [address] [id number] [place] [id number] Jul, [facility] [address] [id number] [address] [place] [address], [place] [address] May, [facility] [address] [id number] [address] [place] [address] Mar, [facility] [address] [id number] [address] [place] [address], [place] [address] Sep, [facility] [address] [id number] [address] [place] [address] May, [facility] [address] [id number] [address] [place] [address], [place] [address] May, [facility] [address] [id number] [address] [place] [address], [place] [address] May, [facility] [address] [id number] [address] [place] [address] May, [facility] [address] [facility] [id number] [address] [place] [address] Jun, [facility] [address] [facility] [id number] [address] [place] [address] Jun, [facility] [address] [facility] [id number] [address] [place] [address] May, [facility] [address] [facility] [id number] [address] [place] [address] Apr, IMMUNIZATIONS No Known Immunizations SOCIAL HISTORY Never Assessed REASON FOR VISIT PLAN OF CARE VITAL SIGNS MEDICATIONS No Known Medications RESULTS No Results PROCEDURES No Known procedures INSTRUCTIONS MEDICATIONS ADMINISTERED No Known Medications MEDICAL (GENERAL) HISTORY Type Description Date Medical History seasonal allergies Surgical History lap band 2011 Surgical History partial hysterectomy 1995?
--- OUTSIDE RECORDS SUMMARY | 2019-09-17 02:56 | XMS REPORT ---
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 Name Role Phone JUAN RAMEY Unavailable PROBLEMS Type Condition ICD9-CM Code NDD12-YS Code Onset Dates Condition S tatus SNOMED Code Problem Obesity (BMI 30.0-34.9) E66.9 Active 256749524131522 Problem Dysthymia F34.1 Active 59003571 Problem Allergic rhinitis, unspecified allergic rhinitis type J30.9 Active 24051741 Problem Hot flashes, menopausal N95.1 Active 729959252 Problem History of syncope Z87.898 Active 6 [id number] Problem Menopause Z78.0 Active [id number] ALLERGIES No Information ENCOUNTERS Encounter Location Date Diagnosis [facility] [address] [id number] [place] [id number] Jan, Arthralgia of left temporomandibular roslyn nt M26.622 [facility] [address] [id number] [place] [id number] Apr, Nummular eczema L30.0 and Dysthymia F34. 1 [facility] [address] [id number] [place] [id number] Dec, Allergic rhinitis, unspecified allergic rhinitis type J30.9 [facility] [address] [id number] [place] [id number] November, Dysthymia F34.1 and Hot flashes, menopau arnie N95.1 [facility] [address] [id number] [place] [id number] Oct, [facility] F34.1 [facility] [address] [id number] [place] [id number] Sep, Dysthymia F34.1 [facility] [address] [id number] [id number] Mar, Syncope, unspecified syncope type R55 ; Tobacco use Z72.0 and Family history of early CAD Z82.49 [facility] [address] [facility] [id number] [place] [id number] Feb, Elevated fasting blood sugar R73.01 and History of syncope Z87.898 [facility] [address] [id number] [id number] Jan, Elevated fasting blood sugar R73.01 [facility] [address] [facility] [id number] [place] [address] Jan, [facility] [address] [id number] [place] [id number] Jan, History of syncope Z87.898 ; Obesity (BM I 30.0-34.9) E66.9 and Menopause Z78.0 [facility] [address] [id number] [place] [id number] Jan, History of syncope Z87.898 ; Menopause Z 78.0 ; Obesity (BMI 30.0-34.9) E66.9 ; Family history of CHF (congestive heart failure) Z82.49 and Family history of heart disease Z82.49 [facility] [address] [facility] [id number] [place] [id number] Jan, [place] [id number] [id number] Dec, Well woman exam Z01.419 and Hot flashes, menopausal N95.1 [facility] [address] [id number][place] [id number] Sep, Allergic rhinitis, unspecified allergic rhinitis type J30.9 [facility] [address] [facility] [id number] [place] [id number] Sep, [facility] [address] [facility] [id number] [place] [id number] Jun, Non-seasonal allergic rhinitis due to ot her allergic trigger J30.89 [facility] [address] [facility] [id number] [place] [id number] Sep, 2016 Allergic rhinitis, unspecified allergic rhinitis type J30.9 ; Screening cholesterol level Z13.220 ; Screening, heart disease, ischemic Z13.6 and Screening for thyroid disorder Z13.29 [facility] [address] [id number] [place] [id number] Sep, Seasonal allergies J30.2 [facility] [address] [facility] [id number] [address] [place] [address] May, [facility] [address] [id number] [address] [place] [address] Mar, [facility] [address] [facility] [id number] [address] [place] [id number] Mar, [facility] [address] [facility] [id number] [address] [place] [id number] Feb, [facility] [address] [facility] [id number] [address] [place] [phone] Feb, [facility] [address] [facility] [id number] [address] [place] [address] Dec, [facility] [address] [facility] [id number] [address] [place] [address] Oct, [facility] [address] [facility] [id number] [address] [place] [address] Oct, [facility] [address] [facility] [id number] [address] [place] [id number] Sep, [facility] [address] [facility] [id number] [address] [place] [address] Sep, [facility] [address] [facility] [id number] [address] [place] [phone] Aug, [facility] [address] [facility] [id number] [address] [place] [id number] Aug, [facility] [address] [facility] [id number] [address] [place] [phone] Jun, [facility] [address] [id number] [address] [place] [address], [place] [address] Jun, [facility] [address] [id number] [address] [place] [address], [place] [address] May, [facility] [address] [id number] [address] [place] [address], [place] [address] May, [facility] [address] [id number] [address] [place] [address], [place] [address] Apr, [facility] [address] [id number] [address] [place] [address], [place] [address] Apr, [facility] [address] [id number] [address] [place] [address], [place] [address] Dec, [facility] [address] [id number] [address] [place] [address], [place] [address] Dec, [facility] [address] [id number] [address] [place] [address], [place] [address] Dec, [facility] [address] [id number] [address] [place] [address], [place] [address] Dec, [facility] [place] [facility] [address] [id number] [place] [id number] November, [facility] [address] [id number] [address] [place] [address], [place] [address] November, [facility] [address] [id number] [address] [place] [address], [place] [address] November, [facility] [address] [id number] [address] [place] [address], [place] [address] November, [facility] [address] [id number] [address] [place] [address], [place] [address] November, [facility] [address] [id number] [address] [place] [address], [place] [address] November, [facility] [address] [id number] [address] [place] [address], [place] [address] November, [facility] [address] [id number] [address] [place] [address], [place] [address] Oct, [facility] [address] [id number] [address] [place] [address], [place] [address] Oct, [facility] [address] [id number] [place] [id number] Sep, [facility] [address] [id number] [address] [place] [address], [place] [address] Sep, [facility] [address] [id number] [place] [id number] Sep, [facility] [address] [id number] [address] [place] [address] Sep, [facility] [address] [id number] [address] [place] [address], [place] [address] Sep, [facility] [address] [id number] [address] [place] [address], [place] [address] Sep, [facility] [address] [id number] [address] [place] [address] Jul, [facility] [address] [id number] [address] [place] [address] Jul, [facility] [address] [id number] [place] [id number] Jul, [facility] [address] [id number] [address] [place] [address] Jul, [facility] [address] [id number] [address] [place] [address], [place] [address] Apr, [facility] [address] [id number] [address] [place] [address], [place] [address] Apr, [facility] [address] [id number] [place] [id number] Jan, [facility] [address] [id number] [address] [place] [address], [place] [address] Jan, [facility] [place] [address] [id number] [place] [id number] Sep, [facility] [place] [address] [id number] [place] [id number] Sep, [facility] [place] [address] [id number] [place] [id number] Sep, [facility] [place] [address] [id number] [place] [id number] Sep, [facility] [place] [address] [id number] [place] [id number] Sep, [facility] [address] [id number] [address] [place] [address], [place] [address] Sep, [facility] [address] [facility] [id number] [address] [place] [address], [place] [address] Sep, [facility] [place] [address] [id number] [place] [id number] Sep, [facility] [address] [facility] [id number] [address] [place] [address] Sep, [facility] [address] [facility] [id number] [address] [place] [phone] Jun, [facility] [place] [address] [id number] [place] [id number] Jun, [facility] [address] [facility] [id number] [address] [place] [phone] Jun, [facility] [address] [facility] [id number] [address] [place] [address] Jun, [facility] [place] [address] [id number] [place] [id number] Jun, [facility] [address] [facility] [id number] [address] [place] [phone] Jun, [facility] [place] [address] [id number] [place] [id number] May, [facility] [address] [id number] [address] [place] [address], [place] [address] May, [facility] [address] [id number] [address] [place] [address], [place] [address] May, [facility] [address] [id number] [address] [place] [address], [place] [address] May, [facility] [address] [id number] [place] [id number] May, [facility] [address] [id number] [address] [place] [address], [place] [address] May, [facility] [address] [id number] [address] [place] [address], [place] [address] Apr, [facility] [address] [id number] [address] [place] [address], [place] [address] Apr, [facility] [address] [id number] [address] [place] [address], [place] [address] Jan, [facility] [address] [id number] [address] [place] [address], [place] [address] Dec, [facility] [address] [id number] [address] [place] [address], [place] [address] Dec, [facility] [address] [id number] [address] [place] [address], [place] [address] Dec, [facility] [address] [id number] [address] [place] [address], [place] [address] Dec, [facility] [address] [id number] [address] [place] [address], [place] [address] Dec, [facility] [address] [id number] [address] [place] [address], [place] [address] Dec, [facility] [address] [id number] [address] [place] [address], [place] [address] Dec, [facility] [address] [id number] [address] [place] [address], [place] [address] November, [facility] [address] [id number] [address] [place] [address], [place] [address] Oct, [facility] [address] [id number] [address] [place] [address], [place] [address] Oct, [facility] [address] [id number] [address] [place] [address], [place] [address] Sep, [facility] [address] [id number] [address] [place] [address], [place] [address] Sep, [facility] [address] [id number] [address] [place] [address], [place] [address] Sep, [facility] [address] [id number] [address] [place] [address], [place] [address] Sep, [facility] [place] [address] [id number] [place] [id number] Aug, [facility] [place] [address] [id number] [place] [id number] Jul, [facility] [place] [address] [id number] [place] [id number] Jul, [facility] [address] [id number] [address] [place] [address], [place] [address] May, [facility] [address] [id number] [address] [place] [address] Mar, [facility] [address] [id number] [address] [place] [address], [place] [address] Sep, [facility] [address] [id number] [address] [place] [address] May, [facility] [address] [id number] [address] [place] [address], [place] [address] May, [facility] [address] [id number] [address] [place] [address], [place] [address] May, [facility] [address] [id number] [address] [place] [address] May, [facility] [address] [facility] [id number] [address] [place] [address] Jun, [facility] [address] [facility] [id number] [address] [place] [address] Jun, [facility] [address] [facility] [id number] [address] [place] [address] May, [facility] [address] [facility] [id number] [address] [place] [address] Apr, IMMUNIZATIONS No Known Immunizations SOCIAL HISTORY Never Assessed REASON FOR VISIT PLAN OF CARE VITAL SIGNS MEDICATIONS No Known Medications RESULTS No Results PROCEDURES Procedure Date Ordered Result Body Site COMPLETE CBC W/AUTO DIFF WBC October 09, 2011 ASSAY THYROID STIM HORMONE October 09, 2011 LIPID PANEL October 09, 2011 COMPREHEN METABOLIC PANEL October 09, 2011 VENIPUNCT, ROUTINE* October 09, 2011 INSTRUCTIONS MEDICATIONS ADMINISTERED No Known Medications MEDICAL (GENERAL) HISTORY Type Description Date Medical History seasonal allergies Surgical History lap band 2011 Surgical History partial hysterectomy 1995?
--- OUTSIDE RECORDS SUMMARY | 2019-09-17 02:56 | XMS REPORT ---
Author Author Hilary RAMEY Organization [facility] Address [address] [place] [address] Care Team Providers Care Ict Help Desk Officer Name Role Phone JUAN RAMEY Unavailable PROBLEMS Type Condition ICD9-CM Code HUK20-MI Code Onset Dates Condition S tatus SNOMED Code Problem Obesity (BMI 30.0-34.9) E66.9 Active 444050605043159 Problem Dysthymia F34.1 Active 40366175 Problem Allergic rhinitis, unspecified allergic rhinitis type J30.9 Active 15265516 Problem Hot flashes, menopausal N95.1 Active 091487946 Problem History of syncope Z87.898 Active 6 [id number] Problem Menopause Z78.0 Active 062465943 ALLERGIES No Information ENCOUNTERS Encounter Location Date Diagnosis [facility] [address] [id number] [place] [id number] Jan, Arthralgia of left temporomandibular roslyn nt M26.622 [facility] [address] [id number] [place] [id number] Apr, Nummular eczema L30.0 and Dysthymia F34. 1 [facility] [address] [id number] [place] [id number] Dec, Allergic rhinitis, unspecified allergic rhinitis type J30.9 [facility] [address] [id number] [place] [id number] November, Dysthymia F34.1 and Hot flashes, menopau arnie N95.1 [facility] [address] [id number] [place] [id number] Oct, Dysthymia F34.1 [facility] [address] [id number] [place] [id number] Sep, Dysthymia F34.1 [facility] [address] [address] [id number] [id number] Mar, Syncope, unspecified syncope type R55 ; Tobacco use Z72.0 and Family history of early CAD Z82.49 [facility] [address] [facility] [id number] [place] [id number] Feb, Elevated fasting blood sugar R73.01 and History of syncope Z87.898 [facility] [address] [facility] [address] [address] [id number] [id number] Jan, Elevated fasting blood sugar R73.01 [facility] [address] [facility] [id number] [place] [address] Jan, [facility] [address] [id number] [place] [id number] Jan, History of syncope Z87.898 ; Obesity (BM I 30.0-34.9) E66.9 and Menopause Z78.0 [facility] [address] [id number] [place] [id number] Jan, History of syncope Z87.898 ; Menopause Z 78.0 ; Obesity (BMI 30.0-34.9) E66.9 ; Family history of CHF (congestive heart failure) Z82.49 and Family history of heart disease Z82.49 [facility] [address] [facility] [id number] [place] [id number] Jan, [place] [id number] [id number] Dec, Well woman exam Z01.419 and Hot flashes, menopausal N95.1 [facility] [address] [facility] [address] [id number] [id number] Sep, Allergic rhinitis, unspecified allergic rhinitis type J30.9 [facility] [address] [facility] [id number] [place] [id number] Sep, [facility] [address] [facility] [id number] [place] [id number] Jun, Non-seasonal allergic rhinitis due to ot her allergic trigger J30.89 [facility] [address] [facility] [id number] [place] [id number] Sep, 2016 Allergic rhinitis, unspecified allergic rhinitis type J30.9 ; Screening cholesterol level Z13.220 ; Screening, heart disease, ischemic Z13.6 and Screening for thyroid disorder Z13.29 [facility] [address] [id number] [place] [id number] Sep, Seasonal allergies J30.2 [facility] [address] [facility] [id number] [address] [place] [address] May, [facility] [address] [id number] [address] [place] [id number] Mar, [facility] [address] [facility] [id number] [address] [place] [id number] Mar, [facility] [address] [facility] [id number] [address] [place] [id number] Feb, [facility] [address] [facility] [id number] [address] [place] [phone] Feb, [facility] [address] [facility] [id number] [address] [place] [address] Dec, [facility] [address] [facility] [id number] [address] [place] [phone] Oct, [facility] [address] [facility] [id number] [address] [place] [id number] Oct, [facility] [address] [facility] [id number] [address] [place] [address] Sep, [facility] [address] [facility] [id number] [address] [place] [address] Sep, [facility] [address] [facility] [id number] [address] [place] [id number] Aug, [facility] [address] [facility] [id number] [address] [place] [address] Aug, [facility] [address] [facility] [id number] [address] [place] [address] Jun, [facility] [address] [id number] [address] [place] [address], [place] [address] Jun, [facility] [address] [id number] [address] [place] [address], [place] [address] May, [facility] [address] [id number] [address] [place] [address], [place] [address] May, [facility] [address] [id number] [address] [place] [address], [place] [address] Apr, [facility] [address] [id number] [address] [place] [address], [place] [address] Apr, [facility] [address] [id number] [address] [place] [address], [place] [address] Dec, [facility] [address] [id number] [address] [place] [address], [place] [address] Dec, [facility] [address] [id number] [address] [place] [address], [place] [address] Dec, [facility] [address] [id number] [address] [place] [address], [place] [address] Dec, [facility] [place] [address] [id number] [place] [id number] November, [facility] [address] [id number] [address] [place] [address], [place] [address] November, [facility] [address] [id number] [address] [place] [address], [place] [address] November, [facility] [address] [id number] [address] [place] [address], [place] [address] November, [facility] [address] [id number] [address] [place] [address], [place] [address] November, [facility] [address] [id number] [address] [place] [address], [place] [address] November, [facility] [address] [id number] [address] [place] [address], [place] [address] November, [facility] [address] [id number] [address] [place] [address], [place] [address] Oct, [facility] [address] [id number] [address] [place] [address], [place] [address] Oct, [facility] [place] [address] [id number] [place] [id number] Sep, [facility] [address] [id number] [address] [place] [address], [place] [address] Sep, [facility] [place] [address] [id number] [place] [id number] Sep, [facility] [address] [id number] [address] [place] [address] Sep, [facility] [address] [id number] [address] [place] [address], [place] [address] Sep, [facility] [address] [id number] [address] [place] [address], [place] [address] Sep, [facility] [address] [id number] [address] [place] [address] Jul, [facility] [address] [id number] [address] [place] [address] Jul, [facility] [place] [address] [id number] [place] [id number] Jul, [facility] [address] [id number] [address] [place] [address] Jul, [facility] [address] [id number] [address] [place] [address], [place] [address] Apr, [facility] [address] [id number] [address] [place] [address], [place] [address] Apr, [facility] [place] [address] [id number] [place] [id number] Jan, [facility] [address] [id number] [address] [place] [address], [place] [address] Jan, [facility] [place] [address] [id number] [place] [id number] Sep, [facility] [place] [address] [id number] [place] [id number] Sep, [facility] [place] [address] [id number] [place] [id number] Sep, [facility] [place] [address] [id number] [place] [id number] Sep, [facility] [place] [address] [id number] [place] [id number] Sep, [facility] [address] [id number] [address] [place] [address], [place] [address] Sep, [facility] [address] [facility] [id number] [address] [place] [address], [place] [address] Sep, [facility] [place] [address] [id number] [place] [id number] Sep, [facility] [address] [facility] [id number] [address] [place] [address] Sep, [facility] [address] [facility] [id number] [address] [place] [address] Jun, [facility] [place] [address] [id number] [place] [id number] Jun, [facility] [address] [facility] [id number] [address] [place] [address] Jun, [facility] [address] [facility] [id number] [address] [place] [address] Jun, [facility] [place] [address] [id number] [place] [id number] Jun, [facility] [address] [facility] [id number] [address] [place] [address] Jun, [facility] [place] [address] [id number] [place] [id number] May, [facility] [address] [id number] [address] [place] [address], [place] [address] May, [facility] [address] [id number] [address] [place] [address], [place] [address] May, [facility] [address] [id number] [address] [place] [address], [place] [address] May, [facility] [place] [address] [id number] [place] [id number] May, [facility] [address] [id number] [address] [place] [address], [place] [address] May, [facility] [address] [id number] [address] [place] [address], [place] [address] Apr, [facility] [address] [id number] [address] [place] [address], [place] [address] Apr, [facility] [address] [id number] [address] [place] [address], [place] [address] Jan, [facility] [address] [id number] [address] [place] [address], [place] [address] Dec, [facility] [address] [id number] [address] [place] [address], [place] [address] Dec, [facility] [address] [id number] [address] [place] [address], [place] [address] Dec, [facility] [address] [id number] [address] [place] [address], [place] [address] Dec, [facility] [address] [id number] [address] [place] [address], [place] [address] Dec, [facility] [address] [id number] [address] [place] [address], [place] [address] Dec, [facility] [address] [id number] [address] [place] [address], [place] [address] Dec, [facility] [address] [id number] [address] [place] [address], [place] [address] November, [facility] [address] [id number] [address] [place] [address], [place] [address] Oct, [facility] [address] [id number] [address] [place] [address], [place] [address] Oct, [facility] [address] [id number] [address] [place] [address], [place] [address] Sep, [facility] [address] [id number] [address] [place] [address], [place] [address] Sep, [facility] [address] [id number] [address] [place] [address], [place] [address] Sep, [facility] [address] [id number] [address] [place] [address], [place] [address] Sep, [facility] [place] [address] [id number] [place] [id number] Aug, [facility] [place] [address] [id number] [place] [id number] Jul, [facility] [place] [address] [id number] [place] [id number] Jul, [facility] [address] [id number] [address] [place] [address], [place] [address] May, [facility] [address] [id number] [address] [place] [id number] Mar, [facility] [address] [id number] [address] [place] [address], [place] [address] Sep, [facility] [address] [id number] [address] [place] [address] May, [facility] [address] [id number] [address] [place] [address], [place] [address] May, [facility] [address] [id number] [address] [place] [address], [place] [address] May, [facility] [address] [id number] [address] [place] [address] May, [facility] [address] [facility] [id number] [address] [place] [address] Jun, [facility] [address] [facility] [id number] [address] [place] [id number] Jun, [facility] [address] [facility] [id number] [address] [place] [address] May, [facility] [address] [facility] [id number] [address] [place] [address] Apr, IMMUNIZATIONS No Known Immunizations SOCIAL HISTORY Never Assessed REASON FOR VISIT PLAN OF CARE VITAL SIGNS Height 68 in 2014-04-24 Weight 170.1 lbs 2014-04-24 Temperature 98.3 degrees Fahrenheit 2014-04-24 Heart Rate 76 bpm 2014-04-24 Respiratory Rate 18 2014-04-24 Blood pressure systolic 128 mmHg 2014-04-24 Blood pressure diastolic 80 mmHg 2014-04-24 MEDICATIONS No Known Medications RESULTS No Results PROCEDURES No Known procedures INSTRUCTIONS MEDICATIONS ADMINISTERED No Known Medications MEDICAL (GENERAL) HISTORY Type Description Date Medical History seasonal allergies Surgical History lap band 2011 Surgical History partial hysterectomy 1995?
--- OUTSIDE RECORDS SUMMARY | 2019-09-17 02:57 | XMS REPORT ---
Author Author Hilary CHEN [facility] Address [address] [place] [address] Care Team Providers Care Supervisor Cd Area Name Role Phone OMER CHEN Unavailable PROBLEMS Type Condition ICD9-CM Code IGL85-RI Code Onset Dates Condition S tatus SNOMED Code Problem Obesity (BMI 30.0-34.9) E66.9 Active 461408551880011 Problem Dysthymia F34.1 Active 65452128 Problem Allergic rhinitis, unspecified allergic rhinitis type J30.9 Active 69423979 Problem Hot flashes, menopausal N95.1 Active 054096150 Problem History of syncope Z87.898 Active 6 [id number] Problem Menopause Z78.0 Active [id number] ALLERGIES No Information ENCOUNTERS Encounter Location Date Diagnosis [facility] [address] [id number] [place] [id number] Jan, Arthralgia of left temporomandibular roslyn nt M26.622 [facility] [address] [id number] [place] [id number] Apr, Nummular eczema L30.0 and Dysthymia F34. 1 [facility] [address] [id number] [place] [id number] Dec, Allergic rhinitis, unspecified allergic rhinitis type J30.9 [facility] [address] [id number] [place] [id number] November, Dysthymia F34.1 and Hot flashes, menopau arnie N95.1 [facility] [address] [id number] [place] [id number] Oct, Dysthymia F34.1 [facility] [address] [id number] [place] [id number] Sep, Dysthymia F34.[address] [facility] [address] [id number] [id number] Mar, Syncope, unspecified syncope type R55 ; Tobacco use Z72.0 and Family history of early CAD Z82.49 [facility] [address] [facility] [id number] [place] [id number] Feb, Elevated fasting blood sugar R73.01 and History of syncope Z87.898 [facility] [address] [id number] [place] [id number] Jan, Elevated fasting blood sugar R73.01 [facility] [address] [facility] [id number] [place] [address] Jan, [facility] [address] [facility] [id number] [place] [id number] Jan, History of syncope Z87.898 ; Obesity (BM I 30.0-34.9) E66.9 and Menopause Z78.0 [facility] [address] [facility] [id number] [place] [id number] Jan, History of syncope Z87.898 ; Menopause Z 78.0 ; Obesity (BMI 30.0-34.9) E66.9 ; Family history of CHF (congestive heart failure) Z82.49 and Family history of heart disease Z82.49 [facility] [address] [facility] [id number] [place] [id number] Jan, [facility] [address] [facility] [id number] [place] [id number] Dec, Well woman exam Z01.419 and Hot flashes, menopausal N95.1 [facility] [address] [id number] [place] [id number] Sep, Allergic rhinitis, unspecified allergic rhinitis type J30.9 [facility] [address] [id number] [place] [id number] Sep, [facility] [address] [facility] [id number] [place] [id number] Jun, Non-seasonal allergic rhinitis due to ot her allergic trigger J30.89 [facility] [address] [id number] Chanda ESCAMILLA S [id number] Sep, 2016 Allergic rhinitis, unspecified allergic rhinitis type J30.9 ; Screening cholesterol level Z13.220 ; Screening, heart disease, ischemic Z13.6 and Screening for thyroid disorder Z13.29 [facility] [address] [id number] Chanda ESCAMILLA S [id number] Sep, 2016 Seasonal allergies J30.2 [facility] [address] [id number] [address] [place] [address] May, [facility] [address] [facility] [id number] [address] [place] [address] Mar, [facility] [address] [facility] [id number] [address] [place] [address] Mar, [facility] [address] [facility] [id number] [address] [place] [address] Feb, [facility] [address] [facility] [id number] [address] [place] [address] Feb, [facility] [address] [facility] [id number] [address] [place] [id number] Dec, [facility] [address] [facility] [id number] [address] [place] [address] Oct, [facility] [address] [facility] [id number] [address] [place] [address] Oct, [facility] [address] [facility] [id number] [address] [place] [address] Sep, [facility] [address] [facility] [id number] [address] [place] [address] Sep, [facility] [address] [facility] [id number] [address] [place] [id number] Aug, [facility] [address] [facility] [id number] [address] [place] [address] Aug, [facility] [address] [id number] [address] [place] [address], [place] [address] Jun, [facility] [address] [id number] [address] [place] [address], [place] [address] Jun, [facility] [address] [id number] [address] [place] [address], [place] [address] May, [facility] [address] [id number] [address] [place] [address], [place] [address] May, [facility] [address] [id number] [address] [place] [address], [place] [address] Apr, [facility] [address] [id number] [address] [place] [address], [place] [address] Apr, [facility] [address] [id number] [address] [place] [address], [place] [address] Dec, [facility] [address] [id number] [address] [place] [address], [place] [address] Dec, [facility] [address] [id number] [address] [place] [address], [place] [address] Dec, [facility] [address] [id number] [address] [place] [address], [place] [address] Dec, [facility] [address] [id number] [place], [facility] [id number] November, [facility] [address] [id number] [address] [place] [address], [place] [address] November, [facility] [address] [id number] [address] [place] [address], [place] [address] November, [facility] [address] [id number] [address] [place] [address], [place] [address] November, [facility] [address] [id number] [address] [place] [address], [place] [address] November, [facility] [address] [id number] [address] [place] [address], [place] [address] November, [facility] [address] [id number] [address] [place] [address], [place] [address] November, [facility] [address] [id number] [address] [place] [address], [place] [address] Oct, [facility] [address] [id number] [address] [place] [address], [place] [address] Oct, [facility] [address] [id number] [place] [id number] Sep, [facility] [address] [id number] [address] [place] [address], [place] [address] Sep, [facility] [address] [id number] [place] [id number] Sep, [facility] [address] [id number] [address] [place] [address], [place] [address] Sep, [facility] [address] [id number] [address] [place] [address], [place] [address] Sep, [facility] [address] [id number] [address] [place] [address], [place] [address] Sep, [facility] [address] [id number] [address] [place] [address], [place] [address] Jul, [facility] [address] [id number] [address] [place] [address], [place] [address] Jul, [facility] [address] [id number] [place] [id number] Jul, [facility] [address] [id number] [address] [place] [address], [place] [address] Jul, [facility] [address] [id number] [address] [place] [address], [place] [address] Apr, [facility] [address] [id number] [address] [place] [address], [place] [address] Apr, [facility] [address] [id number] [place] [id number] Jan, [facility] [address] [id number] [address] [place] [address], [place] [address] Jan, [facility] [place] [address] [id number] [place] [id number] Sep, [facility] [place] [address] [id number] [place] [id number] Sep, [facility] [place] [address] [id number] [place] [id number] Sep, [facility] [place] [address] [id number] [place] [id number] Sep, [facility] [place] [address] [id number] [place] [id number] Sep, [facility] [address] [id number] [address] [place] [address], [place] [address] Sep, [facility] [address] [id number] [address] [place] [address], [place] [address] Sep, [facility] [place] [address] [id number] [place] [id number] Sep, [facility] [address] [id number] [address] [place] [address], [place] [address] Sep, [facility] [address] [facility] [id number] [address] [place] [address], [place] [address] Jun, [facility] [address] [id number] [place] [id number] Jun, [facility] [address] [facility] [id number] [address] [place] [address] Jun, [facility] [address] [id number] [address] [place] [address], [place] [address] Jun, [facility] [place] [address] [id number] [place] [id number] Jun, [facility] [address] [id number] [address] [place] [address], [place] [address] Jun, [facility] [place] [address] [id number] [place] [id number] May, [facility] [address] [id number] [address] [place] [address], [place] [address] May, [facility] [address] [id number] [address] [place] [address], [place] [address] May, [facility] [address] [id number] [address] [place] [address], [place] [address] May, [facility] [address] [id number] [place] [id number] May, [facility] [address] [id number] [address] [place] [address], [place] [address] May, [facility] [address] [id number] [address] [place] [address], [place] [address] Apr, [facility] [address] [id number] [address] [place] [address], [place] [address] Apr, [facility] [address] [id number] [address] [place] [address], [place] [address] Jan, [facility] [address] [id number] [address] [place] [address], [place] [address] Dec, [facility] [address] [id number] [address] [place] [address], [place] [address] Dec, [facility] [address] [id number] [address] [place] [address], [place] [address] Dec, [facility] [address] [id number] [address] [place] [address], [place] [address] Dec, [facility] [address] [id number] [address] [place] [address], [place] [address] Dec, [facility] [address] [id number] [address] [place] [address], [place] [address] 06 Dec, 2011 [facility] [address] [id number] [address] [place] [address], [place] [address] 04 Dec, 2011 [facility] [address] [id number] [address] [place] [address] November, [facility] [address] [id number] [address] [place] [address], [place] [address] Oct, [facility] [address] [id number] [address] [place] [address], [place] [address] Oct, [facility] [address] [id number] [address] [place] [address], [place] [address] Sep, [facility] [address] [id number] [address] [place] [address] Sep, [facility] [address] [id number] [address] [place] [address], [place] [address] Sep, [facility] [address] [id number] [address] [place] [address] Sep, [facility] [place] [address] [id number] [place] [id number] Aug, [facility] [place] [address] [id number] [place] [id number] Jul, [facility] [place] [address] [id number] [place] [id number] Jul, [facility] [address] [id number] [address] [place] [address] May, [facility] [address] [id number] [address] [place] [address] Mar, [facility] [address] [id number] [address] [place] [address] Sep, [facility] [address] [id number] [address] [place] [address] May, [facility] [address] [id number] [address] [place] [address], [place] [address] May, [facility] [address] [id number] [address] [place] [address] 08 May, 2010 [facility] [address] [id number] [address] [place] [address] May, [facility] [address] [facility] [id number] [address] [place] [address] Jun, [facility] [address] [facility] [id number] [address] [place] [address] Jun, [facility] [address] [facility] [id number] [address] [place] [address] May, [facility] [address] [facility] [id number] [address] [place] [address] Apr, IMMUNIZATIONS No Known Immunizations SOCIAL HISTORY Never Assessed REASON FOR VISIT PLAN OF CARE VITAL SIGNS Height 68 in 2012-05-27 Weight 248.59 lbs 2012-05-27 Temperature 98.9 degrees Fahrenheit 2012-05-27 Heart Rate 78 bpm 2012-05-27 Respiratory Rate 20 2012-05-27 Blood pressure systolic 112 mmHg 2012-05-27 Blood pressure diastolic 84 mmHg 2012-05-27 MEDICATIONS No Known Medications RESULTS No Results PROCEDURES Procedure Date Ordered Result Body Site GLYCATED HEMOGLOBIN TEST May 27, 2012 INSTRUCTIONS MEDICATIONS ADMINISTERED No Known Medications MEDICAL (GENERAL) HISTORY Type Description Date Medical History seasonal allergies Surgical History lap band 2011 Surgical History partial hysterectomy 1995?
--- OUTSIDE RECORDS SUMMARY | 2019-09-17 02:57 | XMS REPORT ---
Author Author Hilary RAMEY Organization [facility] Address [address] [place] [address] Care Team Providers Care Beating Machine Operator Name Role Phone JUAN RAMEY Unavailable PROBLEMS Type Condition ICD9-CM Code TCZ74-BO Code Onset Dates Condition S tatus SNOMED Code Problem Obesity (BMI 30.0-34.9) E66.9 Active 392295730414505 Problem Dysthymia F34.1 Active 76994077 Problem Allergic rhinitis, unspecified allergic rhinitis type J30.9 Active 30827921 Problem Hot flashes, menopausal N95.1 Active 156578656 Problem History of syncope Z87.898 Active 6 [id number] Problem Menopause Z78.0 Active 491556703 ALLERGIES No Information ENCOUNTERS Encounter Location Date Diagnosis [facility] [address] [id number] [place] [id number] Jan, Arthralgia of left temporomandibular roslyn nt M26.622 [facility] [address] [id number] [place] [id number] Apr, Nummular eczema L30.0 and Dysthymia F34. 1 [facility] [address] [id number] [place] [id number] Dec, Allergic rhinitis, unspecified allergic rhinitis type J30.9 [facility] [address] [id number] [place] [id number] November, Dysthymia F34.1 and Hot flashes, menopau arnie N95.1 [facility] [address] [id number] [place] [id number] Oct, Dysthymia F34.1 [facility] [address] [id number] [place] [id number] Sep, Dysthymia F34.1 [facility] [address] [id number] [id number] Mar, Syncope, unspecified syncope type R55 ; Tobacco use Z72.0 and Family history of early CAD Z82.49 [facility] [address] [facility] [id number] [place] [id number] Feb, Elevated fasting blood sugar R73.01 and History of syncope Z87.898 [facility] [address] [id number] [id number] Jan, Elevated fasting blood sugar R73.01 [facility] [address] [facility] [id number] [place] [address] Jan, [facility] [address] [id number] [place] [id number] Jan, History of syncope Z87.898 ; Obesity (BM I 30.0-34.9) E66.9 and Menopause Z78.0 [facility] [address] [id number] [place] [id number] Jan, History of syncope Z87.898 ; Menopause Z 78.0 ; Obesity (BMI 30.0-34.9) E66.9 ; Family history of CHF (congestive heart failure) Z82.49 and Family history of heart disease Z82.49 [facility] [address] [facility] [id number] [place] [id number] Jan, [place] [id number] [id number] Dec, Well woman exam Z01.419 and Hot flashes, menopausal N95.1 [facility] [address] [facility] [id number][place] [id number] Sep, Allergic rhinitis, unspecified allergic rhinitis type J30.9 [facility] [address] [facility] [id number] [place] [id number] Sep, [facility] [address] [facility] [id number] [place] [id number] Jun, Non-seasonal allergic rhinitis due to ot her allergic trigger J30.89 [facility] [address] [facility] [id number] [place] [id number] Sep, 2016 Allergic rhinitis, unspecified allergic rhinitis type J30.9 ; Screening cholesterol level Z13.220 ; Screening, heart disease, ischemic Z13.6 and Screening for thyroid disorder Z13.29 [facility] [address] [id number] [place] [id number] Sep, Seasonal allergies J30.2 [facility] [address] [facility] [id number] [address] [place] [address] May, [facility] [address] [id number] [address] [place] [address] Mar, [facility] [address] [facility] [id number] [address] [place] [address] Mar, [facility] [address] [facility] [id number] [address] [place] [address] Feb, [facility] [address] [facility] [id number] [address] [place] [phone] Feb, [facility] [address] [facility] [id number] [address] [place] [address] Dec, [facility] [address] [facility] [id number] [address] [place] [address] Oct, [facility] [address] [facility] [id number] [address] [place] [address] Oct, [facility] [address] [facility] [id number] [address] [place] [address] Sep, [facility] [address] [facility] [id number] [address] [place] [address] Sep, [facility] [address] [facility] [id number] [address] [place] [phone] Aug, [facility] [address] [facility] [id number] [address] [place] [address] Aug, [facility] [address] [facility] [id number] [address] [place] [address] Jun, [facility] [address] [id number] [address] [place] [address], [place] [id number] Jun, [facility] [address] [id number] [address] [place] [address], [place] [address] May, [facility] [address] [id number] [address] [place] [address], [place] [address] May, [facility] [address] [id number] [address] [place] [address], [place] [address] Apr, [facility] [address] [id number] [address] [place] [address], [place] [address] Apr, [facility] [address] [id number] [address] [place] [address], [place] [address] Dec, [facility] [address] [id number] [address] [place] [address], [place] [address] Dec, [facility] [address] [id number] [address] [place] [address], [place] [address] Dec, [facility] [address] [id number] [address] [place] [address], [place] [address] Dec, [facility] [place] [facility] [address] [id number] [place] [id number] November, [facility] [address] [id number] [address] [place] [address], [place] [address] November, [facility] [address] [id number] [address] [place] [address], [place] [address] November, [facility] [address] [id number] [address] [place] [address], [place] [address] November, [facility] [address] [id number] [address] [place] [address], [place] [address] November, [facility] [address] [id number] [address] [place] [address], [place] [address] November, [facility] [address] [id number] [address] [place] [address], [place] [address] November, [facility] [address] [id number] [address] [place] [address], [place] [address] Oct, [facility] [address] [id number] [address] [place] [address], [place] [address] Oct, [facility] [address] [id number] [place] [id number] Sep, [facility] [address] [id number] [address] [place] [address], [place] [address] Sep, [facility] [address] [id number] [place] [id number] Sep, [facility] [address] [id number] [address] [place] [id number] Sep, [facility] [address] [id number] [address] [place] [address], [place] [address] Sep, [facility] [address] [id number] [address] [place] [address], [place] [address] Sep, [facility] [address] [id number] [address] [place] [id number] Jul, [facility] [address] [id number] [address] [place] [address] Jul, [facility] [address] [id number] [place] [id number] Jul, [facility] [address] [id number] [address] [place] [address] Jul, [facility] [address] [id number] [address] [place] [address], [place] [address] Apr, [facility] [address] [id number] [address] [place] [address], [place] [address] Apr, [facility] [address] [id number] [place] [id number] Jan, [facility] [address] [id number] [address] [place] [address], [place] [address] Jan, [facility] [place] [address] [id number] [place] [id number] Sep, [facility] [address] [id number] [place] [id number] Sep, [facility] [place] [address] [id number] [place] [id number] Sep, [facility] [place] [address] [id number] [place] [id number] Sep, [facility] [place] [address] [id number] [place] [id number] Sep, [facility] [address] [id number] [address] [place] [address], [place] [address] Sep, [facility] [address] [facility] [id number] [address] [place] [address], [place] [address] Sep, [facility] [place] [address] [id number] [place] [id number] Sep, [facility] [address] [facility] [id number] [address] [place] [id number] Sep, [facility] [address] [facility] [id number] [address] [place] [address] Jun, [facility] [place] [address] [id number] [place] [id number] Jun, [facility] [address] [facility] [id number] [address] [place] [address] Jun, [facility] [address] [facility] [id number] [address] [place] [address] Jun, [facility] [place] [address] [id number] [place] [id number] Jun, [facility] [address] [facility] [id number] [address] [place] [address] Jun, [facility] [place] [address] [id number] [place] [id number] May, [facility] [address] [id number] [address] [place] [address], [place] [address] May, [facility] [address] [id number] [address] [place] [address], [place] [address] May, [facility] [address] [id number] [address] [place] [address], [place] [address] May, [facility] [address] [id number] [place] [id number] May, [facility] [address] [id number] [address] [place] [address], [place] [address] May, [facility] [address] [id number] [address] [place] [address], [place] [address] Apr, [facility] [address] [id number] [address] [place] [address], [place] [address] Apr, [facility] [address] [id number] [address] [place] [address], [place] [address] Jan, [facility] [address] [id number] [address] [place] [address], [place] [address] Dec, [facility] [address] [id number] [address] [place] [address], [place] [address] Dec, [facility] [address] [id number] [address] [place] [address], [place] [address] Dec, [facility] [address] [id number] [address] [place] [address], [place] [address] Dec, [facility] [address] [id number] [address] [place] [address], [place] [address] Dec, [facility] [address] [id number] [address] [place] [address], [place] [address] Dec, [facility] [address] [id number] [address] [place] [address], [place] [id number] Dec, [facility] [address] [id number] [address] [place] [address], [place] [address] November, [facility] [address] [id number] [address] [place] [address], [place] [address] Oct, [facility] [address] [id number] [address] [place] [address], [place] [address] Oct, [facility] [address] [id number] [address] [place] [address], [place] [address] Sep, [facility] [address] [id number] [address] [place] [address], [place] [id number] Sep, [facility] [address] [id number] [address] [place] [address], [place] [address] Sep, [facility] [address] [id number] [address] [place] [address], [place] [address] Sep, [facility] [place] [address] [id number] [place] [id number] Aug, [facility] [place] [address] [id number] [place] [id number] Jul, [facility] [place] [address] [id number] [place] [id number] Jul, [facility] [address] [id number] [address] [place] [address], [place] [address] May, [facility] [address] [id number] [address] [place] [address] Mar, [facility] [address] [id number] [address] [place] [address], [place] [address] Sep, [facility] [address] [id number] [address] [place] [address] May, [facility] [address] [id number] [address] [place] [address], [place] [address] May, [facility] [address] [id number] [address] [place] [address], [place] [address] May, [facility] [address] [id number] [address] [place] [id number] May, [facility] [address] [facility] [id number] [address] [place] [id number] Jun, [facility] [address] [facility] [id number] [address] [place] [address] Jun, [facility] [address] [facility] [id number] [address] [place] [address] May, [facility] [address] [facility] [id number] [address] [place] [address] Apr, IMMUNIZATIONS No Known Immunizations SOCIAL HISTORY Never Assessed REASON FOR VISIT PLAN OF CARE VITAL SIGNS Height 68 in 2014-08-15 Weight 157.5 lbs 2014-08-15 Heart Rate 72 bpm 2014-08-15 Respiratory Rate 18 2014-08-15 Blood pressure systolic 122 mmHg 2014-08-15 Blood pressure diastolic 83 mmHg 2014-08-15 MEDICATIONS No Known Medications RESULTS No Results PROCEDURES No Known procedures INSTRUCTIONS MEDICATIONS ADMINISTERED No Known Medications MEDICAL (GENERAL) HISTORY Type Description Date Medical History seasonal allergies Surgical History lap band 2011 Surgical History partial hysterectomy 1995?
--- OUTSIDE RECORDS SUMMARY | 2019-09-17 02:57 | XMS REPORT ---
Author Author Hilary Recio Doctor Organization [facility] Address Unknown Phone Unavailable Care Team Providers Care Forest Resource Specialist Name Role Phone Migration, Doctor Unavailable Unavailable PROBLEMS Type Condition ICD9-CM Code [id number] Code Onset Dates Condition S tatus SNOMED Code Problem Obesity (BMI 30.0-34.9) E66.9 Active 652594011594907 Problem Dysthymia F34.1 Active 88515282 Problem Allergic rhinitis, unspecified allergic rhinitis type J30.9 Active 58235753 Problem Hot flashes, menopausal N95.1 Active 089946079 Problem History of syncope Z87.898 Active 6 [id number] Problem Menopause Z78.0 Active [id number] ALLERGIES No Information ENCOUNTERS Encounter Location Date Diagnosis [facility] [id number] [place] [id number] Apr, Nummular eczema L30.0 and Dysthymia F34. 1 [facility] [address] [id number] [place] [id number] Dec, Allergic rhinitis, unspecified allergic rhinitis type J30.9 [facility] [address] [id number] [place] [id number] November, Dysthymia F34.1 and Hot flashes, menopau arnie N95.1 [facility] [address] [id number] [place] [id number] Oct, Dysthymia F34.1 [facility] [address] [id number] [place] [id number] Sep, Dysthymia F34.1 [facility] [address] [id number] [id number] Mar, Syncope, unspecified syncope type R55 ; Tobacco use Z72.0 and Family history of early CAD Z82.49 [facility] [address] [facility] [id number] [place] [id number] Feb, Elevated fasting blood sugar R73.01 and History of syncope Z87.898 [facility] [address] [id number] [id number] Jan, Elevated fasting blood sugar R73.01 [facility] [address] [id number] 100KS [place] [address] Jan, [facility] [address] [id number] [place] [id number] Jan, History of syncope Z87.898 ; Obesity (BM I 30.0-34.9) E66.9 and Menopause Z78.0 [facility] [address] [facility] [id number] [place] [id number] Jan, History of syncope Z87.898 ; Menopause Z 78.0 ; Obesity (BMI 30.0-34.9) E66.9 ; Family history of CHF (congestive heart failure) Z82.49 and Family history of heart disease Z82.49 [facility] [address] [id number] [place] [id number] Jan, [facility] [address] [facility] [id number] [place] [id number] Dec, Well woman exam Z01.419 and Hot flashes, menopausal N95.1 [facility] [address] [id number] [place] [id number] Sep, Allergic rhinitis, unspecified allergic rhinitis type J30.9 [facility] [address] [id number] [place] [id number] Sep, [facility] [address] [facility] [id number] [place] [id number] Jun, Non-seasonal allergic rhinitis due to ot her allergic trigger J30.89 [facility] [address] [id number] [place] [id number] Sep, Allergic rhinitis, unspecified allergic rhinitis type J30.9 ; Screening cholesterol level Z13.220 ; Screening, heart disease, ischemic Z13.6 and Screening for thyroid disorder Z13.29 [facility] [address] [facility] [id number] [place] [id number] Sep, 2015 Seasonal allergies J30.2 [facility] [address] [id number] [address] [place] [address], [place] [address] May, [facility] [address] [id number] [address] [place] [address], [place] [address] Mar, [facility] [address] [id number] [address] [place] [address], [place] [address] Mar, [facility] [address] [id number] [address] [place] [address], [place] [address] Feb, [facility] [address] [id number] [address] [place] [address], [place] [address] Feb, [facility] [address] [id number] [address] [place] [address] Dec, [facility] [address] [id number] [address] [place] [address], [place] [address] Oct, [facility] [address] [id number] [address] [place] [address], [place] [address] Oct, [facility] [address] [id number] [address] [place] [address] Sep, [facility] [address] [id number] [address] [place] [address] Sep, [facility] [address] [id number] [address] [place] [address] Aug, [facility] [address] [id number] [address] [place] [address] Aug, [facility] [address] [id number] [address] [place] [address] Jun, [facility] [address] [id number] [address] [place] [address] Jun, [facility] [address] [id number] [address] [place] [address] May, [facility] [address] [id number] [address] [place] [address], [place] [address] May, [facility] [address] [id number] [address] [place] [address], [place] [address] Apr, [facility] [address] [id number] [address] [place] [address], [place] [address] Apr, [facility] [address] [id number] [address] [place] [address], [place] [address] Dec, [facility] [address] [id number] [address] [place] [address], [place] [address] Dec, [facility] [address] [id number] [address] [place] [address], [place] [address] Dec, [facility] [address] [id number] [address] [place] [address], [place] [address] Dec, [facility] [address] [id number] [place] [id number] November, [facility] [address] [id number] [address] [place] [address], [place] [address] November, [facility] [address] [id number] [address] [place] [address], [place] [address] November, [facility] [address] [id number] [address] [place] [address], [place] [address] November, [facility] [place] [facility] [address] [id number] [address] [place] [address], [place] [address] November, [facility] [place] [facility] [address] [id number] [address] [place] [address], [place] [address] November, [facility] [place] [facility] [address] [id number] [address] [place] [address], [place] [address] November, [facility] [place] [facility] [address] [id number] [address] [place] [address], [place] [address] Oct, [facility] [place] [facility] [address] [id number] [address] [place] [address] Oct, [facility] [place] [address] [id number] [place] [id number] Sep, [facility] [address] [id number] [address] [place] [address] Sep, [facility] [place] [address] [id number] [place] [id number] Sep, [facility] [address] [id number] [address] [place] [address] Sep, [facility] [place] [facility] [address] [id number] [address] [place] [address], [place] [address] Sep, [facility] [place] [facility] [address] [id number] [address] [place] [address] Sep, [facility] [address] [id number] [address] [place] [address] Jul, [facility] [place] [facility] [address] [id number] [address] [place] [address] Jul, [facility] [place] [address] [id number] [place] [id number] Jul, [facility] [address] [id number] [address] [place] [address] Jul, [facility] [address] [id number] [address] [place] [address] Apr, [facility] [place] [facility] [address] [id number] [address] [place] [address] Apr, [facility] [place] [address] [id number] [place] [id number] Jan, [facility] [place] [facility] [address] [id number] [address] [place] [address], [place] [address] Jan, [facility] [place] [address] [id number] [place] [id number] Sep, [facility] [place] [address] [id number] [place] [id number] Sep, [facility] [place] [address] [id number] [place] [id number] Sep, [facility] [place] [address] [id number] [place] [id number] Sep, [facility] [place] [address] [id number] [place] [id number] Sep, [facility] [address] [id number] [address] [place] [address], [place] [address] Sep, [facility] [address] [id number] [address] [place] [address], [place] [address] Sep, [facility] [place] [address] [id number] [place] [id number] Sep, [facility] [address] [id number] [address] [place] [address], [place] [address] Sep, [facility] [address] [id number] [address] [place] [address], [place] [address] Jun, [facility] [place] [address] [id number] [place] [id number] Jun, [facility] [address] [id number] [address] [place] [address], [place] [address] Jun, [facility] [address] [id number] [address] [place] [address], [place] [address] Jun, [facility] [place] [address] [id number] [place] [id number] Jun, [facility] [address] [id number] [address] [place] [address], [place] [address] Jun, [facility] [place] [address] [id number] [place] [id number] May, [facility] [address] [id number] [address] [place] [address], [place] [address] May, [facility] [address] [id number] [address] [place] [address], [place] [address] May, [facility] [address] [id number] [address] [place] [address] May, [facility] [place] [address] [id number] [place] S [id number] May, [facility] [address] [id number] [address] [place] [address], [place] [address] May, [facility] [address] [id number] [address] [place] [address], [place] [address] Apr, [facility] [address] [id number] [address] [place] [address], [place] [address] Apr, [facility] [address] [id number] [address] [place] [address], [place] [address] Jan, [facility] [address] [id number] [address] [place] [address], [place] [address] Dec, [facility] [address] [id number] [address] [place] [address], [place] [address] Dec, [facility] [address] [id number] [address] [place] [address], [place] [address] Dec, [facility] [address] [id number] [address] [place] [address], [place] [address] Dec, [facility] [address] [id number] [address] [place] [address], [place] [address] Dec, [facility] [address] [id number] [address] [place] [address], [place] [address] Dec, [facility] [place] [facility] [address] [id number] [address] [place] [address], [place] [address] Dec, [facility] [place] [facility] [address] [id number] [address] [place] [address], [place] [address] November, [facility] [place] [facility] [address] [id number] [address] [place] [address], [place] [address] Oct, [facility] [address] [id number] [address] [place] [address], [place] [address] Oct, [facility] [place] [facility] [address] [id number] [address] [place] [address] 08 Sep, 2011 [facility] [address] [id number] [address] [place] [address], [place] [address] 2011 [facility] [address] [id number] [address] [place] [address] 05 Sep, 2011 [facility] [address] [id number] [address] [place] [address] 05 Sep, 2011 [facility] [place] [address] [id number] [place] [id number] Aug, [facility] [place] [address] [id number] [place] [id number] Jul, [facility] [place] [address] [id number] [place] [id number] Jul, [facility] [address] [id number] [address] [place] [address] May, [facility] [address] [id number] [address] [place] [address] Mar, [facility] [address] [id number] [address] [place] [address] Sep, [facility] [address] [id number] [address] [place] [address] May, [facility] [address] [id number] [address] [place] [address] May, [facility] [address] [id number] [address] [place] [address] May, [facility] [address] [id number] [address] [place] [address] May, [facility] [address] [id number] [address] [place] [address] Jun, [facility] [address] [id number] [address] [place] [address] Jun, [facility] [address] [facility] [id number] [address] [place] [address] May, [facility] [address] [facility] [id number] [address] [place] [address] Apr, IMMUNIZATIONS No Known Immunizations SOCIAL HISTORY Never Assessed REASON FOR VISIT EMR-[facility] PLAN OF CARE VITAL SIGNS MEDICATIONS No Known Medications RESULTS No Results PROCEDURES No Known procedures INSTRUCTIONS MEDICATIONS ADMINISTERED No Known Medications MEDICAL (GENERAL) HISTORY Type Description Date Medical History seasonal allergies Surgical History lap band 2011 Surgical History partial hysterectomy 1995?
--- OUTSIDE RECORDS SUMMARY | 2019-09-17 02:57 | XMS REPORT ---
Author Author Hilary RAMEY Organization [facility] Address [address] [place] [address] Care Team Providers Care Building Consultant Name Role Phone JUAN RAMEY Unavailable PROBLEMS Type Condition ICD9-CM Code NOM57-VC Code Onset Dates Condition S tatus SNOMED Code Problem Obesity (BMI 30.0-34.9) E66.9 Active 500640497213683 Problem Dysthymia F34.1 Active 65014372 Problem Allergic rhinitis, unspecified allergic rhinitis type J30.9 Active 19643071 Problem Hot flashes, menopausal N95.1 Active 498536024 Problem History of syncope Z87.898 Active 6 [id number] Problem Menopause Z78.0 Active [id number] ALLERGIES No Information ENCOUNTERS Encounter Location Date Diagnosis [facility] [address] [id number] [place] [id number] Jan, Arthralgia of left temporomandibular roslyn nt M26.622 [facility] [address] [id number] [place] [id number] Apr, Nummular eczema L30.0 and Dysthymia F34. 1 [facility] [address] [id number] [place] [id number] Dec, Allergic rhinitis, unspecified allergic rhinitis type J30.9 [facility] [address] [id number] [place] [id number] November, Dysthymia F34.1 and Hot flashes, menopau arnie N95.1 [facility] [address] [id number] [place] [id number] Oct, [facility] F34.1 [facility] [address] [id number] [place] [id number] Sep, Dysthymia F34.1 [facility] [address] [id number] [id number] Mar, Syncope, unspecified syncope type R55 ; Tobacco use Z72.0 and Family history of early CAD Z82.49 [facility] [address] [facility] [id number] [place] [id number] Feb, Elevated fasting blood sugar R73.01 and History of syncope Z87.898 [facility] [address] [id number] [id number] Jan, Elevated fasting blood sugar R73.01 [facility] [address] [facility] [id number] [place] [address] Jan, [facility] [address] [id number] [place] [id number] Jan, History of syncope Z87.898 ; Obesity (BM I 30.0-34.9) E66.9 and Menopause Z78.0 [facility] [address] [id number] [place] [id number] Jan, History of syncope Z87.898 ; Menopause Z 78.0 ; Obesity (BMI 30.0-34.9) E66.9 ; Family history of CHF (congestive heart failure) Z82.49 and Family history of heart disease Z82.49 [facility] [address] [facility] [id number] [place] [id number] Jan, [place] [id number] [place] [id number] Dec, Well woman exam Z01.419 and Hot flashes, menopausal N95.1 [facility] [address] [id number][place] [id number] Sep, Allergic rhinitis, unspecified allergic rhinitis type J30.9 [facility] [address] [facility] [id number] [place] [id number] Sep, [facility] [address] [facility] [id number] [place] [id number] Jun, Non-seasonal allergic rhinitis due to ot her allergic trigger J30.89 [facility] [address] [facility] [id number] [place] [id number] Sep, 2016 Allergic rhinitis, unspecified allergic rhinitis type J30.9 ; Screening cholesterol level Z13.220 ; Screening, heart disease, ischemic Z13.6 and Screening for thyroid disorder Z13.29 [facility] [address] [id number] [place] [id number] Sep, Seasonal allergies J30.2 [facility] [address] [facility] [id number] [address] [place] [address] May, [facility] [address] [id number] [address] [place] [address] Mar, [facility] [address] [facility] [id number] [address] [place] [address] Mar, [facility] [address] [facility] [id number] [address] [place] [id number] Feb, [facility] [address] [facility] [id number] [address] [place] [address] Feb, [facility] [address] [facility] [id number] [address] [place] [address] Dec, [facility] [address] [facility] [id number] [address] [place] [address] Oct, [facility] [address] [facility] [id number] [address] [place] [phone] Oct, [facility] [address] [facility] [id number] [address] [place] [address] Sep, [facility] [address] [facility] [id number] [address] [place] [address] Sep, [facility] [address] [facility] [id number] [address] [place] [phone] Aug, [facility] [address] [facility] [id number] [address] [place] [phone] Aug, [facility] [address] [facility] [id number] [address] [place] [phone] Jun, [facility] [address] [id number] [address] [place] [address], [place] [address] Jun, [facility] [address] [id number] [address] [place] [address], [place] [address] May, [facility] [address] [id number] [address] [place] [address], [place] [address] May, [facility] [address] [id number] [address] [place] [address], [place] [address] Apr, [facility] [address] [id number] [address] [place] [address], [place] [address] Apr, [facility] [address] [id number] [address] [place] [address], [place] [address] Dec, [facility] [address] [id number] [address] [place] [address], [place] [address] Dec, [facility] [address] [id number] [address] [place] [address], [place] [address] Dec, [facility] [address] [id number] [address] [place] [address], [place] [address] Dec, [facility] [place] [address] [id number] [place] [id number] November, [facility] [address] [id number] [address] [place] [address], [place] [address] November, [facility] [address] [id number] [address] [place] [address], [place] [address] November, [facility] [address] [id number] [address] [place] [address], [place] [address] November, [facility] [address] [id number] [address] [place] [address], [place] [address] November, [facility] [address] [id number] [address] [place] [address], [place] [address] November, [facility] [address] [id number] [address] [place] [address], [place] [address] November, [facility] [address] [id number] [address] [place] [address], [place] [address] Oct, [facility] [address] [id number] [address] [place] [address], [place] [address] Oct, [facility] [address] [id number] [place] [id number] Sep, [facility] [address] [id number] [address] [place] [address], [place] [address] Sep, [facility] [address] [id number] [place] [id number] Sep, [facility] [address] [id number] [address] [place] [phone] Sep, [facility] [address] [id number] [address] [place] [address], [place] [address] Sep, [facility] [address] [id number] [address] [place] [address], [place] [address] Sep, [facility] [address] [id number] [address] [place] [phone] Jul, [facility] [address] [id number] [address] [place] [address] Jul, [facility] [address] [id number] [place] [id number] Jul, [facility] [address] [id number] [address] [place] [phone] Jul, [facility] [address] [id number] [address] [place] [address], [place] [address] Apr, [facility] [address] [id number] [address] [place] [address], [place] [address] Apr, [facility] [address] [id number] [place] [id number] Jan, [facility] [address] [id number] [address] [place] [address], [place] [address] Jan, [facility] [place] [address] [id number] [place] [id number] Sep, [facility] [place] [address] [id number] [place] [id number] Sep, [facility] [place] [address] [id number] [place] [id number] Sep, [facility] [place] [address] [id number] [place] [id number] Sep, [facility] [place] [address] [id number] [place] [id number] Sep, [facility] [address] [id number] [address] [place] [address], [place] [address] Sep, [facility] [address] [facility] [id number] [address] [place] [address], [place] [address] Sep, [facility] [place] [address] [id number] [place] [id number] Sep, [facility] [address] [facility] [id number] [address] [place] [address] Sep, [facility] [address] [facility] [id number] [address] [place] [address] Jun, [facility] [place] [address] [id number] [place] [id number] Jun, [facility] [address] [facility] [id number] [address] [place] [address] Jun, [facility] [address] [facility] [id number] [address] [place] [address] Jun, [facility] [place] [address] [id number] [place] [id number] Jun, [facility] [address] [facility] [id number] [address] [place] [phone] Jun, [facility] [place] [address] [id number] [place] [id number] May, [facility] [address] [id number] [address] [place] [address], [place] [address] May, [facility] [address] [id number] [address] [place] [address], [place] [address] May, [facility] [address] [id number] [address] [place] [address], [place] [address] May, [facility] [address] [id number] [place] [id number] May, [facility] [address] [id number] [address] [place] [address], [place] [address] May, [facility] [address] [id number] [address] [place] [address], [place] [address] Apr, [facility] [address] [id number] [address] [place] [address], [place] [address] Apr, [facility] [address] [id number] [address] [place] [address], [place] [address] Jan, [facility] [address] [id number] [address] [place] [address], [place] [address] Dec, [facility] [address] [id number] [address] [place] [address], [place] [address] Dec, [facility] [address] [id number] [address] [place] [address], [place] [address] Dec, [facility] [address] [id number] [address] [place] [address], [place] [address] Dec, [facility] [address] [id number] [address] [place] [address], [place] [address] Dec, [facility] [address] [id number] [address] [place] [address], [place] [address] Dec, [facility] [address] [id number] [address] [place] [address], [place] [address] Dec, [facility] [address] [id number] [address] [place] [address], [place] [address] November, [facility] [address] [id number] [address] [place] [address], [place] [address] Oct, [facility] [address] [id number] [address] [place] [address], [place] [address] Oct, [facility] [address] [id number] [address] [place] [address], [place] [address] Sep, [facility] [address] [id number] [address] [place] [address], [place] [address] Sep, [facility] [address] [id number] [address] [place] [address], [place] [address] Sep, [facility] [address] [id number] [address] [place] [address], [place] [address] Sep, [facility] [place] [address] [id number] [place] [id number] Aug, [facility] [place] [address] [id number] [place] [id number] Jul, [facility] [place] [address] [id number] [place] [id number] Jul, [facility] [address] [id number] [address] [place] [address], [place] [address] May, [facility] [address] [id number] [address] [place] [address] Mar, [facility] [address] [id number] [address] [place] [address], [place] [address] Sep, [facility] [address] [id number] [address] [place] [phone] May, [facility] [address] [id number] [address] [place] [address], [place] [address] May, [facility] [address] [id number] [address] [place] [address], [place] [address] May, [facility] [address] [id number] [address] [place] [address] May, [facility] [address] [facility] [id number] [address] [place] [address] Jun, [facility] [address] [facility] [id number] [address] [place] [address] Jun, [facility] [address] [facility] [id number] [address] [place] [address] May, [facility] [address] [facility] [id number] [address] [place] [address] Apr, IMMUNIZATIONS No Known Immunizations SOCIAL HISTORY Never Assessed REASON FOR VISIT PLAN OF CARE VITAL SIGNS MEDICATIONS No Known Medications RESULTS No Results PROCEDURES No Known procedures INSTRUCTIONS MEDICATIONS ADMINISTERED No Known Medications MEDICAL (GENERAL) HISTORY Type Description Date Medical History seasonal allergies Surgical History lap band 2011 Surgical History partial hysterectomy 1995?
--- OUTSIDE RECORDS SUMMARY | 2019-09-17 02:59 | XMS REPORT | Continuity of Care Document ---
Author Organization Unknown Address Unknown Phone Unavailable Allergies Active Description Code Type Severity Reaction Onset Reported/Identified Relationship to Patient Clinical Status Yes latex gloves OA N/A N/A 05/04/2009 Yes talcum powder OA N/A N/A 05/04/2009 Yes latex gloves OA 05/04/2009 Yes talcum powder OA 05/04/2009 Yes povidone-iodine [id number] D rug Allergy Mild N/A 09/05/2012 Yes Soap [id number] Drug Allergy Mild N/A 09/05/2012 Yes latex [id number] Drug Allergy Unknown N/A 04/25/2015 Yes latex [id number] Drug Allergy Unknown N/A 11/15/2018 Medications There is no data. Problems Date Dx Coded Attending Type Code Diagnosis Diagnosed By 05/04/2009 JANUARY LOPES APRN 278.02 Overweight 05/04/2009 JANUARY LOPES APRN 401.9 ESSENTIAL HYPERTENSION 05/04/2009 JANUARY LOPES APRN 610.2 BREAST FIBROADENOSIS DIFFUSE 05/04/2009 JANUARY LOEPS APRN V72.31 ROUTINE PELVIC EXAM WITH CERVICAL PAP SMEAR 05/04/2009 BENNY STINSON DO 278.02 Overweight 05/04/2009 BENNY STINSON DO 401.9 ESSENTIAL HYPERTENSION 05/04/2009 BENNY STINSON DO 610.2 BREAST FIBROADENOSIS DIFFUSE 05/04/2009 BENNY STINSON DO V72.31 ROUTINE PELVIC EXAM WITH CERVICAL PAP SMEAR 05/04/2009 ANDREAS CISNEROS MD 278. 02 Overweight 05/04/2009 ANDREAS CISNEROS MD 401. 9 ESSENTIAL HYPERTENSION 05/04/2009 ANDREAS CISNEROS MD 610. 2 BREAST FIBROADENOSIS DIFFUSE 05/04/2009 ANDREAS CISNEROS MD V72. 31 ROUTINE PELVIC EXAM WITH CERVICAL PAP SMEAR 05/04/2009 278.02 Ove rweight 05/04/2009 401.9 ESSE NTIAL HYPERTENSION 05/04/[address] FIBROADENOSIS DIFFUSE 05/04/2009 V72.31 ROU UNA PELVIC EXAM WITH CERVICAL PAP SMEAR 05/04/2009 JAIRO MEDICAL EDITOR, JOSSY A 278.02 Overweight 05/04/2009 JAIRO MEDICAL EDITOR, JOSSY A 40 1.9 ESSENTIAL HYPERTENSION 05/04/2009 JAIRO MEDICAL EDITOR, JOSSY A 61 0.2 BREAST FIBROADENOSIS DIFFUSE 05/04/2009 JAIRO MEDICAL EDITOR, JOSSY A V72.31 ROUTINE PELVIC EXAM WITH [...] PELVIC EXAM WITH CERVICAL PAP SMEAR 05/04/2009 HART CASHERO MEDICAL EDITOR, MARIA E N 278.02 Overweight 05/04/2009 HART CASHERO MEDICAL EDITOR, MARIA E N 401.9 ESSENTIAL HYPERTENSION 05/04/2009 HART CASHERO MEDICAL EDITOR, MARIA E N 610.2 BREAST FIBROADENOSIS DIFFUSE 05/04/2009 HART CASHERO MEDICAL EDITOR, MARIA E N V72.31 ROUTINE PELVIC EXAM [...] APRN 278.02 Overweight 05/04/2009 JUAN RAMEY APRN 40 1.9 ESSENTIAL HYPERTENSION 05/04/2009 JUAN RAMEY APRN 61 0.2 BREAST FIBROADENOSIS DIFFUSE 05/04/2009 JUAN RAMEY APRN V72.31 ROUTINE PELVIC EXAM WITH CERVICAL PAP SMEAR 06/22/2009 JANUARY LOPES APRN 296.90 EPISODIC MOOD DISORDERS 06/22/2009 LOPESJANUARY Ledbetter APRN R 300.00 anxiety 06/22/2009 LOPESJANUARY Ledbetter APRN 401.1 ESSENTIAL HYPERTENSION BENIGN 06/22/2009 LOPES JANUARY GARCIA R 530.81 ESOPHAGEAL REFLUX 06/22/2009 STINSON DO, BENNY K 296.90 EPISODIC MOOD DISORDERS 06/22/2009 STINSON DO, BENNY K 300.00 anxiety 06/22/2009 STINSON DO, BENNY K 401.1 ESSENTIAL HYPERTENSION BENIGN 06/22/2009 STINSON DO, BENNY K 530.81 ESOPHAGEAL REFLUX 06/22/2009 ANDREAS CISNEROS MD 296. 90 EPISODIC MOOD DISORDERS 06/22/2009 ANDREAS CISNEROS MD 300. 00 anxiety 06/22/2009 ANDREAS CISNEROS MD 401. 1 ESSENTIAL HYPERTENSION BENIGN 06/22/2009 ANDREAS CISNEROS MD 530. 81 ESOPHAGEAL REFLUX 06/22/2009 296.90 EPI SODIC MOOD DISORDERS 06/22/2009 300.00 anxiety 06/22/2009 401.1 ESSE NTIAL HYPERTENSION BENIGN 06/22/2009 530.81 ESO PHAGEAL REFLUX 06/22/2009 JAIROCaroline GARCIA JOSSY A 296.90 EPISODIC MOOD DISORDERS 06/22/2009 JAIRO APRN, JOSSY A 300.00 anxiety 06/22/2009 JAIRO GARCIA JOSSY A 40 1.1 ESSENTIAL HYPERTENSION BENIGN 06/22/2009 JAIRO GARCIA JOSSY [...] DO, BENNY K 530.81 ESOPHAGEAL REFLUX 06/22/2009 HAILEY LAUHGLIN APRN, MARIA E N 296.90 EPISODIC MOOD DISORDERS [...] DO, BENNY K 530.81 ESOPHAGEAL REFLUX 06/22/2009 JUAN RAMEY APRN T 296.90 EPISODIC MOOD DISORDERS 06/22/2009 TANVIR GARCIA JUAN T 300.00 anxiety 06/22/2009 TANVIR GARCIA JUAN T 40 1.1 ESSENTIAL HYPERTENSION BENIGN 06/22/2009 TANVIR GARCIA JUAN T 530.81 ESOPHAGEAL REFLUX 01/07/2010 JANUARY LOPES APRN V06.5 DT, TETANUS-DIPHTHERIA [Td] ,TDAP 01/07/2010 BENNY STINSON DO K V06.5 DT, TETANUS-DIPHTHERIA [Td] ,TDAP 01/07/2010 ANDREAS CISNEROS MD V06. 5 DT, TETANUS-DIPHTHERIA [Td] ,TDAP 01/07/2010 V06.5 DT, TETANUS- DIPHTHERIA [Td] ,TDAP 01/07/2010 JOSSY GILL APRN V0 6.5 DT, TETANUS-DIPHTHERIA [Td] ,TDAP 01/07/2010 BENNY STINSON DO K V06.5 DT, TETANUS-DIPHTHERIA [Td] ,TDAP 01/07/2010 STINSON BENNY LYONS K V06.5 DT, TETANUS-DIPHTHERIA [Td] ,TDAP 01/07/2010 MARIA E OROZCO APRN V06.5 DT, TETANUS-DIPHTHERIA [Td] ,TDAP 01/07/2010 BENNY STINSON DO V06.5 DT, TETANUS-DIPHTHERIA [Td] ,TDAP 01/07/2010 BENNY STINSON DO V06.5 DT, TETANUS-DIPHTHERIA [Td] ,TDAP 01/07/2010 JUAN RAMEY APRN V0 6.5 DT, TETANUS-DIPHTHERIA [Td] ,TDAP 05/16/2010 JANUARY LOPES APRN 493.90 ASTHMA UNSPECIFIED 05/16/2010 JANUARY LOPES APRN 786.07 WHEEZING 05/16/2010 JANUARY LOPES APRN 786.2 COUGH 05/16/2010 JANUARY LOPES APRN V15.05 PERSONAL HISTORY OF ALLERGY TO OTHER FOODS 05/16/2010 BENNY STINSON DO 493.90 ASTHMA UNSPECIFIED 05/16/2010 BENNY STINSON DO 786.07 WHEEZING 05/16/2010 STINSON , BENNY K 786.2 COUGH 05/16/2010 BENNY STINSON DO V15.05 PERSONAL HISTORY OF ALLERGY TO OTHER FOODS 05/16/2010 ANDREAS CISNEROS MD 493. 90 ASTHMA UNSPECIFIED 05/16/2010 ANDREAS CISNEROS MD 786. 07 WHEEZING 05/16/2010 ANDREAS CISNEROS MD 786. 2 COUGH 05/16/2010 ANDREAS CISNEROS MD V15. 05 PERSONAL HISTORY OF ALLERGY TO OTHER FOODS 05/16/2010 493.90 AST HMA UNSPECIFIED 05/16/2010 786.07 WHE EZING 05/16/2010 786.2 COUGH 05/16/2010 V15.05 PER [place] HISTORY OF ALLERGY TO OTHER FOODS 05/16/2010 JOSSY GILL APRN 493.90 ASTHMA UNSPECIFIED 05/16/2010 JOSSY GILL APRN A 786.07 WHEEZING 05/16/2010 JAIRO GARCIA, JOSSY A 78 6.2 COUGH 05/16/2010 JOSSY GILL APRN A V15.05 PERSONAL HISTORY OF ALLERGY TO OTHER FOODS 05/16/2010 MATEO STINSON DOA K 493.90 ASTHMA UNSPECIFIED 05/16/2010 STINSON DOAMTEOA K 786.07 WHEEZING 05/16/2010 STINSON DO, BENNY K 786.2 COUGH 05/16/2010 STINSON MATEO LYONSA K V15.05 PERSONAL HISTORY OF ALLERGY TO OTHER FOODS 05/16/2010 STINSON DO, BENNY K 493.90 ASTHMA UNSPECIFIED 05/16/2010 STINSON DO, BENNY K 786.07 WHEEZING 05/16/2010 STINSON DO, BENNY K 786.2 COUGH 05/16/2010 STINSON DO, BENNY K V15.05 PERSONAL HISTORY OF ALLERGY TO OTHER FOODS 05/16/2010 HART CASHERO MEDICAL EDITOR, MARIA E N 493.90 ASTHMA UNSPECIFIED 05/16/2010 HART CASHERO MEDICAL EDITOR, MARIA E N 786.07 WHEEZING 05/16/2010 HART CASHERO MEDICAL EDITOR, MARIA E N 786.2 COUGH 05/16/2010 HART CASHERO MEDICAL EDITOR, MARIA E N V15.05 PERSONAL HISTORY OF [...] APRN 786.07 WHEEZING 05/16/2010 JUAN RAMEY APRN 78 6.2 COUGH 05/16/2010 JUAN RAMEY APRN V15.05 PERSONAL HISTORY OF ALLERGY TO OTHER FOODS 09/06/2010 JANUARY LOPES APRN 724.2 BACK PAIN, LOWER 09/06/2010 STINSON DO, BENNY K 724.2 BACK PAIN, LOWER 09/06/2010 BLAYNE CAMPO, ANDREAS 724. 2 BACK PAIN, LOWER 09/06/2010 724.2 BACK PAIN, LOWER 09/06/2010 JOSSY GILL APRN 72 4.2 BACK PAIN, LOWER 09/06/2010 STINSON DO, BENNY K 724.2 BACK PAIN, LOWER 09/06/2010 STINSON DO, BENNY K 724.2 BACK PAIN, LOWER 09/06/2010 MARIA E OROZCO APRN N 724.2 BACK PAIN, LOWER 09/06/2010 STINSON DO, BENNY K 724.2 BACK PAIN, LOWER 09/06/2010 STINSON DO, BENNY K 724.2 BACK PAIN, LOWER 09/06/2010 JUAN RAMEY APRN 72 4.2 BACK PAIN, LOWER 10/06/2010 JANUARY LOPES APRN 461.9 SINUSITIS ACUTE 10/06/2010 STINSON DO, BENNY K 461.9 SINUSITIS ACUTE 10/06/2010 ANDREAS CISNEROS MD 461. 9 SINUSITIS ACUTE 10/06/2010 461.9 SINU SITIS ACUTE 10/06/2010 JOSSY GILL APRN A 46 1.9 SINUSITIS ACUTE 10/06/2010 STINSON DO, BENNY K 461.9 SINUSITIS ACUTE 10/06/2010 STINSON DO, BENNY K 461.9 SINUSITIS ACUTE 10/06/2010 MARIA E OROZCO APRN N 461.9 SINUSITIS ACUTE 10/06/2010 STINSON DO, BENNY K 461.9 SINUSITIS ACUTE 10/06/2010 STINSON DO, BENNY K 461.9 SINUSITIS ACUTE 10/06/2010 JUAN RAMEY APRN 46 1.9 SINUSITIS ACUTE 03/20/2011 JANUARY LOPES APRN 278.00 OBESITY 03/20/2011 JANUARY LOPES APRN 782.3 EDEMA 03/20/2011 STINSON DO, BENNY K 278.00 OBESITY 03/20/2011 STINSON DO, BENNY K 782.3 EDEMA 03/20/2011 ANDREAS CISNEROS MD 278. 00 OBESITY 03/20/2011 ANDREAS CISNEROS MD 782. 3 EDEMA 03/20/2011 278.00 OBESITY 03/20/2011 782.3 EDEMA 03/20/2011 JAIRO GARCIA JOSSY A 278.00 OBESITY 03/20/2011 JOSSY GILL APRN A 78 2.3 EDEMA 03/20/2011 STINSON DO, BENNY K 278.00 OBESITY 03/20/2011 STINSON DO, BENNY K 782.3 EDEMA 03/20/2011 STINSON DO, BENNY K 278.00 OBESITY 03/20/2011 STINSON DO, BENNY K 782.3 EDEMA 03/20/2011 MARIA E OROZCO APRN N 278.00 OBESITY 03/20/2011 HAILEY LAUGHLIN APRN, MARIA E N 782.3 EDEMA 03/20/2011 STINSON , BENNY K 278.00 OBESITY 03/20/2011 MILAD LYONS, BENNY K 782.3 EDEMA 03/20/2011 STINSON DO, BENNY K 278.00 OBESITY 03/20/2011 STINSON , BENNY K 782.3 EDEMA 03/20/2011 JUAN RAMEY APRN T 278.00 OBESITY 03/20/2011 JUAN RAMEY APRN T 78 2.3 EDEMA 04/10/2011 JANUARY LOPES APRN 477.9 RHINITIS 04/10/2011 JANUARY LOPES APRN 478.19 OTHER DISEASES OF NASAL CAVITY AND SINUSES 04/10/2011 JANUARY LOPES APRN V15.09 PERSONAL HISTORY OF OTHER ALLERGY OTHER THAN TO MEDICI NAL AGENTS 04/10/2011 BENNY STINSON DO 477.9 RHINITIS 04/10/2011 BENNY STINSON DO 478.19 OTHER DISEASES OF NASAL CAVITY AND SINUSES 04/10/2011 BENNY STINSON DO V15.09 PERSONAL HISTORY OF OTHER ALLERGY OTHER THAN TO MEDICINAL AGENTS 04/10/2011 ANDREAS CISNEROS MD 477. 9 RHINITIS 04/10/2011 ANDREAS CISNEROS MD 478. 19 OTHER DISEASES OF NASAL CAVITY AND SINUSES 04/10/2011 ANDREAS CISNEROS MD V15. 09 PERSONAL HISTORY OF OTHER ALLERGY OTHER THAN TO MEDICINAL AGENTS 04/10/2011 477.9 RHINITIS 04/10/2011 478.19 OT ER DISEASES OF NASAL CAVITY AND SINUSES 04/10/2011 V15.09 PER [place] HISTORY OF OTHER ALLERGY OTHER THAN TO MEDICINAL AGENTS 04/10/2011 JOSSY GILL APRN A 47 7.9 RHINITIS 04/10/2011 JOSSY GILL APRN A 478.19 OTHER DISEASES OF NASAL CAVITY AND SINUSES 04/10/2011 JOSSY GILL APRN A V15.09 PERSONAL HISTORY OF OTHER ALLERGY OTHER THAN TO MEDICI NAL AGENTS 04/10/2011 BENNY STINSON DO 477.9 RHINITIS 04/10/2011 BENNY STINSON DO 478.19 OTHER DISEASES OF NASAL CAVITY AND SINUSES 04/10/2011 BENNY STINSON DO V15.09 PERSONAL HISTORY OF OTHER ALLERGY OTHER THAN TO MEDICINAL AGENTS 04/10/2011 MATEO STINSON DOA K 477.9 RHINITIS 04/10/2011 MILAD LYONS BENNY K 478.19 OTHER DISEASES OF NASAL CAVITY AND SINUSES 04/10/2011 MILAD LYONS BENNY K V15.09 PERSONAL HISTORY OF OTHER ALLERGY OTHER THAN TO MEDICINAL AGENTS 04/10/2011 HART CASHERO MEDICAL EDITOR, MARIA E N 477.9 RHINITIS 04/10/2011 HART CASHERO MEDICAL EDITOR, MARIA E N 478.19 OTHER DISEASES OF NASAL CAVITY AND SINUSES 04/10/2011 HART CASHERO MEDICAL EDITOR, MARIA E N V15.09 PERSONAL HISTORY OF OTHER ALLERGY OTHER THAN TO MEDICINAL AGENTS 04/10/2011 MATEO STINSON DOA K 477.9 RHINITIS 04/10/2011 STINSON DO BENNY K 478.19 OTHER DISEASES OF NASAL CAVITY AND SINUSES 04/10/2011 MILAD LYONS BENNY K V15.09 PERSONAL HISTORY OF OTHER ALLERGY OTHER THAN TO MEDICINAL AGENTS 04/10/2011 MATEO STINSON DOA K 477.9 RHINITIS 04/10/2011 MATEO STINSON DOA K 478.19 OTHER DISEASES OF NASAL CAVITY AND SINUSES 04/10/2011 MATEO STINSON DOA K V15.09 PERSONAL HISTORY OF OTHER ALLERGY OTHER THAN TO MEDICINAL AGENTS 04/10/2011 JUAN RAMEY APRN 47 7.9 RHINITIS 04/10/2011 JUAN RAMEY APRN 478.19 OTHER DISEASES OF NASAL CAVITY AND SINUSES 04/10/2011 JUAN RAMEY APRN V15.09 PERSONAL HISTORY OF OTHER ALLERGY OTHER THAN TO MEDICI NAL AGENTS 07/11/2011 JANUARY LOPES APRN 465.9 UPPER RESPIRATORY INFECTION 07/11/2011 BENNY STINSON DO K 465.9 UPPER RESPIRATORY INFECTION 07/11/2011 ANDREAS CISNEROS MD 465. 9 UPPER RESPIRATORY INFECTION 07/11/2011 465.9 UPPE R RESPIRATORY INFECTION 07/11/2011 JOSSY GILL APRN 46 5.9 UPPER RESPIRATORY INFECTION 07/11/2011 MATEO STINSON DOA K 465.9 UPPER RESPIRATORY INFECTION 07/11/2011 MILAD LYONS BENNY K 465.9 UPPER RESPIRATORY INFECTION 07/11/2011 HART CASHBEBO MEDICAL EDITOR, MARIA E N 465.9 UPPER RESPIRATORY INFECTION 07/11/2011 MATEO STINSON DOA K 465.9 UPPER RESPIRATORY INFECTION 07/11/2011 MATEO STINSON DOA K 465.9 UPPER RESPIRATORY INFECTION 07/11/2011 JUAN RAMEY APRN 46 5.9 UPPER RESPIRATORY INFECTION 07/17/2011 JANUARY LOPES APRN V67.9 UNSPECIFIED FOLLOW-UP EXAMINATION 07/17/2011 STINSON DO, BENNY K V67.9 UNSPECIFIED FOLLOW-UP EXAMINATION 07/17/2011 ANDREAS CISNEROS MD V67. 9 UNSPECIFIED FOLLOW-UP EXAMINATION 07/17/2011 V67.9 UNSP ECIFIED FOLLOW- UP EXAMINATION 07/17/2011 JOSSY GILL APRN A V6 7.9 UNSPECIFIED FOLLOW-UP EXAMINATION 07/17/2011 STINSON DO, BENNY K V67.9 UNSPECIFIED FOLLOW-UP EXAMINATION 07/17/2011 STINSON DO, BENNY K V67.9 UNSPECIFIED FOLLOW-UP EXAMINATION 07/17/2011 MARIA E OROZCO APRN N V67.9 UNSPECIFIED FOLLOW-UP EXAMINATION 07/17/2011 STINSON DO, BENNY K V67.9 UNSPECIFIED FOLLOW-UP EXAMINATION 07/17/2011 STINSON DO, BENNY K V67.9 UNSPECIFIED FOLLOW-UP EXAMINATION 07/17/2011 JUAN RAMEY APRN V6 7.9 UNSPECIFIED FOLLOW-UP EXAMINATION 10/09/2011 JANUARY LOPES APRN 790.29 HYPERGLYCEMIA 10/09/2011 STINSON DO, BENNY K 790.29 HYPERGLYCEMIA 10/09/2011 ANDREAS CISNEROS MD 790. 29 HYPERGLYCEMIA 10/09/2011 790.29 HYP ERGLYCEMIA 10/09/2011 JOSSY GILL APRN A 790.29 HYPERGLYCEMIA 10/09/2011 STINSON DO, BENNY K 790.29 HYPERGLYCEMIA 10/09/2011 STINSON DO, BENNY K 790.29 HYPERGLYCEMIA 10/09/2011 MARIA E OROZCO APRN N 790.29 HYPERGLYCEMIA 10/09/2011 STINSON DO, BENNY K 790.29 HYPERGLYCEMIA 10/09/2011 STINSON DO, BENNY K 790.29 HYPERGLYCEMIA 10/09/2011 JUAN RAMEY APRN 790.29 HYPERGLYCEMIA 10/13/2011 JANUARY LOPES APRN 780.52 INSOMNIA UNSPECIFIED 10/13/2011 STINSON DO, BENNY K 780.52 INSOMNIA UNSPECIFIED 10/13/2011 ANDREAS CISNEROS MD 780. 52 INSOMNIA UNSPECIFIED 10/13/2011 780.52 INS OMNIA UNSPECIFIED 10/13/2011 JOSSY GILL APRN 780.52 INSOMNIA UNSPECIFIED 10/13/2011 STINSON DO, BENNY K 780.52 INSOMNIA UNSPECIFIED 10/13/2011 STINSON DO, BENNY K 780.52 INSOMNIA UNSPECIFIED 10/13/2011 MARIA E OROZCO APRN N 780.52 INSOMNIA UNSPECIFIED 10/13/2011 STINSON DO, BENNY K 780.52 INSOMNIA UNSPECIFIED 10/13/2011 STINSON DO, BENNY K 780.52 INSOMNIA UNSPECIFIED 10/13/2011 JUAN RAMEY APRN 780.52 INSOMNIA UNSPECIFIED 12/19/2011 JANUARY LOPES APRN V72.84 PRE-OPERATIVE EXAM 12/19/2011 STINSON DO BENNY K V72.84 PRE-OPERATIVE EXAM 12/19/2011 ANDREAS CISNEROS MD V72. 84 PRE-OPERATIVE EXAM 12/19/2011 V72.84 PRE -OPERATIVE EXAM 12/19/2011 JOSSY GILL APRN V72.84 PRE-OPERATIVE EXAM 12/19/2011 STINSON DOMATEOA K V72.84 PRE-OPERATIVE EXAM 12/19/2011 STINSON DO, BENNY K V72.84 PRE-OPERATIVE EXAM 12/19/2011 MARIA E OROZCO APRN V72.84 PRE-OPERATIVE EXAM 12/19/2011 STINSON DO, BENNY K V72.84 PRE-OPERATIVE EXAM 12/19/2011 STINSON DO, BENNY K V72.84 PRE-OPERATIVE EXAM 12/19/2011 JUAN RAMEY APRN V72.84 PRE-OPERATIVE EXAM 01/05/2012 JANUARY LOPES APRN V70.0 ROUTINE GENERAL MEDICAL EXAMINATION AT A HEALTH CARE ACILITY 01/05/2012 MILAD DOMATEOA K V70.0 ROUTINE GENERAL MEDICAL EXAMINATION AT A HEALTH CARE FACILITY 01/05/2012 ANDREAS CISNEROS MD V70. 0 ROUTINE GENERAL MEDICAL EXAMINATION AT A HEALTH CARE FACILITY 01/05/2012 V70.0 ROUT INE GENERAL MEDICAL EXAMINATION AT A HEALTH CARE FACILITY 01/05/2012 JOSSY GILL APRN V7 0.0 ROUTINE GENERAL MEDICAL EXAMINATION AT A HEALTH CARE FACILITY 01/05/2012 STINSON DO BENNY K V70.0 ROUTINE GENERAL MEDICAL EXAMINATION AT A HEALTH CARE FACILITY 01/05/2012 STINSON DO, BENNY K V70.0 ROUTINE GENERAL MEDICAL EXAMINATION AT A HEALTH CARE FACILITY 01/05/2012 MARIA E OROZCO APRN N V70.0 ROUTINE GENERAL MEDICAL EXAMINATION AT A HEALTH CARE FACILITY 01/05/2012 BENNY STINSON DO V70.0 ROUTINE GENERAL MEDICAL EXAMINATION AT A HEALTH CARE FACILITY 01/05/2012 BENNY STINSON DO V70.0 ROUTINE GENERAL MEDICAL EXAMINATION AT A HEALTH CARE FACILITY 01/05/2012 JUAN RAMEY APRN V7 0.0 ROUTINE GENERAL MEDICAL EXAMINATION AT A HEALTH CARE FACILITY 05/27/2012 JANUARY LOPES APRN 719.47 COMPRESSION ARTHRALGIA - ANKLE / FOOT 05/27/2012 BENNY STINSON DO 719.47 COMPRESSION ARTHRALGIA - ANKLE / FOOT 05/27/2012 BLAYNE CAMPO, ANDREAS 719. 47 COMPRESSION ARTHRALGIA - ANKLE / FOOT 05/27/2012 719.47 COM PRESSION ARTHRALGIA - ANKLE / FOOT 05/27/2012 JOSSY [...] - ANKLE / FOOT 06/04/2012 Ot 845.10 SPR AIN OF FOOT NOS 06/04/2012 Ot 959.7 LOWE R LEG INJURY NOS 06/04/2012 Ot E000.8 OTH ER EXTERNAL CAUSE STATUS 06/04/2012 Ot E849.0 ACC IDENT IN HOME 06/04/2012 Ot E928.9 ACC IDENT NOS 07/21/2012 Ot 401.9 HYPE RTENSION NOS 07/21/2012 Ot 493.90 AST HMA, UNSPECIFIED 07/21/2012 Ot 530.81 ESO PHAGEAL REFLUX 07/21/2012 Ot 535.50 UNS P GASTRITIS GASTRODUODENITIS W/O ME 07/21/2012 Ot V45.86 BAR IATRIC SURGERY STATUS 09/05/2012 Ot 574.10 CHO LAVINIA W CHOLECYS NEC 09/05/2012 Ot V45.86 BAR IATRIC SURGERY STATUS 09/24/2012 BENNY STINSON DO V65.49 OTHER SPECIFIED COUNSELING 09/24/2012 BENNY STINSON DO K V73.81 HPV SCREENING 09/24/2012 BENNY STINSON DO K V76.10 BREAST CANCER SCREENING 09/24/2012 BENNY STINSON DO K V76.2 CERVICAL CANCER SCREENING (PAP SMEAR) 09/24/2012 V65.49 OTH ER SPECIFIED COUNSELING 09/24/2012 V73.81 HPV SCREENING 09/24/2012 V76.10 SUKHJINDER AST CANCER SCREENING 09/24/2012 V76.2 CERV ICAL CANCER SCREENING (PAP SMEAR) 09/24/2012 JOSSY GILL APRN A V65.49 OTHER SPECIFIED COUNSELING 09/24/2012 JAIROCaroline GARCIA JOSSY A V73.81 HPV SCREENING 09/24/2012 JAIROCaroline GARCIA JOSSY A V76.10 BREAST CANCER SCREENING 09/24/2012 JAIROCaroline GARCIA JOSSY A V7 6.2 CERVICAL CANCER SCREENING (PAP SMEAR) 09/24/2012 BENNY STINSON DO K V65.49 OTHER SPECIFIED COUNSELING 09/24/2012 BENNY STINSON DO K V73.81 HPV SCREENING 09/24/2012 BENNY STINSON DO K V76.10 BREAST CANCER SCREENING 09/24/2012 BENNY STINSON DO K V76.2 CERVICAL CANCER SCREENING (PAP SMEAR) 09/24/2012 BENNY STINSON DO K V65.49 OTHER SPECIFIED COUNSELING 09/24/2012 MATEO STINSON DOA K V73.81 HPV SCREENING 09/24/2012 MATEO STINSON DOA K V76.10 BREAST CANCER SCREENING 09/24/2012 MATEO STINSON DOA K V76.2 CERVICAL CANCER SCREENING (PAP SMEAR) 09/24/2012 MARIA E OROZCO APRN N V65.49 OTHER SPECIFIED COUNSELING 09/24/2012 HAILEY CASHBEBO MEDICAL EDITORTORSTEN VelazquezCY N V73.81 HPV SCREENING 09/24/2012 HARTMARIA E QUINTERO APRN N V76.10 BREAST CANCER SCREENING 09/24/2012 HART CASHBEBO MARIA E GARCIA V76.2 CERVICAL CANCER SCREENING (PAP SMEAR) 09/24/2012 STINSON DO BENNY K V65.49 OTHER SPECIFIED COUNSELING 09/24/2012 STINSON DO, BENNY K V73.81 HPV SCREENING 09/24/2012 STINSON DO, BENNY K V76.10 BREAST CANCER SCREENING 09/24/2012 STINSON DO, BENNY K V76.2 CERVICAL CANCER SCREENING (PAP SMEAR) 09/24/2012 STINSON DO BENNY K V65.49 OTHER SPECIFIED COUNSELING 09/24/2012 STINSON DO, BENNY K V73.81 HPV SCREENING 09/24/2012 SITNSON DO, BENNY K V76.10 BREAST CANCER SCREENING 09/24/2012 STINSON DO, BENNY K V76.2 CERVICAL CANCER SCREENING (PAP SMEAR) 09/24/2012 JUAN RAMEY APRN V65.49 OTHER SPECIFIED COUNSELING 09/24/2012 JUAN RAMEY APRN V73.81 HPV SCREENING 09/24/2012 JUAN RAMEY APRN V76.10 BREAST CANCER SCREENING 09/24/2012 JUAN RAMEY APRN V7 6.2 CERVICAL CANCER SCREENING (PAP SMEAR) 01/16/2013 JOSSY GILL APRN 789.04 ABDOMINAL PAIN LEFT LOWER QUADRANT 01/16/2013 STINSON DO BENNY K 789.04 ABDOMINAL PAIN LEFT LOWER QUADRANT 01/16/2013 MATEO STINSON DOA K 789.04 ABDOMINAL PAIN LEFT LOWER QUADRANT 01/16/2013 MARIA E OROZCO APRN 789.04 ABDOMINAL PAIN LEFT LOWER QUADRANT 01/16/2013 STINSON DO BENNY K 789.04 ABDOMINAL PAIN LEFT LOWER QUADRANT 01/16/2013 MATEO STINSON DOA K 789.04 ABDOMINAL PAIN LEFT LOWER QUADRANT 01/16/2013 JUAN RAMEY APRN 789.04 ABDOMINAL PAIN LEFT LOWER QUADRANT 07/18/2013 MILAD LYONS BENNY K 487.1 INFLUENZA WITH OTHER RESPIRATORY MANIFESTATIONS 07/18/2013 MATEO STINSON DOA K 487.1 INFLUENZA WITH OTHER RESPIRATORY MANIFESTATIONS 07/18/2013 MARIA E OROZCO APRN 487.1 INFLUENZA WITH OTHER RESPIRATORY MANIFESTATIONS 07/18/2013 MATEO STINSON DOA K 487.1 INFLUENZA WITH OTHER RESPIRATORY MANIFESTATIONS 07/18/2013 MATEO STINSON DOA K 487.1 INFLUENZA WITH OTHER RESPIRATORY MANIFESTATIONS 07/18/2013 JUAN RAMEY APRN 48 7.1 INFLUENZA WITH OTHER RESPIRATORY MANIFESTATIONS 10/03/2013 STINSON DO BENNY K 287.5 THROMBOCYTOPENIA 10/03/2013 HAILEY LAUGHLIN APRN MARIA E N 287.5 THROMBOCYTOPENIA 10/03/2013 STINSON DO BENNY K 287.5 THROMBOCYTOPENIA 10/03/2013 STINSON DO BENNY K 287.5 THROMBOCYTOPENIA 10/03/2013 JUAN RAMEY APRN 28 7.5 THROMBOCYTOPENIA 11/11/2013 HARTMARIA E QUINTERO APRN N 691.8 OTHER ATOPIC DERMATITIS AND RELATED CONDITIONS 11/11/2013 STINSON DO BENNY K 691.8 OTHER ATOPIC DERMATITIS AND RELATED CONDITIONS 11/11/2013 STINSON MATEO LYONSA K 691.8 OTHER ATOPIC DERMATITIS AND RELATED CONDITIONS 11/11/2013 JUAN RAMEY APRN 69 1.8 OTHER ATOPIC DERMATITIS AND RELATED CONDITIONS 11/25/2013 BENNY STINSON DO K V67.9 UNSPECIFIED FOLLOW-UP EXAMINATION 11/25/2013 BENNY STINSON DO K V67.9 UNSPECIFIED FOLLOW-UP EXAMINATION 11/25/2013 JUAN RAMEY APRN V6 7.9 UNSPECIFIED FOLLOW-UP EXAMINATION 01/20/2014 CLARENCE TRAN MD Ot 287. 5 THROMBOCYTOPENIA NOS 01/20/2014 CLARENCE TRAN MD Ot V45. 86 BARIATRIC SURGERY STATUS 08/15/2014 JUAN RAMEY APRN 72 4.2 BACK PAIN, LOWER 09/29/2014 Ot V76.12 09/29/2014 [...] CHRONIC SINUSITIS, UNSPECIFIED 04/28/2015 ANIYAH CARTER Ot R 05 COUGH 04/29/2015 Ot 574.20 04/29/2015 Ot V72.83 04/29/2015 Ot V74.8 04/29/2015 Ot V76.12 04/29/2015 Ot 287.5 04/29/2015 Ot V45.86 04/29/2015 KIMBERLY ROMANO MD Ot 721.3 08/27/2015 Ot 574.20 08/27/2015 Ot V72.83 08/27/2015 Ot V74.8 08/27/2015 Ot V76.12 08/27/2015 Ot 287.5 08/27/2015 Ot V45.86 08/27/2015 KIMBERLY ROMANO MD Ot 721.3 12/28/2016 Ot 574.20 CHO LELITHIASIS NOS 12/28/2016 Ot V72.83 EXA M PRE- OPERATIVE NEC 12/28/2016 Ot V74.8 SCRE EN-BACTERIAL DIS NEC 12/28/2016 Ot V76.12 OTH SCREEN MAMMO- MALIGN NEOPLASM OF ARMANDO 12/28/2016 Ot 287.5 THRO MBOCYTOPENIA NOS 12/28/2016 Ot V45.86 BAR IATRIC SURGERY STATUS 12/28/2016 KIMBERLY ROMANO MD Ot 721.3 LUMBOSACRAL SPONDYLOSIS 12/28/2016 TORY FRANK APRN Ot R55 SYNCOPE AND COLLAPSE 12/28/2016 TROY FRANK APRN Ot Z53.21 PROC/TRTMT NOT CRD OUT D/T PT LV BEF SEE 01/01/2017 MARIA E COLEMAN ENGINEER SPECIALIST Ot Z12.31 ENCNTR SCREEN MAMMOGRAM FOR MALIGNANT NE 01/15/2017 MARIA E COLEMAN ENGINEER SPECIALIST Ot Z12.31 ENCNTR SCREEN MAMMOGRAM FOR MALIGNANT NE 04/06/2017 MARIA E COLEMAN ENGINEER SPECIALIST Ot Z12.31 ENCNTR SCREEN MAMMOGRAM FOR MALIGNANT NE 04/11/2017 BAICAROLYN MTZ L ENGINEER SPECIALIST Ot R06.02 SHORTNESS OF BREATH 04/11/2017 BAIMA CAROLYN L ENGINEER SPECIALIST Ot R53.83 OTHER FATIGUE 04/11/2017 BAIMA, CAROLYN L ENGINEER SPECIALIST Ot R 55 SYNCOPE AND COLLAPSE 04/11/2017 BAIMA, CAROLYN L ENGINEER SPECIALIST Ot Z95.810 PRESENCE OF AUTOMATIC (IMPLANTABLE) CARD 04/23/2017 BAIBIBI CAROLYN L ENGINEER SPECIALIST Ot R 55 SYNCOPE AND COLLAPSE 04/23/2017 BAIBIBI CAROLYN L ENGINEER SPECIALIST Ot Z82.49 FAMILY HX OF ISCHEM HEART DIS AND OTH DI 05/07/2017 BAIMA CAROLYN L ENGINEER SPECIALIST Ot R 55 SYNCOPE AND COLLAPSE 05/07/2017 BAIMA CAROLYN L ENGINEER SPECIALIST Ot Z82.49 FAMILY HX OF ISCHEM HEART DIS AND OTH DI 05/07/2017 BAIMA CAROLYN L ENGINEER SPECIALIST Ot R06.02 SHORTNESS OF BREATH 05/07/2017 BAIMA, CAROLYN L ENGINEER SPECIALIST Ot R53.83 OTHER FATIGUE 05/07/2017 BAIMA, CAROLYN L ENGINEER SPECIALIST Ot R 55 SYNCOPE AND COLLAPSE 05/07/2017 BAIBIBI CAROLYN L ENGINEER SPECIALIST Ot Z95.810 PRESENCE OF AUTOMATIC (IMPLANTABLE) CARD 05/23/2017 PAUL CAMPO FACHarjeet, ALI FACP CCDS Ot I10 ESSENTIAL (PRIMARY) HYPERTENSION 05/23/2017 PAUL CAMPO FACC, ALI FACP CCDS Ot M79.89 OTHER SPECIFIED SOFT TISSUE DISORDERS 05/23/2017 PAUL CAMPO FACC, ALI FACP CCDS Ot R55 SYNCOPE AND COLLAPSE 10/31/2017 MARIA E COLEMAN ENGINEER SPECIALIST Ot 477.9 ALLERGIC RHINITIS NOS 10/31/2017 MARIA E COLEMAN ENGINEER SPECIALIST Ot 478.19 OTHER DISEASE OF NASAL CAVITY AND SINUSE 10/31/2017 MARIA E COLEMAN ENGINEER SPECIALIST Ot 786.2 COUGH 10/31/2017 HAILEYSavanahMARIA E LAUGHLIN N [facility] Ot V76.12 OTH SCREEN MAMMO-MALIGN NEOPLASM OF ARMANDO 11/08/2018 CAYDEN SUMMER LYONS Ot E66.9 OBESITY, UNSPECIFIED 11/08/2018 [place] SUMMER LYONS Ot F17.210 NICOTINE DEPENDENCE, CIGARETTES, UNCOMPL 11/08/2018 [place] SUMMER LYONS Ot G43.909 MIGRAINE, UNSP, NOT INTRACTABLE, WITHOUT 11/08/2018 [place] SUMMER LYONS Ot J45.909 UNSPECIFIED ASTHMA, UNCOMPLICATED 11/08/2018 [place] SUMMER LYONS Ot M54.5 LOW BACK PAIN 11/08/2018 CAYDEN SUMMER LYONS Ot S16.1XX A STRAIN OF MUSCLE, FASCIA AND TENDON AT N 11/08/2018 CAYDEN SUMMER LYONS Ot S23.3XX A SPRAIN OF LIGAMENTS OF THORACIC SPINE, I 11/08/2018 CAYDEN DOSUMMER Ot S39.012 A STRAIN OF MUSCLE, FASCIA AND TENDON OF L 11/08/2018 [place] SUMMER LYONS Ot W07.XXX A FALL FROM CHAIR, INITIAL ENCOUNTER 11/08/2018 SUMMER RODARTE DO Ot Y92.002 BATHRM OF [facility] NON-INSTITUT RESDNCE SNGL 11/08/2018 [place] SUMMER LYONS Ot Z68.27 BODY MASS INDEX (BMI) 27.0-27.9, ADULT 11/08/2018 [place] SUMMER LYONS Ot Z79.51 SNF (CURRENT) USE OF INHALED STERO 11/08/2018 CAYDEN SUMMER LYONS Ot Z90.711 ACQUIRED ABSENCE OF UTERUS WITH REMAININ 11/08/2018 [place] SUMMER LYONS Ot Z91.040 LATEX ALLERGY STATUS 11/08/2018 [place] SUMMER LYONS Ot Z98.84 BARIATRIC SURGERY STATUS 11/11/2018 SUMMER RODARTE DO Ot E66.9 OBESITY, UNSPECIFIED 11/11/2018 [place] SUMMER LYONS Ot F17.210 NICOTINE DEPENDENCE, CIGARETTES, UNCOMPL 11/11/2018 CAYDEN SUMMER LYONS Ot J45.909 UNSPECIFIED ASTHMA, UNCOMPLICATED 11/11/2018 CAYDEN DO, USMMER K Ot M54.5 LOW BACK PAIN 11/11/2018 SUMMER RODARTE DO Ot S16.1XX A STRAIN OF MUSCLE, FASCIA AND TENDON AT N 11/11/2018 SUMMER RODARTE DO Ot S23.3XX A SPRAIN OF LIGAMENTS OF THORACIC SPINE, I 11/11/2018 [place] SUMMER LYONS Ot S39.012 A STRAIN OF MUSCLE, FASCIA AND TENDON OF L 11/11/2018 SUMMER RODARTE DO, Ot W07.XXX A FALL FROM CHAIR, INITIAL ENCOUNTER 11/11/2018 SUMMER RODARTE DO, Ot Y92.002 BATHRM OF [facility] NON-INSTITUT RESDNCE SNGL 11/11/2018 SUMMER RODARTE DO, Ot Z68.27 BODY MASS INDEX (BMI) 27.0-27.9, ADULT 11/11/2018 SUMMER RODARTE DO, Ot Z79.51 SNF (CURRENT) USE OF INHALED STERO 11/11/2018 SUMMER RODARTE DO, Ot Z90.711 ACQUIRED ABSENCE OF UTERUS WITH REMAININ 11/11/2018 SUMMER RODARTE DO, Ot Z91.040 LATEX ALLERGY STATUS 11/11/2018 [place] SUMMER LYONS Ot Z98.84 BARIATRIC SURGERY STATUS 11/11/2018 SUMMER RODARTE DO, Ot E66.9 OBESITY, UNSPECIFIED 11/11/2018 USMMER RODARTE DO Ot F17.210 NICOTINE DEPENDENCE, CIGARETTES, UNCOMPL 11/11/2018 SUMMER RODARTE DO, Ot G43.909 MIGRAINE, UNSP, NOT INTRACTABLE, WITHOUT 11/11/2018 SUMMER RODARTE DO Ot J45.909 UNSPECIFIED ASTHMA, UNCOMPLICATED 11/11/2018 SUMMER RODARTE DO, Ot M54.5 LOW BACK PAIN 11/11/2018 SUMMER RODARTE DO Ot S16.1XX A STRAIN OF MUSCLE, FASCIA AND TENDON AT N 11/11/2018 SUMMER RODARTE DO Ot S23.3XX A SPRAIN OF LIGAMENTS OF THORACIC SPINE, I 11/11/2018 SUMMER RODARTE DO Ot S39.012 A STRAIN OF MUSCLE, FASCIA AND TENDON OF L 11/11/2018 SUMMER RODARTE DO Ot W07.XXX A FALL FROM CHAIR, INITIAL ENCOUNTER 11/11/2018 SUMMER RODARTE DO, Ot Y92.002 BATHRM OF [facility] NON-INSTITUT RESDNCE SNGL 11/11/2018 SUMMER RODARTE DO Ot Z68.27 BODY MASS INDEX (BMI) 27.0-27.9, ADULT 11/11/2018 SUMMER RODARTE DO Ot Z79.51 SNF (CURRENT) USE OF INHALED STERO 11/11/2018 SUMMER RODARTE DO Ot Z90.711 ACQUIRED ABSENCE OF UTERUS WITH REMAININ 11/11/2018 SUMMER RODARTE DO Ot Z91.040 LATEX ALLERGY STATUS 11/11/2018 SUMMER RODARTE DO Ot Z98.84 BARIATRIC SURGERY STATUS 11/15/2018 MARCIAL WILSON MD, Ot Z01.81 8 ENCOUNTER FOR OTHER PREPROCEDURAL EXAMIN 11/15/2018 MARCIAL WILSON MD, Ot B96.81 HELICOBACTER PYLORI THE CAUSE OF DISE 11/15/2018 MARCIAL WILSON MD, Ot I10 ESSENTIAL (PRIMARY) HYPERTENSION 11/15/2018 MARCIAL WILSON MD, Ot J45.90 9 UNSPECIFIED ASTHMA, UNCOMPLICATED 11/15/2018 MARCIAL WILSON MD Ot K21.0 GASTRO-ESOPHAGEAL REFLUX DISEASE WITH ES 11/15/2018 MARCIAL WILSON MD Ot K22.8 OTHER SPECIFIED DISEASES OF ESOPHAGUS 11/15/2018 MARCIAL WILSON MD, Ot K29.50 UNSPECIFIED CHRONIC GASTRITIS WITHOUT BL 11/15/2018 MARCIAL WILSON MD, Ot R73.03 PREDIABETES 11/15/2018 MARCIAL WILSON MD, Ot Z98.84 BARIATRIC SURGERY STATUS 11/21/2018 MARCIAL WILSON MD, Ot B96.81 HELICOBACTER PYLORI THE CAUSE OF DISE 11/21/2018 MARCIAL WILSON MD, Ot I10 ESSENTIAL (PRIMARY) HYPERTENSION 11/21/2018 MARCIAL WILSON MD, Ot J45.90 9 UNSPECIFIED ASTHMA, UNCOMPLICATED 11/21/2018 MARCIAL WILSON MD, Ot K21.0 GASTRO-ESOPHAGEAL REFLUX DISEASE WITH ES 11/21/2018 MARCIAL WILSON MD, Ot K22.8 OTHER SPECIFIED DISEASES OF ESOPHAGUS 11/21/2018 MARCIAL WILSON MD, Ot K29.50 UNSPECIFIED CHRONIC GASTRITIS WITHOUT BL 11/21/2018 MARCIAL WILSON MD, Ot R73.03 PREDIABETES 11/21/2018 STEVE CAMPO, MARCIAL Cuello Z98.84 BARIATRIC SURGERY STATUS Procedures Code Description [place] [address] A1C (IN-HOUSE) 05/27/2012 43660 MAMM OGRAM, SCREENING 09/25/2012 59793 PAP SMEAR 09/25/2012 Q0091 PAP SMEAR OBTAIN SMEAR 09/25/2012 97413 INFL UENZA A & B (IN-HOUSE) 07/18/2013 64352 ROUT INE VENIPUNCTURE 10/01/2013 09789 MAMM OGRAM, SCREENING 10/01/2013 Medical O Xun, Yan 10/01/2013 46879 CBC 10/01/2013 4604167 GF R CALC (RESULT ONLY) 10/01/2013 22483 CMP 10/01/2013 07865 LIPI D PANEL 10/01/2013 31528 MAGNESIUM 10/01/2013 06706 VIT B 12 10/01/2013 25475 TSH 10/01/2013 12445 JAIR MIN D 25-HYDROXY (D2,D3, TOTAL) 10/01/2013 Devon Friedman 11/25/2013 Results Test Result Range Complete blood count (CBC) with automate d white blood cell (WBC) differential - 09/13/19 18:28 Blood leukocytes automated count (number/volume) 7.8 10*3/uL 4.3-11.0 Blood erythrocytes automated count (number/volume) 5.08 10*6/uL 4.35-5.85 Venous blood hemoglobin measurement (mass/volume) 14.5 g/dL 11.5-16.0 Blood hematocrit (volume fraction) 44 % 35-52 Automated erythrocyte mean corpuscular volume 86 [ foz_us] 80-99 Automated erythrocyte mean corpuscular h emoglobin (mass per erythrocyte) 29 pg 25-34 Automated erythrocyte mean corpuscular h emoglobin concentration measurement (mass/volume) 33 g/dL 32-36 Automated erythrocyte distribution width ratio 14. 0 % 10.0- 14.5 Automated blood platelet count (count/volume) 220 10*3/uL 130-400 Automated blood platelet mean volume measurement 10.3 [foz_us] 7.4-10.4 Automated blood neutrophils/100 leukocytes 58 % 42-75 Automated blood lymphocytes/100 leukocytes 30 % 12-44 Blood monocytes/100 leukocytes 8 % 0-12 Automated blood eosinophils/100 leukocytes 4 % 0-10 Automated blood basophils/100 leukocytes 0 % 0-10 Blood neutrophils automated count (number/volume) 4.5 10*3 1.8-7.8 Blood lymphocytes automated count (number/volume) 2.3 10*3 1.0-4.0 Blood monocytes automated count (number/volume) 0. 6 10*3 0.0-1.0 Automated eosinophil count 0.3 10*3/uL 0 .0-0.3 Automated blood basophil count (count/volume) 0.0 10*3/uL 0.0-0.1 Comprehensive metabolic panel - 09/13/19 18:28 Serum or plasma sodium measurement (moles/volume) 140 mmol/L 135-145 Serum or plasma potassium measurement (moles/volume) 4.1 mmol/L 3.6-5.0 Serum or plasma chloride measurement (moles/volume) 105 mmol/L 98-107 Carbon dioxide 24 mmol/L 21-32 Serum or plasma anion gap determination (moles/volume) 11 mmol/L 5-14 Serum or plasma urea nitrogen measurement (mass/volume ) 21 mg/dL 7-18 Serum or plasma creatinine measurement (mass/volume) 0.89 mg/dL 0.60-1.30 Serum or plasma urea nitrogen/creatinine mass ratio 24 NRG Serum or plasma creatinine measurement w ith calculation of estimated glomerular filtration rate > NRG Serum or plasma glucose measurement (mass/volume) 108 mg/dL 70-105 Serum or plasma calcium measurement (mass/volume) 9.1 mg/dL 8.5-10.1 Serum or plasma total bilirubin measurement (mass/volu me) 0.2 mg/dL 0.1-1.0 Serum or plasma alkaline phosphatase isela surement (enzymatic activity/volume) 68 U/L 40-136 Serum or plasma aspartate aminotransfera se measurement (enzymatic activity/volume) 21 U/L 5-34 Serum or plasma alanine aminotransferase measurement (enzymatic activity/volume) 33 U/L 0-55 Serum or plasma protein measurement (mass/volume) 7.0 g/dL 6.4-8.2 Serum or plasma albumin measurement (mass/volume) 4.2 g/dL 3.2-4.5 CALCIUM CORRECTED 8.9 mg/dL 8.5-10.1 Fibrin D-dimer FEU measurement in platel et poor plasma (mass/volume) - 09/13/19 18:28 Fibrin D-dimer FEU measurement in platelet poor plasma (mass/volume) 0.51 ug/mL 0.00-0.49 Encounters ACCT No. Visit Date/Time Discharge Status Pt. Type Provider Facility Loc./Unit Complaint [id number] 10/12/2014 09:13:00 10/12/2014 23:59: 59 CLS Outpatient JUAN RAMEY APRN Jaimie [id number] 04/24/2014 10:37:00 04/24/2014 23:59: 59 CLS Outpatient BENNY STINSON DO [id number] 11/25/2013 09:22:00 11/25/2013 23:59: 59 CLS Outpatient BENNY STINSON DO [id number] 11/11/2013 07:53:00 11/11/2013 23:59: 59 CLS Outpatient HAILEY LAUGHLIN APRCaroline MARIA E Caroline [id number] 10/01/2013 10:44:00 10/01/2013 23:59: 59 CLS Outpatient BENNY STINSON DO [id number] 07/18/2013 11:24:00 07/18/2013 23:59: 59 CLS Outpatient BENNY STINSON DO [id number] 01/16/2013 13:59:00 01/16/2013 23:59: 59 CLS Outpatient JOSSY GILL APRN [id number] 09/24/2012 10:00:00 09/24/2012 23:59: 59 CLS Outpatient BENNY STINSON DO [id number] 06/20/2012 16:08:00 06/20/2012 23:59: 59 CLS Outpatient JANUARY LOPES APRN [id number] 05/27/2012 10:53:00 05/27/2012 23:59:5 9 CLS Outpatient ANDREAS CISNEROS MD [id number] 01/07/2013 15:14:00 Document Registration [id number] 09/13/2019 17:19:00 020 20:10:00 DIS Emergency PRINCE CORDOVA MD [facility] ER R KNEE PAIN/SWELLING/NU MBNESS [id number] 11/15/2018 11:21:00 019 14:55:00 DIS Outpatient MARCIAL WILSON MD [facility] ENDO REFLUX,COUGH [id number] 11/14/2018 09:16:00 019 11:49:00 DIS Outpatient MARCIAL WILSON MD [facility] PREOP EGD [id number] 11/08/2018 02:36:00 019 06:13:00 DIS Emergency SUMMER RODARTE DO [facility] ER FELL BACK IN CHAIR [id number] 05/22/2017 10:00:00 017 10:00:00 CAN Preadmit PAUL CAMPO FACC, LEANDRA BARKER CCDS [facility] CARD HTN I10 [id number] 04/17/2017 11:42:00 017 23:59:59 CLS Outpatient CAROLYN LUNSFORD [facility] RAD R55 [id number] 04/10/2017 07:04:00 017 23:59:59 CLS Outpatient CAROLYN LUNSFORD ENGINEER SPECIALIST [facility] RAD SYNCOPE [id number] 12/29/2016 09:46:00 017 23:59:59 CLS Outpatient MARIA E COLEMAN AR DEVELOPMENT TRAINER [facility] RAD WELL WOMAN EXAM Z01.419 [id number] 08/27/2015 10:18:00 016 23:59:59 CLS Emergency TORY FRANK APRN [facility] ER SYNCOPAL EPISODE/VOMITI NG [id number] 04/28/2015 11:50:00 015 14:48:00 DIS Emergency ANIYAH CARTER [facility] ER HEADACHE/BLURRY VISION SINUS DRAINAGE [id number] 09/29/2014 13:05:00 015 23:59:59 CLS Outpatient KIMBERLY ROMANO MD [facility] RAD LUMBAGO [id number] 10/22/2013 13:16:00 014 00:01:00 DIS Outpatient CLARENCE TRAN MD [facility] ONC [id number] 10/06/2013 11:05:00 014 23:59:59 CLS Outpatient MARIA E COLEMAN AR DEVELOPMENT TRAINER [facility] RAD SCREENING [id number] 09/17/2019 07:00:00 P ALMAS CORDOVA MD, PRINCE Koenig [facility] RAD RT KNEE PAIN,SWELLING [id number] 01/21/2014 00:00:00 Document Registration [id number] 09/30/2012 10:33:00 Document Registration [id number] 09/05/2012 08:20:00 Document Registration [id number] 08/29/2012 10:05:00 Document Registration [id number] 07/21/2012 02:36:00 Document Registration [id number] 06/04/2012 12:24:00 Document Registration [id number] 05/10/2009 14:03:00 Document Registration [id number] 01/16/2019 16:40:00 01/16/2019 23:59:5 9 CLS Outpatient JANUARY LOPES APRN OTIS ORCHARDS [id number] 04/25/2015 03:19:00 015 04:40:00 DIS Emergency Trinh Mason PA-C [facility].ED
== END 2019-09-13 20:10 | disposition home or self-care (01) ==
LOC: EDUNIT# 17:18 → ER 17:19
DX: M25.561 Pain in right knee (principal); R20.2 Paresthesia of skin; K21.9 Gastro-esophageal reflux disease without esophagitis; E66.9 Obesity, unspecified; F17.210 Nicotine dependence, cigarettes, uncomplicated; Z68.41 Body mass index [BMI] 40.0-44.9, adult; Z91.040 Latex allergy status
CPT/HCPCS: 36415; 73562; 80053; 85025; 85379

== ENCOUNTER → 2019-09-17 | Outpatient (CLI) | payer OTHER ==
[~2019-09-17] MED LIST changes: +ENOX120D SQ; +ENOX120D5 SQ
--- NOTE | 2019-09-17 08:11 | Diagnostic Imaging Report ---
PROCEDURE: US right lower extremity venous. TECHNIQUE: Multiple real-time grayscale images were obtained over the right lower extremity in various projections. Additional spectral analysis and color Doppler duplex images were also obtained. INDICATION: Right knee pain and swelling. There is no evidence of right lower extremity DVT. Right lacunae deep venous system shows normal compressibility with normal response to augmentation and Valsalva. No fluid collection or mass is seen. IMPRESSION: No evidence of right lower extremity DVT. Dictated by: Dictated on workstation # [id number]
== END ==
LOC: RAD 06:40
PROVIDERS: ATTEND Emergency Medicine
DX: M25.461 Effusion, right knee (principal)

== ENCOUNTER 2021-11-16 21:48 | Emergency (ER) | payer BC ==
[~2021-11-16] VITALS: Ht 165 cm; Wt 110.0 kg
[~2021-11-16 21:48] MED LIST changes: +CYCL10TA25 PO; -CYCL10TA9 PO
[2021-11-16] MEDS ORDERED: ROPI0.253 (22:11)
[2021-11-16] MEDS ORDERED: LISI10TA25 (22:11)
[2021-11-16] MEDS ORDERED: FUROSEMIDE 20 MG (LASIX) TAB PO STA (22:23)
[2021-11-16 22:34] LABS: BASOPHILS % (AUTO) 0 % (0-10); EOSINOPHILS # (AUTO) 0.2 10^3/uL (0.0-0.3); EOSINOPHILS % (AUTO) 2 % (0-10); HEMATOCRIT 41 % (35-52); HEMOGLOBIN 13.5 g/dL (11.5-16.0); LYMPHOCYTES % (AUTO) 43 % (12-44); MEAN CORPUSCULAR HEMOGLOBIN 28 pg (25-34); MEAN CORPUSCULAR HGB CONC 33 g/dL (32-36); MEAN CORPUSCULAR VOLUME 86 fL (80-99); MONOCYTES # (AUTO) 0.5 10^3/uL (0.0-1.0); MONOCYTES % (AUTO) 6 % (0-12); NEUTROPHILS # (AUTO) 4.3 10^3/uL (1.8-7.8); NEUTROPHILS % (AUTO) 48 % (42-75); PLATELET COUNT 221 10^3/uL (130-400); WHITE BLOOD COUNT 9.1 10^3/uL (4.3-11.0)
[2021-11-16 22:44] LABS: ALBUMIN 4.1 GM/DL (3.2-4.5); POTASSIUM 3.9 MMOL/L (3.6-5.0)
[2021-11-16] MEDS ORDERED: FURO-125 PO (22:45)
--- NOTE | 2021-11-16 22:45 | ED Lower Extremity ---
General Chief Complaint: Lower Extremity Stated Complaint: EDEMA Nursing Triage Note: c/o restless legs x1 week, leg swelling x3 days. started on requip 11/15/21 without improvement. History of Present Illness Date Seen by Provider: November 16, 2021 Time Seen by Provider: 22:05 Initial Comments 51-year-old female presents for approximately restless leg syndrome, she has been treated by her primary care with gabapentin which caused nausea and then Requip which she has taken for 3 days and had no improvement. Over the last few days she has also noticed some swelling in her ankles. She is on lisinopril for her hypertension but she had quit taking that, she did resume it recently. 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 She has had problems with Planter fasciitis in the past and it felt surgery. She also has concerns with anxiety. She is seeking a new primary care provider at the present time. She also reports stopping cigarette smoking recently. Onset: other Pain/Injury Location: bilateral leg, bilateral ankle Method of Injury: unknown Allergies and Home Medications Allergies Coded Allergies: latex (Verified Allergy, Unknown, 04/28/15) Patient Home Medication List Home Medication List Reviewed: Yes Enoxaparin Sodium (Enoxaparin Sodium) 120 Mg/0.8 Ml Syringe, 110 MG SQ Q12H Prescribed by: JOSE MIGUEL IBARRA on 09/14/19 1102 Lisinopril (Lisinopril) 10 Mg Tablet, (Reported) Entered as Reported by: GHISLAINE JIMÉNEZ on 11/16/212210 Last Action: New Order Pantoprazole Sodium (Protonix) 40 Mg Tablet.dr, 40 MG PO DAILY Prescribed by: MICHAEL KHAN on 11/15/18 1430 Ropinirole HCl (Ropinirole HCl) 0.25 Mg Tablet, (Reported) Entered as Reported by: GHISLAINE JIMÉNEZ on 11/16/212210 Last Action: New Order Review of Systems Constitutional: no symptoms reported Musculoskeletal: see HPI, muscle cramps (bilat LEs intermittent) All Other Systems Reviewed Negative Unless Noted: Yes Past Jqwbxml-Jxvnii-Toxxbp Hx Patient Social History Tobacco Use?: No Smoking Status: Former Smoker Substance use?: No Alcohol Use?: No Pt feels they are or have been: No Immunizations Up To Date Tetanus Booster (TDap): Less than 5yrs Seasonal Allergies Seasonal Allergies: No Past Medical History Surgery/Hospitalization HX: lap band, p. 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 History: Hysterectomy Sexually Transmitted Disease: No HIV/AIDS: No Genitourinary: No Gastrointestinal: Yes (LAP BAND SURGERY, FEBRUARY 05, 2012.) Gastroesophageal Reflux Musculoskeletal: No Endocrine: Yes (OBESITY--S/P LAP BAND) HEENT: No Loss of Vision: Denies Hearing Impairment: Denies Cancer: No Psychosocial: No Integumentary: No Blood Disorders: No Family Medical History Reviewed Nursing Family Hx No Pertinent Family Hx Physical Exam Vital Signs Vital Signs - First Documented 11/16/21 22:01 Temp 36.8 Pulse 88 Resp 16 B/P (MAP) 144/104 (117) Pulse Ox 97 O2 Delivery Room Air Capillary Refill : Less Than 3 Seconds Height, Weight, BMI Height: 5'8.00" Weight: 183lbs. 0.0oz. 83.900207gf; 40.00 BMI Method:Stated General Appearance: WD/WN, no apparent distress Cardiovascular: normal peripheral pulses, regular rate, rhythm Respiratory: chest non-tender, lungs clear, normal breath sounds Gastrointestinal: normal bowel sounds, non tender, soft Legs: bilateral leg non-tender, bilateral leg normal range of motion, bilateral leg swelling (1+ edema) Neurologic/Psychiatric: no motor/sensory deficits, alert, normal mood/affect, oriented x 3 Progress/Results/Core Measures Results/Orders Lab Results Laboratory Tests Test 11/16/21 22:28 Range/Units White Blood Count 9.1 4.3-11.0 10^3/uL Red Blood Count 4.78 3.80-5.11 10^6/uL Hemoglobin 13.5 11.5-16.0 g/dL Hematocrit 41 35-52 % Mean Corpuscular Volume 86 80-99 fL Mean Corpuscular Hemoglobin 28 25-34 pg Mean Corpuscular Hemoglobin Concent 33 32-36 g/dL Red Cell Distribution Width 14.0 10.0-14.5 % Platelet Count 221 130-400 10^3/uL Mean Platelet Volume 10.0 9.0-12.2 fL Immature Granulocyte % (Auto) 0 % Neutrophils (%) (Auto) 48 42-75 % Lymphocytes (%) (Auto) 43 12-44 % Monocytes (%) (Auto) 6 0-12 % Eosinophils (%) (Auto) 2 0-10 % Basophils (%) (Auto) 0 0-10 % Neutrophils # (Auto) 4.3 1.8-7.8 10^3/uL Lymphocytes # (Auto) 4.0 1.0-4.0 10^3/uL Monocytes # (Auto) 0.5 0.0-1.0 10^3/uL Eosinophils # (Auto) 0.2 0.0-0.3 10^3/uL Basophils # (Auto) 0.0 0.0-0.1 10^3/uL Immature Granulocyte # (Auto) 0.0 0.0-0.1 10^3/uL My Orders Orders - ELIJAH CARRION Cbc With Automated Diff (11/16/21 22:23) Comprehensive Metabolic Panel (11/16/21 22:23) Furosemide Tablet (Lasix Tablet) (11/16/21 22:23) Vital Signs/I&O 11/16/21 22:01 Temp 36.8 Pulse 88 Resp 16 B/P (MAP) 144/104 (117) Pulse Ox 97 O2 Delivery Room Air Blood Pressure Mean: 117 Departure Impression Primary Impression: Restless leg syndrome Disposition: 01 HOME, SELF-CARE Condition: Improved Departure-Patient Inst. Decision time for Depature: 22:45 Referrals: NO,LOCAL PHYSICIAN (PCP) Primary Care Physician JANUARY LOPES (Family) Primary Care Physician Patient Instructions: Restless Legs Syndrome (DC) Add. Discharge Instructions: Take your medications as prescribed. Adhere to a low-sodium diet. Try 1 teaspoon of mustard at onset of leg cramps. Increase water intake. Consider support hose, for leg swelling. Elevate your legs, for 1 hours, prior to bedtime. Take Tylenol PM at bedtime to assist with sleep. Follow up with Primary Care, for further treatment of chronic complaints. Eat 1 banana daily, while taking the Lasix. Return to emergency dept for new, urgent health care concerns. All discharge instructions reviewed with patient and/or family. Voiced understanding. Scripts Furosemide (Lasix) 20 Mg Tablet 20 MG PO DAILY, #5 TAB 0 Refills Prov: ELIJAH CARRION 11/16/21 ELIJAH CARRION November 16, 2021 22:45
[2021-11-16 22:46] LABS: CALCIUM 9.4 MG/DL (8.5-10.1)
[2021-11-16 22:47] LABS: TOTAL PROTEIN 7.2 GM/DL (6.4-8.2)
[2021-11-16 22:49] LABS: BILIRUBIN,TOTAL 0.2 MG/DL (0.1-1.0)
[2021-11-16 22:51] LABS: CREATININE SERUM 0.81 MG/DL (0.60-1.30)
[2021-11-16 23:03] VITALS: BP 124/86
== END 2021-11-16 23:05 | disposition home or self-care (01) ==
LOC: EDUNIT# 21:48 → ER 21:52
DX: G25.81 Restless legs syndrome (principal); R60.0 Localized edema; E66.9 Obesity, unspecified; I10 Essential (primary) hypertension; Z87.891 Personal history of nicotine dependence; Z79.899 Other long term (current) drug therapy
CPT/HCPCS: 36415; 80053; 85025